=== PATIENT | male | born 1940 | race Caucasian/White ===

== ENCOUNTER 2018-02-11 22:43 | Emergency (ER) | payer OTHER ==
--- OUTSIDE RECORDS SUMMARY | 2018-02-11 22:47 | XMS REPORT | Continuity of Care Document ---
:1940 Author Organization Interface Problems Problem Status Onset Classification Date Comments Source Date Reported BODY MASS INDEX Active Condition 05/05/2014 38.0-38.9, ADULT 015 Medical Group Rotator cuff Active Problem 09/03/2017 Data syndrome<sup>53, 54, 014 migrated Medical 55, 56, 57</sup> from [facility]ricity on 08/22/14. PRE-OPERATIVE Active Condition 05/05/2014 CARDIOVASCULAR 014 Medical EXAMINATION Group Preoperative Active Problem 09/03/2017 Data cardiovascular 014 migrated Medical examination<sup>51, from [facility] 52</sup> Centricity on 08/25/14. ROTATOR CUFF TEAR Active Condition 05/05/2014 014 Medical Group SHOULDER PAIN, RIGHT Active Condition 05/05/2014 014 Medical Group ELBOW PAIN, RIGHT Active Condition 05/05/2014 014 Medical Group Pain in elbow<sup>37, Active Problem 09/03/2017 Data 38, 39</sup> 014 migrated Medical from [facility]ricity on 08/22/14. Shoulder joint Active Problem 09/03/2017 Data pain<sup>60</sup> 014 migrated Medical from [facility]ity on 08/22/14. NEED PROPHYLACTIC Active Condition 05/05/2014 VACCINATION&INOCULATIO 014 Medical N FLU Group ALLERGIC RHINITIS Active Condition 05/05/2014 CAUSE UNSPECIFIED 013 Medical Group BRONCHITIS Active Condition 05/05/2014 013 Medical Group ARTHRALGIA Active Condition 05/05/2014 013 Medical Group PARESTHESIA Active Condition 05/05/2014 013 Medical Group Allergic Active Problem 09/03/2017 Data rhinitis<sup>1</sup> 013 migrated Medical from [facility] Centricity on 08/22/14. Bronchitis<sup>5, Active Problem 09/03/2017 Data 6</sup> 013 migrated Medical from [facility]ity on 08/25/14. Joint pain<sup>33, 34, Active Problem 09/03/2017 Data 35</sup> 013 migrated Medical from [facility]ity on 08/22/14. Paresthesia<sup>41, Active Problem 09/03/2017 Data 42, 43</sup> 013 migrated Medical from [facility]ity on 08/22/14. OTITIS EXTERNA Inactive Condition 05/05/2014 013 Medical Group CERUMEN IMPACTION Active Condition 05/05/2014 013 Medical Group Impacted Active Problem 09/03/2017 Data cerumen<sup>31, 013 migrated Medical 32</sup> from [facility] Centricity on 08/25/14. Otitis Resolved Problem 09/03/2017 Data externa<sup>36</sup> 013 migrated Medical from [facility] Centricity on 10/10/14. PARKINSONISM, MILD Active Condition 05/05/2014 013 Medical Group Parkinsonism<sup>44, Active Problem 09/03/2017 Data 45, 46</sup> 013 migrated Medical from [facility] Centricity on 08/22/14. ABDOMINAL PAIN RIGHT Inactive Condition 05/05/2014 UPPER QUADRANT 013 Medical Group ARM PAIN, LEFT Active Condition 05/05/2014 013 Medical Group Pain in upper Active Problem 09/03/2017 Data limb<sup>40</sup> 013 migrated Medical from [facility]ricity on 08/22/14. DYSPNEA Active Condition 05/05/2014 012 Medical Group Pleurisy<sup>50</sup> Active Problem 09/03/2017 Data 012 migrated Medical from [facility] Centricity on 08/22/14. BICIPITAL Active Condition 05/05/2014 TENOSYNOVITIS 012 Medical Group SHOULDER JOINT Active Condition 05/05/2014 REPLACEMENT BY OTHER [facility] Medical MEANS Group Biceps Active Problem 09/03/2017 Data tendinitis<sup>4</sup> 012 migrated Medical from [facility] Centricity on 08/22/14. 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 SYNCOPE Inactive Condition 05/05/2014 012 Medical Group CARPAL TUNNEL Active Condition 05/05/2014 SYNDROME, BILATERAL 012 Medical Group Carpal tunnel Active Problem 09/03/2017 Data syndrome<sup>7, 8, 012 migrated Medical 9</sup> from [facility] Centricity on 08/22/14. PREVENTIVE HEALTH CARE Active Condition 05/05/2014 [facility] Medical Group Screening - health Active Problem 09/03/2017 Data check<sup>58, 59</sup> 012 migrated Medical from [facility] Centricity on 08/25/14. PERIPHERAL NEUROPATHY Active Condition 05/05/2014 012 Medical Group Peripheral nerve Active Problem 09/03/2017 Data disease<sup>47, 48, 012 migrated Medical 49</sup> from [facility] Centricity on 08/22/14. LEG PAIN Inactive Condition 05/05/2014 [facility] Medical Group TREMOR Active Condition 05/05/2014 012 Medical Group URGE INCONTINENCE Active Condition 05/05/2014 [facility] Medical Group Tremor<sup>61, 62, Active Problem 09/03/2017 Data 63</sup> 012 migrated Medical from [facility] Centricity on 08/22/14. Urge incontinence of Active Problem 09/03/2017 Data urine<sup>64, 65, 012 migrated Medical 66</sup> from [facility] on 08/22/14. HYPERTENSION Active Condition 05/05/2014 Medical Group ACID REFLUX DISEASE Active Condition 05/05/2014 Medical Group EPIGASTRIC PAIN Active Condition 05/05/2014 Medical Group CHF Active Condition 05/05/2014 Medical Group HYPERCHOLESTEROLEMIA Active Condition 05/05/2014 Medical Group COPD Active Condition 05/05/2014 Medical Group BACK PAIN Active Condition 05/05/2014 Medical Group Anxiety Active Problem 09/03/2017 Medical Group Backache<sup>2, Active Problem 09/03/2017 Data 3</sup> migrated Medical from [facility] Centricity on 08/25/14. Cancer of skin Resolved Problem 09/03/2017 Medical Group CHF - Congestive heart Active Problem 09/03/2017 failure Medical Group Chronic obstructive Active Problem 09/03/2017 Data lung disease<sup>10, migrated Medical 11, 12</sup> from [facility] Centricity on 08/22/14. Congestive heart Active Problem 09/03/2017 Data failure<sup>16, 17, migrated Medical 18</sup> from [facility] Cent[facility]ity on 08/22/14. Epigastric Active Problem 09/03/2017 Data pain<sup>19, 20, migrated Medical 21</sup> from [facility] Centricity on 08/22/14. Frequency Active Problem 09/03/2017 Medical Group Gastroesophageal Active Problem 09/03/2017 Data reflux disease<sup>22, migrated Medical 23, 24</sup> from [facility] Centricity on 08/22/14. S/p shoulder Active Problem 09/03/2017 replacement Medical Group Hard of hearing Active Problem 09/03/2017 Medical Group Hypercholesterolemia<s Active Problem 09/03/2017 Data up>25, 26, 27</sup> migrated Medical from [facility] Centricity on 08/22/14. Hyperlipidemia Active Problem 09/03/2017 Medical Group Hypertension Active Problem 09/03/2017 Medical Group Hypertensive Active Problem 09/03/2017 Data disorder<sup>28, 29, migrated Medical 30</sup> from [facility] Centricity on 08/22/14. 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 Medical Group Encounter for Active Problem 09/03/2017 preoperative vascular Medical examination Group Sleep apnea Active Problem 09/03/2017 Medical Group Depression Active Problem 02/15/2017 Medical Group Glasses Active Problem 02/15/2017 Medical Group Medications Medication Details Route Status Patient Ordering Order Source Instructions Provider Date Furosemide 20 MG Oral 20 mg=1 tab, Active Tablet PO, Daily, # 2018 Medical 30 tab, 5 Group Refill(s), Pharmacy: [facility]/pharmacy #[id number] hydrochlorothiazide 12.5 mg=1 Active 12.5 mg oral tablet tab, PO, 2018 Medical Daily, # 30 Group tab, 5 Refill(s), Pharmacy: [facility]/pharmacy #[id number] CoQ10 4 tabs, PO, Active BID 2018 Medical Group gabapentin 300 MG 300 mg=1 Active Oral Capsule cap, PO, BID 2018 Medical Group Diclofenac Sodium 2 gm, TOP, Active 0.01 MG/MG Topical QID, # 981 2016 Medical Gel [Voltaren] gm, 3 Group Refill(s), Pharmacy: [facility]/pharmacy #[id number] VOLTAREN 1 % GEL 4 g on Active joints 2013 Medical q.i.d. Group CYMBALTA 60 MG CPEP take 1 cap Active po qd 2013 Medical Group LYRICA 75 MG CAPS 1 po q hs Active 2013 Medical Group ADULT ASPIRIN EC LOW 1 po bid Active STRENGTH 81 MG TBEC 2013 Medical Group LYRICA 75 MG CAPS 1 po q hs Active 2013 Medical Group CYMBALTA 60 MG CPEP take 1 cap Active po qd 2013 Medical Group LYRICA 75 MG CAPS 1 po q hs Active 2013 Medical Group VOLTAREN 1 % GEL 4 g on No joints Longer 2014 Medical q.i.d. Active Group CYMBALTA 60 MG CPEP take 1 cap Active po qd 2013 Medical Group LYRICA 75 MG CAPS 1 po q hs Active 2013 Medical Group LYRICA 75 MG CAPS 1 po q hs Active 2013 Medical Group TOVIAZ 8 MG [id number] one p.o. No q.h.s. Longer 2013 Medical Active Group ULTRAM 50 MG TABS one every Active 4-6 hours 2012 Medical p.r.n. pain Group ULTRAM 50 MG TABS one every No 03/17/ 4-6 hours Longer 2012 Medical p.r.n. pain Active Group LEVAQUIN 750 MG TABS one p.o. q. Active day 2012 Medical Group LEVAQUIN 750 MG TABS one p.o. q. No day Longer 2012 Medical Active Group SINEMET 25-100 MG 1 po bid Active TABS 2012 Medical Group SINEMET 25-100 MG 1 po bid No TABS Longer 2012 Medical Active Group PRAVASTATIN SODIUM 80 one po daily Active MG TABS 2012 Medical Group CENTRUM SILVER TABS ONE PO QD Active 2012 Medical Group BYSTOLIC 10 MG TABS take 1 No tablet po Longer 2013 Medical twice a day Active Group PRAVASTATIN SODIUM 80 one po daily Active MG TABS 2013 Medical Group BYSTOLIC 10 MG TABS take 1 Active tablet po 2013 Medical twice a day Group PRAVASTATIN SODIUM 80 one po daily Active MG TABS 2013 Medical Group PRAVASTATIN SODIUM 80 one po daily Active MG TABS 2013 Medical Group BYSTOLIC 10 MG TABS take 1 Active tablet po 2013 Medical twice a day Group PRIMIDONE 50 MG TABS one half po No 01/16/ MH qhs x 1 Longer 2011 Medical week, Active Group thereafter 1 po q hs PRIMIDONE 50 MG TABS one half po No 01/16/ MH qhs x 1 Longer 2011 Medical week, Active Group thereafter 1 po q hs PRIMIDONE 50 MG TABS one half po No 01/16/ MH qhs x 1 Longer 2011 Medical week, Active Group thereafter 1 po q hs PA COENZYME Q-10 400 1 p.o. daily Active MG CAPS 2011 Medical Group POTASSIUM CHLORIDE 20 1 p.o. daily Active MEQ PACK 2011 Medical Group CASCARA SAGRADA 450 as needed Active MG CAPS 2011 Medical Group STOOL SOFTENER 240 MG as needed Active CAPS 2011 Medical Group POTASSIUM CHLORIDE 20 1 p.o. daily Active MEQ PACK 2011 Medical Group LISINOPRIL 40 MG TABS take 1 Active tablet po 2011 Medical daily Group NORVASC 10 MG TABS take 1 po Active daily 2011 Medical Group FUROSEMIDE 20 MG TABS take 1 Active tablet po 2011 Medical daily Group VESICARE 10 MG TABS take 1 No tablet po Longer 2011 Medical daily Active Group OMEPRAZOLE 20 MG CPDR take 1 po No daily Longer 2011 Medical Active Group LISINOPRIL 40 MG TABS take 1 Active tablet po 2011 Medical daily Group VESICARE 10 MG TABS take 1 No tablet po Longer 2011 Medical daily Active Group OMEPRAZOLE 20 MG CPDR take 1 po No daily Longer 2011 Medical Active Group LISINOPRIL 40 MG TABS take 1 Active tablet po 2011 Medical daily Group NORVASC 10 MG TABS take 1 po Active daily 2011 Medical Group FUROSEMIDE 20 MG TABS take 1 Active tablet po 2011 Medical daily Group OMEPRAZOLE 20 MG CPDR take 1 po No daily Longer 2011 Medical Active Group LISINOPRIL 40 MG TABS take 1 Active tablet po 2011 Medical daily Group FUROSEMIDE 20 MG TABS take 1 Active tablet po 2011 Medical daily Group OMEPRAZOLE 20 MG CPDR take 1 po No daily Longer 2011 Medical Active Group Allergies, Adverse Reactions, Alerts Substance Category Reaction Severity Reaction Status Date Comments Source type Reported LIPITOR Drug LIPITOR allergy 2 Medical Group CRESTOR Drug CRESTOR allergy 2 Medical Group PRAVACHOL Drug PRAVACHOL allergy 2 Medical Group TILIPIX Drug TILIPIX allergy 2 Medical Group atorvastati Assertion Drug Active Data n<sup>2</dupree allergy 2 migrated Medical p> from Group Centricity on 07/23/14. Originally documented as LIPITOR. rosuvastati Assertion Drug Active Data n<sup>3</dupree allergy 2 migrated Medical p> from Group Centricity on 07/23/14. Originally documented as CRESTOR. SINEMET Food SINEMET allergy 3 Medical Group TETANUS Drug TETANUS allergy Medical Group HORSE SERUM Drug HORSE allergy SERUM Medical Group tetanus Assertion Drug Active Data toxoid<sup> allergy migrated Medical 1</sup> from [email or web address] [facility] [employer] on 07/23/14. Originally documented as TETANUS. Immunizations Immunization Date Site Status Last Comments Source Given Updated influenza virus completed GE Result Comment: Medical vaccine, 4 fluzone Group inactivated<sup> preservative 1</sup> free (6-35 mo.) [[id number]]. Migrated from OBS ; Data migrated from [employer] on 04/27/2015. influenza completed Medical immunization 2 Group (Flu Vax) has been administered Hx influenza Right completed GE Result Comment: Medical vaccine-unspecif 2 Deltoid fluvax. Group ied<sup>2</sup> Migrated from OBS ; Data migrated from [employer] on 04/27/2015. Results Order Name Results Value Reference Date Interpretation Comments Source Range Elbow 2 Elbow 2 Patient Name: APRIL PARNELL. 02/12 - [facility] DX views DX - [place] : 1940; Age: 76 years y/o; Male. MR: [id number]. Read by: Bayron Rocha MD Dictated Date/time: 02/12/17 16:47 Ordering Physician: Ulysses Jones MD. Electronically Signed by: Bayron Rocha MD 02/12/17 16:49 FINAL REPORT RIGHT ELBOW 2 VIEWS. HISTORY: Status post injury with right elbow pain. COMPARISON: Right elbow x-ray 06/21/2015. FINDINGS: Frontal and lateral views of the right elbow were obtained. Moderate to marked radiocapitellar and ulnotrochlear joint space narrowing noted with marked periarticular osteophyte formation and degenerative fibrocystic change. No fracture, dislocation or elbow genesis nt effusion. Stable 6 mm well-corticated ossific fragment noted anterior to the distal humeral metaphysis suspicious for intra-articular ossific loose body. SL: [id number] Shoulder Shoulder EXAM: Shoulder series DX 06/20 - [facility] series DX series DX /2015 - [place] HISTORY: PAIN COMPARISON: 02/22/2015 Read by: Igor Ace MD Dictated Date/time: 06/21/15 15:17 Electronically Signed by: Igor Ace MD 06/21/15 15:21 FINAL REPORT IMPRESSION: Internal and external rotation views of the left shoulder. Left shoulder hardware projects unchanged. Subchondral sclerosis of the glenoid is again noted. There is a cortical step-off and small linear lucency, possibly a fracture at the mid aspect of the gleno id. No humeral fracture is seen. AP alignment is difficult to ascertain without benefit of a transscapular Y or axillary view. Elbow 2 Elbow 2 EXAM: 06/20 - [facility] views DX views DX - [place] 2 view(s) of the right elbow. Read by: Juan Terrazas MD Dictated Date/time: 06/21/15 14:36 INDICATION: Electronically Signed by: Juan Terrazas MD 06/21/15 14:38 FINAL REPORT Right elbow pain. COMPARISON: None. FINDINGS: Fracture: No acute fracture or dislocation. Degenerative changes: Severe degenerative changes with joint space narrowing, osteophytes, and subchondral sclerosis. Fat pads: Anterior fat pad displacement. Soft tissues: No large soft tissue swelling. IMPRESSION: 1. Severe degenerative changes of the right elbow. This could represent a neuropathic joint. 2. Displaced anterior fat pad consistent with elbow joint effusion. If this patient has had elbow trauma, this can be associated with an occult intra- articular fracture. Correlate clinically. Shoulder Shoulder Exam: Radiographic examination of the left shoulder in 2 views: 02/22 - [facility] series DX series DX /2014 - [place] History: Left shoulder pain . Read by: Wendy Aldrich MD Dictated Date/time: 02/23/15 12:04 Electronically Signed by: Wendy Aldrich MD 02/23/15 12:06 FINAL REPORT Comparison Study: September 08, 2009 Findings: There is no evidence of fracture, subluxation, dislocation or deformity. There is no evidence of soft tissue swelling . The bones are normally mineralized. Evidence of prior arthroplasty of the left shoulder is noted . A prosthetic component appears normal in appearance and alignment. Postsurgical changes are also noted in the glenoid. The visualized joint spaces are within normal limits. . Impression: Evidence of prior left shoulder arthroplasty.. Unremarkable study. . Chemistry FOLATE >24.0 ng/mL 03/21 ng/mL Medical Group Chemistry FOLATE 20.1 ng/mL 12/21 Medical Group Chemistry PSA 0.90 ng/mL 06/21 MH /2004 Medical Group Vital Signs Vital Sign Value Date Comments Source Weight 112.727 08/23/2017 Medical Group BMI Calculated 37.8 08/23/2017 Medical Group Height 172.7 cm 08/23/2017 Medical Group Systolic (mm Hg) 153 08/23/2017 Medical Group Diastolic (mm Hg) 74 08/23/2017 Medical Group Temperature Oral (F) 98.5 F 08/23/2017 Medical Group Heart Rate 70 08/23/2017 Medical Group Respitory Rate 20 08/23/2017 Medical Group BMI Calculated 38.17 07/30/2017 Medical Group Heart Rate 73 07/30/2017 Medical Group Temperature Oral (F) 98.0 F 07/30/2017 Medical Group Height 172.72 cm 07/30/2017 Medical Group Weight 113.864 07/30/2017 Medical Group Systolic (mm Hg) 167 07/30/2017 Medical Group Diastolic (mm Hg) 67 07/30/2017 Medical Group Weight 112.545 02/12/2017 Medical Group Heart Rate 62 02/12/2017 Medical Group Systolic (mm Hg) 177 02/12/2017 Medical Group Diastolic (mm Hg) 70 02/12/2017 Medical Group Weight 242 05/05/2014 Medical Group Systolic (mm Hg) 130 05/05/2014 Medical Group Diastolic (mm Hg) 70 05/05/2014 Medical Group Heart Rate 80 05/05/2014 Medical Group Respitory Rate 16 05/05/2014 Medical Group Temperature Oral (F) 98.7 F 05/05/2014 Medical Group Weight 231 10/31/2013 Medical Group Heart Rate 82 10/31/2013 Medical Group Systolic (mm Hg) 137 10/31/2013 Medical Group Diastolic (mm Hg) 76 10/31/2013 Medical Group Weight 230 09/22/2013 Medical Group Weight 224 08/22/2013 Medical Group Weight 224 07/21/2013 Medical Group Weight 224 07/07/2013 Medical Group Weight 224 05/26/2013 Medical Group Systolic (mm Hg) 150 05/26/2013 Medical Group Diastolic (mm Hg) 80 05/26/2013 Medical Group Heart Rate 80 05/26/2013 Medical Group Weight 212 05/05/2013 Medical Group Weight 2126 04/30/2013 [facility] Heart Rate 80 04/30/2013 [facility] Group Systolic (mm Hg) 144 04/30/2013 [facility] Group Diastolic (mm Hg) 72 04/30/2013 [facility] Group Weight 220 04/28/2013 Medical Group Weight 219.6 04/17/2013 [facility] Temperature Oral (F) 98.3 F 04/17/2013 [facility] Heart Rate 70 04/17/2013 [facility] Systolic (mm Hg) 100 04/17/2013 [facility] Diastolic (mm Hg) 70 04/17/2013 [facility] Weight 216 04/02/2013 Medical Group Heart Rate 76 04/02/2013 [facility] Systolic (mm Hg) 132 04/02/2013 [facility] Diastolic (mm Hg) 58 04/02/2013 Medical Group Weight 213 03/17/2013 Medical Group Heart Rate 77 03/17/2013 Medical Group Temperature Oral (F) 99.1 F 03/17/2013 [facility] Group Systolic (mm Hg) 136 03/17/2013 [facility] Diastolic (mm Hg) 61 03/17/2013 Medical Group Weight 213 12/09/2012 Medical Group Respitory Rate 20 12/09/2012 Medical Group Temperature Oral (F) 97.5 F 12/09/2012 [facility] Group Systolic (mm Hg) 110 12/09/2012 [facility] Diastolic (mm Hg) 70 12/09/2012 Medical Group Heart Rate 68 12/09/2012 Medical Group Weight 214 12/04/2012 Medical Group Heart Rate 65 12/04/2012 [facility] Group Systolic (mm Hg) 138 12/04/2012 [facility] Group Diastolic (mm Hg) 65 12/04/2012 Medical Group Weight 218.8 11/11/2012 [facility] Group Systolic (mm Hg) 134 11/11/2012 Medical Group Diastolic (mm Hg) 74 11/11/2012 Medical Group Heart Rate 76 11/11/2012 Medical Group Heart Rate 55 11/04/2012 [facility] Group Systolic (mm Hg) 126 11/04/2012 Medical Group Diastolic (mm Hg) 61 11/04/2012 Medical Group Weight 223 10/17/2012 Medical Group Temperature Oral (F) 98.5 F 10/17/2012 Medical Group Heart Rate 60 10/17/2012 Medical Group Systolic (mm Hg) 130 10/17/2012 MH Medical Group Diastolic (mm Hg) 60 10/17/2012 MH [facility] Group Weight 228 09/04/2012 [facility] Systolic (mm Hg) 125 09/04/2012 [facility] Diastolic (mm Hg) 59 09/04/2012 [facility] Heart Rate 56 09/04/2012 [facility] Weight 238 04/29/2012 [facility] Heart Rate 60 04/29/2012 [facility] Group Systolic (mm Hg) 130 04/29/2012 [facility] Group Diastolic (mm Hg) 60 04/29/2012 [facility] Group Weight 239.8 04/17/2012 [facility] Group Temperature Oral (F) 98.0 F 04/17/2012 [facility] Heart Rate 78 04/17/2012 [facility] Group Systolic (mm Hg) 130 04/17/2012 [facility] Diastolic (mm Hg) 64 04/17/2012 MH [facility] Group Weight 240 03/11/2012 [facility] Heart Rate 96 03/11/2012 [facility] Systolic (mm Hg) 120 03/11/2012 [facility] Diastolic (mm Hg) 78 03/11/2012 MH [facility] Group Weight 245 03/01/2012 MH [facility] Group Weight 245 02/19/2012 [facility] Group Temperature Oral (F) 98.1 F 02/19/2012 [facility] Group Heart Rate 80 02/19/2012 [facility] Group Systolic (mm Hg) 140 02/19/2012 [facility] Group Diastolic (mm Hg) 60 02/19/2012 Medical Group Weight 237 02/06/2012 [facility] Heart Rate 59 02/06/2012 [facility] Systolic (mm Hg) 149 02/06/2012 [facility] Diastolic (mm Hg) 60 02/06/2012 [facility] Weight 239.8 01/17/2012 [facility] Temperature Oral (F) 98.1 F 01/17/2012 Medical Group Heart Rate 60 01/17/2012 [facility] Group Systolic (mm Hg) 100 01/17/2012 [facility] Group Diastolic (mm Hg) 60 01/17/2012 Medical Group Weight 233 01/03/2012 [facility] Group Heart Rate 64 01/03/2012 Medical Group Respitory Rate 20 01/03/2012 [facility] Group Systolic (mm Hg) 130 01/03/2012 [facility] Group Diastolic (mm Hg) 60 01/03/2012 Medical Group Weight 236.4 12/19/2011 Medical Group Temperature Oral (F) 98.5 F 12/19/2011 Medical Group Heart Rate 60 12/19/2011 Medical Group Systolic (mm Hg) 122 12/19/2011 Medical Group Diastolic (mm Hg) 60 12/19/2011 Medical Group Weight 237.2 11/28/2011 Medical Group Temperature Oral (F) 98.2 F 11/28/2011 Medical Group Heart Rate 64 11/28/2011 Medical Group Systolic (mm Hg) 122 11/28/2011 Medical Group Diastolic (mm Hg) 60 11/28/2011 Medical Group Height 67 11/06/2011 Medical Group Weight 234 11/06/2011 Medical Group Temperature Oral (F) 99.0 F 11/06/2011 Medical Group Heart Rate 64 11/06/2011 Medical Group Systolic (mm Hg) 134 11/06/2011 Medical Group Diastolic (mm Hg) 64 11/06/2011 Medical Group Encounters Location Location Encounter Encounter Reason Attending ADM DC Status Source Details Type Number For Provider Date Date Visit [facility] [place] Office [id number] [place] 04/28 04/28 [place] Medical Visit [id number] MD Antony /2013 Medical [facility] Orthopedics [facility] [place] [facility] [id number] [place] 04/30 04/30 [place] Medical Visit [id number] MD Antony /2013 Medical [facility] Internal Medicine [facility] [place] [facility] [id number] Nunu 05/05 05/05 [place] Medical Visit [id number] MD Antony /2013 Medical [facility] Orthopedics [facility] [place] [facility] [id number] [place] 05/26 05/26 [place] Medical Visit 7040 MD Antony /2013 Medical [facility] Cardiology [facility] Lab Report [id number] Nunu 06/19 06/19 [place] [id number] MD Antony /2013 Medical Medical [facility] Group [facility] [place] Office [id number] [place]unu 07/07 07/07 [place] Medical Visit [id number] MD Antony /2013 Medical [facility] Orthopedics [facility] [place] Office [id number] [place] 07/21 07/21 [place] Medical Visit [id number] MD Antony /2013 Medical [facility] Orthopedics [facility] [place] Office [id number] Nunu 08/22 08/22 [place] Medical Visit [id number] MD Antony /2013 Medical [facility] Orthopedics [facility] [place] [facility] [id number] [place]unu 09/22 09/22 [place] Medical Visit [id number] MD Antony /2013 Medical [facility] Orthopedics [facility] [place] [facility] [id number] Nunu 10/31 10/31 [place] Medical Visit [id number] MD Antony /2013 Medical [facility] Orthopedics [facility] [place] [facility] [id number] Melanie 05/05 05/05 [place] Medical Visit 8640 [place], /2014 [facility] Outpatient [id number] ULYSSES 02/22 Active [facility] ESTELA [place] [facility] [id number] XRAY VISIT 02/22 Active [facility] [place] [facility] [id number] JACKIE 03/09 Active [facility] MUCH [place] Outpatient [id number] JACKIE 05/18 Active [facility] [place] Outpatient [id number] XRAY VISIT 06/20 Active [facility] [place] [facility] [id number] XRAY VISIT 06/20 Active [facility] [place] [facility] [id number] ULYSSES 06/20 Active [facility] ESTELA [facility] [id number] L MELANIE 03/31 [facility] [id number] [facility] 04/10 Active [facility] VISIT /2016 [place] [facility] [id number] NUCLEAR 04/10 Active [facility] VISIT /2016 [facility] [id number] L MELANIE 10/11 [facility] [id number] GRAMBLING 11/16 Active [facility] JUANCARLOS [facility] [id number] [facility] [place] [facility] [id number] ULYSSES 02/12 Active [facility] ESTELA [place] [facility] [id number] XRAY VISIT 02/12 Active [facility] [place] [facility] [id number] XRAY VISIT 02/12 Active [facility] [place] [facility] Outpatient [id number] Nunu Hardy 02/12 02/13 Orthopedics /2016 [facility] Ambulatory [id number] Nunu Hardy 02/12 02/12 Radiology Pre-Reg /2016 [facility] Outpatient [id number] Nunu Hardy 02/12 02/13 Medicine /2016 [facility] Outpatient [id number] EREN 05/28 Active [facility] JUANCARLOS [place] [facility] [id number] Nunu Hardy 05/28 05/28 Cardiology Pre-Reg /2017 [facility] Outpatient [id number] EREN 07/09 Active [facility] JUANCARLOS [place] [facility] [id number] Eren 07/09 07/09 Cardiology Pre-Reg Juancarlos /2017 [facility] Outpatient [id number] EREN07/30 Active [facility] JUANCARLOS [facility]patient [id number] Eren 07/30 07/31 Cardiology Juancarlos /2017 [facility] Outpatient [id number] DOPPLER 08/23 Active [facility] VISIT /2017 [facility] [id number] 08/23 Active [facility] JUANCARLOS [place] [facility] Outpatient [id number] Nunu Hardy 08/23 08/24 Radiology /2017 [facility] Outpatient [id number] Eren 08/23 08/24 Cardiology Juancarlos /2017 [facility] Outpatient [id number] EREN11/27 Active [facility] JUANCARLOS [facility] [id number] NUCLEAR 12/03 Active [facility] VISIT /2017 [facility] [id number] DOPPLER 12/11 Active [facility] VISIT /2017 [facility] [id number] DOPPLER 12/11 Active [facility] VISIT /2017 [facility] [id number] NUCLEAR 12/11 Active [facility] VISIT /2017 [place] [facility] [id number] EREN 12/11 Active [facility] JUANCARLOS [facility] [id number] DOPPLER 06/10 Active [facility] VISIT /2018 [place] [facility] [id number] EREN 06/10 Active [facility] JUANCARL[facility] [place] Procedures Procedure Code Date Perfomer Comments Source colonoscopy 58628 08/09/2011 [facility] colonoscopy 80319 08/09/2011 [facility] Arthroplasty [id number] 09/08/2009 [facility] colonoscopy 53079 05/02/2006 [facility] Arthroplasty [id number] 03/26/2006 [facility] Reduction of [id number] 03/26/2003 five times Medical fracture of upper Group arm with internal fixation<sup>1</sup > Arthroplasty [id number] [facility] Excision of benign [id number] Medical lesion of face and Group ears
--- OUTSIDE RECORDS SUMMARY | 2018-02-11 22:48 | XMS REPORT | Continuity of Care Document ---
:1940 Author Organization [facility] Care Team Providers Name Role Phone MD Antony, Nunu Unavailable Unavailable Insurance Providers Payer name Policy type / Policy ID Covered republican ID Policy Petersen Coverage type AETNA SECONDARY TO MEDICARE MEDICARE PRIMARY AETNA SECONDARY TO MEDICARE MED[place] [employer] AETNA - [place] [employer]MICAL (MEDICARE SUPPLEMENT) MEDICARE B-[place]: [employer] MEDICARE B-[place]: [employer] AETNA - [place] CHEMICAL (MEDICARE SUPPLEMENT) Encounters Encounter Performer Location Date Office Visit Nunu Hardy MD [facility] [place] [facility] May Allergies, Adverse Reactions, Alerts Type Substance Reaction Status Drug allergy TETANUS Active Drug allergy HORSE SERUM Active Drug allergy LIPITOR Active Drug allergy CRESTOR Active Drug allergy PRAVACHOL Active Drug allergy TILIPIX Active Food allergy SINEMET imbalanced and dizzy Inactive Problems Problem Effective Dates Problem Status HYPERTENSION Active ACID REFLUX DISEASE Active EPIGASTRIC PAIN Active TREMOR Nov 06, 2011 Active URGE INCONTINENCE Nov 06, 2011 Active CHF Active HYPERCHOLESTEROLEMIA Active COPD Active BACK PAIN Active LEG PAIN Nov 28, 2011 Active PERIPHERAL NEUROPATHY Dec 19, 2011 Active PREVENTIVE HEALTH CARE Jan 03, 2012 Active CARPAL TUNNEL SYNDROME, BILATERAL Jan 17, 2012 Active SYNCOPE Feb 19, 2012 Active BICIPITAL TENOSYNOVITIS Mar 01, 2012 Active SHOULDER JOINT REPLACEMENT BY OTHER MEANS Mar 01, 2012 Active CARDIAC ARRHYTHMIA Feb 28, 2012 Active DYSPNEA Mar 11, 2012 Active ABDOMINAL PAIN RIGHT UPPER QUADRANT Sep 04, 2012 Active ARM PAIN, LEFT Sep 04, 2012 Active PARKINSONISM, MILD Oct 17, 2012 Active OTITIS EXTERNA Dec 04, 2012 Active CERUMEN IMPACTION Dec 04, 2012 Active ALLERGIC RHINITIS CAUSE UNSPECIFIED Mar 17, 2013 Active BRONCHITIS Mar 17, 2013 Active ARTHRALGIA Mar 17, 2013 Active PARESTHESIA Mar 17, 2013 Active NEED PROPHYLACTIC VACCINATION&INOCULATION FLU Apr 02, 2013 Active SHOULDER PAIN, RIGHT Apr 28, 2013 Active ELBOW PAIN, RIGHT Apr 28, 2013 Active ROTATOR CUFF TEAR May 05, 2013 Active PRE-OPERATIVE CARDIOVASCULAR EXAMINATION May 26, 2013 Active Procedures Date Description Comments August 09, 2011 colonoscopy Done Nov 06, 2011 smoking status former smoker August 09, 2011 colonoscopy Complete Apr 29, 2012 smoking status former smoker Nov 11, 2012 smoking status former smoker May 02, 2006 colonoscopy Done May 26, 2013 smoking status former smoker Medications Medication Instructions Start Date Status LISINOPRIL 40 MG TABS take 1 tablet po daily Nov 06, 2011 Active NORVASC 10 MG TABS take 1 po daily Nov 06, 2011 Active FUROSEMIDE 20 MG TABS take 1 tablet po daily Nov 06, 2011 Active PA COENZYME Q-10 400 MG CAPS 1 p.o. daily Nov 28, 2011 Active POTASSIUM CHLORIDE 20 MEQ PACK 1 p.o. daily Nov 28, 2011 Active CASCARA SAGRADA 450 MG CAPS as needed Nov 28, 2011 Active STOOL SOFTENER 240 MG CAPS as needed Nov 28, 2011 Active VESICARE 10 MG TABS take 1 tablet po daily Nov 06, 2011 Inactive PRIMIDONE 50 MG TABS one half po qhs x 1 week, Jan 17, 2012 Inactive thereafter 1 po q hs PRAVASTATIN SODIUM 80 MG TABS one po daily Mar 26, 2012 Active CENTRUM SILVER TABS ONE PO QD Mar 26, 2012 Active BYSTOLIC 10 MG TABS take 1 tablet po twice a day Mar 26, 2012 Active SINEMET 25-100 MG TABS 1 po bid Apr 17, 2012 Inactive SINEMET 25-100 MG TABS 1 po bid Oct 17, 2012 Active LEVAQUIN 750 MG TABS one p.o. q. day Dec 04, 2012 Active OMEPRAZOLE 20 MG CPDR take 1 po daily Nov 06, 2011 Inactive ULTRAM 50 MG TABS one every 4-6 hours p.r.n. pain Mar 17, 2013 Active TOVIAZ 8 MG [id number] one p.o. q.h.s. Apr 02, 2013 Active VOLTAREN 1 % GEL 4 g on joints q.i.d. Apr 17, 2013 Active CYMBALTA 60 MG CPEP take 1 cap po qd Apr 17, 2013 Active LYRICA 75 MG CAPS 1 po q hs Apr 17, 2013 Active ADULT ASPIRIN EC LOW STRENGTH 1 po bid Apr 17, 2013 Active 81 MG TBEC Immunizations Vaccine Date Status influenza immunization (Flu Vax) has been administered Jan 03, 2012 completed Vital Signs Date Description Test Result Nov 06, 2011 height E&M - 8302-2 HEIGHT 67 in Nov 06, 2011 weight E&M - 3141-9 WEIGHT 234 lb Nov 06, 2011 temperature E&M TEMPERATURE 99.0 deg f Nov 06, 2011 pulse rate E&M - 8867-4 PULSE RATE 64 /min Nov 06, 2011 blood pressure, systolic - 8480-6 BP SYSTOLIC 134 mm Hg Nov 06, 2011 blood pressure, diastolic - 8462-4 BP DIASTOLIC 64 mm Hg Nov 28, 2011 weight E&M - 3141-9 WEIGHT 237.2 lb Nov 28, 2011 temperature E&M TEMPERATURE 98.2 deg f Nov 28, 2011 pulse rate E&M - 8867-4 PULSE RATE 64 /min Nov 28, 2011 blood pressure, systolic - 8480-6 BP SYSTOLIC 122 mm Hg Nov 28, 2011 blood pressure, diastolic - 8462-4 BP DIASTOLIC 60 mm Hg Dec 19, 2011 weight E&M - 3141-9 WEIGHT 236.4 lb Dec 19, 2011 temperature E&M TEMPERATURE 98.5 deg f Dec 19, 2011 pulse rate E&M - 8867-4 PULSE RATE 60 /min Dec 19, 2011 blood pressure, systolic - 8480-6 BP SYSTOLIC 122 mm Hg Dec 19, 2011 blood pressure, diastolic - 8462-4 BP DIASTOLIC 60 mm Hg Jan 03, 2012 weight E&M - 3141-9 WEIGHT 233 lb Jan 03, 2012 pulse rate E&M - 8867-4 PULSE RATE 64 /min Jan 03, 2012 respiratory rate E&M - 9279-1 RESP RATE 20 /min Jan 03, 2012 blood pressure, systolic - 8480-6 BP SYSTOLIC 130 mm Hg Jan 03, 2012 blood pressure, diastolic - 8462-4 BP DIASTOLIC 60 mm Hg Jan 17, 2012 weight E&M - 3141-9 WEIGHT 239.8 lb Jan 17, 2012 temperature E&M TEMPERATURE 98.1 deg f Jan 17, 2012 pulse rate E&M - 8867-4 PULSE RATE 60 /min Jan 17, 2012 blood pressure, systolic - 8480-6 BP SYSTOLIC 100 mm Hg Jan 17, 2012 blood pressure, diastolic - 8462-4 BP DIASTOLIC 60 mm Hg Feb 06, 2012 weight E&M - 3141-9 WEIGHT 237 lb Feb 06, 2012 pulse rate E&M - 8867-4 PULSE RATE 59 /min Feb 06, 2012 blood pressure, systolic - 8480-6 BP SYSTOLIC 149 mm Hg Feb 06, 2012 blood pressure, diastolic - 8462-4 BP DIASTOLIC 60 mm Hg Feb 19, 2012 weight E&M - 3141-9 WEIGHT 245 lb Feb 19, 2012 temperature E&M TEMPERATURE 98.1 deg f Feb 19, 2012 pulse rate E&M - 8867-4 PULSE RATE 80 /min Feb 19, 2012 blood pressure, systolic - 8480-6 BP SYSTOLIC 140 mm Hg Feb 19, 2012 blood pressure, diastolic - 8462-4 BP DIASTOLIC 60 mm Hg Mar 01, 2012 weight E&M - 3141-9 WEIGHT 245 lb Mar 11, 2012 weight E&M - 3141-9 WEIGHT 240 lb Mar 11, 2012 pulse rate E&M - 8867-4 PULSE RATE 96 /min Mar 11, 2012 pulse rate, sitting, left PULSE SIT L 96 /min Mar 11, 2012 blood pressure, systolic, sitting, left arm BP SYS SIT L 120 mm Hg Mar 11, 2012 blood pressure, diastolic, sitting, left arm BP MANISH SIT L 78 mm Hg Mar 11, 2012 blood pressure, systolic - 8480-6 BP SYSTOLIC 120 mm Hg Mar 11, 2012 blood pressure, diastolic - 8462-4 BP DIASTOLIC 78 mm Hg Apr 17, 2012 weight E&Moi - 3141-9 WEIGHT 239.8 lb Apr 17, 2012 temperature E&M TEMPERATURE 98.0 deg f Apr 17, 2012 pulse rate E&M - 8867-4 PULSE RATE 78 /min Apr 17, 2012 blood pressure, systolic - 8480-6 BP SYSTOLIC 130 mm Hg Apr 17, 2012 blood pressure, diastolic - 8462-4 BP DIASTOLIC 64 mm Hg Apr 29, 2012 weight E&M - 3141-9 WEIGHT 238 lb Apr 29, 2012 pulse rate, sitting, left PULSE SIT L 60 /min Apr 29, 2012 blood pressure, systolic, sitting, left arm BP SYS SIT L 130 mm Hg Apr 29, 2012 blood pressure, diastolic, sitting, left arm BP MANISH SIT L 60 mm Hg Apr 29, 2012 blood pressure, systolic - 8480-6 BP SYSTOLIC 130 mm Hg Apr 29, 2012 pulse rate E&M - 8867-4 PULSE RATE 60 /min Apr 29, 2012 blood pressure, diastolic - 8462-4 BP DIASTOLIC 60 mm Hg Sep 04, 2012 weight E&M - 3141-9 WEIGHT 228 lb Sep 04, 2012 blood pressure, systolic - 8480-6 BP SYSTOLIC 125 mm Hg Sep 04, 2012 blood pressure, diastolic - 8462-4 BP DIASTOLIC 59 mm Hg Sep 04, 2012 pulse rate E&M - 8867-4 PULSE RATE 56 /min Oct 17, 2012 weight E&M - 3141-9 WEIGHT 223 lb Oct 17, 2012 temperature E&M TEMPERATURE 98.5 deg f Oct 17, 2012 pulse rate E&M - 8867-4 PULSE RATE 60 /min Oct 17, 2012 blood pressure, systolic - 8480-6 BP SYSTOLIC 130 mm Hg Oct 17, 2012 blood pressure, diastolic - 8462-4 BP DIASTOLIC 60 mm Hg Nov 04, 2012 pulse rate E&M - 8867-4 PULSE RATE 55 /min Nov 04, 2012 blood pressure, systolic - 8480-6 BP SYSTOLIC 126 mm Hg Nov 04, 2012 blood pressure, diastolic - 8462-4 BP DIASTOLIC 61 mm Hg Nov 11, 2012 weight E&M - 3141-9 WEIGHT 218.8 lb Nov 11, 2012 blood pressure, systolic, sitting, left arm BP SYS SIT L 134 mm Hg Nov 11, 2012 blood pressure, diastolic, sitting, left arm BP MANISH SIT L 74 mm Hg Nov 11, 2012 pulse rate, sitting, left PULSE SIT L 76 /min Nov 11, 2012 blood pressure, systolic - 8480-6 BP SYSTOLIC 134 mm Hg Nov 11, 2012 pulse rate E&M - 8867-4 PULSE RATE 76 /min Nov 11, 2012 blood pressure, diastolic - 8462-4 BP DIASTOLIC 74 mm Hg Dec 04, 2012 weight E&M - 3141-9 WEIGHT 214 lb Dec 04, 2012 pulse rate E&M - 8867-4 PULSE RATE 65 /min Dec 04, 2012 blood pressure, systolic - 8480-6 BP SYSTOLIC 138 mm Hg Dec 04, 2012 blood pressure, diastolic - 8462-4 BP DIASTOLIC 65 mm Hg Dec 09, 2012 weight E&M - 3141-9 WEIGHT 213 lb Dec 09, 2012 respiratory rate E&M - 9279-1 RESP RATE 20 /min Dec 09, 2012 temperature E&M TEMPERATURE 97.5 deg f Dec 09, 2012 blood pressure, systolic - 8480-6 BP SYSTOLIC 110 mm Hg Dec 09, 2012 blood pressure, diastolic - 8462-4 BP DIASTOLIC 70 mm Hg Dec 09, 2012 pulse rate E&M - 8867-4 PULSE RATE 68 /min Mar 17, 2013 weight E&M - 3141-9 WEIGHT 213 lb Mar 17, 2013 pulse rate E&M - 8867-4 PULSE RATE 77 /min Mar 17, 2013 temperature E&M TEMPERATURE 99.1 deg f Mar 17, 2013 blood pressure, systolic - 8480-6 BP SYSTOLIC 136 mm Hg Mar 17, 2013 blood pressure, diastolic - 8462-4 BP DIASTOLIC 61 mm Hg Apr 02, 2013 weight E&M - Celeste1-9 WEIGHT 216 lb Apr 02, 2013 pulse rate E&M - 8867-4 PULSE RATE 76 /min Apr 02, 2013 blood pressure, systolic - 8480-6 BP SYSTOLIC 132 mm Hg Apr 02, 2013 blood pressure, diastolic - 8462-4 BP DIASTOLIC 58 mm Hg Apr 17, 2013 weight E&M - 3141-9 WEIGHT 219.6 lb Apr 17, 2013 temperature E&M TEMPERATURE 98.3 deg f Apr 17, 2013 pulse rate E&M - 8867-4 PULSE RATE 70 /min Apr 17, 2013 blood pressure, systolic - 8480-6 BP SYSTOLIC 100 mm Hg Apr 17, 2013 blood pressure, diastolic - 8462-4 BP DIASTOLIC 70 mm Hg Apr 28, 2013 weight E&Moi - Celeste1-9 WEIGHT 220 lb Apr 30, 2013 weight E&Moi - Celeste1-9 WEIGHT 2126 lb Apr 30, 2013 pulse rate E&M - 8867-4 PULSE RATE 80 /min Apr 30, 2013 blood pressure, systolic - 8480-6 BP SYSTOLIC 144 mm Hg Apr 30, 2013 blood pressure, diastolic - 8462-4 BP DIASTOLIC 72 mm Hg May 05, 2013 weight E&Moi - Celeste1-9 WEIGHT 212 lb May 26, 2013 weight E&Moi - 3141-9 WEIGHT 224 lb May 26, 2013 blood pressure, systolic, sitting, left arm BP SYS SIT L 150 mm Hg May 26, 2013 blood pressure, diastolic, sitting, left arm BP MANISH SIT L 80 mm Hg May 26, 2013 pulse rate, sitting, left PULSE SIT L 80 /min May 26, 2013 blood pressure, systolic - 8480-6 BP SYSTOLIC 150 mm Hg May 26, 2013 pulse rate E&M - 8867-4 PULSE RATE 80 /min May 26, 2013 blood pressure, diastolic - 8462-4 BP DIASTOLIC 80 mm Hg Results Date Description Test Name Value Reference Interpretation Status Dec 21, 2011 folate, serum FOLATE 20.1 ng/mL Normal Sep 14, 2003 prostate specific PSA 0.90 ng/mL antigen Mar 20, 2013 folate, serum FOLATE >24.0 ng/mL Normal ng/mL
--- OUTSIDE RECORDS SUMMARY | 2018-02-11 22:48 | XMS REPORT | Continuity of Care Document ---
:1940 Author Organization [facility] Care Team Providers Name Role Phone MD Antony, Nunu Unavailable Unavailable Insurance Providers Payer name Policy type / Policy ID Covered democrat ID Policy Petersen Coverage type AETNA SECONDARY TO MEDICARE MEDICARE PRIMARY AETNA SECONDARY TO MEDICARE MED[place] [employer] AETNA - [place] [employer]MICAL (MEDICARE SUPPLEMENT) MEDICARE B-[place]: [employer] MEDICARE [place]: [employer] AETNA - [place] CHEMICAL (MEDICARE SUPPLEMENT) Encounters Encounter Performer Location Date Office Visit Nunu Hardy MD [facility] Apr Allergies, Adverse Reactions, Alerts Type Substance Reaction [...] ROTATOR CUFF TEAR May 05, 2013 Active Procedures Date Description Comments August 09, 2011 colonoscopy Done Nov 06, 2011 smoking status former smoker August 09, 2011 colonoscopy Complete Apr 29, 2012 smoking status former smoker Nov 11, 2012 smoking status former smoker May 02, 2006 colonoscopy Done Medications Medication Instructions Start Date Status LISINOPRIL [...] Mar 17, 2013 Active TOVIAZ 8 MG [id number] one p.o. q.h.s. Apr 02, 2013 Active [...] 78 mm Hg Apr 17, 2012 weight E&M - 3141-9 WEIGHT 239.8 lb Apr 17, [...] Hg Apr 02, 2013 weight E&M - 3141-9 WEIGHT 216 lb Apr 02, 2013 pulse [...] 70 mm Hg Apr 28, 2013 weight E&M - 3141-9 WEIGHT 220 lb Apr 30, 2013 weight E&M - 3141-9 WEIGHT 2126 lb Apr 30, 2013 pulse rate E&M - 8867-4 PULSE RATE 80 /min Apr 30, 2013 blood pressure, systolic - 8480-6 BP SYSTOLIC 144 mm Hg Apr 30, 2013 blood pressure, diastolic - 8462-4 BP DIASTOLIC 72 mm Hg May 05, 2013 weight E&M - 3141-9 WEIGHT 212 lb Results Date Description Test Name Value Reference Interpretation Status Dec 21, 2011 folate, serum FOLATE 20.1 ng/mL Normal Sep 14, 2003 prostate specific PSA 0.90 ng/mL antigen Mar 20, 2013 folate, serum FOLATE >24.0 ng/mL Normal ng/mL
--- OUTSIDE RECORDS SUMMARY | 2018-02-11 22:48 | XMS REPORT | Continuity of Care Document ---
:1940 Author Organization [facility] Care Team Providers Name Role Phone MD Antony, Nunu Unavailable Unavailable Insurance Providers Payer name Policy type / Policy ID Covered green party ID Policy Petersen Coverage type AETNA SECONDARY TO MEDICARE MEDICARE PRIMARY AETNA SECONDARY TO MEDICARE MEDIC[place]: [employer] AETNA - [place] CHEMICAL (MEDICARE SUPPLEMENT) MEDICARE B-[place]: [employer] MEDICARE B-[place]: [employer] AETNA - [place] CHEMICAL (MEDICARE SUPPLEMENT) Encounters Encounter Performer Location Date Office Visit Nunu Hardy MD [facility] Apr 30, 2013 Medicine Allergies, Adverse Reactions, Alerts Type Substance Reaction [...] ELBOW PAIN, RIGHT Apr 28, 2013 Active Procedures Date Description Comments August [...] Mar 17, 2013 Active TOVIAZ 8 MG [id number] one p.o. q.h.s. Apr 02, 2013 Active [...] - 8462-4 BP DIASTOLIC 72 mm Hg Results Date Description Test Name Value Reference Interpretation Status Dec 21, 2011 folate, serum FOLATE 20.1 ng/mL Normal Sep 14, 2003 prostate specific PSA 0.90 ng/mL antigen Mar 20, 2013 folate, serum FOLATE >24.0 ng/mL Normal ng/mL
--- OUTSIDE RECORDS SUMMARY | 2018-02-11 22:48 | XMS REPORT | Continuity of Care Document ---
:1940 Author Organization [facility] Care Team Providers Name Role Phone [...] (MEDICARE SUPPLEMENT) Encounters Encounter Performer Location Date Lab Report Nunu Hardy MD [facility] Jun 19, 2013 Allergies, Adverse Reactions, Alerts Type Substance Reaction [...] Mar 17, 2013 Active TOVIAZ 8 MG NZ25Z-ICW one p.o. q.h.s. Apr 02, 2013 Active [...] 64 mm Hg Apr 29, 2012 weight E&Moi - 3141-9 WEIGHT 238 lb Apr 29, [...] Hg Apr 28, 2013 weight E&Moi - 3141-9 WEIGHT 220 lb Apr 30, 2013 weight E&M - 3141-9 WEIGHT 2126 lb Apr 30, 2013 pulse rate E&M - 8867-4 PULSE RATE 80 /min Apr 30, 2013 blood pressure, systolic - 8480-6 BP SYSTOLIC 144 mm Hg Apr 30, 2013 blood pressure, diastolic - 8462-4 BP DIASTOLIC 72 mm Hg May 05, 2013 weight E&M - 3141-9 WEIGHT 212 lb May 26, 2013 weight E&M - 3141-9 WEIGHT 224 lb May 26, [...]
--- OUTSIDE RECORDS SUMMARY | 2018-02-11 22:48 | XMS REPORT | Continuity of Care Document ---
:1940 Author Organization [facility] Care Team Providers Name Role Phone [...] Hardy MD [facility] [place] [facility] Apr Allergies, Adverse Reactions, Alerts Type [...] Mar 17, 2013 Active TOVIAZ 8 MG [id number] one p.o. q.h.s. Apr 02, 2013 Active [...] weight E&M - 3141-9 WEIGHT 220 lb Results Date Description Test Name Value Reference Interpretation Status Dec 21, 2011 folate, serum FOLATE 20.1 ng/mL Normal Sep 14, 2003 prostate specific PSA 0.90 ng/mL antigen Mar 20, 2013 folate, serum FOLATE >24.0 ng/mL Normal ng/mL
--- OUTSIDE RECORDS SUMMARY | 2018-02-11 22:49 | XMS REPORT | Continuity of Care Document ---
:1940 Author Organization [facility] Care Team Providers Name Role Phone MD Antony, Nunu Unavailable Unavailable Insurance Providers Payer name Policy type / Policy ID Covered constitution party ID Policy Petersen Coverage type AETNA SECONDARY TO MEDICARE MEDICARE PRIMARY AETNA SECONDARY TO MEDICARE MEDIC[place]: [employer] AETNA - [place] CHEMICAL (MEDICARE SUPPLEMENT) MEDICARE B-[place]: [employer] MEDICARE B-[place]: [employer] AETNA - [place] CHEMICAL (MEDICARE SUPPLEMENT) Encounters Encounter Performer Location Date Office Visit Nunu Hardy MD [facility] [place] [facility] July Allergies, Adverse Reactions, Alerts Type Substance Reaction [...] PRE-OPERATIVE CARDIOVASCULAR EXAMINATION May 26, 2013 Active ROTATOR CUFF TEAR Jun 27, 2013 Active Procedures Date Description Comments August [...] Mar 17, 2013 Active TOVIAZ 8 MG [id number] one p.o. q.h.s. Apr 02, 2013 Active [...] - 8462-4 BP DIASTOLIC 80 mm Hg Jul 07, 2013 weight E&M - 3141-9 WEIGHT 224 lb Jul 21, 2013 weight E&M - 3141-9 WEIGHT 224 lb August 22, 2013 weight E&M - 3141-9 WEIGHT 224 lb Results Date Description Test Name Value Reference Interpretation Status Dec 21, 2011 folate, serum FOLATE 20.1 ng/mL Normal Sep 14, 2003 prostate specific PSA 0.90 ng/mL antigen Mar 20, 2013 folate, serum FOLATE >24.0 ng/mL Normal ng/mL
--- OUTSIDE RECORDS SUMMARY | 2018-02-11 22:49 | XMS REPORT | Continuity of Care Document ---
:1940 Author Organization [facility] Care Team Providers Name Role Phone MD Antony, Nunu Unavailable Unavailable Insurance Providers Payer name Policy type / Policy ID Covered libertarian ID Policy Petersen Coverage type AETNA SECONDARY TO MEDICARE MEDICARE PRIMARY AETNA SECONDARY TO MEDICARE MEDICARE B-[place]: [employer] AETNA - [place] CHEMICAL (MEDICARE SUPPLEMENT) MEDICARE B-[place]: [employer] MEDICARE B-[place]: [employer] AETNA - [employer] CHEMICAL (MEDICARE SUPPLEMENT) Encounters Encounter Performer Location Date Office Visit Nunu Hardy MD [facility] [place] [facility] Jun Allergies, Adverse Reactions, Alerts Type Substance Reaction [...] Mar 17, 2013 Active TOVIAZ 8 MG [id number] one p.o. q.h.s. Apr 02, 2013 Active [...]
--- OUTSIDE RECORDS SUMMARY | 2018-02-11 22:49 | XMS REPORT | Continuity of Care Document ---
:1940 Author Organization [facility] Care Team Providers Name Role Phone [...] Location Date Office Visit Nunu Hardy MD [facility] [place] [facility] Jun Allergies, Adverse Reactions, Alerts Type [...] Mar 17, 2013 Active TOVIAZ 8 MG [id number] one p.o. q.h.s. Apr 02, 2013 Active [...]
--- OUTSIDE RECORDS SUMMARY | 2018-02-11 22:50 | XMS REPORT | Continuity of Care Document ---
:1940 Author Organization [facility] Care Team Providers Name Role Phone ODETTE Kerr Anne Unavailable Unavailable Insurance Providers Payer name Policy type / Policy ID Covered libertarian ID Policy Petersen Coverage type AETNA SECONDARY TO MEDICARE MEDICARE PRIMARY AETNA SECONDARY TO MEDICARE [place] [employer] A[employer] - [place] [employer] (MEDICARE SUPPLEMENT) [place]: [employer] [place] [employer] A[employer] - [place] [employer] (MEDICARE SUPPLEMENT) Encounters Encounter Performer Location Date Office Visit Heather Kerr APRN [facility] [place] [facility] May 05, 2014 Allergies, Adverse Reactions, Alerts Type Substance Reaction Status Drug allergy TETANUS Active Drug allergy HORSE SERUM Active Drug allergy LIPITOR Active Drug allergy CRESTOR Active Drug allergy TILIPIX Active Food allergy SINEMET imbalanced and dizzy Inactive Drug allergy PRAVACHOL Inactive Problems Problem Effective Dates Problem Status HYPERTENSION Active ACID REFLUX DISEASE Active EPIGASTRIC PAIN Active TREMOR Nov 06, 2011 Active URGE INCONTINENCE Nov 06, 2011 Active CHF Active HYPERCHOLESTEROLEMIA Active COPD Active BACK PAIN Active LEG PAIN Nov 28, 2011 Inactive PERIPHERAL NEUROPATHY Dec 19, 2011 Active PREVENTIVE HEALTH CARE Jan 03, 2012 Active CARPAL TUNNEL SYNDROME, BILATERAL Jan 17, 2012 Active SYNCOPE Feb 19, 2012 Inactive BICIPITAL TENOSYNOVITIS Mar 01, 2012 Active SHOULDER JOINT REPLACEMENT BY OTHER MEANS Mar 01, 2012 Active CARDIAC ARRHYTHMIA Feb 28, 2012 Active DYSPNEA Mar 11, 2012 Active ABDOMINAL PAIN RIGHT UPPER QUADRANT Sep 04, 2012 Inactive ARM PAIN, LEFT Sep 04, 2012 Active PARKINSONISM, 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] ONE PO QD Mar 26, 2012 Active SINEMET 25-100 MG TABS 1 po bid Apr 17, 2012 Inactive SINEMET 25-100 MG TABS 1 po bid Oct 17, 2012 Active OMEPRAZOLE 20 MG CPDR take 1 po daily Nov 06, 2011 Inactive CYMBALTA 60 MG CPEP take 1 cap po qd Apr 17, 2013 Active LYRICA 75 MG CAPS 1 po q hs Apr 17, 2013 Active ADULT ASPIRIN EC LOW STRENGTH 1 po bid Apr 17, 2013 Active 81 MG TBEC BYSTOLIC 10 MG TABS take 1 tablet po twice a day Mar 26, 2012 Inactive TOVIAZ 8 MG [id number] one p.o. q.h.s. Apr 02, 2013 Inactive LEVAQUIN 750 MG TABS one p.o. q. day Dec 04, 2012 Inactive ULTRAM 50 MG TABS one every 4-6 hours p.r.n. pain Mar 17, 2013 Inactive VOLTAREN 1 % GEL 4 g on joints q.i.d. Apr 17, 2013 Inactive Immunizations Vaccine Date Status influenza immunization (Flu [...] 60 mm Hg Jan 03, 2012 weight Nay&M - 3141-9 WEIGHT 233 lb Jan 03, [...] weight E&M - 3141-9 WEIGHT 224 lb Sep 22, 2013 weight E&M - 3141-9 WEIGHT 230 lb Oct 31, 2013 weight E&M - 3141-9 WEIGHT 231 lb Oct 31, 2013 pulse rate E&M - 8867-4 PULSE RATE 82 /min Oct 31, 2013 blood pressure, systolic - 8480-6 BP SYSTOLIC 137 mm Hg Oct 31, 2013 blood pressure, diastolic - 8462-4 BP DIASTOLIC 76 mm Hg May 05, 2014 weight E&M - 3141-9 WEIGHT 242 lb May 05, 2014 blood pressure, systolic, sitting, left arm BP SYS SIT L 130 mm Hg May 05, 2014 blood pressure, diastolic, sitting, left arm BP MANISH SIT L 70 mm Hg May 05, 2014 pulse rate, sitting, left PULSE SIT L 80 /min May 05, 2014 respiratory rate E&M - 9279-1 RESP RATE 16 /min May 05, 2014 temperature E&M TEMPERATURE 98.7 deg f May 05, 2014 blood pressure, systolic - 8480-6 BP SYSTOLIC 130 mm Hg May 05, 2014 pulse rate E&M - 8867-4 PULSE RATE 80 /min May 05, 2014 blood pressure, diastolic - 8462-4 BP DIASTOLIC 70 mm Hg Results Date Description Test Name Value Reference Interpretation Status Dec 21, 2011 folate, serum FOLATE 20.1 ng/mL Normal Sep 14, 2003 prostate specific PSA 0.90 ng/mL antigen Mar 20, 2013 folate, serum FOLATE >24.0 ng/mL Normal ng/mL
--- OUTSIDE RECORDS SUMMARY | 2018-02-11 22:50 | XMS REPORT | Summary of Care ---
:1940 Author Organization [facility] Rad[facility] [address] [place] [address]- Encounter HQ Danter_lorelei(FIN) [id number] Date(s): 02/12/17 - 02/12/17 [facility] [address] [place] [phone] Attending Physician: VISIT, NURSE [facility] Referring Physician: Nunu Hardy MD Vital Signs No data available for this section Problem List Condition Effective Dates Status Health Status Informant Allergic rhinitis1 03/17/13 Active Anxiety(Confirmed) Active Backache2, 3 Active Biceps tendinitis4 03/01/12 Active Bronchitis5, 6 03/17/13 Active Cancer of skin(Confirmed) Resolved Carpal tunnel syndrome7, 8, 9 01/17/12 Active CHF - Congestive heart Active failure(Confirmed) Chronic obstructive lung uwsaidh62, Active 11, 12 Conduction disorder of the heart13, 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 14, 15 Congestive heart tzaunkj44, 17, 18 Active Depression(Confirmed) Active Epigastric pain19, 20, 21 Active Frequency(Confirmed) Active Gastroesophageal reflux toyfgxp74, Active 23, 24 Glasses(Confirmed) Active S/p shoulder replacement(Confirmed) Active Hard of hearing(Confirmed) Active Rltpkoksgabgegzmhiok95, 26, 27 Active Hyperlipidemia(Confirmed) Active Hypertension(Confirmed) Active Hypertensive bmfyggjo08, 29, 30 Active Impacted bilozba20, 32 12/04/12 Active Joint pain33, 34, 35 03/17/13 Active Obesity(Confirmed) Active Osteoarthritis(Confirmed) Active Osteoarthritis of right Active elbow(Confirmed) Otitis wvzjicf04 12/04/12 Resolved Pain in elbow37, 38, 39 04/28/13 Active Pain in upper limb40 09/04/12 Active Tejqimitbla55, 42, 43 03/17/13 Active Gmkarfsugjuf83, 45, 46 10/17/12 Active Peripheral nerve koitlqy78, 48, 49 12/19/11 Active Nabsocdi92 03/11/12 Active Preoperative cardiovascular 05/26/13 Active qwclqlwyelk39, 52 Encounter for preoperative vascular Active examination(Confirmed) Rotator cuff , 54, 55, 56, 06/27/13 Active 57 Screening - health check58, 59 01/03/12 Active Shoulder joint pain60 04/28/13 Active Sleep apnea(Confirmed) Active Mngonz59, 62, 63 11/06/11 Active Urge incontinence of urine64, 65, 66 11/06/11 Active 1Data migrated from [employer] on 08/22/14.2Data migrated from [employer] on 09/30/14.3Data migrated from [employer] on 08/25/14.4Data migrated from [employer] on 08/22/14.5Data migrated from [employer] on 09/30/14.6Data migrated from [employer] on 08/25/14.7Data migrated from [employer] on .8Data migrated from [employer] on 08/25/14.9Data migrated from [employer] on 08/22/14.10Data migrated from [employer] on 09/30/14.11Data migrated from [employer] on 08/25/14.12Data migrated from [employer] on 08/22.13Data migrated from [employer] on 09/30/14.14Data migrated from [employer] on 08/25/14.15Data migrated from [employer] on 08/22/14.16Data migrated from [employer] on 09/30/14.17Data migrated from [employer] on .18Data migrated from [employer] on 08/22/14.19Data migrated from [employer] on 09/30/14.20Data migrated from [employer] on 08/25/14.21Data migrated from [employer] on 08/22/14.22Data migrated from [employer] on 09/30.23Data migrated from [employer] on 08/25/14.24Data migrated from [employer] on 08/22/14.25Data migrated from [employer] on 09/30/14.26Data migrated from [employer] on 08/25/14.27Data migrated from [employer] on 08/22.28Data migrated from [employer] on 09/30/14.29Data migrated from [employer] on 08/25/14.30Data migrated from [employer] on 08/22/14.31Data migrated from [employer] on 09/30/14.32Data migrated from [employer] on .33Data migrated from [employer] on 09/30/14.34Data migrated from [employer] on 08/25/14.35Data migrated from [employer] on 08/22/14.36Data migrated from [employer] on 10/10/14.37Data migrated from [employer] on 09/30.38Data migrated from [employer] on 08/25/14.39Data migrated from [employer] on 08/22/14.40Data migrated from [employer] on 08/22/14.41Data migrated from [employer] on 09/30/14.42Data migrated from [employer] on .43Data migrated from [employer] on 08/22/14.44Data migrated from [employer] on 09/30/14.45Data migrated from [employer] on 08/25/14.46Data migrated from [employer] on 08/22/14.47Data migrated from [employer] on 09/30.48Data migrated from [employer] on 08/25/14.49Data migrated from [employer] on 08/22/14.50Data migrated from [employer] on 08/22/14.51Data migrated from [employer] on 09/30/14.52Data migrated from [employer] on .53Data migrated from [employer] on 09/30/14.54Data migrated from [employer] on 09/30/14.55Data migrated from [employer] on 08/25/14.56Data migrated from [employer] on 08/25/14.57Data migrated from [employer] on 08/22.58Data migrated from [employer] on 09/30/14.59Data migrated from [employer] on 08/25/14.60Data migrated from [employer] on 08/22/14.61Data migrated from [employer] on 09/30/14.62Data migrated from [employer] on .63Data migrated from [employer] on 08/22/14.64Data migrated from [employer] on 09/30/14.65Data migrated from [employer] on 08/25/14.66Data migrated from [employer] on 08/22/14. Allergies, Adverse Reactions, Alerts Substance Reaction Severity Status tetanus toxoid1 Active atorvastatin2 Active rosuvastatin3 Active 1Data migrated from [employer] on 07/23/14. Originally documented as TETANUS.2Data migrated from [employer] on 07/23/14. Originally documented as LIPITOR.3Data migrated from [employer] on 07/23/14. Originally documented as CRESTOR. Medications No data available for this section Results No data available for this section Immunizations Given and Recorded Vaccine Date Status Refusal Reason influenza virus vaccine, inactivated1 04/02/13 Given Hx influenza vaccine-unspecified2 01/03/12 Given 1Result Comment: fluzone preservative free (6-35 mo.) [[id number]]. Migrated from OBS ; Data migrated from [employer] on 04/27/2015.2Result Comment: fluvax. Migrated from OBS ; Data migrated from [employer] on 04/27/2015. Procedures Procedure Date Related Diagnosis Body Site Arthroplasty 09/08/09 Arthroplasty 03/26/06 Reduction of fracture of upper arm with internal 03/26/03 fixation1 Arthroplasty Excision of benign lesion of face and ears 1five times Social History Social History Type Response Substance Abuse Previous Treatment: None. IV drug use: No. Drug use interferes with work/home: No. Exercise 1 Employment/School Status: Retired. Alcohol Current, Type Beer, Wine, Liquor. Frequency: 1-2 times per month. Previous treatment: None. Alcohol use interferes with work or home: No. Drinks more than intended: No. Smoking Status Former smoker; Type: Cigarettes; Previous treatment: None; Ready to change: No; Concerns about tobacco use in household: No; Exposure to Tobacco Smoke None; Cigarette Smoking Last 365 Days No; Reg Smoking Cessation Counseling No 1NONE Assessment and Plan No data available for this section
--- OUTSIDE RECORDS SUMMARY | 2018-02-11 22:50 | XMS REPORT | Continuity of Care Document ---
:1940 Author Organization [facility] Care Team Providers Name Role Phone [...] Location Date Office Visit Nunu Hardy MD [facility] Aug Allergies, Adverse Reactions, Alerts Type Substance Reaction [...] Mar 17, 2013 Active TOVIAZ 8 MG [id number] one p.o. q.h.s. Apr 02, 2013 Active [...] Test Result Nov 06, 2011 height E&M HEIGHT 67 in Nov 06, 2011 weight E&M WEIGHT 234 lb Nov 06, 2011 temperature E&M TEMPERATURE 99.0 deg f Nov 06, 2011 pulse rate E&M PULSE RATE 64 /min Nov 06, 2011 blood pressure, systolic BP SYSTOLIC 134 mm Hg Nov 06, 2011 blood pressure, diastolic BP DIASTOLIC 64 mm Hg Nov 28, 2011 weight E&M WEIGHT 237.2 lb Nov 28, 2011 temperature E&M TEMPERATURE 98.2 deg f Nov 28, 2011 pulse rate E&M PULSE RATE 64 /min Nov 28, 2011 blood pressure, systolic BP SYSTOLIC 122 mm Hg Nov 28, 2011 blood pressure, diastolic BP DIASTOLIC 60 mm Hg Dec 19, 2011 weight E&M WEIGHT 236.4 lb Dec 19, 2011 temperature E&M TEMPERATURE 98.5 deg f Dec 19, 2011 pulse rate E&M PULSE RATE 60 /min Dec 19, 2011 blood pressure, systolic BP SYSTOLIC 122 mm Hg Dec 19, 2011 blood pressure, diastolic BP DIASTOLIC 60 mm Hg Jan 03, 2012 weight E&M WEIGHT 233 lb Jan 03, 2012 pulse rate E&M PULSE RATE 64 /min Jan 03, 2012 respiratory rate E&M RESP RATE 20 /min Jan 03, 2012 blood pressure, systolic BP SYSTOLIC 130 mm Hg Jan 03, 2012 blood pressure, diastolic BP DIASTOLIC 60 mm Hg Jan 17, 2012 weight E&M WEIGHT 239.8 lb Jan 17, 2012 temperature E&M TEMPERATURE 98.1 deg f Jan 17, 2012 pulse rate E&M PULSE RATE 60 /min Jan 17, 2012 blood pressure, systolic BP SYSTOLIC 100 mm Hg Jan 17, 2012 blood pressure, diastolic BP DIASTOLIC 60 mm Hg Feb 06, 2012 weight E&M WEIGHT 237 lb Feb 06, 2012 pulse rate E&M PULSE RATE 59 /min Feb 06, 2012 blood pressure, systolic BP SYSTOLIC 149 mm Hg Feb 06, 2012 blood pressure, diastolic BP DIASTOLIC 60 mm Hg Feb 19, 2012 weight E&M WEIGHT 245 lb Feb 19, 2012 temperature E&M TEMPERATURE 98.1 deg f Feb 19, 2012 pulse rate E&M PULSE RATE 80 /min Feb 19, 2012 blood pressure, systolic BP SYSTOLIC 140 mm Hg Feb 19, 2012 blood pressure, diastolic BP DIASTOLIC 60 mm Hg Mar 01, 2012 weight E&M WEIGHT 245 lb Mar 11, 2012 weight E&M WEIGHT 240 lb Mar 11, 2012 pulse rate E&M PULSE RATE 96 /min Mar 11, 2012 pulse rate, sitting, left PULSE SIT L 96 /min Mar 11, 2012 blood pressure, systolic, sitting, left arm BP SYS SIT L 120 mm Hg Mar 11, 2012 blood pressure, diastolic, sitting, left arm BP MANISH SIT L 78 mm Hg Mar 11, 2012 blood pressure, systolic BP SYSTOLIC 120 mm Hg Mar 11, 2012 blood pressure, diastolic BP DIASTOLIC 78 mm Hg Apr 17, 2012 weight E&M WEIGHT 239.8 lb Apr 17, 2012 temperature E&M TEMPERATURE 98.0 deg f Apr 17, 2012 pulse rate E&M PULSE RATE 78 /min Apr 17, 2012 blood pressure, systolic BP SYSTOLIC 130 mm Hg Apr 17, 2012 blood pressure, diastolic BP DIASTOLIC 64 mm Hg Apr 29, 2012 weight E&M WEIGHT 238 lb Apr 29, 2012 pulse rate, sitting, left PULSE SIT L 60 /min Apr 29, 2012 blood pressure, systolic, sitting, left arm BP SYS SIT L 130 mm Hg Apr 29, 2012 blood pressure, diastolic, sitting, left arm BP MANISH SIT L 60 mm Hg Apr 29, 2012 blood pressure, systolic BP SYSTOLIC 130 mm Hg Apr 29, 2012 pulse rate E&M PULSE RATE 60 /min Apr 29, 2012 blood pressure, diastolic BP DIASTOLIC 60 mm Hg Sep 04, 2012 weight E&M WEIGHT 228 lb Sep 04, 2012 blood pressure, systolic BP SYSTOLIC 125 mm Hg Sep 04, 2012 blood pressure, diastolic BP DIASTOLIC 59 mm Hg Sep 04, 2012 pulse rate E&M PULSE RATE 56 /min Oct 17, 2012 weight E&M WEIGHT 223 lb Oct 17, 2012 temperature E&M TEMPERATURE 98.5 deg f Oct 17, 2012 pulse rate E&M PULSE RATE 60 /min Oct 17, 2012 blood pressure, systolic BP SYSTOLIC 130 mm Hg Oct 17, 2012 blood pressure, diastolic BP DIASTOLIC 60 mm Hg Nov 04, 2012 pulse rate E&M PULSE RATE 55 /min Nov 04, 2012 blood pressure, systolic BP SYSTOLIC 126 mm Hg Nov 04, 2012 blood pressure, diastolic BP DIASTOLIC 61 mm Hg Nov 11, 2012 weight E&M WEIGHT 218.8 lb Nov 11, 2012 blood pressure, systolic, sitting, left arm BP SYS SIT L 134 mm Hg Nov 11, 2012 blood pressure, diastolic, sitting, left arm BP MANISH SIT L 74 mm Hg Nov 11, 2012 pulse rate, sitting, left PULSE SIT L 76 /min Nov 11, 2012 blood pressure, systolic BP SYSTOLIC 134 mm Hg Nov 11, 2012 pulse rate E&M PULSE RATE 76 /min Nov 11, 2012 blood pressure, diastolic BP DIASTOLIC 74 mm Hg Dec 04, 2012 weight E&M WEIGHT 214 lb Dec 04, 2012 pulse rate E&M PULSE RATE 65 /min Dec 04, 2012 blood pressure, systolic BP SYSTOLIC 138 mm Hg Dec 04, 2012 blood pressure, diastolic BP DIASTOLIC 65 mm Hg Dec 09, 2012 weight E&M WEIGHT 213 lb Dec 09, 2012 respiratory rate E&M RESP RATE 20 /min Dec 09, 2012 temperature E&M TEMPERATURE 97.5 deg f Dec 09, 2012 blood pressure, systolic BP SYSTOLIC 110 mm Hg Dec 09, 2012 blood pressure, diastolic BP DIASTOLIC 70 mm Hg Dec 09, 2012 pulse rate E&M PULSE RATE 68 /min Mar 17, 2013 weight E&M WEIGHT 213 lb Mar 17, 2013 pulse rate E&M PULSE RATE 77 /min Mar 17, 2013 temperature E&M TEMPERATURE 99.1 deg f Mar 17, 2013 blood pressure, systolic BP SYSTOLIC 136 mm Hg Mar 17, 2013 blood pressure, diastolic BP DIASTOLIC 61 mm Hg Apr 02, 2013 weight E&M WEIGHT 216 lb Apr 02, 2013 pulse rate E&M PULSE RATE 76 /min Apr 02, 2013 blood pressure, systolic BP SYSTOLIC 132 mm Hg Apr 02, 2013 blood pressure, diastolic BP DIASTOLIC 58 mm Hg Apr 17, 2013 weight E&M WEIGHT 219.6 lb Apr 17, 2013 temperature E&M TEMPERATURE 98.3 deg f Apr 17, 2013 pulse rate E&M PULSE RATE 70 /min Apr 17, 2013 blood pressure, systolic BP SYSTOLIC 100 mm Hg Apr 17, 2013 blood pressure, diastolic BP DIASTOLIC 70 mm Hg Apr 28, 2013 weight E&M WEIGHT 220 lb Apr 30, 2013 weight E&M WEIGHT 2126 lb Apr 30, 2013 pulse rate E&M PULSE RATE 80 /min Apr 30, 2013 blood pressure, systolic BP SYSTOLIC 144 mm Hg Apr 30, 2013 blood pressure, diastolic BP DIASTOLIC 72 mm Hg May 05, 2013 weight E&M WEIGHT 212 lb May 26, 2013 weight E&M WEIGHT 224 lb May 26, 2013 blood pressure, systolic, sitting, left arm BP SYS SIT L 150 mm Hg May 26, 2013 blood pressure, diastolic, sitting, left arm BP MANISH SIT L 80 mm Hg May 26, 2013 pulse rate, sitting, left PULSE SIT L 80 /min May 26, 2013 blood pressure, systolic BP SYSTOLIC 150 mm Hg May 26, 2013 pulse rate E&M PULSE RATE 80 /min May 26, 2013 blood pressure, diastolic BP DIASTOLIC 80 mm Hg Jul 07, 2013 weight E&M WEIGHT 224 lb Jul 21, 2013 weight E&M WEIGHT 224 lb August 22, 2013 weight E&M WEIGHT 224 lb Sep 22, 2013 weight E&M WEIGHT 230 lb Results Date Description Test Name Value Reference Interpretation Status Dec 21, 2011 folate, serum FOLATE 20.1 ng/mL Normal Sep 14, 2003 prostate specific PSA 0.90 ng/mL antigen Mar 20, 2013 folate, serum FOLATE >24.0 ng/mL Normal ng/mL
--- OUTSIDE RECORDS SUMMARY | 2018-02-11 22:50 | XMS REPORT | Continuity of Care Document ---
:1940 Author Organization [facility] Care Team Providers Name Role [...] Location Date Office Visit Nunu Hardy MD [facility] [place] [facility] Oct Allergies, Adverse Reactions, Alerts Type Substance Reaction [...] Mar 17, 2013 Active TOVIAZ 8 MG [id number] one p.o. q.h.s. Apr 02, 2013 Active [...] blood pressure, diastolic, sitting, left arm BP MANSIH SIT L 60 mm Hg Apr 29, [...] 22, 2013 weight E&M WEIGHT 230 lb Oct 31, 2013 weight E&M WEIGHT 231 lb Oct 31, 2013 pulse rate E&M PULSE RATE 82 /min Oct 31, 2013 blood pressure, systolic BP SYSTOLIC 137 mm Hg Oct 31, 2013 blood pressure, diastolic BP DIASTOLIC 76 mm Hg Results Date Description Test Name Value Reference Interpretation Status Dec 21, 2011 folate, serum FOLATE 20.1 ng/mL Normal Sep 14, 2003 prostate specific PSA 0.90 ng/mL antigen Mar 20, 2013 folate, serum FOLATE >24.0 ng/mL Normal ng/mL
--- OUTSIDE RECORDS SUMMARY | 2018-02-11 22:50 | XMS REPORT | Summary of Care ---
:1940 Author Organization [facility] [place] Address [address] [place] [address]- Encounter HQ Roxane_lorelei(FIN) [id number] Date(s): 02/12/17 - 02/12/17 [facility] [address] [place] [address]- [facility] [phone] Discharge Disposition: Home or Self Care Attending Physician: Ulysses Jones MD Referring Physician: Nunu Hardy MD Vital Signs Most recent to oldest [Reference Range]: 1 Blood Pressure [90-140/60-90 mmHg] 177/70 mmHg *HI* (02/12/17 4:44 PM) Peripheral Pulse Rate [60-100 bpm] 62 bpm (02/12/17 4:44 PM) Weight 112.545 kg (02/12/17 4:44 PM) Problem List Condition Effective Dates Status Health Status Informant Allergic rhinitis1 03/17/13 Active Anxiety(Confirmed) Active Backache2, 3 Active Biceps tendinitis4 03/01/12 Active Bronchitis5, 6 03/17/13 Active Cancer of skin(Confirmed) Resolved Carpal tunnel syndrome7, 8, 9 01/17/12 Active CHF - Congestive heart Active failure(Confirmed) Chronic obstructive lung tngbujr70, Active 11, 12 Conduction disorder of the heart13, 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 14, 15 Congestive heart dlleruj46, 17, 18 Active Depression(Confirmed) Active Epigastric pain19, 20, 21 Active Frequency(Confirmed) Active Gastroesophageal reflux uifinrv00, Active 23, 24 Glasses(Confirmed) Active S/p shoulder replacement(Confirmed) Active Hard of hearing(Confirmed) Active Eqvyrqhheoyxlafdedba95, 26, 27 Active Hyperlipidemia(Confirmed) Active Hypertension(Confirmed) Active Hypertensive tcbvcnro63, 29, 30 Active Impacted bnigutf88, 32 12/04/12 Active Joint pain33, 34, 35 03/17/13 Active Obesity(Confirmed) Active Osteoarthritis(Confirmed) Active Osteoarthritis of right Active elbow(Confirmed) Otitis 12/04/12 Resolved Pain in elbow37, 38, 39 04/28/13 Active Pain in upper limb40 09/04/12 Active Bmpofmydbsu85, 42, 43 03/17/13 Active Jvhiowovsaey67, 45, 46 10/17/12 Active Peripheral nerve accgimm49, 48, 49 12/19/11 Active Ecbfuufp49 03/11/12 Active Preoperative cardiovascular 05/26/13 Active , 52 Encounter for preoperative vascular Active examination(Confirmed) Rotator cuff cnklpioq46, 54, 55, 56, 06/27/13 Active 57 Screening - health check58, 59 01/03/12 Active Shoulder joint pain60 04/28/13 Active Sleep apnea(Confirmed) Active Betgsa49, 62, 63 11/06/11 Active Urge incontinence of [...] on 07/23/14. Originally documented as CRESTOR. Medications Voltaren Topical 1% topical gel 2 gm, TOP, QID, # 720 gm, 3 Refill(s), Pharmacy: [facility]/pharmacy #[id number] Start Date: 02/12/17 Stop Date: 02/07/18 Status: Ordered Results No data available for this section Immunizations Given and Recorded Vaccine Date Status Refusal Reason influenza virus vaccine, inactivated1 04/02/13 Given Hx influenza vaccine-unspecified2 01/03/12 Given 1Result Comment: fluzone preservative free (6-35 mo.) [[id number]]. Migrated from OBS ; Data migrated from [employer] on 04/27/2015.2Result Comment: fluvax. Migrated from OBS ; Data migrated from [employer] on 04/27/2015. Procedures Procedure Date Related Diagnosis [...]
--- OUTSIDE RECORDS SUMMARY | 2018-02-11 22:51 | XMS REPORT | Summary of Care ---
:1940 Author Organization [facility] Radiology [address] [place] [address]- Encounter HQ Roxane_lorelei(FIN) [phone] Date(s): 08/23/17 - 08/23/17 [facility] Radiology [place] [address] [place] [phone] Discharge Disposition: Home or Self Care Attending Physician: VISIT, NURSE [facility]ER Referring Physician: Nunu Hardy MD Vital Signs No data available for this section Problem List Condition Effective Dates Status Health Status Informant Allergic rhinitis1 03/17/13 Active Anxiety(Confirmed) Active Backache2, 3 Active Biceps tendinitis4 03/01/12 Active Bronchitis5, 6 03/17/13 Active Cancer of skin(Confirmed) Resolved Carpal tunnel syndrome7, 8, 9 01/17/12 Active CHF - Congestive heart Active failure(Confirmed) Chronic obstructive lung uvhenik59, Active 11, 12 Conduction disorder of the heart13, 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 14, 15 Congestive heart ljygzym63, 17, 18 Active Epigastric pain19, 20, 21 Active Frequency(Confirmed) Active Gastroesophageal reflux kcjxoyx98, Active 23, 24 S/p shoulder replacement(Confirmed) Active Hard of hearing(Confirmed) Active Hypercholesterolemia(Confirmed)25, Active 26, 27 Hyperlipidemia(Confirmed) Active Hypertension(Confirmed) Active Hypertensive rnfqrqao52, 29, 30 Active Impacted zbenddi96, 32 12/04/12 Active Joint pain33, 34, 35 03/17/13 Active Obesity(Confirmed) Active Osteoarthritis(Confirmed) Active Osteoarthritis of right Active elbow(Confirmed) Otitis vkmtqwi15 12/04/12 Resolved Pain in elbow37, 38, 39 04/28/13 Active Pain in upper limb40 09/04/12 Active Psxvrlvnqls86, 42, 43 03/17/13 Active Rxoyqhkhquaz97, 45, 46 10/17/12 Active Peripheral nerve lxwsaje55, 48, 49 12/19/11 Active Tubtjulf21 03/11/12 Active Preoperative cardiovascular 05/26/13 Active skmtrbzetyy74, 52 Encounter for preoperative vascular Active examination(Confirmed) Rotator cuff gdrldzyc67, 54, 55, 56, 06/27/13 Active 57 Screening - health check58, 59 01/03/12 Active Shoulder joint pain60 04/28/13 Active Sleep apnea(Confirmed) Active Impuuj17, 62, 63 11/06/11 Active Urge incontinence of [...] 1Result Comment: fluzone preservative free (6-35 mo.) [[id number]]. Migrated from OBS ; Data migrated from [employer] on 04/27/2015.2Result Comment: fluvax. Migrated from OBS ; Data migrated from [employer] on 04/27/2015. Procedures Procedure Date Related Diagnosis Body Site Status Arthroplasty 09/08/09 Completed Arthroplasty 03/26/06 Completed Reduction of fracture of upper arm with 03/26/03 Completed internal fixation1 Arthroplasty Completed Excision of benign lesion of face and Completed ears 1five times Social History Social History [...] Days No; Reg Smoking Cessation Counseling No entered on: 08/23/17 1NONE Assessment and Plan No data available for this section
--- OUTSIDE RECORDS SUMMARY | 2018-02-11 22:51 | XMS REPORT | Summary of Care ---
:1940 Author Organization [facility] Cardiology [place] Address [address] [place] [place] [address]- Encounter HQ Roxane_lorelei(FIN) [phone] Date(s): 07/09/17 - 07/09/17 [facility] Cardiology [place] [address] [place] [phone] Attending Physician: Eren Bauer MD Referring Physician: Nunu Hardy MD Vital Signs No data available for this section Problem List Condition Effective Dates Status Health Status Informant Allergic rhinitis1 03/17/13 Active Anxiety(Confirmed) Active Backache2, 3 Active Biceps tendinitis4 03/01/12 Active Bronchitis5, 6 03/17/13 Active Cancer of skin(Confirmed) Resolved Carpal tunnel syndrome7, 8, 9 01/17/12 Active CHF - Congestive heart Active failure(Confirmed) Chronic obstructive lung ypxpuhb29, Active 11, 12 Conduction disorder of the heart13, 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 14, 15 Congestive heart ecyjjdq63, 17, 18 Active Epigastric pain19, 20, 21 Active Frequency(Confirmed) Active Gastroesophageal reflux ludyhiq60, Active 23, 24 S/p shoulder replacement(Confirmed) Active Hard of hearing(Confirmed) Active Mrsviyjgmemqmidjcvvw26, 26, 27 Active Hyperlipidemia(Confirmed) Active Hypertension(Confirmed) Active Hypertensive oqsyqiwn48, 29, 30 Active Impacted , 32 12/04/12 Active Joint pain33, 34, 35 03/17/13 Active Obesity(Confirmed) Active Osteoarthritis(Confirmed) Active Osteoarthritis of right Active elbow(Confirmed) Otitis fhdvhri37 12/04/12 Resolved Pain in elbow37, 38, 39 04/28/13 Active Pain in upper limb40 09/04/12 Active Ybpppvdzcjc27, 42, 43 03/17/13 Active Tumvwgizvxqc79, 45, 46 10/17/12 Active Peripheral nerve , 48, 49 12/19/11 Active Guglrnrv54 03/11/12 Active Preoperative cardiovascular 05/26/13 Active fqlnjzetnps56, 52 Encounter for preoperative vascular Active examination(Confirmed) Rotator cuff xiucxgha46, 54, 55, 56, 06/27/13 Active 57 Screening - health check58, 59 01/03/12 Active Shoulder joint pain60 04/28/13 Active Sleep apnea(Confirmed) Active Afqooy00, 62, 63 11/06/11 Active Urge incontinence of [...] 1Result Comment: fluzone preservative free (6-35 mo.) [[id number]]. Migrated from OBS ; Data migrated from [...] Reg Smoking Cessation Counseling No entered on: 02/12/17 1NONE Assessment and Plan No data available for this section
--- OUTSIDE RECORDS SUMMARY | 2018-02-11 22:51 | XMS REPORT | Summary of Care ---
:1940 Author Organization [facility] Cardiology [place] Address [address] [place] [address]- Encounter HQ Jennifer(FIN) [phone] Date(s): 08/23/17 - 08/23/17 [facility] Cardiology [place] [address] [place] [address] [phone] Discharge Disposition: Home or Self Care Attending Physician: Eren Bauer MD Referring Physician: Nunu Hardy MD Vital Signs Most recent to oldest [Reference Range]: 1 Height 172.7 cm (08/23/17 11:39 AM) Temperature Oral [96.4-99.1 DegF] 98.5 DegF (08/23/17 11:39 AM) Blood Pressure [90-140/60-90 mmHg] 153/74 mmHg *HI* (08/23/17 11:39 AM) Respiratory Rate [14-20 BRMIN] 20 BRMIN (08/23/17 11:39 AM) Peripheral Pulse Rate [60-100 bpm] 70 bpm (08/23/17 11:39 AM) Weight 112.727 kg (08/23/17 11:39 AM) Body Mass Index 37.8 m2 (08/23/17 11:39 AM) Problem List Condition Effective Dates Status Health Status Informant Allergic rhinitis1 03/17/13 Active Anxiety(Confirmed) Active Backache2, 3 Active Biceps tendinitis4 03/01/12 Active Bronchitis5, 6 03/17/13 Active Cancer of skin(Confirmed) Resolved Carpal tunnel syndrome7, 8, 9 01/17/12 Active CHF - Congestive heart Active failure(Confirmed) Chronic obstructive lung , Active 11, 12 Conduction disorder of the heart13, 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 14, 15 Congestive heart eukjfrt84, 17, 18 Active Epigastric pain19, 20, 21 Active Frequency(Confirmed) Active Gastroesophageal reflux , Active 23, 24 S/p shoulder replacement(Confirmed) Active Hard of hearing(Confirmed) Active Hypercholesterolemia(Confirmed)25, Active 26, 27 Hyperlipidemia(Confirmed) Active Hypertension(Confirmed) Active Hypertensive nefvibvb73, 29, 30 Active Impacted loijjpb84, 32 12/04/12 Active Joint pain33, 34, 35 03/17/13 Active Obesity(Confirmed) Active Osteoarthritis(Confirmed) Active Osteoarthritis of right Active elbow(Confirmed) Otitis 12/04/12 Resolved Pain in elbow37, 38, 39 04/28/13 Active Pain in upper limb40 09/04/12 Active Zeetpzshouf12, 42, 43 03/17/13 Active Kwktknmllbkf80, 45, 46 10/17/12 Active Peripheral nerve qusufgw48, 48, 49 12/19/11 Active Ouqoucgi82 03/11/12 Active Preoperative cardiovascular 05/26/13 Active ngfnrdaxbfp10, 52 Encounter for preoperative vascular Active examination(Confirmed) Rotator cuff jmjjpmut09, 54, 55, 56, 06/27/13 Active 57 Screening - health check58, 59 01/03/12 Active Shoulder joint pain60 04/28/13 Active Sleep apnea(Confirmed) Active Ivybpg45, 62, 63 11/06/11 Active Urge incontinence of [...] on 07/23/14. Originally documented as CRESTOR. Medications furosemide 20 mg oral tablet 20 mg=1 tab, PO, Daily, # 30 tab, 5 Refill(s), Pharmacy: [facility]/pharmacy #[id number] Start Date: 08/23/17 Stop Date: 02/19/18 Status: Ordered Results No data available for this section Immunizations Given and Recorded Vaccine Date Status Refusal Reason influenza virus vaccine, inactivated1 04/02/13 Given Hx influenza vaccine-unspecified2 01/03/12 Given 1Result Comment: fluzone preservative free (6-35 mo.) [[id number]]. Migrated from [employer] ; Data migrated from [employer] on 04/27/2015.2Result Comment: fluvax. Migrated from OBS ; Data migrated from [employer] on 04/27/2015. Procedures Procedure Date Related Diagnosis [...]
--- OUTSIDE RECORDS SUMMARY | 2018-02-11 22:51 | XMS REPORT | Summary of Care ---
:1940 Author Organization [facility] Cardiology [place] Address [address] [place] [address]- Encounter HQ Jennifer(FIN) [phone] Date(s): 07/30/17 - 07/30/17 [facility] Cardiology [place] [address] [place] [address] [phone] Discharge Disposition: Home or Self Care Attending Physician: Eren Bauer MD Referring Physician: Nunu Hardy MD Vital Signs Most recent to oldest [Reference Range]: 1 Height 172.72 cm (07/30/17 7:44 AM) Temperature Oral [96.4-99.1 DegF] 98.0 DegF (07/30/17 7:44 AM) Blood Pressure [90-140/60-90 mmHg] 167/67 mmHg *HI* (07/30/17 7:44 AM) Peripheral Pulse Rate [60-100 bpm] 73 bpm (07/30/17 7:44 AM) Weight 113.864 kg (07/30/17 7:44 AM) Body Mass Index 38.17 m2 (07/30/17 7:44 AM) Problem List Condition Effective Dates Status Health Status Informant Allergic rhinitis1 03/17/13 Active Anxiety(Confirmed) Active Backache2, 3 Active Biceps tendinitis4 03/01/12 Active Bronchitis5, 6 03/17/13 Active Cancer of skin(Confirmed) Resolved Carpal tunnel syndrome7, 8, 9 01/17/12 Active CHF - Congestive heart Active failure(Confirmed) Chronic obstructive lung ohgiaue64, Active 11, 12 Conduction disorder of the heart13, 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 14, 15 Congestive heart ffcnvyc00, 17, 18 Active Epigastric pain19, 20, 21 Active Frequency(Confirmed) Active Gastroesophageal reflux zkqbcwy41, Active 23, 24 S/p shoulder replacement(Confirmed) Active Hard of hearing(Confirmed) Active Hypercholesterolemia(Confirmed)25, Active 26, 27 Hyperlipidemia(Confirmed) Active Hypertension(Confirmed) Active Hypertensive , 29, 30 Active Impacted ceedmmn92, 32 12/04/12 Active Joint pain33, 34, 35 03/17/13 Active Obesity(Confirmed) Active Osteoarthritis(Confirmed) Active Osteoarthritis of right Active elbow(Confirmed) Otitis dqprhiz50 12/04/12 Resolved Pain in elbow37, 38, 39 04/28/13 Active Pain in upper limb40 09/04/12 Active Duugnhbtcpp56, 42, 43 03/17/13 Active Xpbijtilsvcp94, 45, 46 10/17/12 Active Peripheral nerve axxjwod53, 48, 49 12/19/11 Active Nleofrdx99 03/11/12 Active Preoperative cardiovascular 05/26/13 Active , 52 Encounter for preoperative vascular Active examination(Confirmed) Rotator cuff mtftxcik87, 54, 55, 56, 06/27/13 Active 57 Screening - health check58, 59 01/03/12 Active Shoulder joint pain60 04/28/13 Active Sleep apnea(Confirmed) Active Ojiajf71, 62, 63 11/06/11 Active Urge incontinence of [...] on 07/23/14. Originally documented as CRESTOR. Medications CoQ10 4 tabs, PO, BID Start Date: 07/30/17 Status: Orderedgabapentin 300 mg oral capsule 300 mg=1 cap, PO, BID Start Date: 07/30/17 Status: Orderedhydrochlorothiazide 12.5 mg oral tablet 12.5 mg=1 tab, PO, Daily, # 30 tab, 5 Refill(s), Pharmacy: [facility]/pharmacy #[id number] Start Date: 07/30/17 Stop Date: 01/26/18 Status: Ordered Results No data available for this section Immunizations Given and Recorded Vaccine Date Status Refusal Reason influenza virus vaccine, inactivated1 04/02/13 Given Hx influenza vaccine-unspecified2 01/03/12 Given 1Result Comment: fluzone preservative free (6-35 mo.) [[id number]]. Migrated from [employer] ; Data migrated from [employer] on 04/27/2015.2Result Comment: fluvax. Migrated from OBS ; Data migrated from [employer] on 04/27/2015. Procedures Procedure Date Related Diagnosis [...] Reg Smoking Cessation Counseling No entered on: 07/30/17 1NONE Assessment and Plan No data available for this section
--- OUTSIDE RECORDS SUMMARY | 2018-02-11 22:51 | XMS REPORT | Summary of Care ---
:1940 Author Organization [facility] Cardiology [place] Address [address] 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 14, 15 Congestive heart shjaddz36, 17, 18 Active Epigastric pain19, 20, 21 Active Frequency(Confirmed) Active Gastroesophageal reflux nnnysiw50, Active 23, 24 S/p shoulder replacement(Confirmed) Active Hard of hearing(Confirmed) Active Hypercholesterolemia(Confirmed)25, Active 26, 27 Hyperlipidemia(Confirmed) Active Hypertension(Confirmed) Active Hypertensive plhsivnb03, 29, 30 Active Impacted isbdxhe91, 32 12/04/12 Active Joint pain33, 34, 35 03/17/13 Active Obesity(Confirmed) Active Osteoarthritis(Confirmed) Active Osteoarthritis of right Active elbow(Confirmed) Otitis uyhehjk16 12/04/12 Resolved Pain in elbow37, 38, 39 04/28/13 Active Pain in upper limb40 09/04/12 Active Qdgimgsdlzr29, 42, 43 03/17/13 Active Fihlwxxkbxpp47, 45, 46 10/17/12 Active Peripheral nerve ymtbnwu39, 48, 49 12/19/11 Active Himawdkc15 03/11/12 Active Preoperative cardiovascular 05/26/13 Active lqpuynnnqip35, 52 Encounter for preoperative vascular Active examination(Confirmed) Rotator cuff ayzsxhhk76, 54, 55, 56, 06/27/13 Active 57 Screening - health check58, 59 01/03/12 Active Shoulder joint pain60 04/28/13 Active Sleep apnea(Confirmed) Active Xmsmmu04, 62, 63 11/06/11 Active Urge incontinence of [...] 1Result Comment: fluzone preservative free (6-35 mo.) [[id number]]. Migrated from OBS ; Data migrated from [...]
--- OUTSIDE RECORDS SUMMARY | 2018-02-11 22:51 | XMS REPORT | Summary of Care ---
:1940 Author Organization [facility] Address [address] [place] [address]- Encounter HQ Roxane_lorelei(FIN) [phone] Date(s): 02/12/17 - 02/12/17 [facility] [address] [place] [address] [phone] Discharge Disposition: Home or Self Care Attending Physician: VISIT, NURSE [facility] [place] Referring Physician: Nunu Hardy MD Vital Signs No data available for this section Problem List Condition Effective Dates Status Health Status Informant Allergic rhinitis1 03/17/13 Active Anxiety(Confirmed) Active Backache2, 3 Active Biceps tendinitis4 03/01/12 Active Bronchitis5, 6 03/17/13 Active Cancer of skin(Confirmed) Resolved Carpal tunnel syndrome7, 8, 9 01/17/12 Active CHF - Congestive heart Active failure(Confirmed) Chronic obstructive lung njuxcpc12, Active 11, 12 Conduction disorder of the heart13, 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 14, 15 Congestive heart mgilouy73, 17, 18 Active Depression(Confirmed) Active Epigastric pain19, 20, 21 Active Frequency(Confirmed) Active Gastroesophageal reflux , Active 23, 24 Glasses(Confirmed) Active S/p shoulder replacement(Confirmed) Active Hard of hearing(Confirmed) Active Qggntktjojozqckamyxd70, 26, 27 Active Hyperlipidemia(Confirmed) Active Hypertension(Confirmed) Active Hypertensive snlurxim98, 29, 30 Active Impacted , 32 12/04/12 Active Joint pain33, 34, 35 03/17/13 Active Obesity(Confirmed) Active Osteoarthritis(Confirmed) Active Osteoarthritis of right Active elbow(Confirmed) Otitis bpsvlbu87 12/04/12 Resolved Pain in elbow37, 38, 39 04/28/13 Active Pain in upper limb40 09/04/12 Active Nncjngzwiig93, 42, 43 03/17/13 Active Seowalljkhcn55, 45, 46 10/17/12 Active Peripheral nerve etysljq04, 48, 49 12/19/11 Active Eyjpofis94 03/11/12 Active Preoperative cardiovascular 05/26/13 Active qibhmcucytd13, 52 Encounter for preoperative vascular Active examination(Confirmed) Rotator cuff catgebhq36, 54, 55, 56, 06/27/13 Active 57 Screening - health check58, 59 01/03/12 Active Shoulder joint pain60 04/28/13 Active Sleep apnea(Confirmed) Active Qviivq29, 62, 63 11/06/11 Active Urge incontinence of [...] 1Result Comment: fluzone preservative free (6-35 mo.) [[id number]]. Migrated from OBS ; Data migrated from [...]
[2018-02-12] MEDS ORDERED: TRAMADOL HCL 50 MG TAB ONE (00:26)
[2018-02-12] MEDS ORDERED: ALBUTEROL 2.5 MG/3 ML NEB SOL ONE (02:13)
--- NOTE | 2018-02-12 02:53 | EDPHYS ---
Physician Documentation [facility] Name: Joey Blanco Age: 77 yrs Sex: Male : 1940 Arrival Date: 02/11/2018 Time: 22:44 Bed 30 Private MD: ED Physician Kofi Machado HPI: 02/12 02:55 This 77 yrs old Male presents to ER via EMS with complaints of Fall Injury - tw4 Pain. 02:55 Details of fall: The patient fell from an upright position, while standing. Onset: The tw4 symptoms/episode began/occurred 3 day(s) ago. Associated injuries: The patient sustained injury to the chest, specifically the left lateral anterior chest. Severity of symptoms: At their worst the symptoms were moderate, in the emergency department the symptoms are unchanged. The patient has not experienced similar symptoms in the past. Historical: - Allergies: 02/11 22:59 No Known Allergies; mg2 - Home Meds: 22:59 Lisinopril Oral [Active]; amlodipine oral [Active]; mg2 - PMHx: 22:59 Diabetes - NIDDM; Hypertension; COPD; Parkinsons; mg2 - PSHx: 22:59 face, left shoulder, right elbow surgery; mg2 23:01 Parkinson's Adaptive Brain Implant; tl3 - Immunization history:: Flu vaccine is not up to date. - Social history:: Smoking status: Patient/guardian denies using tobacco, Patient uses alcohol, admits to "couple of beers" a day. Patient/guardian denies using street drugs, IV drugs. - Ebola Screening: : No symptoms or risks identified at this time. ROS: 02/12 02:58 Constitutional: Negative for fever, chills, and weight loss, Eyes: Negative for injury, tw4 pain, redness, and discharge, Respiratory: Negative for shortness of breath, cough, wheezing, and pleuritic chest pain, Abdomen/GI: Negative for abdominal pain, nausea, vomiting, diarrhea, and constipation. Back: Negative for injury and pain, MS/Extremity: Negative for injury and deformity, Skin: Negative for injury, rash, and discoloration. Cardiovascular: Positive for chest pain. Exam: 02:58 Constitutional: This is a well developed, well nourished patient who is awake, alert, tw4 and in no acute distress. Head/Face: Normocephalic, atraumatic. Cardiovascular: Regular rate and rhythm with a normal S1 and S2. No gallops, murmurs, or rubs. Normal PMI, no JVD. No pulse deficits. Respiratory: Lungs have equal breath sounds bilaterally, clear to auscultation and percussion. No rales, rhonchi or wheezes noted. No increased work of breathing, no retractions or nasal flaring. Abdomen/GI: Soft, non-tender, with normal bowel sounds. No distension or tympany. No guarding or rebound. No evidence of tenderness throughout. Back: No spinal tenderness. No costovertebral tenderness. Full range of motion. MS/ Extremity: Pulses equal, no cyanosis. Neurovascular intact. Full, normal range of motion. Neuro: Awake and alert, GCS 15, oriented to person, place, time, and situation. Cranial nerves II-XII grossly intact. Motor strength 5/5 in all extremities. Sensory grossly intact. Cerebellar exam normal. Normal gait. 02:58 Chest/axilla: Inspection: Palpation: tenderness, that totally reproduces the patient's complaints. Vital Signs: 02/11 22:57 BP 180 / 71; Pulse 93; Resp 18; Temp 98.8; Pulse Ox 97% on R/A; Weight 113.4 kg; Height mg2 5 ft. 7 in. (170.18 cm); Pain 6/10; 02/12 00:20 Pulse 92; Resp 18; Pulse Ox 97% on R/A; Pain 5/10; mg2 00:26 BP 182 / 79; Pulse 88; Resp 18; Pulse Ox 98% ; tl3 01:42 BP 188 / 76; Pulse 86; Resp 20; Pulse Ox 95% on R/A; Pain 0/10; mg2 02:15 BP 168 / 93; Pulse 84; Resp 20; Pulse Ox 100% on Nebulizer Mask; Pain 0/10; mg2 02/11 22:57 Body Mass Index 39.16 (113.40 kg, 170.18 cm) mg2 MDM: 02/11 23:06 Patient medically screened. tw4 02/12 02:58 Data reviewed: vital signs, nurses notes. Data interpreted: clinical research monitor: rhythm is tw4 Pulse oximetry: Interpretation: normal. Counseling: I had a detailed discussion with the patient and/or guardian regarding: the historical points, exam findings, and any diagnostic results supporting the discharge/admit diagnosis, radiology results. Special discussion: I discussed with the patient/guardian in detail that at this point there is no indication for admission to the hospital. It is understood, however, that if the symptoms persist or worsen the patient needs to return immediately for re-evaluation. 02/12 00:39 Order name: CT Chest Wo Con tw4 Administered Medications: 00:16 Drug: traMADol 50 mg Route: PO; tl3 01:17 Follow up: Response: No adverse reaction tl3 02:08 Drug: Albuterol 1.25 mg Route: Inhalation; mg2 03:18 Follow up: Response: No adverse reaction; Marked relief of symptoms mg2 Disposition: 02/12/18 02:52 Discharged to Home. Impression: Costonchondritis, Chest wall pain, CONTUSION CHEST WALL. - Condition is Stable. - Discharge Instructions: Chest Wall Pain, Xrgx-ht-Eplh. - Prescriptions for Tramadol 50 mg Oral Tablet - take 1 tablet by ORAL route every 8 hours as needed; 12 tablet. - Medication Reconciliation Form, Thank You Letter, Antibiotic Education, Prescription Opioid Use form. - Follow up: Private Physician; When: Today; Reason: Further diagnostic work-up, Recheck today's complaints, Continuance of care. - Problem is new. - Symptoms have improved. Signatures: Dispatcher [employer] Kofi Torrez MD MD tw4 Chani Blankenship RN RN tl3 Tr Álvarez RN RN mg2 Corrections: (The following items were deleted from the chart) 03:20 02:52 02/12/2018 02:52 Discharged to Home. Impression: Costonchondritis; Chest wall mg2 pain; CONTUSION CHEST WALL. Condition is Stable. Forms are Medication Reconciliation Form, Thank You Letter, Antibiotic Education, Prescription Opioid Use. Follow up: Private Physician; When: Today; Reason: Further diagnostic work-up, Recheck today's complaints, Continuance of care. Problem is new. Symptoms have improved. tw4
--- NOTE | 2018-02-12 02:53 | ER ---
Nurse's Notes [facility] Name: Joey Blanco Age: 77 yrs Sex: Male : 1940 Arrival Date: 02/11/2018 Time: 22:44 Bed 30 Private MD: Diagnosis: Costonchondritis;Chest wall pain;CONTUSION CHEST WALL Presentation: 02/11 22:54 Presenting complaint: EMS states: he was seen in [facility] yesterday for left mg2 sided pain in between his left hip and upper trunk after a fall while sitting and landed on his left side. . ct was done showing just contusion. Transition of care: patient was not received from another setting of care. Onset of symptoms was January 28, 2018. Risk Assessment: Do you want to hurt yourself or someone else? Patient reports no desire to harm self or others. Initial Sepsis Screen: Does the patient meet any 2 criteria? No. Patient's initial sepsis screen is negative. Does the patient have a suspected source of infection? No. Patient's initial sepsis screen is negative. Care prior to arrival: None. 22:54 Method Of Arrival: EMS: [facility] mg2 22:54 Acuity: ANDRES 3 mg2 Historical: - Allergies: 22:59 No Known Allergies; mg2 - Home Meds: 22:59 Lisinopril Oral [Active]; amlodipine oral [Active]; mg2 - PMHx: 22:59 Diabetes - NIDDM; Hypertension; COPD; Parkinsons; mg2 - PSHx: 22:59 face, left shoulder, right elbow surgery; mg2 23:01 Parkinson's Adaptive Brain Implant; tl3 - Immunization history:: Flu vaccine is not up to date. - Social history:: Smoking status: Patient/guardian denies using tobacco, Patient uses alcohol, admits to "couple of beers" a day. Patient/guardian denies using street drugs, IV drugs. - Ebola Screening: : No symptoms or risks identified at this time. Screenin:02 Abuse screen: Denies threats or abuse. Nutritional screening: No deficits noted. tl3 Tuberculosis screening: No symptoms or risk factors identified. Fall Risk Fall in past 12 months (25 points). Assessment: 23:02 General: Appears uncomfortable, obese, unkempt, well developed, well nourished, tl3 Behavior is calm, cooperative, appropriate for age. Pain: Complains of pain in left hip, left ribs. Neuro: Level of Consciousness is awake, alert, obeys commands, Oriented to person, place, time, situation, Appropriate for age. Cardiovascular: Heart tones S1 S2 present Patient's skin is warm and dry. Respiratory: Airway is patent Respiratory effort is even, labored, Respiratory pattern is regular, Breath sounds are coarse bilaterally. GI: No signs and/or symptoms were reported involving the gastrointestinal system. : No signs and/or symptoms were reported regarding the genitourinary system. EENT: No signs and/or symptoms were reported regarding the EENT system. Derm: Skin is fragile, is thin. Musculoskeletal: Reports since on January 28, fell from his chair and pain is still persisting. 02/12 00:26 Reassessment: No changes from previously documented assessment. Patient and/or family tl3 updated on plan of care and expected duration. Pain level reassessed. Patient is alert, oriented x 3, equal unlabored respirations, skin warm/dry/pink. lights dimmed, no needs at this time. 03:19 Reassessment: patient needs a ride home. he is waiitng in the waiting area for the bus mg2 to come \\T\\ 0600 today. Vital Signs: 02/11 22:57 BP 180 / 71; Pulse 93; Resp 18; Temp 98.8; Pulse Ox 97% on R/A; Weight 113.4 kg; Height mg2 5 ft. 7 in. (170.18 cm); Pain 6/10; 02/12 00:20 Pulse 92; Resp 18; Pulse Ox 97% on R/A; Pain 5/10; mg2 00:26 BP 182 / 79; Pulse 88; Resp 18; Pulse Ox 98% ; tl3 01:42 BP 188 / 76; Pulse 86; Resp 20; Pulse Ox 95% on R/A; Pain 0/10; mg2 02:15 BP 168 / 93; Pulse 84; Resp 20; Pulse Ox 100% on Nebulizer Mask; Pain 0/10; mg2 02/11 22:57 Body Mass Index 39.16 (113.40 kg, 170.18 cm) mg2 ED Course: 02/11 22:44 Patient arrived in ED. ds1 22:57 Triage completed. mg2 23:00 Larson, Chani, RN is Primary Nurse. tl3 23:02 Patient has correct armband on for positive identification. Placed in gown. Bed in low tl3 position. Call light in reach. Side rails up X2. Adult w/ patient. Pulse ox on. NIBP on. 23:02 No provider procedures requiring assistance completed. tl3 23:06 Kofi Machado MD is Attending Physician. tw4 02/12 00:26 Patient did not have IV access during this emergency room visit. tl3 01:[address] via stretcher. kw1 01:13 CT completed. Patient tolerated procedure well. Patient moved back from CT. kw1 01:17 CT Chest Wo Con Sent. tl3 03:19 Arm band placed on. mg2 Administered Medications: 00:16 Drug: traMADol 50 mg Route: PO; tl3 01:17 Follow up: Response: No adverse reaction tl3 02:08 Drug: Albuterol 1.25 mg Route: Inhalation; mg2 03:18 Follow up: Response: No adverse reaction; Marked relief of symptoms mg2 Outcome: 02:52 Discharge ordered by . tw4 03:18 Discharged to home ambulatory. mg2 03:18 Condition: stable 03:18 Discharge instructions given to patient, Instructed on discharge instructions, follow up and referral plans. medication usage, Demonstrated understanding of instructions, follow-up care, medications, Prescriptions given X 1. 03:20 Patient left the ED. mg2 Signatures: Marci Payan ds1 Rekha Oshea kw1 Kofi Machado MD MD tw4 Chani Blankenship RN RN tl3 Tr Álvarez RN RN mg2
--- NOTE | 2018-02-12 08:43 | RAD REPORT ---
EXAM DESCRIPTION: CT - Thorax Wo Con CLINICAL HISTORY: Chest pain TRAUMA;Pain COMPARISON: No comparisons FINDINGS: Mild dependent subsegmental atelectasis is present. No pleural thickening or pleural effus ion. No pneumothorax. No axillary, mediastinal or hilar adenopathy. Pacer device is present. No for fracture seen. Please note that the inferior most ribs are not included on study. No gross upp er abdominal finding. All CT scans are performed using dose optimization technique as appropriate and may include automated exposure control or mA/KV adjustment according to patient size. IMPRESSION: No acute intrathoracic abnormality detected.
== END 2018-02-12 03:20 | disposition home or self-care (01) ==
LOC: ER 22:43
DX: S20.219A Contusion of unspecified front wall of thorax, initial encounter (principal); M94.0 Chondrocostal junction syndrome [Tietze]; W19.XXXA Unspecified fall, initial encounter; Y93.89 Activity, other specified; Y92.9 Unspecified place or not applicable; I10 Essential (primary) hypertension; J44.9 Chronic obstructive pulmonary disease, unspecified; E11.9 Type 2 diabetes mellitus without complications; G20 Parkinson's disease
CPT/HCPCS: 71250; 99285

== ENCOUNTER 2018-06-16 17:00 | Observation (INO) | payer OTHER ==
--- OUTSIDE RECORDS SUMMARY | 2018-06-16 17:05 | XMS REPORT | Continuity of Care Document ---
:1940 Author Organization Interface Problems Problem Status Onset Classification Date Comments Source Date Reported BODY MASS INDEX Active Condition 05/05/2014 38.0-38.9, ADULT 015 Medical Group Rotator cuff Active Problem 06/16/2018 Data syndrome<sup>53, 54, 014 migrated Medical 55, 56, 57</sup> from [facility] Centricity on 08/22/14. PRE-OPERATIVE Active Condition 05/05/2014 CARDIOVASCULAR 014 Medical EXAMINATION Group Preoperative Active Problem 06/16/2018 Data cardiovascular 014 migrated Medical examination<sup>51, from [facility] 52</sup> Centricity on 08/25/14. ROTATOR CUFF TEAR Active Condition 05/05/2014 014 Medical Group SHOULDER PAIN, RIGHT Active Condition 05/05/2014 014 Medical Group ELBOW PAIN, RIGHT Active Condition 05/05/2014 014 Medical Group Pain in elbow<sup>37, Active Problem 06/16/2018 Data 38, 39</sup> 014 migrated Medical from [facility] Centricity on 08/22/14. Shoulder joint Active Problem 06/16/2018 Data pain<sup>60</sup> 014 migrated Medical from [facility] Centricity on 08/22/14. NEED PROPHYLACTIC Active Condition 05/05/2014 VACCINATION&INOCULATIO 014 Medical N FLU Group ALLERGIC RHINITIS Active Condition 05/05/2014 CAUSE UNSPECIFIED 013 Medical Group BRONCHITIS Active Condition 05/05/2014 013 Medical Group ARTHRALGIA Active Condition 05/05/2014 013 Medical Group PARESTHESIA Active Condition 05/05/2014 013 Medical Group Allergic Active Problem 06/16/2018 Data rhinitis<sup>1</sup> 013 migrated Medical from [facility] Centricity on 08/22/14. Bronchitis<sup>5, Active Problem 06/16/2018 Data 6</sup> 013 migrated Medical from [facility] Centricity on 08/25/14. Joint pain<sup>33, 34, Active Problem 06/16/2018 Data 35</sup> 013 migrated Medical from [facility] Centricity on 08/22/14. Paresthesia<sup>41, Active Problem 06/16/2018 Data 42, 43</sup> 013 migrated Medical from [facility] Centricity on 08/22/14. OTITIS EXTERNA Inactive Condition 05/05/2014 013 Medical Group CERUMEN IMPACTION Active Condition 05/05/2014 013 Medical Group Impacted Active Problem 06/16/2018 Data cerumen<sup>31, 013 migrated Medical 32</sup> from [facility] Centricity on 08/25/14. Otitis Resolved Problem 06/16/2018 Data externa<sup>36</sup> 013 migrated Medical from [facility] Centricity on 10/10/14. PARKINSONISM, MILD Active Condition 05/05/2014 013 Medical Group Parkinsonism<sup>44, Active Problem 06/16/2018 Data 45, 46</sup> 013 migrated Medical from [facility] Centricity on 08/22/14. ABDOMINAL PAIN RIGHT Inactive Condition 05/05/2014 UPPER QUADRANT 013 Medical Group ARM PAIN, LEFT Active Condition 05/05/2014 013 Medical Group Pain in upper Active Problem 06/16/2018 Data limb<sup>40</sup> 013 migrated Medical from [facility] Centricity on 08/22/14. DYSPNEA Active Condition 05/05/2014 012 Medical Group Pleurisy<sup>50</sup> Active Problem 06/16/2018 Data 012 migrated Medical from [facility] Centricity on 08/22/14. BICIPITAL Active Condition 05/05/2014 TENOSYNOVITIS 012 Medical Group SHOULDER JOINT Active Condition 05/05/2014 REPLACEMENT BY OTHER 012 Medical MEANS Group Biceps Active Problem 06/16/2018 Data tendinitis<sup>4</sup> 012 migrated Medical from [facility] Centricity on 08/22/14. 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 SYNCOPE Inactive Condition 05/05/2014 012 Medical Group CARPAL TUNNEL Active Condition 05/05/2014 SYNDROME, BILATERAL 012 Medical Group Carpal tunnel Active Problem 06/16/2018 Data syndrome<sup>7, 8, 012 migrated Medical 9</sup> from [facility] Centricity on 08/22/14. PREVENTIVE HEALTH CARE Active Condition 05/05/2014 [facility] Medical Group Screening - health Active Problem 06/16/2018 Data check<sup>58, 59</sup> 012 migrated Medical from [facility] Centricity on 08/25/14. PERIPHERAL NEUROPATHY Active Condition 05/05/2014 012 Medical Group Peripheral nerve Active Problem 06/16/2018 Data disease<sup>47, 48, 012 migrated Medical 49</sup> from [facility] Centricity on 08/22/14. LEG PAIN Inactive Condition 05/05/2014 [facility] Medical Group TREMOR Active Condition 05/05/2014 012 Medical Group URGE INCONTINENCE Active Condition 05/05/2014 012 Medical Group Tremor<sup>61, 62, Active Problem 06/16/2018 Data 63</sup> 012 migrated Medical from [facility] Centricity on 08/22/14. Urge incontinence of Active Problem 06/16/2018 Data urine<sup>64, 65, 012 migrated Medical 66</sup> from [facility] Centricity on 08/22/14. HYPERTENSION Active Condition 05/05/2014 Medical Group ACID REFLUX DISEASE Active Condition 05/05/2014 Medical Group EPIGASTRIC PAIN Active Condition 05/05/2014 Medical Group CHF Active Condition 05/05/2014 Medical Group HYPERCHOLESTEROLEMIA Active Condition 05/05/2014 Medical Group COPD Active Condition 05/05/2014 Medical Group BACK PAIN Active Condition 05/05/2014 Medical Group Anxiety Active Problem 06/16/2018 Medical Group Backache<sup>2, Active Problem 06/16/2018 Data 3</sup> migrated Medical from [facility] Centricity on 08/25/14. Cancer of skin Resolved Problem 06/16/2018 Medical Group CHF - Congestive heart Active Problem 06/16/2018 failure Medical Group Chronic obstructive Active Problem 06/16/2018 Data lung disease<sup>10, migrated Medical 11, 12</sup> from [facility] Centricity on 08/22/14. Congestive heart Active Problem 06/16/2018 Data failure<sup>16, 17, migrated Medical 18</sup> from [employer] Centricity on 08/22/14. Depression Active Problem 02/15/2017 Medical Group Epigastric Active Problem 06/16/2018 Data pain<sup>19, 20, migrated Medical 21</sup> from [facility] Centricity on 08/22/14. Frequency Active Problem 06/16/2018 Medical Group Gastroesophageal Active Problem 06/16/2018 Data reflux disease<sup>22, migrated Medical 23, 24</sup> from [facility] Centricity on 08/22/14. Glasses Active Problem 02/15/2017 Medical Group S/p shoulder Active Problem 06/16/2018 replacement Medical Group Hard of hearing Active Problem 06/16/2018 Medical Group Hypercholesterolemia<s Active Problem 06/16/2018 Data up>25, 26, 27</sup> migrated Medical from [facility] Centricity on 08/22/14. Hyperlipidemia Active Problem 06/16/2018 Medical Group Hypertension Active Problem 06/16/2018 Medical Group Hypertensive Active Problem 06/16/2018 Data disorder<sup>28, 29, migrated Medical 30</sup> from [employer] [facility] Centricity on 08/22/14. 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 Medical Group Encounter for Active Problem 06/16/2018 preoperative vascular Medical examination Group Sleep apnea Active Problem 06/16/2018 Medical Group Medications Medication Details Route Status Patient Ordering Order Source Instructions Provider Date gabapentin 600 MG 600 mg=1 Active Oral Tablet tab, PO, 2019 Medical BID, 0 Group Refill(s) Carbidopa 25 MG / 1 tab, PO, Active Levodopa 100 MG Oral BID, 0 2019 Medical Tablet Refill(s) Group Furosemide 20 MG Oral 20 mg=1 tab, Active Tablet PO, Daily, # 2018 Medical 30 tab, 5 Group Refill(s), Pharmacy: [facility]/pharmacy #[id number] hydrochlorothiazide 12.5 mg=1 Active 12.5 mg oral tablet tab, PO, 2018 Medical Daily, # 30 Group tab, 5 Refill(s), Pharmacy: [facility]/pharmacy #[id number] CoQ10 4 tabs, PO, Active BID 2017 Medical Group gabapentin 300 MG 300 mg=1 Active Oral Capsule cap, PO, BID 2017 Medical Group Diclofenac Sodium 2 gm, TOP, Active 0.01 MG/MG Topical QID, # 257 2016 Medical Gel [Voltaren] gm, 3 Group Refill(s), Pharmacy: [facility]/pharmacy #[id number] VOLTAREN 1 % GEL 4 g [...] GEL 4 g on No joints Longer 2013 Medical q.i.d. Active Group CYMBALTA 60 MG CPEP take 1 cap Active po qd 2013 Medical Group LYRICA 75 MG CAPS 1 po q hs Active 2013 Medical Group LYRICA 75 MG CAPS 1 po q hs Active 2013 Medical Group TOVIAZ 8 MG [id number] one p.o. No q.h.s. Longer 2013 Medical Active Group ULTRAM 50 MG TABS one every Active 4-6 hours 2012 Medical p.r.n. pain Group ULTRAM 50 MG TABS one every No 4-6 hours Longer 2012 Medical p.r.n. pain [...] 50 MG TABS one half po No qhs x 1 Longer 2011 Medical week, Active Group thereafter 1 po q hs PRIMIDONE 50 MG TABS one half po No 01/16/ MH qhs x 1 Longer 2011 Medical week, Active Group thereafter 1 po q hs PRIMIDONE 50 MG TABS one half po No 01/16/ qhs x 1 Longer 2011 Medical week, [...] n<sup>3</dupree allergy 2 migrated Medical p> from [employer] Centricity on 07/23/14. Originally documented as CRESTOR. SINEMET Food SINEMET allergy 3 Medical Group TETANUS Drug TETANUS allergy Medical Group HORSE SERUM Drug HORSE allergy SERUM Medical Group tetanus Assertion Drug Active Data toxoid<sup> allergy migrated Medical 1</sup> from [employer] Centricity on 07/23/14. Originally documented as TETANUS. Immunizations Immunization Date Site Status Last Comments Source Given Updated influenza virus completed GE Result Comment: Medical vaccine, 4 fluzone Group inactivated<sup> preservative 1</sup> free (6-35 mo.) [[id number]]. Migrated from OBS ; Data migrated from [employer] on 04/27/2015. influenza completed Medical immunization 2 Group (Flu Vax) has been administered Hx influenza Right completed GE Result Comment: Medical vaccine-unspecif 2 Deltoid fluvax. Group ied<sup>2</sup> Migrated from OBS ; Data migrated from [employer] on 04/27/2015. Results Order Name Results Value Reference Date Interpretation Comments Source Range Chest 2 Chest 2 PROCEDURE: Chest Radiograph. 06/10 - [facility] - [place] Clinical Indication: Chest pain. Read by: Harry Cronin MD Dictated Date/time: 06/10/18 13:25 Electronically Signed by: Harry Cronin MD 06/10/18 13:27 FINAL REPORT Comparison: None. FINDINGS: The chest shows a small opacity at the lateral left lung base which may represent components of atelectasis, consolidation and pleural fluid. A stimulator device projects overlying the left hemithorax with leads extending superiorly. The heart size and pulmonary vasculature are normal. The trachea is midline. A left shoulder prosthesis is noted. IMPRESSION: 1. Small opacity at the left lung base as described. SL:[id number] Elbow 2 Elbow 2 Patient Name: APRIL PARNELL. 02/12 - [facility] DX [facility] DX - [place] : 1940; Age: 76 years y/o; Male. MR: [id number]. Read by: Bayron Rocha MD Dictated Date/time: [...] suspicious for intra-articular ossific loose body. SL: [id number] Shoulder Shoulder EXAM: Shoulder series DX 06/20 - [facility] series DX series DX /2015 - [place] HISTORY: PAIN COMPARISON: 02/22/2015 Read by: Igor [...] Elbow 2 Elbow 2 EXAM: 06/20 - [facility] views DX views DX - [place] 2 view(s) of the right elbow. Read [...] [facility] series DX series DX /2014 - [place] History: Left shoulder pain . Read by: [...] . Chemistry FOLATE >24.0 ng/mL 03/21 ng/mL /2012 Medical Group Chemistry FOLATE 20.1 ng/mL 12/21 Medical [facility] Chemistry PSA 0.90 ng/mL 09/13 Medical [facility] Vital Signs Vital Sign Value Date Comments Source BMI Calculated 37.73 06/10/2018 Medical Group Weight 110.909 06/10/2018 Medical Group Height 171.45 cm 06/10/2018 Medical Group Systolic (mm Hg) 136 06/10/2018 Medical Group Diastolic (mm Hg) 64 06/10/2018 Medical Group Heart Rate 74 06/10/2018 Medical Group Temperature Oral (F) 97.9 F 06/10/2018 Medical Group Height 170.18 cm 11/27/2017 Medical Group BMI Calculated 39.26 11/27/2017 Medical Group Weight 113.693 11/27/2017 Medical Group Systolic (mm Hg) 152 11/27/2017 Medical Group Diastolic (mm Hg) 69 11/27/2017 Medical Group Temperature Oral (F) 98.1 F 11/27/2017 Medical Group Heart Rate 71 11/27/2017 Medical Group Weight 112.727 08/23/2017 Medical Group BMI Calculated 37.8 08/23/2017 Medical Group Height 172.7 cm 08/23/2017 Medical Group Systolic (mm Hg) 153 08/23/2017 Medical Group Diastolic (mm Hg) 74 08/23/2017 [facility] Temperature Oral (F) 98.5 F 08/23/2017 [facility] Heart Rate 70 08/23/2017 [facility] Respitory Rate 20 08/23/2017 Medical Group BMI Calculated 38.17 07/30/2017 Medical Group Heart Rate 73 07/30/2017 Medical Group Temperature Oral (F) 98.0 F 07/30/2017 [facility] Height 172.72 cm 07/30/2017 [facility] Weight 113.864 07/30/2017 [facility] Systolic (mm Hg) 167 07/30/2017 [facility] Diastolic (mm Hg) 67 07/30/2017 Medical Group Weight 112.545 02/12/2017 [facility] Heart Rate 62 02/12/2017 [facility] Systolic (mm Hg) 177 02/12/2017 [facility] Diastolic (mm Hg) 70 02/12/2017 Medical Group Weight 242 05/05/2014 [facility] Systolic (mm Hg) 130 05/05/2014 [facility] Diastolic (mm Hg) 70 05/05/2014 Medical Group Heart Rate 80 05/05/2014 Medical Group Respitory Rate 16 05/05/2014 Medical Group Temperature Oral (F) 98.7 F 05/05/2014 Medical Group Weight 231 10/31/2013 Medical Group Heart Rate 82 10/31/2013 [facility] Systolic (mm Hg) 137 10/31/2013 Medical Group Diastolic (mm Hg) 76 10/31/2013 Medical Group Weight 230 09/22/2013 Medical Group Weight 224 08/22/2013 Medical Group Weight 224 07/21/2013 Medical Group Weight 224 07/07/2013 Medical Group Weight 224 05/26/2013 Medical Group Systolic (mm Hg) 150 05/26/2013 Medical Group Diastolic (mm Hg) 80 05/26/2013 Medical Group Heart Rate 80 05/26/2013 [facility] Weight 212 05/05/2013 [facility] Weight 2126 04/30/2013 Medical Group Heart Rate 80 04/30/2013 Medical Group Systolic (mm Hg) 144 04/30/2013 Medical Group Diastolic (mm Hg) 72 04/30/2013 Medical Group Weight 220 04/28/2013 Medical Group Weight 219.6 04/17/2013 Medical Group Temperature Oral (F) 98.3 F 04/17/2013 [facility] Heart Rate 70 04/17/2013 [facility] Systolic (mm Hg) 100 04/17/2013 [facility] Diastolic (mm Hg) 70 04/17/2013 [facility] Weight 216 04/02/2013 [facility] Heart Rate 76 04/02/2013 [facility] Systolic (mm Hg) 132 04/02/2013 [facility] Diastolic (mm Hg) 58 04/02/2013 [facility] Weight 213 03/17/2013 [facility] Heart Rate 77 03/17/2013 [facility] Temperature Oral (F) 99.1 F 03/17/2013 [facility] Systolic (mm Hg) 136 03/17/2013 [facility] Diastolic (mm Hg) 61 03/17/2013 [facility] Weight 213 12/09/2012 [facility] Respitory Rate 20 12/09/2012 Medical Group Temperature Oral (F) 97.5 F 12/09/2012 [facility] Systolic (mm Hg) 110 12/09/2012 [facility] Diastolic (mm Hg) 70 12/09/2012 [facility] Heart Rate 68 12/09/2012 [facility] Weight 214 12/04/2012 [facility] Heart Rate 65 12/04/2012 [facility] Systolic (mm Hg) 138 12/04/2012 [facility] Diastolic (mm Hg) 65 12/04/2012 Medical Group Weight 218.8 11/11/2012 [facility] Systolic (mm Hg) 134 11/11/2012 [facility] Diastolic (mm Hg) 74 11/11/2012 Medical Group Heart Rate 76 11/11/2012 Medical Group Heart Rate 55 11/04/2012 [facility] Systolic (mm Hg) 126 11/04/2012 [facility] Diastolic (mm Hg) 61 11/04/2012 Medical Group Weight 223 10/17/2012 Medical Group Temperature Oral (F) 98.5 F 10/17/2012 Medical Group Heart Rate 60 10/17/2012 [facility] Systolic (mm Hg) 130 10/17/2012 [facility] Diastolic (mm Hg) 60 10/17/2012 Medical Group Weight 228 09/04/2012 [facility] Systolic (mm Hg) 125 09/04/2012 [facility] Diastolic (mm Hg) 59 09/04/2012 [facility] Heart Rate 56 09/04/2012 Medical Group Weight 238 04/29/2012 MH Medical [...] 04/17/2012 [facility] Weight 240 03/11/2012 Medical Group Heart Rate 96 03/11/2012 [facility] Systolic (mm Hg) 120 03/11/2012 [facility] Diastolic (mm Hg) 78 03/11/2012 [facility] Weight 245 03/01/2012 [facility] Weight 245 02/19/2012 [facility] Temperature Oral (F) 98.1 F 02/19/2012 Medical Group Heart Rate 80 02/19/2012 [facility] Systolic (mm Hg) 140 02/19/2012 [facility] Diastolic (mm Hg) 60 02/19/2012 [facility] Weight 237 02/06/2012 Medical Group Heart Rate 59 02/06/2012 [facility] Systolic (mm Hg) 149 02/06/2012 [facility] Diastolic (mm Hg) 60 02/06/2012 [facility] Weight 239.8 01/17/2012 Medical Group Temperature Oral (F) 98.1 F 01/17/2012 Medical Group Heart Rate 60 01/17/2012 [facility] Systolic (mm Hg) 100 01/17/2012 [facility] Diastolic (mm Hg) 60 01/17/2012 Medical Group Weight 233 01/03/2012 Medical Group Heart Rate 64 01/03/2012 Medical Group Respitory Rate 20 01/03/2012 [facility] Systolic (mm Hg) 130 01/03/2012 [facility] Diastolic (mm Hg) 60 01/03/2012 Medical Group Weight 236.4 12/19/2011 Medical Group Temperature Oral (F) 98.5 F 12/19/2011 Medical Group Heart Rate 60 12/19/2011 [facility] Systolic (mm Hg) 122 12/19/2011 [...] Type Number For Provider Date Date Visit [facility] Office [id number] Nunu 04/28 04/28 [place] Medical Visit 5670 MD Antony /2013 Medical [facility] Orthopedics [facility] Office [id number] Nunu 04/30 04/30 [place] Medical Visit 5060 MD Antony /[address] [facility] Internal Medicine [facility] Office [id number] Nunu 05/05 05/05 [place] Medical Visit 7820 MD Antony /2013 Medical [facility] Orthopedics [facility] Office [id number] Nunu 05/26 05/26 [place] Medical Visit 7040 MD Antony /2013 Medical [facility] Cardiology [facility] Lab Report [id number] Nunu 06/19 06/19 [place] 6980 MD Antony /2013 Medical [facility] Office [id number] Nunu 07/07 07/07 [place] Medical Visit 7600 MD Antony /2013 Medical [facility] Orthopedics [facility] Office [id number] Nunu 07/21 07/21 [place] Medical Visit 6860 MD Antony /2013 Medical [facility] Orthopedics [facility] Office [id number] Nunu 08/22 08/22 [place] Medical Visit 7280 MD Antony /2013 Medical [facility] Orthopedics [facility] Office [id number] Nunu 09/22 09/22 [place] Medical Visit 3020 MD Antony /2013 Medical [facility] Orthopedics [facility] Office [id number] Nunu 10/31 10/31 [place] Medical Visit 5470 MD Antony /2013 [facility] Orthopedics [facility] Office [id number] Melanie 05/05 05/05 [place] Medical Visit 8640 Mazel, /2014 [facility] [employer] [facility] Cardiology Outpatient [id number] ULYSSES 02/22 Active [facility] ESTELA [place] Outpatient [id number] XRAY VISIT 02/22 Active [facility] [place] Outpatient [id number] JACKIE 03/09 Active [facility] MUCHER [place] Outpatient [id number] JACKIE 05/18 Active [facility] [place] Outpatient [id number] XRAY VISIT 06/20 Active [facility] [place] Outpatient [id number] XRAY VISIT 06/20 Active [facility] [place] Outpatient [id number] ULYSSES 06/20 Active [facility] ESTELA [place] Outpatient [id number] L MELANIE 03/31 Active [facility] MAZEL [place] Outpatient [id number] DOPPLER 04/10 Active [facility] VISIT /2016 [place] [facility] [id number] NUCLEAR 04/10 Active [facility] VISIT /2016 [place] Outpatient [id number] L MELANIE 10/11 Active [facility] MAZEL [place] Outpatient [id number] EREN 11/16 Active [facility] JUANCARLOS [place] Outpatient [id number] DIRK 11/21 Active [facility] OLIVEIRA [place] Outpatient [id number] ULYSSES 02/12 Active [facility] ESTELA [place] Outpatient [id number] XRAY VISIT 02/12 Active [facility] [place] Outpatient [id number] XRAY VISIT 02/12 Active [facility] Outpatient [id number] Nunu Hardy 02/12 02/13 Orthopedics /2016 [facility] Ambulatory [id number] Nunu Hardy 02/12 02/12 Radiology Pre-Reg /2016 [facility] Family Outpatient [id number] Nunu Hardy 02/12 02/13 Medicine /2016 [facility] Outpatient [id number] EREN 05/28 [facility] [id number] Nunu Hardy 05/28 05/28 Cardiology Pre-Reg /2017 [facility] Outpatient [id number] EREN 07/09 [facility] [id number] Eren 07/09 07/09 Cardiology Pre-Reg Juancarlos /2017 [facility] Outpatient [id number] EREN 07/30 Active [facility] JUANCARLOS [place] [facility] Outpatient [id number] Eren 07/30 07/31 Cardiology Juancarlos /2017 [facility] Outpatient [id number] DOPPLER 08/23 Active [facility] VISIT /2017 [place] Outpatient [id number] EREN08/23 Active [facility] JUANCARLOS [place] [facility] Outpatient [id number] Nunu Hardy 08/23 08/24 Radiology /2017 Medical [facility] Outpatient [id number] Eren 08/23 08/24 Cardiology Juancarlos /2017 [facility] Outpatient [id number] EREN11/27 Active [facility] JUANCARLOS [place] [facility] Outpatient [id number] Eren 11/27 11/28 Cardiology Juancarlos /2017 [facility] Outpatient [id number] DOPPLER 12/03 Active [facility] VISIT /2017 [place] Outpatient [id number] DOPPLER 12/11 Active [facility] VISIT /2017 [place] Outpatient [id number] DOPPLER 12/11 Active [facility] VISIT /2017 [place] Outpatient [id number] NUCLEAR 12/11 Active [facility] VISIT /2017 [place] Outpatient [id number] EREN 12/11 Active [facility] JUANCARLOS [place] Outpatient [id number] DOPPLER 06/10 Active [facility] VISIT /2018 [place] Outpatient [id number] DOPPLER 06/10 Active [facility] VISIT /2018 [place] Outpatient [id number] DOPPLER 06/10 Active [facility] VISIT /2018 [place] Outpatient [id number] DOPPLER 06/10 Active [facility] VISIT /2018 [place] Outpatient [id number] EREN 06/10 Active [facility] JUANCARLOS [place] Outpatient [id number] XRAY VISIT 06/10 Active [facility] [place] Outpatient [id number] XRAY VISIT 06/10 Active [facility] [place] Outpatient [id number] XRAY VISIT 06/10 Active [facility] Ambulatory [id number] Nunu Hardy 06/10 06/10 Radiology Pre-Reg /2018 [facility] Ambulatory [id number] NURSE 06/10 06/10 Radiology Pre-Reg VISIT /2018 [facility] Family Ambulatory [id number] NURSE 06/10 06/10 Medicine Pre-Reg VISIT /2018 [facility] Outpatient [id number] NURSE 06/10 06/11 Radiology VISIT /2018 [facility] Outpatient [id number] Eren 06/10 06/11 Cardiology Juancarlos /2018 [facility] Ambulatory [id number] NURSE 06/10 06/10 Radiology Pre-Reg VISIT /2018 [facility] Ambulatory [id number] NURSE 06/10 06/10 Radiology Pre-Reg VISIT /2018 [facility] Family Outpatient [id number] NURSE 06/10 06/11 Medicine VISIT /2018 [facility] Outside [id number] 06/12 06/14 Cardiology Medical /2018 [facility] Procedures Procedure Code Date Perfomer Comments Source Implantation of [id number] 03/26/[address] ROJO Medical electronic [facility] stimulator in [place] in brain<sup>1</sup> [place]. colonoscopy [id number] 08/09/2011 [facility] colonoscopy [id number] 08/09/2011 [facility] Arthroplasty [id number] 09/08/2009 Medical Group colonoscopy [id number] 05/02/2006 [facility] Arthroplasty [id number] 03/26/2006 Medical Group Reduction of [id number] 03/26/2003 five times Medical fracture of upper Group arm with internal fixation<sup>1</sup > Reduction of [id number] 03/26/2003 five times Medical fracture of upper Group arm with internal fixation<sup>2</sup > Arthroplasty [id number] Medical Group Excision of benign [id number] Medical lesion of face and Group ears
--- OUTSIDE RECORDS SUMMARY | 2018-06-16 17:06 | XMS REPORT | Continuity of Care Document ---
:1940 Author Organization [facility] Care Team Providers Name Role Phone MD [...] Location Date Office Visit Nunu Hardy MD [facility] Internal Apr 30, 2013 Medicine Allergies, Adverse [...] Mar 17, 2013 Active TOVIAZ 8 MG [id number] one p.o. q.h.s. Apr 02, 2013 Active [...]
--- OUTSIDE RECORDS SUMMARY | 2018-06-16 17:06 | XMS REPORT | Continuity of Care Document ---
:1940 Author Organization [facility] Care Team Providers Name Role Phone [...] Location Date Office Visit Nunu Hardy MD [facility] [place] [facility] Apr Allergies, Adverse Reactions, Alerts Type [...] Mar 17, 2013 Active TOVIAZ 8 MG [id number] one p.o. q.h.s. Apr 02, 2013 Active [...]
--- OUTSIDE RECORDS SUMMARY | 2018-06-16 17:07 | XMS REPORT | Continuity of Care Document ---
[...] Location Date Office Visit Nunu Hardy MD [facility] [place] [facility] May Allergies, Adverse Reactions, Alerts Type [...] Mar 17, 2013 Active TOVIAZ 8 MG IE38E-MKX one p.o. q.h.s. Apr 02, 2013 Active [...]
--- OUTSIDE RECORDS SUMMARY | 2018-06-16 17:07 | XMS REPORT | Continuity of Care Document ---
:1940 Author Organization [facility] Care Team Providers Name Role Phone MD Antony, Nunu Unavailable Unavailable Insurance Providers Payer name Policy type / Policy ID Covered alliance party ID Policy [place] Coverage type AETNA SECONDARY TO MEDICARE MEDICARE PRIMARY AETNA SECONDARY TO MEDICARE MEDIC[place]: [employer] A[employer] - [place] [employer] (MEDICARE SUPPLEMENT) MED[place]: [employer] MEDICARE [place]: [employer] AET[employer] - [place] [employer]MICAL (MEDICARE SUPPLEMENT) Encounters Encounter Performer Location Date Office Visit Nunu Hardy MD [facility] [place] [facility] Apr Allergies, Adverse Reactions, Alerts Type [...] Mar 17, 2013 Active TOVIAZ 8 MG [id number] one p.o. q.h.s. Apr 02, 2013 Active [...]
--- OUTSIDE RECORDS SUMMARY | 2018-06-16 17:07 | XMS REPORT | Continuity of Care Document ---
:1940 Author Organization [facility] Care Team Providers Name Role Phone MD [...] Location Date Lab Report Nunu Hardy MD [facility] Jun 19, 2013 Allergies, Adverse Reactions, Alerts [...] Mar 17, 2013 Active TOVIAZ 8 MG [id number] one p.o. q.h.s. Apr 02, 2013 Active [...]
--- OUTSIDE RECORDS SUMMARY | 2018-06-16 17:08 | XMS REPORT | Continuity of Care Document ---
:1940 Author Organization [facility] Care Team Providers Name Role Phone MD [...] Location Date Office Visit Nunu Hardy MD [facility] [place] [facility] July Allergies, Adverse Reactions, Alerts Type [...] Mar 17, 2013 Active TOVIAZ 8 MG PU24L-FEQ one p.o. q.h.s. Apr 02, 2013 Active [...]
--- OUTSIDE RECORDS SUMMARY | 2018-06-16 17:08 | XMS REPORT | Continuity of Care Document ---
:1940 Author Organization [facility] Care Team Providers Name Role Phone [...] Location Date Office Visit Nunu Hardy MD [facility] [place] [facility] Jun Allergies, Adverse Reactions, Alerts Type [...] Mar 17, 2013 Active TOVIAZ 8 MG [id number] one p.o. q.h.s. Apr 02, 2013 Active [...]
--- OUTSIDE RECORDS SUMMARY | 2018-06-16 17:08 | XMS REPORT | Continuity of Care Document ---
:1940 Author Organization [facility] Care Team Providers Name Role Phone [...] Location Date Office Visit Nunu Hardy MD [facility] [place] [facility] Jun Allergies, Adverse Reactions, Alerts Type [...] Mar 17, 2013 Active TOVIAZ 8 MG [id number] one p.o. q.h.s. Apr 02, 2013 Active [...]
--- OUTSIDE RECORDS SUMMARY | 2018-06-16 17:09 | XMS REPORT | Continuity of Care Document ---
:1940 Author Organization [facility] Care Team Providers Name Role Phone MD [...] Location Date Office Visit Nunu Hardy MD [facility] [place] [facility] Oct Allergies, Adverse Reactions, Alerts Type [...] Mar 17, 2013 Active TOVIAZ 8 MG RA55F-PGS one p.o. q.h.s. Apr 02, 2013 Active [...]
--- OUTSIDE RECORDS SUMMARY | 2018-06-16 17:09 | XMS REPORT | Continuity of Care Document ---
:1940 Author Organization [facility] Care Team Providers Name Role Phone ODETTE [...] Location Date Office Visit Heather Kerr APRN [facility] [place] [facility] May 05, 2014 Allergies, Adverse Reactions, [...] Mar 26, 2012 Inactive TOVIAZ 8 MG [id number] one p.o. q.h.s. Apr 02, 2013 Inactive [...]
--- OUTSIDE RECORDS SUMMARY | 2018-06-16 17:09 | XMS REPORT | Continuity of Care Document ---
:1940 Author Organization [facility] Care Team Providers Name Role Phone MD [...] Location Date Office Visit Nunu Hardy MD [facility] [place] [facility] Aug Allergies, Adverse Reactions, Alerts Type [...] Mar 17, 2013 Active TOVIAZ 8 MG TV90C-ZSA one p.o. q.h.s. Apr 02, 2013 Active [...]
--- OUTSIDE RECORDS SUMMARY | 2018-06-16 17:11 | XMS REPORT | Summary of Care ---
:1940 Author Organization [facility] Cardiology [place] Address [address] [place] [address]- Encounter HQ Jennifer(ELENO) [id number] Date(s): 06/10/18 - 06/10/18 [facility] Cardiology [place] [address] [place] [address]- [phone] Discharge Disposition: Home or Self Care Attending Physician: Eren Bauer MD Referring Physician: Nunu Hardy MD Vital Signs Most recent to oldest [Reference Range]: 1 Height 171.45 cm (06/10/18 11:42 AM) Temperature Oral [96.4-99.1 DegF] 97.9 DegF (06/10/18 11:42 AM) Blood Pressure [90-140/60-90 mmHg] 136/64 mmHg (06/10/18 11:42 AM) Peripheral Pulse Rate [60-100 bpm] 74 bpm (06/10/18 11:42 AM) Weight 110.909 kg (06/10/18 11:42 AM) Body Mass Index 37.73 m2 (06/10/18 11:42 AM) Problem List Condition Effective Dates Status Health Status Informant Allergic rhinitis1 03/17/13 Active Anxiety(Confirmed) Active Backache2, 3 Active Biceps tendinitis4 03/01/12 Active Bronchitis5, 6 03/17/13 Active Cancer of skin(Confirmed) Resolved Carpal tunnel syndrome7, 8, 9 01/17/12 Active CHF - Congestive heart Active failure(Confirmed) Chronic obstructive lung qleeope92, Active 11, 12 Conduction disorder of the heart13, 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 14, 15 Congestive heart bemswfx99, 17, 18 Active Epigastric pain19, 20, 21 Active Frequency(Confirmed) Active Gastroesophageal reflux , Active 23, 24 S/p shoulder replacement(Confirmed) Active Hard of hearing(Confirmed) Active Hypercholesterolemia(Confirmed)25, Active 26, 27 Hyperlipidemia(Confirmed) Active Hypertension(Confirmed) Active Hypertensive zmenhaqg38, 29, 30 Active Impacted akzbycv43, 32 12/04/12 Active Joint pain33, 34, 35 03/17/13 Active Obesity(Confirmed) Active Osteoarthritis(Confirmed) Active Osteoarthritis of right Active elbow(Confirmed) Otitis pagcsin57 12/04/12 Resolved Pain in elbow37, 38, 39 04/28/13 Active Pain in upper limb40 09/04/12 Active Ixczxjlnhxv94, 42, 43 03/17/13 Active Guspahfcjrbu08, 45, 46 10/17/12 Active Peripheral nerve , 48, 49 12/19/11 Active Atvexfoq30 03/11/12 Active Preoperative cardiovascular 05/26/13 Active bedbkgbciqn59, 52 Encounter for preoperative vascular Active examination(Confirmed) Rotator cuff wnfeolts47, 54, 55, 56, 06/27/13 Active 57 Screening - health check58, 59 01/03/12 Active Shoulder joint pain60 04/28/13 Active Sleep apnea(Confirmed) Active Dknsov59, 62, 63 11/06/11 Active Urge incontinence of [...] on 07/23/14. Originally documented as CRESTOR. Medications carbidopa-levodopa 25 mg-100 mg oral tablet 1 tab, PO, BID, 0 Refill(s) Start Date: 06/10/18 Status: Orderedgabapentin 600 mg oral tablet 600 mg=1 tab, PO, BID, 0 Refill(s) Start Date: 06/10/18 Status: Ordered Results No data available for this section Immunizations Given and Recorded Vaccine Date Status Refusal Reason influenza virus vaccine, inactivated1 04/02/13 Given Hx influenza vaccine-unspecified2 01/03/12 Given 1Result Comment: fluzone preservative free (6-35 mo.) [[id number]]. Migrated from OBS ; Data migrated from [facility] on 04/27/2015.2Result Comment: fluvax. Migrated from OBS ; Data migrated from [facility] on 04/27/2015. Procedures Procedure Date Related Diagnosis Body Site Status Implantation of electronic stimulator 2014 Completed in brain1 Arthroplasty 09/08/09 Completed Arthroplasty 03/26/06 Completed Reduction of fracture of upper arm with 03/26/03 Completed internal fixation2 Arthroplasty Completed Excision of benign lesion of face and Completed ears 1Followed by Dr Lyndon Marquez in [place].2five times Social History Social History Type Response [...] Reg Smoking Cessation Counseling No entered on: 06/10/18 1NONE Assessment and Plan No data available for this section
--- OUTSIDE RECORDS SUMMARY | 2018-06-16 17:11 | XMS REPORT | Summary of Care ---
:1940 Author Organization [facility] Radiology [facility] [address] [place] [address]- Encounter HQ Roxane_lorelei(FIN) [id number] Date(s): 06/10/18 - 06/10/18 [facility] Radiology [place] [address] [place] [address] [phone] Attending Physician: VISIT, NURSE [facility] Referring Physician: Eren Bauer MD Vital Signs No data available for this section Problem List Condition Effective Dates Status Health Status Informant Allergic rhinitis1 03/17/13 Active Anxiety(Confirmed) Active Backache2, 3 Active Biceps tendinitis4 03/01/12 Active Bronchitis5, 6 03/17/13 Active Cancer of skin(Confirmed) Resolved Carpal tunnel syndrome7, 8, 9 01/17/12 Active CHF - Congestive heart Active failure(Confirmed) Chronic obstructive lung yhfdsiv88, Active 11, 12 Conduction disorder of the heart13, 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 14, 15 Congestive heart vndzurz33, 17, 18 Active Epigastric pain19, 20, 21 Active Frequency(Confirmed) Active Gastroesophageal reflux eyrrdzk54, Active 23, 24 S/p shoulder replacement(Confirmed) Active Hard of hearing(Confirmed) Active Hypercholesterolemia(Confirmed)25, Active 26, 27 Hyperlipidemia(Confirmed) Active Hypertension(Confirmed) Active Hypertensive , 29, 30 Active Impacted ivnyaxs10, 32 12/04/12 Active Joint pain33, 34, 35 03/17/13 Active Obesity(Confirmed) Active Osteoarthritis(Confirmed) Active Osteoarthritis of right Active elbow(Confirmed) Otitis 12/04/12 Resolved Pain in elbow37, 38, 39 04/28/13 Active Pain in upper limb40 09/04/12 Active Wagfmnhkhzw84, 42, 43 03/17/13 Active Dfrotisgftwn19, 45, 46 10/17/12 Active Peripheral nerve tshrshe44, 48, 49 12/19/11 Active Atdfxsgs91 03/11/12 Active Preoperative cardiovascular 05/26/13 Active tpjveobpjyd84, 52 Encounter for preoperative vascular Active examination(Confirmed) Rotator cuff etpmulep09, 54, 55, 56, 06/27/13 Active 57 Screening - health check58, 59 01/03/12 Active Shoulder joint pain60 04/28/13 Active Sleep apnea(Confirmed) Active Rzsabp91, 62, 63 11/06/11 Active Urge incontinence of [...] 1Result Comment: fluzone preservative free (6-35 mo.) [[id number]]. Migrated from OBS ; Data migrated from [...] ears 1Followed by Dr Lyndon Marquez in [place].2five times Social History Social History Type Response [...]
--- OUTSIDE RECORDS SUMMARY | 2018-06-16 17:11 | XMS REPORT | Summary of Care ---
:1940 Author Organization [facility] Radiology [facility] [address] [place] [address]- Encounter HQ Roxane_lorelei(FIN) [id number] Date(s): 06/10/18 - 06/10/18 [facility] Radiology [place] [address] [place] [address] [phone] Attending Physician: VISIT, NURSE ST DOPPLER Referring Physician: Nunu Hardy MD Vital [...] heart13, 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 14, 15 Congestive heart ivfrlsy24, 17, 18 Active Epigastric pain19, 20, 21 Active Frequency(Confirmed) Active Gastroesophageal reflux , Active 23, 24 S/p shoulder replacement(Confirmed) Active Hard of hearing(Confirmed) Active Hypercholesterolemia(Confirmed)25, Active 26, 27 Hyperlipidemia(Confirmed) Active Hypertension(Confirmed) Active Hypertensive dcexemox12, 29, 30 Active Impacted osgxjqi43, 32 12/04/12 Active Joint pain33, 34, 35 03/17/13 Active Obesity(Confirmed) Active Osteoarthritis(Confirmed) Active Osteoarthritis of right Active elbow(Confirmed) Otitis svtylwh46 12/04/12 Resolved Pain in elbow37, 38, 39 04/28/13 Active Pain in upper limb40 09/04/12 Active Opmpuhhqcrn13, 42, 43 03/17/13 Active Ueofagsrkfqz05, 45, 46 7/25/13 Active Peripheral nerve exhxxck60, 48, 49 12/19/11 Active Wcsvykdq42 03/11/12 Active Preoperative cardiovascular 05/26/13 Active spgftshicam17, 52 Encounter for preoperative vascular Active examination(Confirmed) Rotator cuff hhptmejf60, 54, 55, 56, 06/27/13 Active 57 Screening - health check58, 59 01/03/12 Active Shoulder joint pain60 04/28/13 Active Sleep apnea(Confirmed) Active Wyxcsw72, 62, 63 11/06/11 Active Urge incontinence of [...] 1Result Comment: fluzone preservative free (6-35 mo.) [[id number]]. Migrated from OBS ; Data migrated from [...] ears 1Followed [address] Dr Lyndon Marquez in [place].2five times Social History Social History Type Response [...]
--- OUTSIDE RECORDS SUMMARY | 2018-06-16 17:12 | XMS REPORT | Summary of Care ---
:1940 Author Organization [facility] Radiology [facility] [address] [place] [address]- Encounter HQ Roxane_lorelei(FIN) [id number] Date(s): 06/10/18 - 06/10/18 [facility] Radiology [place] [address] 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 14, 15 Congestive heart jwiikaf56, 17, 18 Active Epigastric pain19, 20, 21 Active Frequency(Confirmed) Active Gastroesophageal reflux drrusna55, Active 23, 24 S/p shoulder replacement(Confirmed) Active Hard of hearing(Confirmed) Active Hypercholesterolemia(Confirmed)25, Active 26, 27 Hyperlipidemia(Confirmed) Active Hypertension(Confirmed) Active Hypertensive , 29, 30 Active Impacted zqymjgh06, 32 12/04/12 Active Joint pain33, 34, 35 03/17/13 Active Obesity(Confirmed) Active Osteoarthritis(Confirmed) Active Osteoarthritis of right Active elbow(Confirmed) Otitis ylfseua78 12/04/12 Resolved Pain in elbow37, 38, 39 04/28/13 Active Pain in upper limb40 09/04/12 Active Kcocormlahg27, 42, 43 03/17/13 Active Ffkclmwwanak44, 45, 46 10/17/12 Active Peripheral nerve nuwglbw92, 48, 49 12/19/11 Active Hvwgfhxs85 03/11/12 Active Preoperative cardiovascular 05/26/13 Active dexwqqfahsh56, 52 Encounter for preoperative vascular Active examination(Confirmed) Rotator cuff qmevmndf81, 54, 55, 56, 06/27/13 Active 57 Screening - health check58, 59 01/03/12 Active Shoulder joint pain60 04/28/13 Active Sleep apnea(Confirmed) Active Fuspfo67, 62, 63 11/06/11 Active Urge incontinence of [...] 1Result Comment: fluzone preservative free (6-35 mo.) [[id number]]. Migrated from OBS ; Data migrated from [...] ears 1Followed [address] Dr Lyndon Marquez in [place].2five times Social History Social History Type Response [...]
--- OUTSIDE RECORDS SUMMARY | 2018-06-16 17:12 | XMS REPORT | Summary of Care ---
:1940 Author Organization [facility] Radiology [address] [place] [address]- Encounter HQ Danter_lorelei(FIN) [id number] Date(s): 06/10/18 - 06/10/18 [facility] Radiology [place] [address] [place] [address] [phone] Attending Physician: VISIT, NURSE ST XRAY Referring Physician: Eren Bauer MD Vital [...] heart13, 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 14, 15 Congestive heart xwirdxt56, 17, 18 Active Epigastric pain19, 20, 21 Active Frequency(Confirmed) Active Gastroesophageal reflux polqfvu23, Active 23, 24 S/p shoulder replacement(Confirmed) Active Hard of hearing(Confirmed) Active Hypercholesterolemia(Confirmed)25, Active 26, 27 Hyperlipidemia(Confirmed) Active Hypertension(Confirmed) Active Hypertensive , 29, 30 Active Impacted tnxwibh68, 32 12/04/12 Active Joint pain33, 34, 35 03/17/13 Active Obesity(Confirmed) Active Osteoarthritis(Confirmed) Active Osteoarthritis of right Active elbow(Confirmed) Otitis dodvhmo82 12/04/12 Resolved Pain in elbow37, 38, 39 04/28/13 Active Pain in upper limb40 09/04/12 Active Thksyllmdaz10, 42, 43 03/17/13 Active Mhityyfdrgzy54, 45, 46 10/17/12 Active Peripheral nerve ltuanoi00, 48, 49 12/19/11 Active Hagjdoxy87 03/11/12 Active Preoperative cardiovascular 05/26/13 Active fnxwqrdnemc29, 52 Encounter for preoperative vascular Active examination(Confirmed) Rotator cuff wycxppeq32, 54, 55, 56, 06/27/13 Active 57 Screening - health check58, 59 01/03/12 Active Shoulder joint pain60 04/28/13 Active Sleep apnea(Confirmed) Active Hrizkb89, 62, 63 11/06/11 Active Urge incontinence of [...] 1Result Comment: fluzone preservative free (6-35 mo.) [[id number]]. Migrated from OBS ; Data migrated from [...] ears 1Followed [address] Dr Lyndon Marquez in [place].2five times Social History Social History Type Response [...]
--- OUTSIDE RECORDS SUMMARY | 2018-06-16 17:12 | XMS REPORT | Summary of Care ---
:1940 Author Organization [facility] Radiology [facility] [address] [place] [address]- Encounter HQ Roxane_lorelei(FIN) [id number] Date(s): 06/10/18 - 06/10/18 [facility] Radiology [place] [address] 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 14, 15 Congestive heart fbgjzur24, 17, 18 Active Epigastric pain19, 20, 21 Active Frequency(Confirmed) Active Gastroesophageal reflux xknxbau98, Active 23, 24 S/p shoulder replacement(Confirmed) Active Hard of hearing(Confirmed) Active Hypercholesterolemia(Confirmed)25, Active 26, 27 Hyperlipidemia(Confirmed) Active Hypertension(Confirmed) Active Hypertensive aqihofkn85, 29, 30 Active Impacted zbjoaax50, 32 12/04/12 Active Joint pain33, 34, 35 03/17/13 Active Obesity(Confirmed) Active Osteoarthritis(Confirmed) Active Osteoarthritis of right Active elbow(Confirmed) Otitis jpdfbob00 12/04/12 Resolved Pain in elbow37, 38, 39 04/28/13 Active Pain in upper limb40 09/04/12 Active Zoufgqdjsdj23, 42, 43 03/17/13 Active Dhewqztlgmox51, 45, 46 7/25/13 Active Peripheral nerve nujubui29, 48, 49 12/19/11 Active Mfxfcaqp04 03/11/12 Active Preoperative cardiovascular 05/26/13 Active ngdoxtsklvj47, 52 Encounter for preoperative vascular Active examination(Confirmed) Rotator cuff lxkbjtdy39, 54, 55, 56, 06/27/13 Active 57 Screening - health check58, 59 01/03/12 Active Shoulder joint pain60 04/28/13 Active Sleep apnea(Confirmed) Active Zrovss51, 62, 63 11/06/11 Active Urge incontinence of [...] 1Result Comment: fluzone preservative free (6-35 mo.) [[id number]]. Migrated from OBS ; Data migrated from [...] ears 1Followed [address] Dr Lyndon Marquez in [place].2five times Social History Social History Type Response [...]
--- OUTSIDE RECORDS SUMMARY | 2018-06-16 17:12 | XMS REPORT | Summary of Care ---
:1940 Author Organization [facility] [address] [place] [address]- Encounter HQ Jennifer(FIN) [id number] Date(s): 06/10/18 - 06/10/18 [facility] [address] 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 14, 15 Congestive heart , 17, 18 Active Epigastric pain19, 20, 21 Active Frequency(Confirmed) Active Gastroesophageal reflux kfigbci33, Active 23, 24 S/p shoulder replacement(Confirmed) Active Hard of hearing(Confirmed) Active Hypercholesterolemia(Confirmed)25, Active 26, 27 Hyperlipidemia(Confirmed) Active Hypertension(Confirmed) Active Hypertensive , 29, 30 Active Impacted snhadyo07, 32 12/04/12 Active Joint pain33, 34, 35 03/17/13 Active Obesity(Confirmed) Active Osteoarthritis(Confirmed) Active Osteoarthritis of right Active elbow(Confirmed) Otitis fykrzzd94 12/04/12 Resolved Pain in elbow37, 38, 39 04/28/13 Active Pain in upper limb40 09/04/12 Active Ytvwxnpprtf13, 42, 43 03/17/13 Active Hcivhalnzvld19, 45, 46 10/17/12 Active Peripheral nerve steltfh98, 48, 49 12/19/11 Active Bltcanug23 03/11/12 Active Preoperative cardiovascular 05/26/13 Active qhrwqufgqns67, 52 Encounter for preoperative vascular Active examination(Confirmed) Rotator cuff pwffvmti95, 54, 55, 56, 06/27/13 Active 57 Screening - health check58, 59 01/03/12 Active Shoulder joint pain60 04/28/13 Active Sleep apnea(Confirmed) Active Lpnmbf82, 62, 63 11/06/11 Active Urge incontinence of [...] on 09/30/14.54Data migrated from [employer] on 7/8/15.55Data migrated from [employer] on 08/25/14.56Data migrated [...] 1Result Comment: fluzone preservative free (6-35 mo.) [[id number]]. Migrated from OBS ; Data migrated from [...] ears 1Followed by Dr Lyndon Marquez in [place].2five times Social History Social History Type Response [...]
--- OUTSIDE RECORDS SUMMARY | 2018-06-16 17:12 | XMS REPORT | Summary of Care ---
:1940 Author Organization [facility] [address] [place] [address]- Encounter HQ Jennifer(FIN) [id number] Date(s): 06/10/18 - 06/10/18 [facility] [address] 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 14, 15 Congestive heart ljgwcah64, 17, 18 Active Epigastric pain19, 20, 21 Active Frequency(Confirmed) Active Gastroesophageal reflux lkuluyp04, Active 23, 24 S/p shoulder replacement(Confirmed) Active Hard of hearing(Confirmed) Active Hypercholesterolemia(Confirmed)25, Active 26, 27 Hyperlipidemia(Confirmed) Active Hypertension(Confirmed) Active Hypertensive octitish41, 29, 30 Active Impacted vvbbdca00, 32 12/04/12 Active Joint pain33, 34, 35 03/17/13 Active Obesity(Confirmed) Active Osteoarthritis(Confirmed) Active Osteoarthritis of right Active elbow(Confirmed) Otitis 12/04/12 Resolved Pain in elbow37, 38, 39 04/28/13 Active Pain in upper limb40 09/04/12 Active Kymdldilcht35, 42, 43 03/17/13 Active Uocseicyqnta33, 45, 46 10/17/12 Active Peripheral nerve mjudlst53, 48, 49 12/19/11 Active Unxrxxge32 03/11/12 Active Preoperative cardiovascular 05/26/13 Active yxucpmpubdc22, 52 Encounter for preoperative vascular Active examination(Confirmed) Rotator cuff rbojkwoy40, 54, 55, 56, 06/27/13 Active 57 Screening - health check58, 59 01/03/12 Active Shoulder joint pain60 04/28/13 Active Sleep apnea(Confirmed) Active Xcaeqy65, 62, 63 11/06/11 Active Urge incontinence of [...] 1Result Comment: fluzone preservative free (6-35 mo.) [[id number]]. Migrated from OBS ; Data migrated from [...] ears 1Followed by Dr Lyndon Marquez in [place].2five times Social History Social History Type Response [...]
--- OUTSIDE RECORDS SUMMARY | 2018-06-16 17:13 | XMS REPORT | Summary of Care ---
:1940 Author Organization [facility] Cardiology [facility] [address] [address]- Encounter HQ Jennifer(FIN) [phone] Date(s): 11/27/17 - 11/27/17 [facility] Cardiology [place] [address] [place] [address]- Discharge Disposition: Home or Self Care Attending Physician: Eren Bauer MD Referring Physician: Nunu Hardy MD Vital Signs Most recent to oldest [Reference Range]: 1 Height 170.18 cm (11/27/17 1:42 PM) Temperature Oral [96.4-99.1 DegF] 98.1 DegF (11/27/17 1:42 PM) Blood Pressure [90-140/60-90 mmHg] 152/69 mmHg *HI* (11/27/17 1:42 PM) Peripheral Pulse Rate [60-100 bpm] 71 bpm (11/27/17 1:42 PM) Weight 113.693 kg (11/27/17 1:42 PM) Body Mass Index 39.26 m2 (11/27/17 1:42 PM) Problem List Condition Effective Dates Status Health Status Informant Allergic rhinitis1 03/17/13 Active Anxiety(Confirmed) Active Backache2, 3 Active Biceps tendinitis4 03/01/12 Active Bronchitis5, 6 03/17/13 Active Cancer of skin(Confirmed) Resolved Carpal tunnel syndrome7, 8, 9 01/17/12 Active CHF - Congestive heart Active failure(Confirmed) Chronic obstructive lung , Active 11, 12 Conduction disorder of the heart13, 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 14, 15 Congestive heart rmwklqy45, 17, 18 Active Epigastric pain19, 20, 21 Active Frequency(Confirmed) Active Gastroesophageal reflux ltvzsox71, Active 23, 24 S/p shoulder replacement(Confirmed) Active Hard of hearing(Confirmed) Active Hypercholesterolemia(Confirmed)25, Active 26, 27 Hyperlipidemia(Confirmed) Active Hypertension(Confirmed) Active Hypertensive iwsqskup58, 29, 30 Active Impacted ahbliyj36, 32 12/04/12 Active Joint pain33, 34, 35 03/17/13 Active Obesity(Confirmed) Active Osteoarthritis(Confirmed) Active Osteoarthritis of right Active elbow(Confirmed) Otitis kofpihl20 12/04/12 Resolved Pain in elbow37, 38, 39 04/28/13 Active Pain in upper limb40 09/04/12 Active Kgtkinsxelq21, 42, 43 03/17/13 Active Qbdyibaqqswy72, 45, 46 10/17/12 Active Peripheral nerve sogmkui27, 48, 49 12/19/11 Active Muvqfhvh19 03/11/12 Active Preoperative cardiovascular 05/26/13 Active qztnktqubhw99, 52 Encounter for preoperative vascular Active examination(Confirmed) Rotator cuff xqqmuspf51, 54, 55, 56, 06/27/13 Active 57 Screening - health check58, 59 01/03/12 Active Shoulder joint pain60 04/28/13 Active Sleep apnea(Confirmed) Active Urqmec39, 62, 63 11/06/11 Active Urge incontinence of [...] 07/23/14. Originally documented as CRESTOR. Medications No Known Medications Results No data available for this section Immunizations Given and Recorded Vaccine Date Status Refusal Reason influenza virus vaccine, inactivated1 04/02/13 Given Hx influenza vaccine-unspecified2 01/03/12 Given 1Result Comment: fluzone preservative free (6-35 mo.) [[id number]]. Migrated from OBS ; Data migrated from [employer] on 04/27/2015.2Result Comment: fluvax. Migrated from OBS ; Data migrated from [employer] on 04/27/2015. Procedures Procedure Date Related Diagnosis Body Site Status Implantation of electronic stimulator 2014 Completed in brain1 Arthroplasty 09/08/09 Completed Arthroplasty 03/26/06 Completed Reduction of fracture of upper arm with 03/26/03 Completed internal fixation2 Arthroplasty Completed Excision of benign lesion of face and Completed ears 1Followed by Dr Lyndon Marquez in [place].2five times Social History Social History Type Response [...]
--- OUTSIDE RECORDS SUMMARY | 2018-06-16 17:13 | XMS REPORT | Summary of Care ---
:1940 Author Organization [facility] Cardiology [place] Address [address] [place] [address]- Encounter HQ Roxane_lorelei(FIN) [phone] Date(s): 06/12/18 - 06/13/18 [facility] Cardiology [place] [address] 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 14, 15 Congestive heart jmtypvb50, 17, 18 Active Epigastric pain19, 20, 21 Active Frequency(Confirmed) Active Gastroesophageal reflux , Active 23, 24 S/p shoulder replacement(Confirmed) Active Hard of hearing(Confirmed) Active Hypercholesterolemia(Confirmed)25, Active 26, 27 Hyperlipidemia(Confirmed) Active Hypertension(Confirmed) Active Hypertensive vcpbuqtk52, 29, 30 Active Impacted ohrecuv00, 32 12/04/12 Active Joint pain33, 34, 35 03/17/13 Active Obesity(Confirmed) Active Osteoarthritis(Confirmed) Active Osteoarthritis of right Active elbow(Confirmed) Otitis ptxceru57 12/04/12 Resolved Pain in elbow37, 38, 39 04/28/13 Active Pain in upper limb40 09/04/12 Active Spydyzbyjyr41, 42, 43 03/17/13 Active Hnkogtlgjfrl58, 45, 46 10/17/12 Active Peripheral nerve , 48, 49 12/19/11 Active Ckiensxp07 03/11/12 Active Preoperative cardiovascular 05/26/13 Active cwhfqtrgoue92, 52 Encounter for preoperative vascular Active examination(Confirmed) Rotator cuff xvbcezfm32, 54, 55, 56, 06/27/13 Active 57 Screening - health check58, 59 01/03/12 Active Shoulder joint pain60 04/28/13 Active Sleep apnea(Confirmed) Active Akrrng44, 62, 63 11/06/11 Active Urge incontinence of [...] 1Result Comment: fluzone preservative free (6-35 mo.) [[id number]]. Migrated from OBS ; Data migrated from [...] ears 1Followed by Dr Lyndon Marquez in [place].2five times Social History Social History Type Response [...]
--- NOTE | 2018-06-16 18:07 | RAD REPORT ---
EXAM DESCRIPTION: RAD - Chest Single View - 06/16/2018 5:54 pm CLINICAL HISTORY: Cough;COPD Chest pain. COMPARISON: ABDOMEN 1 VIEW KUB dated 12/08/2007; CHEST SINGLE VIEW dated 12/08/2007 FINDINGS: Portable technique limits examination quality. The lungs are grossly clear. The heart is mildly enlarged. Left chest pacer device is present, obscur ing a portion of the left mid lung parenchyma.Hardware is present in the proximal left humerus. IMPRESSION: No acute intrathoracic process suspected.
[2018-06-16] MEDS ORDERED: NA CHLORIDE 0.9% 1,000 ML ONE (18:29)
[2018-06-16 18:30] LABS: Arterial Blood Carboxyhemoglob 0.8 % (0-1.5); Blood Gas Oxyhemoglobin 95.5 % (94-97); Blood O2 Saturation 97.4 % (92-98.5)
[2018-06-16 18:51] LABS: Protime INR 1.02
[2018-06-16 19:00] LABS: Absolute Lymphocytes (CBC) 1.9 K/uL (0.7-4.9); Absolute Monocytes 0.7 K/uL (0.1-1.3); Absolute Neutrophil 3.7 K/uL (1.8-8.0); Basophils % 0.7 % (0-1.3); Eosinophils % 3.9 % (0-4.4); Hematocrit 40.8 % (39.6-49.0); Lymphocytes % 28.9 % (15.3-44.8); MPV 8.6 fL (7.6-11.3); Monocytes % 10.1 % (3.3-12.3); RBC Red Blood Cell Count 4.66 M/uL (4.33-5.43)
[2018-06-16 19:07] LABS: ALT/SGPT 18 U/L (12-78); AST/SGOT 17 U/L (15-37); Albumin 3.6 g/dL (3.4-5.0); Alkaline Phosphatase 71 U/L (45-117); BUN Blood Urea Nitrogen 18 mg/dL (7-18); Bicarbonate 26 mmol/L (21-32); Bilirubin Direct < 0.1 mg/dL (0-0.2); Bilirubin Total 0.2 mg/dL (0.2-1.0); Glucose Level 107 mg/dL (74-106); Lipase 78 U/L (73-393); Magnesium 2.3 mg/dL (1.8-2.4); NT PRO-BNP 85 pg/mL (<450); Potassium 4.1 mmol/L (3.5-5.1); Protein, Total 7.7 g/dL (6.4-8.2); Sodium Level 141 mmol/L (136-145); Troponin (Emerg Dept Use Only) < 0.02 ng/mL (0.0-0.045)
[2018-06-16] MEDS ORDERED: IPRATROPIUM BROM 0.5MG/2.5ML ONE (19:09)
[2018-06-16] MEDS ORDERED: METHYLPREDNISOLONE 125 MG INJ ONE (19:09)
[2018-06-16] MEDS ORDERED: LEVALBUTEROL 1.25 MG/3 ML NEB ONE ×2 (19:10→19:49)
--- NOTE | 2018-06-16 19:10 | ER ---
Nurse's Notes [facility] Name: Joey Blanco Age: 77 yrs Sex: Male : 1940 Arrival Date: 06/16/2018 Time: 17:03 Bed 25 Private MD: Diagnosis: Dyspnea;Chronic obstructive pulmonary disease with (acute) exacerbation;Type 2 diabetes mellitus;Obesity, unspecified;Nonrheumatic aortic (valve) stenosis Presentation: 06/16 17:06 Presenting complaint: Patient states: i cant get my breath for a long time but its hj worse in the last 2 days; reports cough, denies fever and chills; denies chest pain;. Transition of care: patient was not received from another setting of care. Onset of symptoms was June 16, 2018. Risk Assessment: Do you want to hurt yourself or someone else? Patient reports no desire to harm self or others. Initial Sepsis Screen: Does the patient meet any 2 criteria? No. Patient's initial sepsis screen is negative. Does the patient have a suspected source of infection? No. Patient's initial sepsis screen is negative. Care prior to arrival: None. 17:06 Method Of Arrival: Ambulatory 17:06 Acuity: ANDRES 3 hj Triage Assessment: 17:09 General: Appears in no apparent distress. uncomfortable. Pain: Denies pain. hj Respiratory: Reports shortness of breath Onset: The symptoms/episode began/occurred the patient has mild shortness of breath. 17:09 General: Behavior is calm, cooperative, appropriate for age. Historical: - Allergies: 17:08 No Known Allergies; hj - Home Meds: 17:08 amlodipine oral [Active]; lisinopril Oral [Active]; hj - PMHx: 17:08 COPD; Diabetes - NIDDM; Hypertension; Parkinsons; hj - PSHx: 17:08 face, left shoulder, right elbow surgery; Parkinson's Adaptive Brain Implant; hj - Immunization history:: Adult Immunizations not up to date. - Social history:: Smoking status: Patient/guardian denies using tobacco, Patient/guardian denies using alcohol. - Ebola Screening: : Patient negative for fever greater than or equal to 101.5 degrees Fahrenheit, and additional compatible Ebola Virus Disease symptoms Patient denies exposure to infectious person Patient denies travel to an Ebola-affected area in the 21 days before illness onset. - Family history:: not pertinent. Screenin:08 Abuse screen: Denies threats or abuse. Denies injuries from another. Nutritional hj screening: No deficits noted. Tuberculosis screening: No symptoms or risk factors identified. Fall Risk None identified. Assessment: 17:09 Respiratory: Airway is patent Respiratory effort is labored, Respiratory pattern is hj 17:09 Cardiovascular: Rhythm is. hj 17:15 Reassessment: Changed pt's briefs, removed wet clothes from urine. General: Appears in ca1 no apparent distress. comfortable, Behavior is calm, cooperative, appropriate for age. 17:15 Pain: Denies pain. Neuro: Level of Consciousness is awake, alert, obeys commands, ca1 Oriented to person, place, time, situation. Cardiovascular: Heart tones S1 S2 Capillary refill < 3 seconds Patient's skin is warm and dry. Cardiovascular: Rhythm is sinus rhythm. Respiratory: Airway is patent Respiratory effort is even, labored, Respiratory pattern is regular, symmetrical, Breath sounds are clear bilaterally. GI: Abdomen is round Bowel sounds present X 4 quads. Abd is non tender X 4 quads. : No deficits noted. No signs and/or symptoms were reported regarding the genitourinary system. EENT: No deficits noted. No signs and/or symptoms were reported regarding the EENT system. Derm: Skin is intact, is healthy with good turgor, Skin is pink, warm \T\ dry. Musculoskeletal: Circulation, motion, and sensation intact. Capillary refill is > 3 seconds. 18:15 Reassessment: Patient appears in no apparent distress at this time. Patient and/or ca1 family updated on plan of care and expected duration. Pain level reassessed. Patient is alert, oriented x 3, equal unlabored respirations, skin warm/dry/pink. Patient states symptoms have improved. Reassessment:. 19:15 Reassessment: Patient appears in no apparent distress at this time. Patient and/or ca1 family updated on plan of care and expected duration. Pain level reassessed. Patient is alert, oriented x 3, equal unlabored respirations, skin warm/dry/pink. Patient states feeling better. 19:30 Reassessment: Assisted pt to change into new briefs, old once soaked with urine. Change ca1 into dry clothes and hosp gown. 20:10 Reassessment: Patient appears in no apparent distress at this time. Patient and/or ca1 family updated on plan of care and expected duration. Pain level reassessed. Patient is alert, oriented x 3, equal unlabored respirations, skin warm/dry/pink. 20:45 Reassessment: Pt eat on bed sitting up on bed. ca1 21:30 Reassessment: Patient appears in no apparent distress at this time. Patient and/or ca1 family updated on plan of care and expected duration. Pain level reassessed. Patient is alert, oriented x 3, equal unlabored respirations, skin warm/dry/pink. Awaiting admitting orders. Dr. Larose at bedside. 22:20 Reassessment: Patient appears in no apparent distress at this time. Patient and/or ca1 family updated on plan of care and expected duration. Pain level reassessed. Patient is alert, oriented x 3, equal unlabored respirations, skin warm/dry/pink. Awaiting room assignment. 22:55 Reassessment: Pt stable, not in distress. Equal and unlabored breathing. Ambulatory ca1 with assist. Vital Signs: 17:00 BP 168 / 66; Pulse 78; Resp 19; Pulse Ox 100% on 2 lpm NC; ca1 17:00 BP 130 / 85; Pulse 82; Resp 18; Pulse Ox 100% on 2 lpm NC; ca1 17:09 BP 157 / 54; Pulse 76; Resp 18; Temp 98.5(O); Pulse Ox 97% on R/A; Weight 113.4 kg; hj Height 5 ft. 7 in. (170.18 cm); Pain 0/10; 17:23 BP 171 / 69; Pulse 75; Resp 21; Pulse Ox 99% on R/A; ca1 18:00 BP 159 / 65; Pulse 84; Resp 18; Pulse Ox 100% on 2 lpm NC; ca1 19:00 BP 171 / 80; Pulse 80; Resp 19; Pulse Ox 100% on 2 lpm NC; ca1 20:00 BP 159 / 61; Pulse 89; Resp 20; Pulse Ox 100% on 2 lpm NC; ca1 21:00 BP 128 / 52; Pulse 89; Resp 19; Pulse Ox 96% on 2 lpm NC; ca1 22:00 BP 150 / 60; Pulse 101; Resp 20; Pulse Ox 100% on 2 lpm NC; ca1 22:47 BP 137 / 81; Pulse 65; Resp 18; Pulse Ox 98% on 2 lpm NC; ca1 17:09 Body Mass Index 39.16 (113.40 kg, 170.18 cm) ED Course: 17:03 Patient arrived in ED. mr 17:07 Triage completed. hj 17:09 Arm band placed on right wrist. hj 17:09 Patient has correct armband on for positive identification. Placed in gown. Bed in low hj position. Call light in reach. Side rails up X 1. Adult w/ patient. 17:13 silk spooler on. Pulse ox on. NIBP on. ca1 17:13 Warm blanket given. ca1 17:15 Adan Britt MD is Attending Physician. [facility] 17:25 Tarah Simms RN is Primary Nurse. ca1 17:45 Missed attempt(s): 22 gauge in right forearm. Bleeding controlled, band aid applied, ca1 catheter tip intact. 17:45 No provider procedures requiring assistance completed. ca1 17:51 X-ray completed. Portable x-ray completed in exam room. Patient tolerated procedure la2 well. 17:54 XRAY Chest (1 view) In Process Unspecified. EDMS 18:00 Inserted saline lock: 20 gauge in right antecubital area, using aseptic technique. ss Blood collected. 18:30 Speci-cath kit inserted, using sterile technique, 16 Fr., specimen obtained. returned ca1 [place] urine. Patient tolerated well. 19:07 Elba Larose MD is Hospitalizing Provider. [facility] 22:43 Patient admitted, IV remains in place. ca1 Administered Medications: 09:25 Drug: Pepcid 20 mg Route: IVP; Site: left antecubital; ca1 20:25 Follow up: Response: No adverse reaction; Marked relief of symptoms ca1 18:24 Drug: NS 0.9% 1000 ml Route: IV; Rate: 75 ml/hr; Site: left antecubital; ca1 19:05 Drug: SOLU-Medrol 125 mg Route: IVP; Site: left antecubital; ca1 19:05 Drug: Xopenex 1.25 mg Route: Inhalation; ca1 19:05 Drug: AtroVENT Aerosol 0.5 mg Route: Inhalation; ca1 19:10 Drug: Rocephin - (cefTRIAXone) 1 grams Route: IVPB; Infused Over: 30 mins; Site: left ca1 antecubital; 19:15 Drug: Zithromax 500 mg Route: IVPB; Infused Over: 1 hrs; Site: left antecubital; ca1 19:20 Drug: Xopenex 1.25 mg Route: Inhalation; ca1 19:25 Drug: Lovenox 60 mg Route: Sub-Q; Site: right lower abdomen; ca1 20:30 Follow up: Response: No adverse reaction ca1 19:55 Not Given (Patient Refused): Maalox Suspension (200 mg-200 mg-20 mg/5 mL) 30 ml PO once ca1 19:55 Drug: Xopenex 1.25 mg Route: Inhalation; ca1 Outcome: 19:09 Decision to Hospitalize by Provider. [facility] 22:43 Admitted to Med/surg accompanied by nurse, via stretcher, room 217, with chart, Report ca1 called to More Meyer RN 22:43 Condition: stable 22:43 Instructed on the need for admit. 23:08 Patient left the ED. ca1 Signatures: Dispatcher [employer] EDMS Adan Britt MD MD cha Rivera, Puja mr Kathrine Leon RN RN Casey Davies RN RN hj Ardoin, Leslie la2 Acob, Cheryl, RN RN ca1 Corrections: (The following items were deleted from the chart) 17:11 17:09 Pulse 76bpm; Resp 18bpm; Pulse Ox 96% RA; Temp 98.5F Oral; 113.4 kg; Height 5 ft. hj 7 in.; BMI: 39.1; Pain 0/10; hj 17:13 17:09 Pulse 76bpm; Resp 18bpm; Pulse Ox 97% RA; Temp 98.5F Oral; 113.4 kg; Height 5 ft. hj 7 in.; BMI: 39.1; Pain 0/10; 06/17 01:11 06/16 22:43 Admitted to Med/surg accompanied by nurse, via stretcher, room 217, ca1 ca1
--- NOTE | 2018-06-16 19:11 | EDPHYS ---
Physician Documentation [facility] Name: Joey Blanco Age: 77 yrs Sex: Male : 1940 Arrival Date: 06/16/2018 Time: 17:03 Bed 25 Private MD: ED Physician Adan Britt HPI: 06/16 17:37 This 77 yrs old Male presents to ER via Ambulatory with complaints of mckenzie Breathing Difficulty. 17:37 The patient has shortness of breath at rest, with light activity. Onset: The mckenzie symptoms/episode began/occurred 5 day(s) ago. Duration: The symptoms are continuous, and are steadily getting worse. The patient's shortness of breath is aggravated by coughing, supine position, walking. Associated signs and symptoms: Pertinent positives: non-productive cough. Severity of symptoms: At their worst the symptoms were moderate in the emergency department the symptoms are unchanged. The patient has experienced similar episodes in the past, multiple times. Historical: - Allergies: 17:08 No Known Allergies; hj - Home Meds: 17:08 amlodipine oral [Active]; lisinopril Oral [Active]; hj - PMHx: 17:08 COPD; Diabetes - NIDDM; Hypertension; Parkinsons; hj - PSHx: 17:08 face, left shoulder, right elbow surgery; Parkinson's Adaptive Brain Implant; hj - Immunization history:: Adult Immunizations not up to date. - Social history:: Smoking status: Patient/guardian denies using tobacco, Patient/guardian denies using alcohol. - Ebola Screening: : Patient negative for fever greater than or equal to 101.5 degrees Fahrenheit, and additional compatible Ebola Virus Disease symptoms Patient denies exposure to infectious person Patient denies travel to an Ebola-affected area in the 21 days before illness onset. - Family history:: not pertinent. ROS: 17:37 Constitutional: Negative for fever, chills, and weight loss, Eyes: Negative for injury, mckenzie pain, redness, and discharge, ENT: Negative for injury, pain, and discharge, Neck: Negative for injury, pain, and swelling, Cardiovascular: Negative for chest pain, palpitations, and edema, Abdomen/GI: Negative for abdominal pain, nausea, vomiting, diarrhea, and constipation, Back: Negative for injury and pain, : Negative for injury, bleeding, discharge, and swelling, Skin: Negative for injury, rash, and discoloration, Neuro: Negative for headache, weakness, numbness, tingling, and seizure, Psych: Negative for depression, anxiety, suicide ideation, homicidal ideation, and hallucinations, Allergy/Immunology: Negative for hives, rash, and allergies, Endocrine: Negative for neck swelling, polydipsia, polyuria, polyphagia, and marked weight changes, Hematologic/Lymphatic: Negative for swollen nodes, abnormal bleeding, and unusual bruising. 17:37 Respiratory: Positive for cough, shortness of breath. 17:37 MS/extremity: Positive for swelling, tenderness, of the right leg and left leg. Exam: 17:37 Constitutional: This is a well developed, well nourished patient who is awake, alert, mckenzie and in no acute distress. Head/Face: Normocephalic, atraumatic. Eyes: Pupils equal round and reactive to light, extra-ocular motions intact. Lids and lashes normal. Conjunctiva and sclera are non-icteric and not injected. Cornea within normal limits. Periorbital areas with no swelling, redness, or edema. ENT: Nares patent. No nasal discharge, no septal abnormalities noted. Tympanic membranes are normal and external auditory canals are clear. Oropharynx with no redness, swelling, or masses, exudates, or evidence of obstruction, uvula midline. Mucous membranes moist. Neck: Trachea midline, no thyromegaly or masses palpated, and no cervical lymphadenopathy. Supple, full range of motion without nuchal rigidity, or vertebral point tenderness. No Meningismus. Chest/axilla: Normal chest wall appearance and motion. Nontender with no deformity. No lesions are appreciated. Respiratory: Lungs have equal breath sounds bilaterally, clear to auscultation and percussion. No rales, rhonchi or wheezes noted. No increased work of breathing, no retractions or nasal flaring. Abdomen/GI: Soft, non-tender, with normal bowel sounds. No distension or tympany. No guarding or rebound. No evidence of tenderness throughout. Back: No spinal tenderness. No costovertebral tenderness. Full range of motion. Male : Normal genitalia with no discharge or lesions. Skin: Warm, dry with normal turgor. Normal color with no rashes, no lesions, and no evidence of cellulitis. Neuro: Awake and alert, GCS 15, oriented to person, place, time, and situation. Cranial nerves II-XII grossly intact. Motor strength 5/5 in all extremities. Sensory grossly intact. Cerebellar exam normal. Normal gait. Psych: Awake, alert, with orientation to person, place and time. Behavior, mood, and affect are within normal limits. 17:37 Cardiovascular: Rate: normal, Rhythm: regular, Pulses: Pulses are 4+ in bilateral radial, brachial, femoral, popliteal, posterior tibial and and dorsalis pedis arteries.. Heart sounds: normal, normal S1and S2, murmur, systolic, grade 4 over 6, rub, not appreciated, gallop, not appreciated, Edema: 1+ edema to level of left midcalf and right midcalf, JVD: is not appreciated. Vital Signs: 17:00 BP 168 / 66; Pulse 78; Resp 19; Pulse Ox 100% on 2 lpm NC; ca1 17:00 BP 130 / 85; Pulse 82; Resp 18; Pulse Ox 100% on 2 lpm NC; ca1 17:09 BP 157 / 54; Pulse 76; Resp 18; Temp 98.5(O); Pulse Ox 97% on R/A; Weight 113.4 kg; hj Height 5 ft. 7 in. (170.18 cm); Pain 0/10; 17:23 BP 171 / 69; Pulse 75; Resp 21; Pulse Ox 99% on R/A; ca1 18:00 BP 159 / 65; Pulse 84; Resp 18; Pulse Ox 100% on 2 lpm NC; ca1 19:00 BP 171 / 80; Pulse 80; Resp 19; Pulse Ox 100% on 2 lpm NC; ca1 20:00 BP 159 / 61; Pulse 89; Resp 20; Pulse Ox 100% on 2 lpm NC; ca1 21:00 BP 128 / 52; Pulse 89; Resp 19; Pulse Ox 96% on 2 lpm NC; ca1 22:00 BP 150 / 60; Pulse 101; Resp 20; Pulse Ox 100% on 2 lpm NC; ca1 22:47 BP 137 / 81; Pulse 65; Resp 18; Pulse Ox 98% on 2 lpm NC; ca1 17:09 Body Mass Index 39.16 (113.40 kg, 170.18 cm) MDM: 17:15 Patient medically screened. [facility] 17:40 Data reviewed: vital signs, nurses notes, lab test result(s), EKG, radiologic studies, [facility] plain films. 06/16 17:35 Order name: Basic Metabolic Panel [facility] 06/16 17:35 Order name: CBC with Diff; Complete Time: 19:12 [facility] 06/16 17:35 Order name: LFT's; Complete Time: 19:12 [facility] 06/16 17:35 Order name: Magnesium; Complete Time: 19:12 [facility] 06/16 17:35 Order name: NT PRO-BNP; Complete Time: 19:12 [facility] 06/16 17:35 Order name: PT-INR; Complete Time: 19:12 [facility] 06/16 17:35 Order name: Troponin (emerg Dept Use Only); Complete Time: 19:12 [facility] 06/16 17:35 Order name: XRAY Chest (1 view); Complete Time: 18:32 [facility] 06/16 17:35 Order name: Lipase; Complete Time: 19:12 [facility] 06/16 17:35 Order name: Urine Culture [facility] 06/16 17:36 Order name: Basic Metabolic Panel; Complete Time: 19:12 [facility] 06/16 17:37 Order name: Blood Culture Adult (2) [facility] 06/16 18:27 Order name: ABG; Complete Time: 18:33 06/16 18:56 Order name: Urine Dipstick--Ancillary (enter results) 06/16 17:35 Order name: EKG; Complete Time: 17:36 [facility] 06/16 17:35 Order name: Cardiac monitoring; Complete Time: 18:15 [facility] 06/16 17:35 Order name: EKG - Nurse/Tech; Complete Time: 18:16 [facility] 06/16 17:35 Order name: IV Saline Lock; Complete Time: 18:15 [facility] 06/16 19:36 Order name: Echo with Doppler [facility] 06/16 17:35 Order name: Labs collected and sent; Complete Time: 18:15 [facility] 06/16 17:35 Order name: O2 Per Protocol; Complete Time: 18:15 [facility] 06/16 17:35 Order name: O2 Sat Monitoring; Complete Time: 18:15 [facility] 06/16 17:35 Order name: Urine Dipstick-Ancillary (obtain specimen); Complete Time: 18:56 [facility] 06/16 19:20 Order name: Straight Cath; Complete Time: 19:20 ca1 Administered Medications: 09:25 Drug: Pepcid 20 mg Route: IVP; Site: left antecubital; ca1 20:25 Follow up: Response: No adverse reaction; Marked relief of symptoms ca1 18:24 Drug: NS 0.9% 1000 ml Route: IV; Rate: 75 ml/hr; Site: left antecubital; ca1 19:05 Drug: SOLU-Medrol 125 mg Route: IVP; Site: left antecubital; ca1 19:05 Drug: Xopenex 1.25 mg Route: Inhalation; ca1 19:05 Drug: AtroVENT Aerosol 0.5 mg Route: Inhalation; ca1 19:10 Drug: Rocephin - (cefTRIAXone) 1 grams Route: IVPB; Infused Over: 30 mins; Site: left ca1 antecubital; 19:15 Drug: Zithromax 500 mg Route: IVPB; Infused Over: 1 hrs; Site: left antecubital; ca1 19:20 Drug: Xopenex 1.25 mg Route: Inhalation; ca1 19:25 Drug: Lovenox 60 mg Route: Sub-Q; Site: right lower abdomen; ca1 20:30 Follow up: Response: No adverse reaction ca1 19:55 Not Given (Patient Refused): Maalox Suspension (200 mg-200 mg-20 mg/5 mL) 30 ml PO once ca1 19:55 Drug: Xopenex 1.25 mg Route: Inhalation; ca1 Disposition: 06/16/18 19:09 Hospitalization ordered by Elba Larose for Inpatient Admission. Preliminary diagnosis are Dyspnea, Chronic obstructive pulmonary disease with (acute) exacerbation, Type 2 diabetes mellitus, Obesity, unspecified, Nonrheumatic aortic (valve) stenosis. - Bed requested for Telemetry/MedSurg (Inpatient). - Status is Inpatient Admission. ca1 - Condition is Fair. - Problem is new. - Symptoms have improved. UTI on Admission? No Signatures: Dispatcher [employer] EDAdan Ledezma MD MD cha Joaquin, Henry, RN RN hj Garcia, Cindy, RN RN Tarah Simms RN RN ca1 Corrections: (The following items were deleted from the chart) 22:13 19:09 Hospitalization Ordered by Elba Larose MD for Inpatient Admission. Preliminary cg diagnosis is Dyspnea; Chronic obstructive pulmonary disease with (acute) exacerbation; Type 2 diabetes mellitus; Obesity, unspecified; Nonrheumatic aortic (valve) stenosis. Bed requested for Telemetry/MedSurg (Inpatient). Status is Inpatient Admission. Condition is Fair. Problem is new. Symptoms have improved. UTI on Admission? No. mckenzie 23:08 22:13 06/16/2018 19:09 Hospitalization Ordered by Elba Larose MD for Inpatient ca1 Admission. Preliminary diagnosis is Dyspnea; Chronic obstructive pulmonary disease with (acute) exacerbation; Type 2 diabetes mellitus; Obesity, unspecified; Nonrheumatic aortic (valve) stenosis. Bed requested for Telemetry/MedSurg (Inpatient). Status is Inpatient Admission. Condition is Fair. Problem is new. Symptoms have improved. UTI on Admission? No. cg
[2018-06-16] MEDS ORDERED: AZITHROMYCIN 500 MG INJ IVPB ONE (19:49)
[2018-06-16] MEDS ORDERED: NA CHLORIDE 0.9% 250 ML ONE (19:49)
[2018-06-16] MEDS ORDERED: FAMOTIDINE 20 MG/2 ML VIAL IV ONE (19:49)
[2018-06-16] MEDS ORDERED: MAGNE/ALUM HYDROXD 30 ML UCUP ONE (19:49)
[2018-06-16] MEDS ORDERED: CEFTRIAXONE/SWI 1gm 1 GM/10 ML SYR ONE (19:50)
[2018-06-16] MEDS ORDERED: ENOXAPARIN 60 MG/0.6 ML SQ ONE (19:50)
[2018-06-16 20:19] LABS: Urine Blood NEGATIVE (NEG); Urine Glucose NEGATIVE (NEG); Urine Protein NEGATIVE (NEG); Urine Specific Gravity 1.015 (1.005-1.030)
--- NOTE | 2018-06-16 22:01 | P.HP ---
Certification for Inpatient Patient admitted to: Observation With expected LOS: <2 Midnights Practitioner: I am a practitioner with admitting privileges, knowledge of patient current condition, hospital course, and medical plan of care. Services: Services provided to patient in accordance with Admission requirements found in Title 42 Section 412.3 of the Code of Federal Regulations Patient History Date of Service: 06/16/18 Reason for admission: COPD exacerbation History of Present Illness: Mr Blanco is a 77 years old male with history of DM II, HTN, COPD, Parkinson's disease who start yesterday night with progressive SOB. He denied increasing cough. No history of fever or chills O2 sat at arrival 97%, temp 98.5F, Lab work shows normal WBC count, CXR shows no acute infiltrate. At my encounter the patient was in non-distress. Home medications list reviewed: Yes - Past Medical/Surgical History Diabetic: Yes -: DM II -: HTN -: COPD -: parkinson -: face, left shoulder, right elbow surgery; Parkinson's Adaptive Brain Implan - Family History Family History: Reviewed- Non-Contributory - Social History Smoking Status: Former smoker Alcohol use: Yes CD- Drugs: No Place of Residence: Home Review of Systems 10-point ROS is otherwise unremarkable Physical Examination - Physical Exam General: Alert, In no apparent distress HEENT: Atraumatic, PERRLA, Mucous membr. moist/pink, EOMI, Sclerae nonicteric Neck: Supple, 2+ carotid pulse no bruit, No LAD, Without JVD or thyroid abnormality Respiratory: Diminished, Crackles/rales (scattered bibasilar crackles) Cardiovascular: Regular rate/rhythm, Normal S1 S2 Gastrointestinal: Normal bowel sounds, No tenderness Musculoskeletal: No tenderness Integumentary: No rashes Neurological: Normal speech, Normal strength at 5/5 x4 extr, Normal tone, Normal affect Lymphatics: No axilla or inguinal lymphadenopathy - Studies Laboratory Data (last 24 hrs) 06/16/18 18:00: PT 12.0, INR 1.02 06/16/18 18:00: WBC 6.5, Hgb 13.9, Hct 40.8, Plt Count 288 06/16/18 18:00: Sodium 141, Potassium 4.1, BUN 18, Creatinine 0.99, Glucose 107 H, Magnesium 2.3, Total Bilirubin 0.2, AST 17, ALT 18, Alkaline Phosphatase 71, Lipase 78 Assessment and Plan - Problems (Diagnosis) (1) COPD exacerbation Current Visit: Yes Status: Acute (2) HTN (hypertension) Current Visit: Yes Status: Acute Qualifiers: Hypertension type: essential hypertension Qualified Code(s): I10 - Essential (primary) hypertension (3) Diabetes mellitus Current Visit: Yes Status: Acute Qualifiers: Diabetes mellitus type: type 2 Diabetes mellitus oysterman insulin use: without snf use Diabetes mellitus complication status: with unspecified complications Qualified Code(s): E11.8 - Type 2 diabetes mellitus with unspecified complications - Plan Will admit the patient due to COPD exacerbation, continue breathing treatments, oxygen support IV steroids. He may go home in AM if symptoms improves. - Advance Directives Does patient have a Living Will: No Does patient have a Durable POA for Healthcare: No - Code Status/Comfort Care Code Status Assessed: Yes Code Status: Full Code
[2018-06-16] MEDS ORDERED: ACETAMINOPHEN 500 MG TAB PO PRN (23:16)
[2018-06-16] MEDS ORDERED: ONDANSETRON 4 MG/2 ML VIAL IV PRN (23:16)
[2018-06-16] MEDS: NA CHLORIDE 0.9% 1,000 ML IV SCH (23:16)
[2018-06-16] MEDS: METHYLPREDNISOLONE 40 MG INJ IV SCH (23:58)
[2018-06-16] MEDS: CARBIDOPA/LEVODOPA 25/100 TAB PO SCH (23:58)
[2018-06-16] MEDS: GABAPENTIN 300 MG CAP PO SCH (23:58)
[2018-06-17] MEDS ORDERED: POTASSIUM CL SA 10 MEQ TAB PO ONE (02:07)
[2018-06-17 06:13] LABS: Absolute Lymphocytes (CBC) 0.7 K/uL (0.7-4.9); Absolute Neutrophil 4.8 K/uL (1.8-8.0); Basophils % 0.1 % (0-1.3); Hematocrit 39.3 % (39.6-49.0); Lymphocytes % 12.6 % (15.3-44.8); MPV 8.3 fL (7.6-11.3); Monocytes % 0.8 % (3.3-12.3); RBC Red Blood Cell Count 4.45 M/uL (4.33-5.43)
[2018-06-17 06:29] LABS: Potassium 4.4 mmol/L (3.5-5.1)
[2018-06-17] MEDS: INSULIN -REGULAR HUMAN 50 UNIT/0.5 ML ML SQ SCH ×4 (07:30→21:00)
[2018-06-17] MEDS: NA CHLORIDE 0.9% 1,000 ML IV SCH (07:33)
[2018-06-17] MEDS: METHYLPREDNISOLONE 40 MG INJ IV SCH ×2 (08:42→17:22)
[2018-06-17] MEDS: GABAPENTIN 300 MG CAP PO SCH ×2 (08:42→21:20)
[2018-06-17] MEDS: CARBIDOPA/LEVODOPA 25/100 TAB PO SCH ×2 (08:42→21:20)
[2018-06-17] MEDS: ENOXAPARIN 40 MG/0.4 ML SQ SCH (08:42)
--- NOTE | 2018-06-17 08:49 | EKG ---
Test Date: 2018-06-16 Test Time: 17:40:58 [employer]: MILA MEASUREMENT RESULTS: Intervals: Rate: 80 NE: QRSD: 70 QT: 366 QTc: 422 [place]: P: NE: QRS: 30 T: 30 INTERPRETIVE STATEMENTS: Sinus rhythm Excessive 60 cycle artifact Abnormal ECG Compared to ECG 12/08/2007 02:06:03 Ventricular premature complex(es) no longer present Electronically Signed On 06-17-18 08:48:45 CDT by Philip Childers
[2018-06-17 10:14] LABS: Blood Morphology Comment NOT SEEN (NOT SEEN); Platelet Estimate ADEQ
--- NOTE | 2018-06-17 14:22 | ECHO ---
HEIGHT: 5 ft 7 in WEIGHT: 247 lb 0 oz DATE OF STUDY: 06/17/[address]: Adan Britt MD 2-DIMENSIONAL: YES M.MODE: YES DOPPLER: YES COLOR FLOW: YES TDS: YES PORTABLE: NO DEFINITY: NO BUBBLE STUDY: NO DIAGNOSIS: CONGESTIVE HEART FAILURE/ AORTIC STENOSIS CARDIAC HISTORY: CATHERIZATION: NO SURGERY: NO PROSTHETIC VALVE: NO PACEMAKER: NO MEASUREMENTS (cm) DIASTOLIC (NORMALS) SYSTOLIC (NORMALS) IVSd 1.2 (0.6-1.2) LA Diam 4.4 (1.9-4.0) LVEF 72% LVIDd 4.7 (3.5-5.7) LVIDs 2.8 (2.0-3.5) %FS 41% LVPWd 1.3 (0.6-1.2) Ao Diam 3.1 (2.0-3.7) 2 DIMENSIONAL ASSESSMENT: RIGHT ATRIUM: NORAML LEFT ATRIUM: DILATED RIGHT VENTRICLE: NORMAL LEFT VENTRICLE: LEFT VENTRICULAR HYPERTROPHY, MILD TRICUSPID VALVE: NORMAL MITRAL VALVE: NORMAL PULMONIC VALVE: NORMAL AORTIC VALVE: STENOTIC PERICARDIAL EFFUSION: NONE AORTIC ROOT: NORMAL LEFT VENTRICULAR WALL MOTION: HYPERDYNAMIC. DOPPLER/COLOR FLOW: SEVERE AORTIC STENOSIS, PEAK/MKEAN GRADIENT 65/40mmHg. ESTIMATED AORTIC VALVE AREA 0.9 CENTIMETERS SQUARED. COMMENTS: HYPERDYNAMIC LEFT VENTRICULAR EJECTION FRACTION. DILATED LEFT ATRIUM. LEFT VENTRICULAR HYPERTROPHY. SEVERE AORTIC VALVE STENOSIS. TECHNOLOGIST: PORTER MCALLISTER
[2018-06-17] MEDS: ALBUTEROL 2.5 MG/3 ML NEB SOL NEB PRN (21:40)
[2018-06-17] MEDS: IPRATROPIUM BROM 0.5MG/2.5ML NEB PRN (21:40)
[2018-06-18] MEDS: METHYLPREDNISOLONE 40 MG INJ IV SCH ×2 (00:03→09:17)
--- NOTE | 2018-06-18 01:22 | DS ---
Discharge Diagnoses: 1.Acute COPD exacerbation, improved. 2.Essential hypertension. 3.Diabetes mellitus type 2 without long-term use of insulin. 4.Obesity, BMI 38.7. 5.Parkinson's disease, status post deep brain stimulator. Hospital Course: The patient is a 77-year-old male, who comes in with shortness of breath, increased cough. The patient was afebrile, normal white count. Chest x-ray was clear. The patient was start ed on supplemental oxygenation. He normally does not have oxygen at home. Nebulizer treatments were started and the patient was given IV steroids. The patient responded well to treatment and saturati ng 98% on 3 L and was weaned down off oxygen. The patient was then cleared for discharge and was sen t home in a stable condition. Activity: As tolerated. Medications: As per medication reconciliation list. Diet: Diabetic. Followup: Follow up with PCP in 2-3 days. Return to ER for worsening condition. Physical Examination: General: Awake, alert, oriented x3. Elderly male, obese. CV: S1, S2. No murmurs. Respiratory: Moving air well bilaterally. No wheezing or stridor. Gastrointestinal: Abdomen is soft, nontender, nondistended. Positive bowel sounds. Extremities: No clubbing, cyanosis, or edema. Neurologic: Nonfocal. SA/MODL Voice ID: [id number] Report ID: [id number]
[2018-06-18] MEDS: INSULIN -REGULAR HUMAN 50 UNIT/0.5 ML ML SQ SCH ×2 (07:30→11:30)
[2018-06-18] MEDS: IPRATROPIUM BROM 0.5MG/2.5ML NEB PRN (07:30)
[2018-06-18] MEDS: ALBUTEROL 2.5 MG/3 ML NEB SOL NEB PRN (07:30)
[2018-06-18] MEDS: CARBIDOPA/LEVODOPA 25/100 TAB PO SCH (09:16)
[2018-06-18] MEDS: GABAPENTIN 300 MG CAP PO SCH (09:17)
[2018-06-18] MEDS: ENOXAPARIN 40 MG/0.4 ML SQ SCH (09:18)
== END 2018-06-18 12:28 | disposition home or self-care (01) ==
LOC: ER 17:00 → ERHOLD 21:50 → 2ND 22:43
PROVIDERS: ADMIT Internal Medicine; ATTEND Internal Medicine
DX: J44.1 Chronic obstructive pulmonary disease with (acute) exacerbation (principal); E11.9 Type 2 diabetes mellitus without complications; I10 Essential (primary) hypertension; G20 Parkinson's disease; E66.9 Obesity, unspecified; Z68.38 Body mass index [BMI] 38.0-38.9, adult
CPT/HCPCS: 93005; 93306; 87040 ×2; 87088; 85025 ×2; 80048 ×2; 36415; 83735; 85610; 82962 ×6; 80076; 81003; 84484; 83690; 83880; 87804 ×2; 71045; 94640; 82805; 94760 ×3; 94660; 96375; 96372; 96374; 99285; J0456; J1650 ×3; J0696; J7030 ×2; J2930; J2920 ×5; G0378 ×2; 87086

== ENCOUNTER 2018-08-02 12:58 | Emergency (ER) | payer OTHER ==
--- OUTSIDE RECORDS SUMMARY | 2018-08-02 13:13 | XMS REPORT | Continuity of Care Document ---
:1940 Author Organization Interface Problems Problem Status Onset Classification Date Comments Source Date Reported ORTHOSTATIC Active Sugar HYPERTENSION 019 [facility] AORTIC STENOSIS Active 019 [facility] N/A Active 019 [facility] I35.0, R07.89, Active I50.32/LT AND RT HEART 019 [facility] CA BODY MASS INDEX Active Condition Medical 38.0-38.9, ADULT 015 5 Group Rotator cuff Active Problem Data Medical syndrome<sup>53, 54, 014 9 [facility] 55, 56, 57</sup> from [employer] [facility], on 08/22/14. [facility] PRE-OPERATIVE Active Condition Medical CARDIOVASCULAR 014 5 Group EXAMINATION Preoperative Active Problem Data [facility] cardiovascular 014 9 [facility] examination<sup>51, from [employer] [facility] 52</sup> [facility], on 08/25/14. [facility] ROTATOR CUFF TEAR Active Condition Medical 014 5 Group SHOULDER PAIN, RIGHT Active Condition Medical 014 5 Group ELBOW PAIN, RIGHT Active Condition Medical 014 5 Group Pain in elbow<sup>37, Active Problem Data Medical 38, 39</sup> 014 9 [facility] from [employer] [facility] on 08/22/14. [facility] Shoulder joint Active Problem Data Medical pain<sup>60</sup> 014 9 [facility] from [employer] [facility] on 08/22/14. [facility] NEED PROPHYLACTIC Active Condition Medical VACCINATION&INOCULATIO 014 5 Group N FLU ALLERGIC RHINITIS Active Condition Medical CAUSE UNSPECIFIED 013 5 Group BRONCHITIS Active Condition Medical 013 5 Group ARTHRALGIA Active Condition Medical 013 5 Group PARESTHESIA Active Condition Medical 013 5 Group Allergic Active Problem Data Medical rhinitis<sup>1</sup> 013 9 migrated Group, from [employer], on 08/22/14. [facility] Bronchitis<sup>5, Active Problem Data Medical 6</sup> 013 9 migrated Group, from [employer], on 08/25/14. [facility] Joint pain<sup>33, 34, Active Problem Data Medical 35</sup> 013 9 migrated Group, from [employer], on 08/22/14. [facility] Paresthesia<sup>41, Active Problem Data Medical 42, 43</sup> 013 9 migrated Group, from [employer], on 08/22/14. [facility] OTITIS EXTERNA Inactive Condition Medical 013 5 Group CERUMEN IMPACTION Active Condition Medical 013 5 Group Impacted Active Problem Data Medical cerumen<sup>31, 013 9 migrated Group, 32</sup> from [employer], on 08/25/14. [facility] Otitis Resolved Problem Data Medical externa<sup>36</sup> 013 9 migrated Group, from [employer], on 10/10/14. [facility] PARKINSONISM, MILD Active Condition Medical 013 5 Group Parkinsonism<sup>44, Active Problem Data Medical 45, 46</sup> 013 9 migrated Group, from [employer], on 08/22/14. [facility] ABDOMINAL PAIN RIGHT Inactive Condition Medical UPPER QUADRANT 013 5 Group ARM PAIN, LEFT Active Condition Medical 013 5 Group Pain in upper Active Problem Data Medical limb<sup>40</sup> 013 9 migrated Group, from [employer], on 08/22/14. [facility] DYSPNEA Active Condition Medical 012 5 Group Pleurisy<sup>50</sup> Active Problem Data Medical 012 9 migrated Group, from [employer], on 08/22/14. [facility] BICIPITAL Active Condition Medical TENOSYNOVITIS 012 5 Group SHOULDER JOINT Active Condition Medical REPLACEMENT BY OTHER 012 5 Group MEANS Biceps Active Problem Data Medical tendinitis<sup>4</sup> 012 9 migrated Group, from [employer], on 08/22/14. 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 [facility] SYNCOPE Inactive Condition Medical 012 5 Group CARPAL TUNNEL Active Condition Medical SYNDROME, BILATERAL 012 5 Group Carpal tunnel Active Problem Data Medical syndrome<sup>7, 8, 012 9 [facility] 9</sup> from [employer], on 08/22/14. [facility] PREVENTIVE HEALTH CARE Active Condition Medical 012 5 Group Screening - health Active Problem Data Medical check<sup>58, 59</sup> 012 9 migrated Group, from [employer], on 08/25/14. [facility] PERIPHERAL NEUROPATHY Active Condition MH Medical 012 5 Group Peripheral nerve Active Problem Data Medical disease<sup>47, 48, 012 9 migrated Group, 49</sup> from [employer], on 08/22/14. [facility] LEG PAIN Inactive Condition Medical 012 5 Group TREMOR Active Condition Medical 012 5 Group URGE INCONTINENCE Active Condition Medical 012 5 Group Tremor<sup>61, 62, Active Problem Data [facility] 63</sup> 012 9 migrated Group, from [employer], on 08/22/14. [facility] Urge incontinence of Active Problem Data Medical urine<sup>64, 65, 012 9 migrated Group, 66</sup> from [employer], on 08/22/14. [facility] HYPERTENSION Active Condition Medical 5 Group ACID REFLUX DISEASE Active Condition Medical 5 Group EPIGASTRIC PAIN Active Condition Medical 5 Group CHF Active Condition Medical 5 Group HYPERCHOLESTEROLEMIA Active Condition Medical 5 Group COPD Active Condition Medical 5 Group BACK PAIN Active Condition Medical 5 Group Anxiety Resolved Problem Medical 9 Group, [place] Backache<sup>2, Active Problem Data Medical 3</sup> 9 migrated Group, from [employer], on 08/25/14. [facility] Cancer of skin Resolved Problem Medical 9 Group, [place] CHF - Congestive heart Active Problem Medical failure 9 Group, [place] Chronic obstructive Active Problem Data Medical lung disease<sup>10, 9 migrated Group, 11, 12</sup> from [employer], on 08/22/14. [facility] Congestive heart Active Problem Data Medical failure<sup>16, 17, 9 migrated Group, 18</sup> from [employer], on 08/22/14. [facility] Depression Active Problem Medical 7 Group Epigastric Active Problem Data Medical pain<sup>19, 20, 9 migrated Group, 21</sup> from [employer] [place], on 08/22/14. [facility] Frequency Active Problem Medical 9 Group, [place] [place] Gastroesophageal Active Problem Data Medical reflux disease<sup>22, 9 migrated Group, 23, 24</sup> from [employer] [place], on 08/22/14. [facility] Glasses Active Problem Medical 7 Group S/p shoulder Active Problem Medical replacement 9 Group, [place] Hard of hearing Active Problem Medical 9 Group, [place] Hypercholesterolemia<s Active Problem Data Medical up>25, 26, 27</sup> 9 migrated Group, from [employer] [place], on 08/22/14. [facility] Hyperlipidemia Active Problem Medical 9 Group, [place] Hypertension Active Problem Medical 9 Group, [place] Hypertensive Active Problem Data Medical disorder<sup>28, 29, 9 migrated Group, 30</sup> from [employer] [place], on 08/22/14. 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 9 Group, [place] Encounter for Active Problem Medical preoperative vascular 9 Group, examination [place] Sleep apnea Active Problem Medical 9 Group, [place] Aortic stenosis Active Problem Medical 9 Group, [place] CAD (<span Active Problem Medical ID="[id number]">Conf 9 Group, [facility]</span>) [place] Acid reflux Active Problem Medical 9 Group, [place] Dizziness Active Problem Medical 9 Group, [place] Ex-cigarette smoker Resolved Problem Medical 9 Group, [place] Incontinence of urine Active Problem Medical 9 Group, [place] Irregular heart beat Active Problem Medical 9 Group, [place] Near syncope Active Problem Medical 9 Group, [place] Numbness of limbs Active Problem Medical 9 Group, [place] Orthostatic Active Problem Medical hypotension 9 Group, [place] Weakness of both lower Active Problem Medical limbs 9 Group, [place] Parkinson disease Active Problem Medical 9 Group, [place] SOBOE - Shortness of Active Problem Medical breath on exertion 9 Group, [place] Chronic obstructive pulmonary disease with 9 [facility] exacerbation NONRHEUMATIC AORTIC Active (VALVE) STENOSIS [facility] OTHER CHEST PAIN Active [facility] CHRONIC DIASTOLIC Active (CONGESTIVE) HEART JADON [facility] CHRONIC OBSTRUCTIVE Active PULMONARY DISEASE W [facility] Medications Medication Details Route Status Patient Ordering Order Source Instructions Provider Date Ticagrelor 90 mg, 1 tab, Inactive Route: PO, 2018 [facility] Drug form: TAB, Q12H, Dosing Weight 101.909, kg, Priority: NOW, Start date: 07/10/18 11:45:00 CDT, Duration: 30 day, Stop date: 08/09/18 9:00:00 CDTNotes: (Same as: Brilinta) Aspirin 81 mg, 1 tab, Inactive Route: PO, 2018 [facility] Drug form: ECTAB, Daily, Dosing Weight 101.909, kg, Priority: NOW, Start date: 07/10/18 11:45:00 CDT, Duration: 30 day, Stop date: 08/09/18 9:00:00 CDTNotes: Do not crush or chew. (Same As: Ecotrin) BD Normal Saline 10 mL, Route: No Longer Flush IVP, Drug Active 2018 [facility] Form: INJ, PRN, PRN Line Flush, Start date: 07/09/18 17:58:00 CDT, Duration: 30 day, Stop date: 08/08/18 17:57:00 CDTNotes: Same as: BD Posiflush Sterile Tramadol 50 mg, 1 tab, No Longer Route: PO, Active 2018 [facility] Drug form: TAB, Q8H, Dosing Weight 110.909, kg, PRN Pain Score 6-10, Start date: 07/09/18 17:55:00 CDT, Duration: 3 day, Stop date: 07/12/18 17:54:00 CDTNotes: Not to exceed 400mg/day. (Same As: Ultram) Albuterol 0.833 3 ml, Route: No Longer MG/ML / NEB, Drug Active 2018 [facility] Ipratropium Form: SOLN, [place] 0.167 Dosing Weight MG/ML Inhalant 110.909, kg, Solution [DuoNeb] RQ6H, Start date: 07/09/18 14:00:00 CDT, Duration: 30 day, Stop date: 08/08/18 8:00:00 CDTNotes: (Same as: Duoneb) POLYETHYLENE 17 gm, 1 pkt, No Longer GLYCOL 3350 Route: PO, Active 2018 [facility] Drug form: PWDR, Daily, Dosing Weight 110.909, kg, Start date: 07/09/18 9:00:00 CDT, Duration: 30 day, Stop date: 08/07/18 9:00:00 CDTNotes: Dissolve in 8 oz of water or juice. (Same as: Miralax) Lasix 20 mg, 2 mL, Inactive Route: IVP, 2018 [facility] Drug form: INJ, ONCE, Dosing Weight 110.909, kg, Priority: NOW, Start date: 07/09/18 7:51:00 CDT, Stop date: 07/09/18 7:51:00 CDTNotes: (Same as: Lasix) heparin 5,000 unit, 1 No Longer mL, Route: Active 2018 [facility] SUB-Q, Drug form: INJ, Q12H, Dosing Weight 110.909, kg, Start date: 07/08/18 21:00:00 CDT, Duration: 30 day, Stop date: 08/07/18 9:00:00 CDTNotes: porcine heparin Saline Flush 0.9% 10 ml, Route: No Longer IVP, Drug Active 2018 [facility] Form: INJ, Dosing Weight 110.909, kg, Q12H, Start date: 07/08/18 21:00:00 CDT, Duration: 30 day, Stop date: 08/07/18 9:00:00 CDTNotes: Same as: BD Posiflush Sterile Famotidine 20 mg, 2 mL, No Longer Route: IVP, Active 2018 [facility] Drug form: INJ, Q12H, Dosing Weight 110.909, kg, Start date: 07/08/18 21:00:00 CDT, Duration: 30 day, Stop date: 08/07/18 9:00:00 CDTNotes: (Same as: Pepcid) Can be dilute in 5-10cc NS IVP: Slow IV push over at least 2 minutes. ceFAZolin 2 gm, 100 mL, Inactive Route: IVPB, 2018 [facility] Drug form: INJ, ABXQ8H, Start date: 07/08/18 20:00:00 CDT, Duration: 1 doses or times, Stop date: 07/08/18 20:00:00 CDT, ABX Indication: Surgical ProphylaxisNot es: Same as: Ancef Magnesium Oxide 800 mg, 2 tab, No Longer Route: PO, Active 2018 [facility] Drug form: TAB, PRN, Dosing Weight 110.909, kg, PRN Abnormal Lab Result, FOR ICU USE ONLY, Start date: 07/08/18 14:59:00 CDT, Duration: 30 day, Stop date: 08/07/18 14:58:00 CDTNotes: (Same as: Mag-Ox 400) Magnesium oxide [id number] elemental magnesium Dose=____mg magnesium oxide (___mg elemental magnesium) potassium 2 pkt, Route: No Longer phosphate-sodium PO, Drug Form: Active 2018 [facility] phosphate 250 PDR/REC, mg-280 mg-160 mg Dosing Weight oral powder for 110.909, kg, reconstitution PRN, PRN Abnormal Lab Result, FOR ICU USE ONLY, Start date: 07/08/18 14:59:00 CDT, Duration: 30 day, Stop date: 08/07/18 14:58:00 CDTNotes: (Same as: Phos-Kim) Each 1.5 gm pkt has 250mg phosphorous. Mix w/2.5oz water and stir. Calcium Gluconate 1 gm, 50 mL, No Longer Route: IVPB, 2018 [facility] Drug form: INJ, PRN, Dosing Weight 110.909, kg, PRN Abnormal Lab Result, Start date: 07/08/18 14:59:00 CDT, Duration: 30 day, Stop date: 08/07/18 14:58:00 CDT, FOR ICU USE ONLYNotes: WASTE: F/P - Sink; E - Municipal Trash Bin Calcium Carbonate 500 mg, 1 tab, No Longer 500 MG Chewable Route: PO, 2018 [facility] Tablet Drug form: CHEWTAB, PRN, Dosing Weight 110.909, kg, PRN Abnormal Lab Result, FOR ICU USE ONLY, Start date: 07/08/18 14:59:00 CDT, Duration: 30 day, Stop date: 08/07/18 14:58:00 CDTNotes: (Same As: [place]) Calcium Carbonate 500 er=898 mg elemental calcium Dose= mg calcium carbonate ( mg elemental calcium) Magnesium Sulfate 2 gm, 50 mL, No Longer Route: IVPB2018 [facility] Drug form: INJ, PRN, Dosing Weight 110.909, kg, PRN Abnormal Lab Result, Start date: 07/08/18 14:59:00 CDT, Duration: 30 day, Stop date: 08/07/18 14:58:00 CDT, FOR ICU USE ONLYNotes: WASTE: F/P - Sink; E - Municipal Trash Bin potassium 15 mmol, 5 mL, No Longer phosphate Route: IVPB, 2018 [facility] PRN, Dosing Weight 110.909, kg, PRN Abnormal Lab Result, Start date: 07/08/18 14:59:00 CDT, Duration: 30 day, Stop date: 08/07/18 14:58:00 CDT, FOR ICU USE ONLYNotes: (Same as: K Phosphate.) Do not infuse phosphorous concurrently in the same line as TPN or IVF that contains calcium. For double lumen central lines, phosphorous may be infused in a separate lumen from TPN. 1 mMol phoshate has 1.47 mEq potassium Infuse over 4 hours sodium phosphate 45 mmol, 15 No Longer 07/08/ MH mL, Route: Active 2018 [facility] IVPB, PRN, Dosing Weight 110.909, kg, PRN Abnormal Lab Result, Start date: 07/08/18 14:59:00 CDT, Duration: 30 day, Stop date: 08/07/18 14:58:00 CDT, FOR ICU USE ONLYNotes: Infuse over 4 hour. Do not infuse phosphorous concurrently in the same line as TPN or IVF that contains calcium. For double lumen central lines, phosphorous may be infused in a separate lumen from TPN. Potassium Chloride 10 mEq, 100 No Longer mL, Route: Active 2018 [facility] IVPB, Drug form: INJ, PRN, Dosing Weight 110.909, kg, PRN Abnormal Lab Result, Via peripheral line, Start date: 07/08/18 14:59:00 CDT, Duration: 30 day, Stop date: 08/07/18 14:58:00 CDT, FOR ICU USE ONLYNotes: Infuse at a rate of 10 mEq/hr. (Same as: KCL) Saline Flush 0.9% 10 ml, Route: No Longer IVP, Drug Active 2018 [facility] Form: INJ, Dosing Weight 110.909, kg, PRN, PRN Line Flush, Start date: 07/08/18 14:59:00 CDT, Duration: 30 day, Stop date: 08/07/18 14:58:00 CDTNotes: Same as: BD Posiflush Sterile Albuterol 0.833 3 ml, Route: No Longer MG/ML / NEB, Drug Active 2018 [facility] Ipratropium Form: SOLN, [place] 0.167 Dosing Weight MG/ML Inhalant 110.909, kg, Solution RQ4H, PRN Wheezing, Start date: 07/08/18 14:59:00 CDT, Duration: 30 day, Stop date: 08/07/18 14:58:00 CDTNotes: (Same as: Duoneb) NS (Bolus) IV 500 mL, 500 Inactive ml/hr, Infuse 2018 [facility] Over: 1 hr, Route: IV, 500, Drug form: INJ, ONCE, Priority: STAT, Dosing Weight 110.909 kg, Start date: 07/08/18 14:11:00 CDT, Stop date: 07/08/18 14:11:00 CDT Calcium Chloride 2,000 mg, 20 Inactive mL, Route: 2018 [facility] IVPB, ONCE, Dosing Weight 110.909, kg, Priority: STAT, Start date: 07/08/18 14:11:00 CDT, Stop date: 07/08/18 14:11:00 CDTNotes: WASTE: F/P - Sink; E - Municipal Trash Bin albumin human 5% 12.5 gm, 250 Inactive intravenous mL, 500 ml/hr, 2018 [facility] solution Route: IV, Drug Form: INJ, Dosing Weight 110.909, kg, ONCE, Start date: 07/08/18 14:11:00 CDT, Stop date: 07/08/18 14:11:00 CDT, Indication: Non-hemorrhagi c shockNotes: LOT#: Mfg: WASTE: F/P - Red; E -Red (Same as: Albuminar) "blood product derivative" Morphine 2 mg, 0.5 mL, Inactive Route: IVP, 2018 [facility] Drug form: SOLN, ONCE, Dosing Weight 110.909, kg, Start date: 07/08/18 14:11:00 CDT, Stop date: 07/08/18 14:11:00 CDTNotes: (Same as:MORPhine Sulfate) Haldol 2.5 mg, 0.5 No Longer mL, Route: Active 2018 [facility] IVP, Drug form: INJ, Q1H, Dosing Weight 110.909, kg, PRN Agitation, Priority: STAT, Start date: 07/08/18 14:11:00 CDT, Duration: 2 doses or times, Stop date: Limited # of timesNotes: (Same as: Haldol) Calcium Gluconate 1,000 mg, 50 Inactive mL, Route: 2018 [facility] IVPB, Drug form: INJ, ONCE, Dosing Weight 110.909, kg, Start date: 07/08/18 12:52:00 CDT, Stop date: 07/08/18 12:52:00 CDTNotes: WASTE: F/P - Sink; E - Municipal Trash Bin glucagon 1 mg, Route: No Longer INJ, Drug Active 2018 [facility] form: PDR/INJ, PRN, PRN Blood Glucose Results, Start date: 07/08/18 12:38:00 CDT, Duration: 30 day, Stop date: 08/07/18 12:37:00 CDT Humalog 6 unit, 0.06 No Longer mL, Route: Active 2018 [facility] SUB-Q, Drug form: SOLN, Sliding Scale, PRN Blood Glucose Results, Start date: 07/08/18 12:37:00 CDT, Duration: 30 day, Stop date: 08/07/18 12:36:00 CDTNotes: (Same as: Humalog ) Roll in palms of hands gently; Do not shake `vigorously. "Single Patient Use Only " WASTE: F/P - Black; E - Municipal Trash Bin Stable for 28 days at room temperature. Expires in days from Date Dextrose 50% in 50 mL, Route: No Longer Water IV IVP, Start Active 2018 [facility] date: 07/08/18 12:37:00 CDT, Duration: 30 day, Stop date: 08/07/18 12:36:00 CDT, PRN Blood Glucose Results Humalog 5 unit, 0.05 No Longer mL, Route: Active 2018 [facility] SUB-Q, Drug form: SOLN, Sliding Scale, PRN Blood Glucose Results, Start date: 07/08/18 12:36:00 CDT, Duration: 30 day, Stop date: 08/07/18 12:35:00 CDTNotes: (Same as: Humalog ) Roll in palms of hands gently; Do not shake `vigorously. "Single Patient Use Only " WASTE: F/P - Black; E - Municipal Trash Bin Stable for 28 days at room temperature. Expires in days from Date Morphine 2 mg, 0.5 mL, Inactive Route: IVP, 2018 [facility] Drug form: SOLN, ONCE, Dosing Weight 109.091, kg, Priority: STAT, Start date: 07/08/18 11:33:00 CDT, Stop date: 07/08/18 11:33:00 CDTNotes: (Same as:MORPhine Sulfate) glycopyrrolate Route: IV, Inactive (ANES) Drug form: 2018 [facility] INJ, ONCE, Stop date: 07/08/18 11:09:00 CDT neostigmine (ANES) Route: IV, Inactive Drug form: 2018 [facility] INJ, ONCE, Stop date: 07/08/18 11:09:00 CDT protamine (ANES) Route: IV, Inactive Drug form: 2018 [facility] INJ, ONCE, Stop date: 07/08/18 11:02:00 CDT ceFAZolin (ANES) Route: IV, Inactive Drug form: 2018 [facility] INJ, ONCE, Stop date: 07/08/18 10:28:00 CDT heparin (ANES) Route: IV, Inactive Drug form: 2018 [facility] INJ, ONCE, Stop date: 07/08/18 10:22:00 CDT propofol (ANES) Route: IV, Inactive Drug form: 2018 [facility] INJ, ONCE, Stop date: 07/08/18 10:02:00 CDT succinylcholine Route: IV, Inactive (ANES) Drug form: 2018 [facility] INJ, ONCE, Stop date: 07/08/18 9:57:00 CDT norepinephrine Route: IV, Inactive (ANES) Drug form: 2018 [facility] INJ, ONCE, Stop date: 07/08/18 9:57:00 CDT rocuronium (ANES) Route: IV, Inactive Drug form: 2018 [facility] INJ, ONCE, Stop date: 07/08/18 9:57:00 CDT vancomycin (ANES) Route: IV, Inactive 1000 mg Drug form: 2018 [facility] INJ, Start date: 07/08/18 9:13:00 CDT, Stop date: 07/08/18 10:13:00 CDT Lisinopril 20 mg, 1 tab, No Longer Route: PO, Active 2018 [facility] Drug form: TAB, Daily, Dosing Weight 109.091, kg, Start date: 07/08/18 9:00:00 CDT, Duration: 30 day, Stop date: 08/06/18 9:00:00 CDTNotes: (Same as: Prinivil, Zestril) Isosorbide 30 mg, 1 tab, No Longer Route: PO, Active 2018 [facility] Drug form: ERTAB, QAM, Dosing Weight 109.091, kg, Start date: 07/08/18 9:00:00 CDT, Duration: 30 day, Stop date: 08/06/18 9:00:00 CDTNotes: (Same as:Imdur) "Do Not Crush" Take on empty stomach/ full glass of water. Do not crush ezetimibe 10 mg, 1 tab, No Longer Route: PO, Active 2018 [facility] Drug form: TAB, Daily, Dosing Weight 109.091, kg, Start date: 07/08/18 9:00:00 CDT, Duration: 30 day, Stop date: 08/06/18 9:00:00 CDTNotes: (Same as: Zetia) Cymbalta 60 mg, 1 cap, No Longer Route: PO, Active 2018 [facility] Drug form: DRC, QAM, Dosing Weight 109.091, kg, Start date: 07/08/18 9:00:00 CDT, Duration: 30 day, Stop date: 08/06/18 9:00:00 CDTNotes: (Same as: Cymbalta) (Do Not Crush) Co-Q10 Route: PO, No Longer Drug form: Active 2019 [facility] CAP, BID, Dosing Weight 109.091, kg, Start date: 07/08/18 9:00:00 CDT, Duration: 30 day, Stop date: 08/06/18 17:00:00 CDT potassium chloride 20 mEq, 1 tab, No Longer 20 mEq oral Route: PO, Active 2019 [facility] tablet, extended Drug form: release ERTAB, QAM, Dosing Weight 109.091, kg, Start date: 07/08/18 9:00:00 CDT, Duration: 30 day, Stop date: 08/06/18 9:00:00 CDTNotes: (Same as: K-Dur 20) "Do Not Crush" Give with food and full glass of water For patients unable to swallow tablet, dissolve in one half glass of water. Allow about 2 minutes for the tablets to disintegrate. Stir before giving to prepare slurry and administer. Please exclude Patients with feeding tube less than 14 [place] (Dobhoff, J-tube etc) and pediatric and patients. multivitamin with 1 tab, Route: No Longer minerals PO, Drug Form: Active 2019 [facility] TAB, QAM, Start date: 07/08/18 9:00:00 CDT, Duration: 30 day, Stop date: 08/06/18 9:00:00 CDTNotes: (Same as:Thera-M, Theragran-M) WASTE: F/P - Black; E - Municipal Trash Bin Give with food. Centrum Silver 1 tab, Route: No Longer Men's PO, Dosing Active 2018 [facility] Weight 109.091, kg, QAM, Start date: 07/08/18 9:00:00 CDT, Duration: 30 day, Stop date: 08/06/18 9:00:00 CDT chlorhexidine 1 appl, Route: No Longer gluconate 40 MG/ML BATHE, Active 2019 [facility] Medicated Liquid Q-M-W-F, Drug Soap form: SOLN, Start date: 07/08/18 9:00:00 CDT, Duration: 30 day, Stop date: 08/05/18 9:00:00 CDTNotes: (Same As: Joe) chlorhexidine 15 ml, Route: Inactive gluconate 1.2 S&SPIT, Q12H, 2019 [facility] MG/ML Mouthwash Drug form: LIQ, Start date: 07/08/18 9:00:00 CDT, Duration: 2 week, Stop date: 07/21/18 21:00:00 CDTNotes: (Same As: Peridex) Isolyte S PH 7.4 Route: IV, Inactive (ANES) 1000 mL Total Volume: 2019 [facility] 1,000, Start date: 07/08/18 8:36:00 CDT, Stop date: 07/08/18 9:36:00 CDT Saline Flush 0.9% 10 ml, Route: Inactive IVP, Drug 2019 [facility] Form: INJ, Dosing Weight 109.091, kg, PRN, PRN Line Flush, Start date: 07/08/18 8:29:00 CDT, Duration: 30 day, Stop date: 08/07/18 8:28:00 CDTNotes: Same as: BD Posiflush Sterile Sodium Chloride 750 mL, Rate: No Longer 0.9% IV 750 mL 50 ml/hr, Active 2019 [facility] Infuse over: 15 hr, Route: IV, Dosing Weight 109.091 kg, Total Volume: 750, Start date: 07/08/18 8:29:00 CDT, Duration: 30 day, Stop date: 08/07/18 8:28:00 CDT, 2.3, m2 Docusate 100 mg, 1 cap, No Longer Route: PO, Active 2019 [facility] Drug form: CAP, BID, Dosing Weight 109.091, kg, PRN Constipation, Start date: 07/08/18 8:29:00 CDT, Duration: 30 day, Stop date: 08/07/18 8:28:00 CDTNotes: (Same as: Colace) (Do Not Crush) Acetaminophen 325 1 tab, Route: No Longer MG / Hydrocodone PO, Drug Form: Active 2019 [facility] Bitartrate 5 MG TAB, Dosing Oral Tablet Weight 109.091, kg, Q4H, PRN Pain Score 4-6, Start date: 07/08/18 8:29:00 CDT, Duration: 30 day, Stop date: 08/07/18 8:28:00 CDTNotes: (Same as: [place] 325/5) Do not exceed 4gm/day of acetaminophen. Acetaminophen 325 1 tab, Route: No Longer MG / Hydrocodone PO, Drug Form: Active 2018 [facility] Bitartrate 10 MG TAB, Dosing Oral Tablet Weight 109.091, kg, Q6H, PRN Pain Score 7-10, Start date: 07/08/18 8:29:00 CDT, Duration: 30 day, Stop date: 08/07/18 8:28:00 CDTNotes: Do not exceed 4gm/day of acetaminophen. (Same as: [place] 325/10) ceFAZolin 2 gm, 100 mL, Inactive Route: IVPB, 2018 [facility] Drug form: INJ, PRE OP, Start date: 07/08/18 0:00:00 CDT, Duration: 30 day, Stop date: 08/06/18 23:59:00 CDT, ABX Indication: Surgical ProphylaxisNot es: Same as: Ancef Vancomycin 1,750 mg, No Longer Route: IVPB, Active 2018 [facility] PRE OP, Dosing Weight 109.091, kg, Start date: 07/07/18 22:00:00 CDT, Duration: 1 doses or times, ABX Indication: Surgical ProphylaxisNot es: TIME CRITICAL MEDICATION (Same As: Vancocin) Infusion rate 2001 mg: infuse over 2.5 hours For adult patients only: Round to nearest 250 mg per Medical Staff approval MEDICATION WASTE Product Size: 1000 mg Product Wasted: ___ mg Sodium Chloride 250 mL, Rate: No Longer 0.9% (titrate) 250 To prime line Active 2018 [facility] mL and flush remaining blood products., Dosing Weight 109.091, kg, Route: IV, Total Volume: 250, Start Date: 07/07/18 21:05:00 CDT, Duration: 30 day, Stop date: 08/06/18 21:04:00 CDT, Replace Every: 24 hr gabapentin 600 MG 600 mg, 2 cap, No Longer Oral Tablet Route: PO, Active 2018 [facility] Drug form: CAP, Q12H, Dosing Weight 109.091, kg, Start date: 07/07/18 21:00:00 CDT, Duration: 30 day, Stop date: 08/06/18 9:00:00 CDTNotes: (Same as: Neurontin) metoprolol 12.5 mg, 0.5 No Longer tartrate tab, Route: Active 2018 [facility] PO, Drug form: TAB, Q12H, Dosing Weight 109.091, kg, Start date: 07/07/18 21:00:00 CDT, Duration: 30 day, Stop date: 08/06/18 9:00:00 CDTNotes: (Same as: Lopressor) Carbidopa 25 MG / 1 tab, Route: No Longer Levodopa 100 MG PO, Drug Form: Active 2019 [facility] Oral Tablet TAB, Dosing Weight 109.091, kg, BID, Start date: 07/07/18 18:00:00 CDT, Duration: 30 day, Stop date: 08/06/18 17:00:00 CDTNotes: Take with milk or food. (Same As: Sinemet) Sodium Chloride 250 mL, Route: Inactive 0.9% IV IVPB, Start 2018 [facility] date: 07/07/18 17:34:00 CDT, Duration: 30 day, Stop date: 08/06/18 17:33:00 CDT, PRN Line Flush BD Normal Saline 10 mL, Route: No Longer Flush IVP, Drug Active 2018 [facility] Form: INJ, PRN, PRN Line Flush, Start date: 07/07/18 17:34:00 CDT, Duration: 30 day, Stop date: 08/06/18 17:33:00 CDTNotes: Same as: BD Posiflush Sterile Docusate Calcium 240 mg, 24 mL, No Longer 240 MG Oral Route: PO, Active 2018 [facility] Capsule Drug form: LIQ, Daily, Dosing Weight 109.091, kg, PRN Constipation, Start date: 07/07/18 17:17:00 CDT, Duration: 30 day, Stop date: 08/06/18 17:16:00 CDTNotes: (Same as: Colace) Simethicone 80 mg, 1 tab, No Longer Route: PO, Active 2018 [facility] Drug form: CHEWTAB, Q6H, Dosing Weight 109.091, kg, PRN Gas, Start date: 07/07/18 17:13:00 CDT, Duration: 30 day, Stop date: 08/06/18 17:12:00 CDTNotes: (Same as: Mariyaon) Ondansetron 4 mg, 2 mL, No Longer Route: IVP, Active 2018 [facility] Drug form: INJ, Q8H, Dosing Weight 109.091, kg, PRN Nausea & Vomiting, Start date: 07/07/18 17:13:00 CDT, Duration: 30 day, Stop date: 08/06/18 17:12:00 CDTNotes: (Same as: Ina) MEDICATION WASTE Product Size: 4 mg Product Wasted: ___ mg Acetaminophen 650 mg, 2 tab, No Longer Route: PO, Active 2018 [facility] Drug form: TAB, Q4H, Dosing Weight 109.091, kg, PRN Pain 1-3/Temp > 100.4 F, Start date: 07/07/18 17:13:00 CDT, Duration: 30 day, Stop date: 08/06/18 17:12:00 CDTNotes: Do not exceed 4 gm/day. (Same as: Tylenol) Albuterol 0.833 3 ml, Route: No Longer MG/ML / NEB, Drug Active 2018 [facility] Ipratropium Form: SOLN, [place] 0.167 Dosing Weight MG/ML Inhalant 109.091, kg, Solution [DuoNeb] RQ6H, PRN Respiratory Pathway, Start date: 07/07/18 17:13:00 CDT, Duration: 30 day, Stop date: 08/06/18 17:12:00 CDTNotes: (Same as: Duoneb) isosorbide 30 mg, 1 tab, No Longer Sugar mononitrate Route: PO, Active [facility] Drug form: ERTAB, QAM, Dosing Weight 109.091, kg, Start date: 07/06/18 9:00:00 CDT, Duration: 30 day, Stop date: 08/04/18 9:00:00 CDTNotes: (Same as:Imonelr) "Do Not Crush" Take on empty stomach/ full glass of water. Do not crush ezetimibe 10 mg, 1 tab, No Longer Sugar Route: PO, Active 2018 [facility] Drug form: TAB, Daily, Dosing Weight 108.722, kg, Start date: 07/06/18 9:00:00 CDT, Duration: 30 day, Stop date: 08/04/18 9:00:00 CDTNotes: (Same as: Zetia) Aspirin 81 MG 81 mg, 1 tab, No Longer Sugar Enteric Coated Route: PO, Active 2018 [facility] Tablet Drug form: ECTAB, QAM, Dosing Weight 108.722, kg, Start date: 07/06/18 9:00:00 CDT, Duration: 30 day, Stop date: 08/04/18 9:00:00 CDTNotes: Do not crush or chew. (Same As: Ecotrin) Mylanta Gas 80 mg, 1 tab, No Longer Sugar Route: CHEW, Active 2018 [facility] Drug form: CHEWTAB, QID-After Meals, Dosing Weight 108.722, kg, PRN Indigestion, Start date: 07/06/18 0:14:00 CDT, Duration: 30 day, Stop date: 08/05/18 0:13:00 CDTNotes: (Same as: Mylicon) Xylocaine Viscous 15 mL, Route: No Longer Sugar 2% mucous membrane PO, QID, Drug Active 2018 [facility] solution form: SOLN, PRN GI Upset, Start date: 07/06/18 0:11:00 CDT, Duration: 30 day, Stop date: 08/05/18 0:10:00 CDTNotes: (Same as: Xylocaine) Al hydroxide/Mg 30 mL, Route: Inactive Sugar hydroxide/simethic PO, Drug Form: 2018 one SUSP, QID, PRN GI Upset, Start date: 07/06/18 0:11:00 CDT, Duration: 30 day, Stop date: 08/05/18 0:10:00 CDTNotes: (aluminum hydroxide-magn esium hyd-simethicon e [phone]/5 ml 30 ml ud MARSHAL) GI cocktail 30 ml, Route: Inactive Sugar (aluminum PO, Drug Form: 2018 [facility] hydroxide/magnesiu SUSP, Dosing m Weight hydroxide/lidocain 108.722, kg, e/simethicone) QID, PRN, Routine, Start date: 07/06/18 0:04:00 CDT, Duration: 30 day, Stop date: 08/05/18 0:03:00 CDT, Indigestion/he artburn Miralax 17 gm, 1 pkt, No Longer Sugar Route: PO, Active 2018 [facility] Drug form: PWDR, BID, Dosing Weight 108.722, kg, PRN Constipation, Start date: 07/05/18 23:25:00 CDT, Duration: 7 day, Stop date: 07/12/18 23:24:00 CDTNotes: Dissolve in 8 oz of water or juice. (Same as: Miralax) Co-Q10 Route: PO, Inactive Sugar Drug form: 2019 [facility] CAP, BID, Dosing Weight 108.722, kg, Start date: 07/05/18 17:00:00 CDT, Duration: 30 day, Stop date: 08/04/18 9:00:00 CDT isosorbide 30 mg=1 tab, On Hold Sugar mononitrate 30 mg PO, QAM, 0 2018 [facility] oral tablet, Refill(s) extended release metoprolol 12.5 mg=0.5 On Hold Sugar tartrate 25 mg tab, PO, BID, 2019 [facility] oral tablet 0 Refill(s) Carbidopa 25 MG / 1 tab, Route: No Longer Sugar Levodopa 100 MG PO, Drug Form: Active 2019 [facility] Oral Tablet TAB, Dosing Weight 109.091, kg, BID, Start date: 07/05/18 9:00:00 CDT, Duration: 30 day, Stop date: 08/03/18 17:00:00 CDTNotes: Take with milk or food. (Same As: Sinemet) Lisinopril 20 mg, 1 tab, Inactive Sugar Route: PO, 2018 [facility] Drug form: TAB, Daily, Dosing Weight 109.091, kg, Start date: 07/05/18 9:00:00 CDT, Duration: 30 day, Stop date: 08/03/18 9:00:00 CDTNotes: (Same as: Prinivil, Zestril) gabapentin 600 MG 600 mg, 2 cap, No Longer Sugar Oral Tablet Route: PO, Active 2018 [facility] Drug form: CAP, BID, Dosing Weight 109.091, kg, Start date: 07/05/18 9:00:00 CDT, Duration: 30 day, Stop date: 08/03/18 17:00:00 CDTNotes: (Same as: Neurontin) duloxetine 60 mg, 2 cap, No Longer Sugar Route: PO, Active 2018 [facility] Drug form: DRC, Daily, Dosing Weight 109.091, kg, Start date: 07/05/18 9:00:00 CDT, Duration: 30 day, Stop date: 08/03/18 9:00:00 CDTNotes: (Same as: Cymbalta) (Do Not Crush) isosorbide 30 mg, 1 tab, Inactive Sugar mononitrate Route: PO, 2018 [facility] extended release Drug form: ERTAB, QAM, Dosing Weight 109.091, kg, Start date: 07/05/18 9:00:00 CDT, Duration: 30 day, Stop date: 08/03/18 9:00:00 CDTNotes: (Same as:Imdur) "Do Not Crush" Take on empty stomach/ full glass of water. Do not crush metoprolol 12.5 mg, 0.5 No Longer Sugar tartrate tab, Route: Active 2018 [facility] PO, Drug form: TAB, BID, Dosing Weight 109.091, kg, Start date: 07/05/18 9:00:00 CDT, Duration: 30 day, Stop date: 08/03/18 17:00:00 CDTNotes: (Same as: Lopressor) gabapentin 600 MG 600 mg, 2 cap, Inactive Sugar Oral Tablet Route: PO, 2018 [facility] Drug form: CAP, ONCE, Dosing Weight 109.091, kg, Start date: 07/05/18 2:51:00 CDT, Stop date: 07/05/18 2:51:00 CDTNotes: (Same as: Neurontin) Robitussin Cough & 10 mL, Route: No Longer Sugar Congestion PO, Drug Form: Active 2019 [facility] LIQ, Dosing Weight 109.091, kg, Q6H, PRN Cough/Congesti on, Start date: 07/05/18 2:48:00 CDT, Duration: 30 day, Stop date: 08/04/18 2:47:00 CDTNotes: (dextromethorp johnson-guaifenesi n 10-100/5 ml LIQ) (Same as: Robitussin-DM) Mylanta Gas 80 mg, 1 tab, Inactive Sugar Route: CHEW, 2018 [facility] Drug form: CHEWTAB, ONCE, Dosing Weight 109.091, kg, Priority: NOW, Start date: 07/05/18 2:47:00 CDT, Stop date: 07/05/18 2:47:00 CDTNotes: (Same as: Mylicon) heparin 5,000 unit, 1 No Longer Sugar mL, Route: Active 2018 [facility] SUB-Q, Drug form: INJ, Q12H, Dosing Weight 109.091, kg, Start date: 07/04/18 21:00:00 CDT, Stop date: 08/03/18 9:00:00 CDTNotes: porcine heparin Albuterol 0.833 3 mL, Route: No Longer Sugar MG/ML / NEB, Drug Active 2018 [facility] Ipratropium Form: SOLN, [place] 0.167 Dosing Weight MG/ML Inhalant 109.091, kg, Solution Q4H, PRN as needed for shortness of breath or wheezing, Start date: 07/04/18 20:14:00 CDT, Duration: 30 day, Stop date: 08/03/18 20:13:00 CDTNotes: (Same as: Duoneb) Brilinta 90 mg, 1 tab, No Longer Sugar Route: PO, Active 2018 [facility] Drug form: TAB, BID, Dosing Weight 109.091, kg, Priority: NOW, Start date: 07/04/18 20:00:00 CDT, Duration: 30 day, Stop date: 08/03/18 17:00:00 CDTNotes: (Same as: Brilinta) Acetaminophen 650 mg, 2 tab, No Longer Sugar Route: PO, Active 2018 [facility] Drug form: TAB, Q4H, Dosing Weight 109.091, kg, PRN Pain 1-3/Temp > 100.4 F, Start date: 07/04/18 19:59:00 CDT, Duration: 30 day, Stop date: 08/03/18 19:58:00 CDTNotes: Do not exceed 4 gm/day. (Same as: Tylenol) Dextrose 50% 25 gm, 50 mL, No Longer Sugar Syringe Route: IVP, 2018 [facility] Drug Form: INJ, Dosing Weight 109.091, kg, PRN, PRN Blood Glucose Results, Start date: 07/04/18 19:59:00 CDT, Duration: 30 day, Stop date: 08/03/18 19:58:00 CDT Glucagon 1 mg, Route: No Longer Sugar IM, Drug form: 2018 [facility] PDR/INJ, PRN, Dosing Weight 109.091, kg, PRN Blood Glucose Results, Start date: 07/04/18 19:59:00 CDT, Duration: 30 day, Stop date: 08/03/18 19:58:00 CDT Ondansetron 4 mg, 2 mL, No Longer Sugar Route: IVP, 2018 [facility] Drug form: INJ, Q6H, Dosing Weight 109.091, kg, PRN Nausea & Vomiting, Start date: 07/04/18 19:59:00 CDT, Duration: 30 day, Stop date: 08/03/18 19:58:00 CDTNotes: (Same as: Ina) MEDICATION WASTE Product Size: 4 mg Product Wasted: ___ mg Saline Flush 0.9% 10 mL, Route: No Longer Sugar IVP, Drug Active 2018 [facility] Form: INJ, Dosing Weight 109.091, kg, PRN, PRN Line Flush, Start date: 07/04/18 16:35:00 CDT, Duration: 30 day, Stop date: 08/03/18 16:34:00 CDTNotes: (Same as: BD Posiflush) Mupirocin 0.02 1 appl, Route: No Longer MG/MG Topical NASAL, Q12H, Active 2018 [facility] Ointment Drug form: OINT, Start date: 07/01/18 21:00:00 CDT, Duration: 3 doses or times, Stop date: 07/02/18 21:00:00 CDT Lisinopril 20 mg, 1 tab, Inactive Route: PO, 2019 [facility] Drug form: TAB, BID, Dosing Weight 109.591, kg, Start date: 07/01/18 17:00:00 CDT, Duration: 30 day, Stop date: 07/31/18 9:00:00 CDTNotes: (Same as: Prinivil, Zestril) Sodium Chloride 250 mL, Rate: No Longer 0.9% (titrate) 250 To prime line Active 2018 [facility] mL and flush remaining blood products., Dosing Weight 110.818, kg, Route: IV, Total Volume: 250, Priority: Routine, Start Date: 07/01/18 15:40:00 CDT, Duration: 30 day, Stop date: 07/31/18 15:39:00 CDT, Replace Every: 24 hr Co-Q10 200 mg oral 4 tabs, PO, Active capsule BID 2019 [facility] Centrum Silver 1 tab, PO, QAM Active Men's 2019 [facility] ezetimibe 10 mg 10 mg=1 tab, Active oral tablet PO, Daily, # 2019 [facility] 90 tab, 0 Refill(s), Pharmacy: [facility]/pharmacy #[id number] metoprolol 25 mg=1 tab, Active tartrate 25 mg PO, Q12H, # 2019 [facility] oral tablet 180 tab, 0 Refill(s), Pharmacy: [facility]/pharmacy #[id number] ticagrelor 90 mg 90 mg=1 tab, Active oral tablet PO, Q12H, # 2019 [facility] 180 tab, 0 Refill(s), Pharmacy: [facility]/pharmacy #[id number] lisinopril 20 mg 20 mg=1 tab, Active oral tablet PO, Daily, # 2019 [facility] 90 tab, 0 Refill(s), Pharmacy: [facility]/pharmacy #[id number] isosorbide 60 mg=1 tab, Active mononitrate 60 mg PO, QAM, # 90 2019 [facility] oral tablet, tab, 0 extended release Refill(s), Pharmacy: [facility]/pharmacy #[id number] metoprolol 25 mg, 1 tab, No Longer tartrate Route: PO, Active 2018 [facility] Drug form: TAB, Q12H, Dosing Weight 112.545, kg, Start date: 06/30/18 21:00:00 CDT, Duration: 30 day, Stop date: 07/30/18 9:00:00 CDTNotes: (Same as: Lopressor) Prednisone 20 mg, 1 tab, No Longer Route: PO, Active 2018 [facility] Drug form: TAB, Daily, Dosing Weight 112.545, kg, Start date: 06/30/18 9:00:00 CDT, Duration: 30 day, Stop date: 07/29/18 9:00:00 CDTNotes: Take with food. Nitroglycerin 0.4 0.4 mg, 1 tab, No Longer MG Sublingual Route: SL, 2018 [facility] Tablet [Nitrostat] Drug form: TAB, Q5Min, Dosing Weight 112.545, kg, PRN Chest Pain, Start date: 06/29/18 16:53:00 CDT, Duration: 3 doses or times, Stop date: Limited # of timesNotes: (Same as:Nitroquick, Nitrostat) "Do Not Crush" Sublingual tablet metoprolol 50 mg, 1 tab, No Longer tartrate Route: PO, Active 2018 [facility] Drug form: TAB, Q12H, Dosing Weight 112.545, kg, Priority: NOW, Start date: 06/29/18 16:45:00 CDT, Duration: 30 day, Stop date: 07/29/18 9:00:00 CDTNotes: (Same as: Lopressor) Imdur 60 mg, 1 tab, No Longer Route: PO, Active 2018 [facility] Drug form: ERTAB, QAM, Dosing Weight 112.545, kg, Priority: NOW, Start date: 06/29/18 16:45:00 CDT, Duration: 30 day, Stop date: 07/29/18 9:00:00 CDTNotes: (Same as:Imdur) "Do Not Crush" Take on empty stomach/ full glass of water. Do not crush Zetia 10 mg, 1 tab, No Longer Route: PO, Active 2018 [facility] Drug form: TAB, Daily, Dosing Weight 112.545, kg, Start date: 06/29/18 9:00:00 CDT, Duration: 30 day, Stop date: 07/28/18 9:00:00 CDTNotes: (Same as: Zetia) Solu-Medrol 40 mg, 1 mL, No Longer Route: IVP, Active 2018 [facility] Drug form: INJ, Q12H, Dosing Weight 112.545, kg, Start date: 06/28/18 21:00:00 CDT, Duration: 24 hr, Stop date: 06/29/18 9:00:00 CDTNotes: (Same as:Solu-MEDROL , A-Methapred) Enoxaparin 30 mg, 0.3 mL, No Longer Route: SUB-Q, Active 2018 [facility] Drug form: INJ, [id number], Dosing Weight 112.545, kg, Start date: 06/28/18 20:00:00 CDT, Duration: 30 day, Stop date: 07/28/18 8:00:00 CDTNotes: (Same as: Lovenox) Acetylcysteine 200 400 mg, 2 mL, No Longer MG/ML Inhalant Route: NEB, Active 2018 [facility] Solution Drug Form: SOLN, Dosing Weight 112.545, kg, RQ12H, Start date: 06/28/18 19:26:00 CDT, Duration: 30 day, Stop date: 07/28/18 16:00:00 CDT Albuterol 0.833 3 ml, Route: No Longer MG/ML / NEB, Drug Active 2018 [facility] Ipratropium Form: SOLN, [place] 0.167 Dosing Weight MG/ML Inhalant 112.545, kg, Solution [DuoNeb] RQ4H, Start date: 06/28/18 19:25:00 CDT, Duration: 30 day, Stop date: 07/28/18 19:00:00 CDTNotes: (Same as: Duoneb) Albuterol 0.833 3 ml, Route: No Longer MG/ML / NEB, Drug Active 2019 [facility] Ipratropium Form: SOLN, [place] 0.167 Dosing Weight MG/ML Inhalant 112.545, kg, Solution [DuoNeb] RQ4H, PRN Shortness of breath, Start date: 06/28/18 19:04:00 CDT, Duration: 30 day, Stop date: 07/28/18 19:03:00 CDTNotes: (Same as: Duoneb) Fish Oil 1 gm, 1 cap, No Longer Route: PO, Active 2019 [facility] Drug form: CAP, BID, Dosing Weight 112.545, kg, Start date: 06/28/18 17:00:00 CDT, Duration: 30 day, Stop date: 07/28/18 9:00:00 CDTNotes: (Same as: MaxEPA, [place] 3 fish oil ) Non-Formulary Drug Mylanta Gas 80 mg, 1 tab, No Longer Route: CHEW, Active 2018 [facility] Drug form: CHEWTAB, QID-After Meals, Dosing Weight 112.545, kg, Start date: 06/28/18 17:00:00 CDT, Duration: 30 day, Stop date: 07/28/18 13:00:00 CDTNotes: (Same as: Mylicon) ticagrelor 90 mg, 1 tab, No Longer Route: PO, Active 2018 [facility] Drug form: TAB, Q12H, Dosing Weight 109.591, kg, Start date: 06/28/18 9:00:00 CDT, Duration: 30 day, Stop date: 07/27/18 21:00:00 CDTNotes: (Same as: Brilinta) pharmacy re-entry for dosing time adjustment Omnipaque 350 150 mL, Route: Inactive injectable IVP, Drug 2018 [facility] solution Form: SOLN, Dosing Weight 112.545, kg, ONCALL, For CTA exam with GFR > 45 mL/min, STAT, Start date: 06/28/18 7:54:00 CDT, Duration: 1 doses or timesNotes: (Same as:Omnipaque 300). WASTE: F/P - Black; E - [employer]ash [employer] Lasix 40 mg, 4 mL, Inactive Route: IVP2018 [facility] Drug form: INJ, ONCE, Dosing Weight 112.545, kg, Start date: 06/28/18 6:26:00 CDT, Stop date: 06/28/18 6:26:00 CDTNotes: (Same as: Lasix) MEDICATION WASTE Product Size: 40 mg Product Wasted: ___ mg normal saline 0.9% 1,000 mL, No Longer IV 1,000 mL Rate: 100 Active 2018 [facility] ml/hr, Infuse over: 10 hr, Route: IV, Dosing Weight 109.591 kg, Total Volume: 1,000, Start date: 06/27/18 22:35:00 CDT, Duration: 30 day, Stop date: 07/27/18 22:34:00 CDT, 2.32, m2 NS (Bolus) IV 500 mL, 500 Inactive ml/hr, Infuse 2018 [facility] Over: 1 hr, Route: IV, 500, Drug form: INJ, ONCE, Priority: STAT, Dosing Weight 109.591 kg, Start date: 06/27/18 22:35:00 CDT, Stop date: 06/27/18 22:35:00 CDT Nitroglycerin 0.02 1.5 inch, No Longer MG/MG Topical Route: TOP, Active 2018 [facility] Ointment Drug Form: OINT, Dosing Weight 109.591, kg, QID, Start date: 06/27/18 21:30:00 CDT, Duration: 30 day, Stop date: 07/27/18 21:00:00 CDTNotes: 1 gram is approximately 1 inch of nitroglycerin ointment (20 mg NTG per gram) (Same as:Nitro-Bid) Morphine 4 mg, 1 mL, Inactive Route: IVP2018 [facility] Drug form: SOLN, ONCE, Dosing Weight 109.591, kg, Priority: NOW, Start date: 06/27/18 21:21:00 CDT, Stop date: 06/27/18 21:21:00 CDTNotes: (Same as:MORPhine Sulfate) Metoprolol 5 mg, 5 mL, Inactive Route: IVP2018 [facility] Drug form: INJ, ONCE, Dosing Weight 109.591, kg, Priority: NOW, Start date: 06/27/18 21:21:00 CDT, Stop date: 06/27/18 21:21:00 CDTNotes: (Same as: Lopressor) Push over 2 minutes Ticagrelor 90 mg, Route: Inactive PO, Q12H, 2018 [facility] Dosing Weight 109.591, kg, Start date: 06/27/18 21:00:00 CDT, Duration: 30 day, Stop date: 07/27/18 9:00:00 CDT Sodium Chloride 250 mL, Route: No Longer 0.9% IV IVPB, Start Active 2018 [facility] date: 06/27/18 20:59:00 CDT, Duration: 30 day, Stop date: 07/27/18 20:58:00 CDT, PRN Line Flush BD Normal Saline 10 mL, Route: No Longer Flush IVP, Drug Active 2018 [facility] Form: INJ, PRN, PRN Line Flush, Start date: 06/27/18 20:59:00 CDT, Duration: 30 day, Stop date: 07/27/18 20:58:00 CDTNotes: Same as: BD Posiflush Sterile Acetaminophen 325 1 tab, Route: No Longer MG / Hydrocodone PO, Drug Form: Active 2019 [facility] Bitartrate 5 MG TAB, Dosing Oral Tablet Weight 109.591, kg, Q4H, PRN Pain Score 4-6, Start date: 06/27/18 20:08:00 CDT, Duration: 30 day, Stop date: 07/27/18 20:07:00 CDTNotes: (Same as: [place] 325/5) Do not exceed 4gm/day of acetaminophen. Ondansetron 4 mg, 1 tab, No Longer Route: PO, Active 2019 [facility] Drug form: TAB, Q8H, Dosing Weight 109.591, kg, PRN Nausea & Vomiting, Start date: 06/27/18 20:08:00 CDT, Duration: 30 day, Stop date: 07/27/18 20:07:00 CDTNotes: (Same as: Zofran) Nitroglycerin 0.4 mg, 1 tab, No Longer Route: SL, Active 2018 [facility] Drug form: TAB, Q5Min, Dosing Weight 109.591, kg, PRN Chest Pain, Start date: 06/27/18 20:08:00 CDT, Duration: 3 doses or times, Stop date: Limited # of timesNotes: (Same as:Nitroquick, Nitrostat) "Do Not Crush" Sublingual tablet Acetaminophen 650 mg, 2 tab, No Longer Route: PO, Active 2018 [facility] Drug form: TAB, Q4H, Dosing Weight 109.591, kg, PRN Pain Score 1-3, Start date: 06/27/18 20:08:00 CDT, Duration: 30 day, Stop date: 07/27/18 20:07:00 CDTNotes: Do not exceed 4 gm/day. (Same as: Tylenol) Sodium Chloride 750 mL, Rate: Inactive 0.9% IV 750 mL 75 ml/hr, 2018 [facility] Infuse over: 10 hr, Route: IV, Dosing Weight 109.591 kg, Total Volume: 750, Start date: 06/27/18 20:08:00 CDT, Duration: 10 hr, Stop date: 06/28/18 6:07:00 CDT, 2.32, m2 Zyrtec 10 mg, 1 tab, No Longer Route: PO, Active 2018 [facility] Drug form: TAB, Daily, Dosing Weight 109.591, kg, Start date: 06/27/18 9:00:00 CDT, Duration: 30 day, Stop date: 07/26/18 9:00:00 CDT, Patient's Own MedsNotes: (Same As: Zyrtec) Aspirin 81 MG 81 mg, 1 tab, No Longer Enteric Coated Route: PO, Active 2018 [facility] Tablet Drug form: ECTAB, Daily, Dosing Weight 109.591, kg, Start date: 06/27/18 9:00:00 CDT, Duration: 30 day, Stop date: 07/26/18 9:00:00 CDTNotes: Do not crush or chew. (Same As: Ecotrin) Amlodipine 10 mg, 1 tab, No Longer Route: PO, Active 2018 [facility] Drug form: TAB, Daily, Dosing Weight 109.591, kg, Start date: 06/27/18 9:00:00 CDT, Duration: 30 day, Stop date: 07/26/18 9:00:00 CDTNotes: (Same as: Norvasc) potassium chloride 20 mEq, 1 tab, No Longer 20 mEq oral Route: PO, Active 2018 [facility] tablet, extended Drug form: release ERTAB, Daily, Dosing Weight 109.591, kg, Start date: 06/27/18 9:00:00 CDT, Duration: 30 day, Stop date: 07/26/18 9:00:00 CDTNotes: (Same as: K-Dur 20) "Do Not Crush" Give with food and full glass of water For patients unable to swallow tablet, dissolve in one half glass of water. Allow about 2 minutes for the tablets to disintegrate. Stir before giving to prepare slurry and administer. Please exclude Patients with feeding tube less than 14 [place] (Dobhoff, J-tube etc) and pediatric and patients. Centrum Vitamints 1 tab, Route: No Longer PO, Drug Form: Active 2018 [facility] TAB, Dosing Weight 109.591, kg, Daily, Start date: 06/27/18 9:00:00 CDT, Duration: 30 day, Stop date: 07/26/18 9:00:00 CDTNotes: (Same as:Thera-M, Theragran-M) WASTE: F/P - Black; E - Municipal Trash Bin Give with food. Lisinopril 40 mg, 2 tab, No Longer Route: PO, Active 2018 [facility] Drug form: TAB, Daily, Dosing Weight 109.591, kg, Start date: 06/27/18 9:00:00 CDT, Duration: 30 day, Stop date: 07/26/18 9:00:00 CDTNotes: (Same as: Prinivil, Zestril) Cymbalta 60 mg, 1 cap, No Longer Route: PO, Active 2018 [facility] Drug form: DRC, Daily, Dosing Weight 109.591, kg, Start date: 06/27/18 9:00:00 CDT, Duration: 30 day, Stop date: 07/26/18 9:00:00 CDTNotes: (Same as: Cymbalta) (Do Not Crush) Sodium Chloride 250 mL, 250 No Longer 0.9% (Bolus) IV ml/hr, Infuse Active 2018 [facility] Over: 1 hr, Route: IV, 250, Drug form: INJ, ONCALL, Priority: Routine, Dosing Weight 109.591 kg, Start date: 06/26/18 19:00:00 CDT, Duration: 1 doses or times Sodium Chloride 750 mL, Rate: No Longer 0.9% IV 750 mL 75 ml/hr, Active 2018 [facility] Infuse over: 10 hr, Route: IV, Dosing Weight 109.591 kg, Total Volume: 750, Start date: 06/26/18 18:21:00 CDT, Duration: 24 hr, Stop date: 06/27/18 18:20:00 CDT, 2.32, m2 docusate sodium 100 mg, 1 cap, No Longer 100 mg oral Route: PO, Active 2018 [facility] capsule Drug form: CAP, Daily, PRN Constipation, Start date: 06/26/18 17:56:00 CDT, Duration: 30 day, Stop date: 07/26/18 17:55:00 CDTNotes: (Same as: Colace) (Do Not Crush) albuterol 2.49 mg, 3 mL, No Longer Route: NEB, 2018 [facility] Drug form: SOLN, Q4H, PRN Wheezing, Start date: 06/26/18 17:55:00 CDT, Duration: 30 day, Stop date: 07/26/18 17:54:00 CDTNotes: SEE RT DOCUMENTATION (Same as: Proventil) gabapentin 600 MG 600 mg, 2 cap, No Longer Oral Tablet Route: PO, 2018 [facility] Drug form: CAP, BID, Dosing Weight 109.591, kg, Start date: 06/26/18 17:00:00 CDT, Duration: 30 day, Stop date: 07/26/18 9:00:00 CDTNotes: (Same as: Neurontin) Carbidopa 25 MG / 1 tab, Route: No Longer Levodopa 100 MG PO, Drug Form: Active 2018 [facility] Oral Tablet TAB, Dosing Weight 109.591, kg, BID, Start date: 06/26/18 17:00:00 CDT, Duration: 30 day, Stop date: 07/26/18 9:00:00 CDTNotes: Take with milk or food. (Same As: Sinemet) Amlodipine 10 mg, 1 tab, Inactive Route: PO, 2018 [facility] Drug form: TAB, ONCE, Dosing Weight 109.591, kg, Start date: 06/26/18 16:50:00 CDT, Stop date: 06/26/18 16:50:00 CDTNotes: (Same as: Norvasc) Lisinopril 40 mg, 2 tab, Inactive Route: PO, 2018 [facility] Drug form: TAB, ONCE, Dosing Weight 109.591, kg, Start date: 06/26/18 16:50:00 CDT, Stop date: 06/26/18 16:50:00 CDTNotes: (Same as: Prinivil, Zestril) Ventolin HFA 90 180 microgram, Inactive mcg/inh inhalation 2 puff, Route: 2018 [facility] aerosol with INHALER, Drug adapter Form: AERO/A, Dosing Weight 109.591, kg, Q4H, PRN as needed for wheezing, Start date: 06/26/18 14:40:00 CDT, Duration: 30 day, Stop date: 07/26/18 14:39:00 CDT Docusate Calcium 240 mg, 1 cap, Inactive 240 MG Oral Route: PO, 2018 [facility] Capsule Drug form: CAP, Daily, Dosing Weight 109.591, kg, PRN Constipation, Start date: 06/26/18 14:40:00 CDT, Duration: 30 day, Stop date: 07/26/18 14:39:00 CDT albuterol 2.49 mg, 3 mL, Inactive Route: NEB, 2018 [facility] Drug form: SOLN, Q4H, PRN See Nurse's Notes, Start date: 06/26/18 14:06:00 CDT, Duration: 30 day, Stop date: 07/26/18 14:05:00 CDTNotes: SEE RT DOCUMENTATION (Same as: Proventil) docusate sodium 200 mg, 2 cap, Inactive 100 mg oral Route: PO, 2019 [facility] capsule Drug form: CAP, Daily, PRN See Nurse's Notes, Start date: 06/26/18 14:04:00 CDT, Duration: 30 day, Stop date: 07/26/18 14:03:00 CDTNotes: (Same as: Colace) (Do Not Crush) Ondansetron 4 mg, 2 mL, No Longer Route: IVP, Active 2019 [facility] Drug form: INJ, Q8H, Dosing Weight 109.591, kg, PRN Nausea & Vomiting, Start date: 06/26/18 13:50:00 CDT, Duration: 30 day, Stop date: 07/26/18 13:49:00 CDTNotes: (Same as: Karenfrsangita) MEDICATION WASTE Product Size: 4 mg Product Wasted: ___ mg Acetaminophen 325 2 tab, Route: No Longer MG / Hydrocodone PO, Drug Form: Active 2018 [facility] Bitartrate 5 MG TAB, Dosing Oral Tablet Weight 109.591, kg, Q4H, PRN Pain Score 7-10, Start date: 06/26/18 13:50:00 CDT, Duration: 30 day, Stop date: 07/26/18 13:49:00 CDTNotes: (Same as: [place] 325/5) Do not exceed 4gm/day of acetaminophen. Acetaminophen 650 mg, 2 tab, No Longer Route: PO, Active 2018 [facility] Drug form: TAB, Q4H, Dosing Weight 109.591, kg, PRN Pain Score 1-3, Start date: 06/26/18 13:50:00 CDT, Duration: 30 day, Stop date: 07/26/18 13:49:00 CDTNotes: Do not exceed 4 gm/day. (Same as: Tylenol) Sodium Chloride 750 mL, Rate: Inactive 0.9% IV 750 mL 75 ml/hr, 2018 [facility] Infuse over: 10 hr, Route: IV, Dosing Weight 109.591 kg, Total Volume: 750, Start date: 06/26/18 13:50:00 CDT, Duration: 10 hr, Stop date: 06/26/18 23:49:00 CDT, 2.32, m2 Ventolin HFA 90 180 microgram, Inactive mcg/inh inhalation 2 puff, Route: 2019 [facility] aerosol with INHALER, Drug adapter Form: AERO/A, Dosing Weight 109.591, kg, Q4H, PRN as needed for wheezing, Start date: 06/26/18 13:50:00 CDT, Duration: 30 day, Stop date: 07/26/18 13:49:00 CDT Docusate Calcium 240 mg, 1 cap, Inactive MH 240 MG Oral Route: PO, 2019 [facility] Capsule Drug form: CAP, Daily, Dosing Weight 109.591, kg, PRN Constipation, Start date: 06/26/18 13:50:00 CDT, Duration: 30 day, Stop date: 07/26/18 13:49:00 CDT Ventolin HFA 90 2 puff, Active mcg/inh inhalation INHALER, Q4H, 2019 [facility] aerosol with PRN wheezing, adapter coughing, or shortness of breath, 3 Refill(s) gabapentin 600 MG 600 mg=1 tab, Active Medical Oral Tablet PO, BID, 0 2019 Group Refill(s) Carbidopa 25 MG / 1 tab, PO, Active Medical Levodopa 100 MG BID, 0 2019 Group Oral Tablet Refill(s) Furosemide 20 MG 20 mg=1 tab, Active Medical Oral Tablet PO, Daily, # 2018 Group 30 tab, 5 Refill(s), Pharmacy: [facility]/pharmacy #[id number] hydrochlorothiazid 12.5 mg=1 tab, Active Medical e 12.5 mg oral PO, Daily, # 2018 Group tablet 30 tab, 5 Refill(s), Pharmacy: [facility]/pharmacy #[id number] CoQ10 4 tabs, PO, Active Medical BID 2018 Group gabapentin 300 MG 300 mg=1 cap, Active Medical Oral Capsule PO, BID 2018 Group Diclofenac Sodium 2 gm, TOP, Active Medical 0.01 MG/MG Topical QID, # 720 gm, 2017 Group Gel [Voltaren] 3 Refill(s), Pharmacy: [facility]/pharmacy #[id number] VOLTAREN 1 % GEL 4 g on joints Active Medical q.i.d. 2013 Group CYMBALTA 60 MG take 1 cap po Active Medical CPEP qd 2013 Group LYRICA 75 MG CAPS 1 po q hs Active Medical 2013 Group ADULT ASPIRIN EC 1 po bid Active Medical LOW STRENGTH 81 MG 2013 Group TBEC LYRICA 75 MG CAPS 1 po q hs Active Medical 2013 Group CYMBALTA 60 MG take 1 cap po Active Medical CPEP qd 2013 Group LYRICA 75 MG CAPS 1 po q hs Active Medical 2013 Group VOLTAREN 1 % GEL 4 g on joints No Longer Medical q.i.d. Active 2013 Group CYMBALTA 60 MG take 1 cap po Active Medical CPEP qd 2013 Group LYRICA 75 MG CAPS 1 po q hs Active Medical 2013 Group LYRICA 75 MG CAPS 1 po q hs Active Medical 2013 Group TOVIAZ 8 MG one p.o. No Longer Medical [id number] q.h.s. Active 2013 Group ULTRAM 50 MG TABS one every 4-6 Active Medical hours p.r.n. 2012 Group pain ULTRAM 50 MG TABS one every 4-6 No Longer Medical hours p.r.n. Active 2012 Group pain LEVAQUIN 750 MG one p.o. q. Active Medical TABS day 2012 Group LEVAQUIN 750 MG one p.o. q. No Longer Medical TABS day Active 2012 Group SINEMET 25-100 MG 1 po bid Active Medical TABS 2012 Group SINEMET 25-100 MG 1 po bid No Longer Medical TABS Active 2012 Group PRAVASTATIN SODIUM one po daily Active Medical 80 MG TABS 2012 Group CENTRUM SILVER ONE PO QD Active Medical TABS 2012 Group BYSTOLIC 10 MG take 1 tablet No Longer Medical TABS po twice a day Active 2012 Group PRAVASTATIN SODIUM one po daily Active Medical 80 MG TABS 2012 Group BYSTOLIC 10 MG take 1 tablet Active Medical TABS po twice a day 2012 Group PRAVASTATIN SODIUM one po daily Active Medical 80 MG TABS 2012 Group PRAVASTATIN SODIUM one po daily Active Medical 80 MG TABS 2012 Group BYSTOLIC 10 MG take 1 tablet Active Medical TABS po twice a day 2012 Group PRIMIDONE 50 MG one half po No Longer Medical TABS qhs x 1 week, Active 2011 Group thereafter 1 po q hs PRIMIDONE 50 MG one half po No Longer 01/16/ Medical TABS qhs x 1 week, Active 2011 Group thereafter 1 po q hs PRIMIDONE 50 MG one half po No Longer 01/16/ Medical TABS qhs x 1 week, Active 2011 Group thereafter 1 po q hs PA COENZYME Q-10 1 p.o. daily Active Medical 400 MG CAPS 2011 Group POTASSIUM CHLORIDE 1 p.o. daily Active Medical 20 MEQ PACK 2011 Group CASCARA SAGRADA as needed Active Medical 450 MG CAPS 2011 Group STOOL SOFTENER 240 as needed Active Medical MG CAPS 2011 Group POTASSIUM CHLORIDE 1 p.o. daily Active Medical 20 MEQ PACK 2011 Group LISINOPRIL 40 MG take 1 tablet Active Medical TABS po daily 2011 Group NORVASC 10 MG TABS take 1 po Active Medical daily 2011 Group FUROSEMIDE 20 MG take 1 tablet Active Medical TABS po daily 2011 Group VESICARE 10 MG take 1 tablet No Longer Medical TABS po daily Active 2011 Group OMEPRAZOLE 20 MG take 1 po No Longer Medical CPDR daily Active 2011 Group LISINOPRIL 40 MG take 1 tablet Active Medical TABS po daily 2011 Group VESICARE 10 MG take 1 tablet No Longer Medical TABS po daily Active 2011 Group OMEPRAZOLE 20 MG take 1 po No Longer Medical CPDR daily Active 2011 Group LISINOPRIL 40 MG take 1 tablet Active Medical TABS po daily 2011 Group NORVASC 10 MG TABS take 1 po Active Medical daily 2011 Group FUROSEMIDE 20 MG take 1 tablet Active Medical TABS po daily 2011 Group OMEPRAZOLE 20 MG take 1 po No Longer 11/05/ Medical CPDR daily Active 2011 Group LISINOPRIL 40 MG take 1 tablet Active 11/05/ Medical TABS po daily 2011 Group FUROSEMIDE 20 MG take 1 tablet Active 11/05/ Medical TABS po daily 2011 Group OMEPRAZOLE 20 MG take 1 po No Longer 11/05/ Medical CPDR daily Active 2011 Group Allergies, Adverse Reactions, Alerts Substance Category Reaction Severity Reaction Status Date Comments Source type Reported LIPITOR Drug LIPITOR allergy 2 Medical Group CRESTOR Drug CRESTOR allergy 2 Medical Group PRAVACHOL Drug PRAVACHOL allergy 2 Medical Group TILIPIX Drug TILIPIX allergy 2 Medical Group atorvastati Assertion Drug Active Data n<sup>2</dupree allergy 2 migrated Medical p> from [employer] [...] Centricity on 07/23/14. Originally documented as TETANUS. NKFA Assertion Food Active allergy Medical Group Immunizations Immunization Date Site Status Last Comments Source Given Updated pneumococcal Left completed [facility] 13-valent 9 deltoid Group, vaccine [place] influenza virus completed GE Result Comment: Medical vaccine, 4 fluzone Group, inactivated<sup> preservative Sugar 1</sup> free (6-35 mo.) Julian [[id number]]. [facility] Migrated from OBS ; Data migrated from [employer] on 04/27/2015. influenza completed Medical immunization 2 Group (Flu Vax) has been administered Hx influenza Right completed GE Result Comment: Medical vaccine-unspecif 2 Deltoid fluvax. Group, ied<sup>2</sup> Migrated from [employer] OBS ; [place], migrated from [facility] on 04/27/2015. Results Order Name Results Value Reference Date Interpretation Comments Source Range CHEM PANEL Phosphorus 3.9 mg/dL 2.5 - 4.5 07/09 [facility] CHEM PANEL eGFR 81 07/09 Result Comment: The eGFR is calculated using the CKD-EPI formula. In most young, healthy individuals the eGFR will be >90 mL/ min/1.73m2. The eGFR declines with age. An eGFR of 60-89 may be normal in mL/min/1.7 some populations, particularly the elderly, for whom the CKD-EPI formula has not been extensively validated. Use of the eGFR is not recommended in the following populations: [address] Individuals with unstable creatinine concentrations, including patients and those with serious co-morbid conditions. Patients with extremes in muscle mass or diet. The data above are obtained from the National Kidney Disease Education Program (NKDEP) which additionally recommends that when the eGFR is used in patients with extremes of body mass index for purposes of drug dosing, the eGFR should be multiplied by the estimated BMI. CHEM PANEL Calcium Lvl 8.7 mg/dL 8.5 - 10.5 07/09 [facility] CHEM PANEL CO2 22 meq/L 24 - 32 07/09 [facility] CHEM PANEL AGAP 13.4 meq/L 10.0 - 07/09 20.0 [facility] CHEM PANEL Potassium 4.4 meq/L 3.5 - 5.1 07/09 Lv [facility] CHEM PANEL Chloride Lvl 105 meq/L 95 - 109 07/09 [facility] CHEM PANEL Sodium Lvl 136 meq/L 135 - 145 07/09 [facility] CHEM PANEL Glucose Lvl 123 mg/dL 70 - 99 07/09 [facility] CHEM PANEL BUN 19 mg/dL 7 - 22 07/09 [facility] CHEM PANEL Creatinine 0.90 mg/dL 0.50 - 07/09 Lvl 1.40 /2018 [facility] CHEM PANEL Magnesium 2.1 mg/dL 1.8 - 2.4 07/09 Lv [facility] HEMATOLOGY RDW 15.6 % 11.5 - 07/09 MH 14.5 [facility] HEMATOLOGY Platelet 218 K/CMM 133 - 450 07/09 [facility] HEMATOLOGY MPV 7.8 fL 7.4 - 10.4 07/09 [facility] HEMATOLOGY MCV 90.1 fL 80.0 - 07/09 MH 94.0 [facility] HEMATOLOGY MCH 29.9 pg 27.0 - 07/09 MH 31.0 [facility] HEMATOLOGY MCHC 33.2 g/dL 32.0 - 07/09 MH 36.0 [facility] HEMATOLOGY Hgb 10.9 g/dL 14.0 - 07/09 MH 18.0 [facility] HEMATOLOGY Hct 32.7 % 42.0 - 07/09 MH 54.0 [facility] HEMATOLOGY WBC 11.6 K/CMM 3.7 - 10.4 07/09 [facility] HEMATOLOGY RBC 3.63 M/CMM 4.70 - 07/09 MH 6.10 [facility] HEMATOLOGY Lymphocytes 1.0 K/CMM 1.0 - 5.5 07/09 # /2018 [facility] HEMATOLOGY Monocytes # 1.3 K/CMM 0.0 - 0.8 07/09 [facility] HEMATOLOGY Eosinophils 0.1 K/CMM 0.0 - 0.5 07/09 [facility] HEMATOLOGY Basophils 0.2 % 0.0 - 1.0 07/09 [facility] HEMATOLOGY Neutrophils 9.2 K/CMM 1.5 - 8.1 07/09 [facility] HEMATOLOGY Segs 78.7 % 45.0 - 07/09 MH 75.0 [facility] HEMATOLOGY Lymphocytes 8.4 % 20.0 - 07/09 MH 40.0 [facility] HEMATOLOGY Monocytes 11.6 % 2.0 - 12.0 07/09 [facility] HEMATOLOGY Eosinophils 1.1 % 0.0 - 4.0 07/09 [facility] PARATHYROI Ca Norm WB 1.19 1.05 - 07/09 D PROFILE mMol/L . [facility] PARATHYROI Ca Ion WB 1.20 1.05 - 07/09 D PROFILE mMol/L . [facility] Chest Chest 1view Patient Name: APRIL PARNELL 07/09 - 1view DX DX - [facility] : 1940; Age: 77 years Male MR: [id number] Read by: Aleksander Multani MD Dictated Date/time: 07/09/18 07:37 Electronically Signed by: Aleksander Multani MD 07/09/18 07:39 FINAL REPORT Study: Chest 1view DX Order Time: 07/09/2018 4:15 CDT Clinical Indication: Respiratory distress - s/p TAVR. COMPARISON: June 2018 x-rays back to June 28 FINDINGS: Views: 1 SUPPORT LINES: Right central line tip is in the superior vena cava right atrial junction. Cardiac device wires are intact. LUNGS: There is normal lung volume. Bibasilar atelectasis. Small bilateral pleural effusions. There is no pneumothorax. The pulmonary vasculature is normal. MEDIASTINUM: The cardiac silhouette is enlarged. Post valve replacement. The trachea is midline. BONES: Left humeral replacement. Right glenohumeral joint osteoarthritic change. IMPRESSION: Enlarged cardiac silhouette. SL: [id number] CHEM PANEL Magnesium 2.0 mg/dL 1.8 - 2.4 07/08 Lv [facility] CHEM PANEL Phosphorus 3.9 mg/dL 2.5 - 4.5 07/08 [facility] ELECTROLYT AGAP 14.3 meq/L 10.0 - 07/08 ES 20.0 [facility] ELECTROLYT CO2 20 meq/L 24 - 32 07/08 ES [facility] ELECTROLYT Chloride Lvl 106 meq/L 95 - 109 07/08 ES [facility] ELECTROLYT Potassium 4.3 meq/L 3.5 - 5.1 07/08 [facility] Lvl [facility] ELECTROLYT Calcium Lvl 7.5 mg/dL 8.5 - 10.5 07/08 ES [facility] ELECTROLYT eGFR 71 07/08 Result Comment: The eGFR is calculated using the CKD-EPI formula. In most young, healthy individuals the eGFR will be >90 mL/ min/1.73m2. The eGFR declines with age. An eGFR of 60-89 may be normal in ES mL/min/1.7 some populations, particularly the elderly, for whom the CKD-EPI formula has not been extensively validated. Use of the eGFR is not recommended in the following populations: [place] [address] Individuals with unstable creatinine concentrations, including patients and those with serious co-morbid conditions. Patients with extremes in muscle mass or diet. The data above are obtained from the National Kidney Disease Education Program (NKDEP) which additionally recommends that when the eGFR is used in patients with extremes of body mass index for purposes of drug dosing, the eGFR should be multiplied by the estimated BMI. ELECTROLYT Glucose Lvl 140 mg/dL 70 - 99 07/08 [facility] ELECTROLYT Creatinine 1.00 mg/dL 0.50 - 07/08 ES Lvl 1.40 /2018 [facility] ELECTROLYT BUN 20 mg/dL 7 - 22 07/08 [facility] ELECTROLYT Sodium Lvl 136 meq/L 135 - 145 07/08 [facility] HEMATOLOGY Fibrinogen 712 mg/dL 230 - 510 07/08 Lvl /2018 [facility] HEMATOLOGY PTT 33.3 s 22.9 - 07/08 MH 35.8 /2018 [facility] HEMATOLOGY INR 1.19 0.85 - 07/08 1.17 [facility] HEMATOLOGY PT 14.9 s 12.0 - 07/08 14.7 [facility] HEMATOLOGY Hct 34.7 % 42.0 - 07/08 54.0 /2018 [facility] HEMATOLOGY Hgb 11.9 g/dL 14.0 - 07/08 18.0 [facility] HEMATOLOGY MCV 87.8 fL 80.0 - 07/08 94.0 [facility] HEMATOLOGY RBC 3.95 M/CMM 4.70 - 07/08 6.10 [facility] HEMATOLOGY WBC 17.8 K/CMM 3.7 - 10.4 07/08 [facility] HEMATOLOGY MPV 7.6 fL 7.4 - 10.4 07/08 [facility] Platelet 257 K/CMM 133 - 450 07/08 [facility] HEMATOLOGY MCHC 34.2 g/dL 32.0 - 07/08 36.0 [facility] HEMATOLOGY MCH 30.0 pg 27.0 - 07/08 31.0 [facility] HEMATOLOGY RDW 15.3 % 11.5 - 07/08 14.5 [facility] PARATHYROI Ca Norm WB 0.98 1.05 - 07/08 D PROFILE mMol/L 04.19 [facility] PARATHYROI Ca Ion WB 0.98 1.05 - 07/08 D PROFILE mMol/L 04.19 [facility] Chest Chest 1view EXAM: Chest 1view DX 07/08 - 1view DX DX /2018 - [facility] DATE: 07/08/2018 8:29 CDT INDICATION: Respiratory distress - Post op Read by: Servando Gray MD Dictated Date/time: 07/08/18 12:00 COMPARISON: 07/08/2018. Electronically Signed by: Servando Gray MD 07/08/18 12:02 FINAL REPORT IMPRESSION: Stable mildly enlarged cardiac silhouette. Stable postoperative TAVR. The lungs are hyperexpanded. New right central line is present with its tip in the lower SVC. Stable electronic device o verlies the left upper chest with leads coursing towards the left neck. Stable postoperative left shoulder hemiarthroplasty is present. SL: [id number] BACTERIAL MRSA by PCR Negative 07/08 - SEROLOGY [facility] (07/08/18 12:34 AM) BLOOD BANK ABO/Rh A POS 07/08 RESULTS [facility] BLOOD BANK Antibody Negative 07/08 RESULTS Scrn [facility] (07/08/18 12:34 AM) CHEM PANEL Phosphorus 4.0 mg/dL 2.5 - 4.5 07/08 [facility] CHEM PANEL eGFR 64 07/08 Result Comment: The eGFR is calculated using the CKD-EPI formula. In most young, healthy individuals the eGFR will be >90 mL/ min/1.73m2. The eGFR declines with age. An eGFR of 60-89 may be normal in mL/min/1.7 some populations, particularly the elderly, for whom the CKD-EPI formula has not been extensively validated. Use of the eGFR is not recommended in the following populations: [facility] 3m2 Individuals with unstable creatinine concentrations, including patients and those with serious co-morbid conditions. Patients with extremes in muscle mass or diet. The data above are obtained from the National Kidney Disease Education Program (NKDEP) which additionally recommends that when the eGFR is used in patients with extremes of body mass index for purposes of drug dosing, the eGFR should be multiplied by the estimated BMI. CHEM PANEL AST 14 unit/L 0 - 37 07/08 [facility] CHEM PANEL ALT 13 unit/L 0 - 65 07/08 [facility] CHEM PANEL Globulin 3.9 g/dL 2.7 - 4.2 07/08 [facility] CHEM PANEL A/G Ratio 0.8 0.7 - 1.6 07/08 [facility] CHEM PANEL Bili Total 0.4 mg/dL 0.2 - 1.3 07/08 [facility] CHEM PANEL Alk Phos 68 unit/L 39 - 136 07/08 [facility] CHEM PANEL Calcium Lvl 9.1 mg/dL 8.5 - 10.5 07/08 [facility] CHEM PANEL AGAP 13.4 meq/L 10.0 - 07/08 20.0 [facility] CHEM PANEL Glucose Lvl 87 mg/dL 70 - 99 07/08 [facility] CHEM PANEL Creatinine 1.10 mg/dL 0.50 - 07/08 MH Lvl 1.40 /2018 [facility] CHEM PANEL BUN 20 mg/dL 7 - 22 07/08 [facility] CHEM PANEL CO2 27 meq/L 24 - 32 07/08 [facility] CHEM PANEL Potassium 4.4 meq/L 3.5 - 5.1 07/08 [facility] CHEM PANEL Chloride Lvl 101 meq/L 95 - 109 07/08 [facility] CHEM PANEL Sodium Lvl 137 meq/L 135 - 145 07/08 [facility] CHEM PANEL Total 6.9 g/dL 6.4 - 8.4 07/08 [facility] CHEM PANEL Albumin Lvl 3.0 g/dL 3.5 - 5.0 07/08 [facility] CHEM PANEL B/C Ratio 18 6 - 25 07/08 [facility] CHEM PANEL Magnesium 2.2 mg/dL 1.8 - 2.4 07/08 [facility] HEMATOLOGY Segs 75.4 % 45.0 - 07/08 75.0 [facility] HEMATOLOGY Lymphocytes 10.5 % 20.0 - 07/08 40.0 [facility] HEMATOLOGY Eosinophils 2.7 % 0.0 - 4.0 07/08 [facility] HEMATOLOGY Monocytes 11.1 % 2.0 - 12.0 07/08 [facility] HEMATOLOGY Lymphocytes 1.2 K/CMM 1.0 - 5.5 07/08 [facility] HEMATOLOGY Basophils 0.3 % 0.0 - 1.0 07/08 [facility] HEMATOLOGY Neutrophils 8.9 K/CMM 1.5 - 8.1 07/08 [facility] HEMATOLOGY Eosinophils 0.3 K/CMM 0.0 - 0.5 07/08 [facility] HEMATOLOGY Monocytes # 1.3 K/CMM 0.0 - 0.8 07/08 [facility] HEMATOLOGY Basophils # 0.0 K/CMM 0.0 - 0.2 07/08 [facility] PTT 36.9 s 22.9 - 07/08 MH 35.8 /2018 [facility] HEMATOLOGY INR 1.06 0.85 - 07/08 1.17 [facility] HEMATOLOGY PT 13.6 s 12.0 - 07/08 MH 14.7 [facility] Hct 38.2 % 42.0 - 07/08 MH 54.0 /2019 [facility] RBC 4.27 M/CMM 4.70 - 07/08 6.10 [facility] HEMATOLOGY MCV 89.3 fL 80.0 - 07/08 94.0 /2018 [facility] Hgb 12.7 g/dL 14.0 - 07/08 18.0 [facility] RDW 15.5 % 11.5 - 07/08 14.5 [facility] Platelet 281 K/CMM 133 - 450 07/08 [facility] MPV 7.9 fL 7.4 - 10.4 07/08 [facility] MCHC 33.3 g/dL 32.0 - 07/08 36.0 [facility] MCH 29.7 pg 27.0 - 07/08 31.0 [facility] WBC 11.8 K/CMM 3.7 - 10.4 07/08 [facility] BLOOD BANK Cryo product Product available 07/08 RESULTS /2018 [facility] (07/07/18 9:05 PM) BLOOD BANK FFP product Product available 07/08 RESULTS /2018 [facility] (07/07/18 9:05 PM) BLOOD BANK RBC product Product available 1 07/08 Result Comment: 2018 02:12 SKYLER RESULTS /2018 Blood available, notified FOR SURGERY at _07/08/2018 02 :11 by _SM. [facility] (07/07/18 9:05 PM) BLOOD BANK Platelet Product available 07/08 RESULTS product /2018 [facility] (07/07/18 9:05 PM) Chest Chest 1view PROCEDURE: 07/07 - 1view DX DX - [facility] Chest, AP on 07/08/2018 at 0616 hours. Read by: Houston Phillips MD Dictated Date/time: 07/08/18 07:56 INDICATION: Chest pain - Pre Op testing. Electronically Signed by: Houston Phillips MD 07/08/18 07:57 FINAL REPORT COMPARISON: Chest radiographs dated 07/04/2018 and 06/28/2018. CT chest with contrast dated 06/28/2018. FINDINGS: Support tubes, catheters, devices: Stable electronic device overlies the left upper chest with leads coursing towards the left neck. No pleural effusion or pneumothorax. Lungs are clear. Cardiac silhouette is borderline prominent. Mild aortic calcification. Left shoulder prosthesis is partially seen. Mild degenerative changes identified within the spine and shoulders. IMPRESSION: 1. Borderline prominent cardiac silhouette. 2. No acute abnormality identified. SL: [id number] CHEM PANEL Magnesium 2.1 mg/dL 1.8 - 2.4 07/07 [place] ELECTROLYT AGAP 8.3 meq/L 10.0 - 07/07 [place] ES 20.0 [place] ELECTROLYT Calcium Lvl 8.1 mg/dL 8.5 - 10.5 07/07 [place] ELECTROLYT CO2 27 meq/L 24 - 32 07/07 [place] ELECTROLYT Chloride Lvl 103 meq/L 95 - 109 07/07 [place] ELECTROLYT Sodium Lvl 134 meq/L 135 - 145 07/07 [place] ELECTROLYT Potassium 4.3 meq/L 3.5 - 5.1 07/07 [place] ELECTROLYT Creatinine 0.89 mg/dL 0.50 - 07/07 [place] ES Lvl 1.40 /2018 [place] ELECTROLYT BUN 14 mg/dL 7 - 22 07/07 [place] ELECT[place] Glucose Lvl 143 mg/dL 70 - 99 07/07 [place] ELECTROLYT eGFR 81 07/07 Result Comment: The eGFR is calculated using the CKD-EPI formula. In most young, healthy individuals the eGFR will be >90 mL/ min/1.73m2. The eGFR declines with age. An eGFR of 60-89 may be normal in [place] mL/min/1.7 some populations, particularly the elderly, for whom the CKD-EPI formula has not been extensively validated. Use of the eGFR is not recommended in the following populations: [place] 3m2 Individuals with unstable creatinine concentrations, including patients and those with serious co-morbid conditions. Patients with extremes in muscle mass or diet. The data above are obtained from the National Kidney Disease Education Program (NKDEP) which additionally recommends that when the eGFR is used in patients with extremes of body mass index for purposes of drug dosing, the eGFR should be multiplied by the estimated BMI. HEMATOLOGY MPV 7.6 fL 7.4 - 10.4 07/07 [place] /2018 [place] HEMATOLOGY MCHC 34.5 g/dL 32.0 - 07/07 [place] 36.0 /2018 [facility] HEMATOLOGY MCH 30.5 pg 27.0 - 07/07 [place] 31.0 [facility] HEMATOLOGY RDW 15.5 % 11.5 - 07/07 [place] 14.5 [place] HEMATOLOGY MCV 88.5 fL 80.0 - 07/07 [place] 94.0 /2018 [facility] HEMATOLOGY Platelet 262 K/CMM 133 - 450 07/07 [place] /2018 [facility] HEMATOLOGY WBC 11.5 K/CMM 3.7 - 10.4 07/07 [place] /2018 [facility] HEMATOLOGY Hct 36.0 % 42.0 - 07/07 [place] 54.0 /2019 [facility] HEMATOLOGY Hgb 12.4 g/dL 14.0 - 07/07 [place] 18.0 [facility] HEMATOLOGY RBC 4.07 M/CMM 4.70 - 07/07 [place] 6.10 /2018 [facility] HEMATOLOGY Basophils # 0.1 K/CMM 0.0 - 0.2 07/07 [place] /2018 [facility] HEMATOLOGY Eosinophils 0.4 K/CMM 0.0 - 0.5 07/07 [place] # /2019 [facility] HEMATOLOGY Lymphocytes 1.1 K/CMM 1.0 - 5.5 07/07 [place] # /2019 [facility] HEMATOLOGY Neutrophils 8.9 K/CMM 1.5 - 8.1 07/07 [place] # /2018 [facility] HEMATOLOGY Monocytes # 1.1 K/CMM 0.0 - 0.8 07/07 [place] /2019 [facility] HEMATOLOGY Monocytes 9.4 % 2.0 - 12.0 07/07 [place] /2019 [place] HEMATOLOGY Eosinophils 3.3 % 0.0 - 4.0 07/07 [place] /2019 [facility] HEMATOLOGY Basophils 0.6 % 0.0 - 1.0 07/07 /2019 [facility] HEMATOLOGY Segs 77.5 % 45.0 - 07/07 [place] 75.0 /2019 [place] HEMATOLOGY Lymphocytes 9.2 % 20.0 - 07/07 [place] 40.0 /2019 [place] URINE AND UA RBC 1 /HPF 0 - 2 07/05 [place] URINE AND UA Mucus Few /LPF None Seen 07/05 [place] STOOL /LPF [facility] URINE AND UA Bacteria Few /HPF None Seen 07/05 [place] /HPF [place] URINE AND UA WBC 5 /HPF 0 - 5 07/05 Sugar [facility] URINE AND UA Leuk Est Trace Negative 07/05 [place] *ABN* (07/05/18 1:07 PM) URINE AND UA Nitrite Negative Negative 07/05 [place] STOOL [facility] (07/05/18 1:07 PM) URINE AND UA Sq Epi Occasional Few /LPF 07/05 [place] STO[facility] /LPF [facility] URINE AND UA Glucose Negative Negative 07/05 [place] *NA* (07/05/18 1:07 PM) URINE AND UA Protein Negative Negative 07/05 [place] STOOL [facility] (07/05/18 1:07 PM) URINE AND UA pH 7.0 5.0 - 8.0 07/05 Sugar [facility] URINE AND UA Ketones Negative Negative 07/05 [place] *NA* (07/05/18 1:07 PM) URINE AND UA Blood Negative Negative 07/05 [place] STOOL [facility] (07/05/18 1:07 PM) URINE AND UA Bili Negative Negative 07/05 [place] STO[facility] *NA* (07/05/18 1:07 PM) URINE AND UA <=1.0 0.1 - 1.0 07/05 [place] [facility] Urobilinogen mg/dL [facility] URINE AND UA Turbidity Slight Clear 07/05 [place] *ABN* (07/05/18 1:07 PM) URINE AND UA Spec Grav 1.017 <=1.030 07/05 [place] STOOL [facility] URINE AND UA Color Yellow Yellow 07/05 [place] STOOL [facility] *NA* (07/05/18 1:07 PM) Ext Lower Ext Lower EXAMINATION: 07/05 - [place] non non vascular /2018 - [facility] vascular US US Ext Lower non vascular US , 07/05/2018 14:33 CDT. Read by: Shen Condon MD Dictated Date/time: 07/05/18 16:46 Electronically Signed by: Shen Condon MD 07/05/18 16:52 FINAL REPORT CLINICAL INDICATION: 77 years Male - right groin. pt with right groin hematoma noted on CT Comparison: 06/28/2018 CTA of the chest abdomen pelvis DISCUSSION: Lund scale and color flow ultrasound imaging of the right groin was performed by technologist, with client representative images submitted. Irregular slightly complex fluid collection in the right groin below area of hematoma measures approximately 5.2 x 1.8 x 5.6 cm. Additional small fluid collection measures 1.3 x 1.0 x 1.1 cm. Triphasic waveforms noted in the common femoral artery. Visualized common femoral vein appears patent. If there is further clinical concern, consider sectional imaging such as CT with contrast or MRI with and without contrast of the area. IMPRESSION: 1. There are 2 fluid collections in the right groin underlying bruising, possibly due to hematomas. CARDIAC Troponin-I 0.51 ng/mL 0.00 - 07/05 Result [place] ENZYMES 0.40 Comment: [facility] Critical Result(s) called to Mary Garza RN at 07/05/2018 04:23 by AK. Read back OK. CARDIAC Troponin-I 0.57 ng/mL 0.00 - 07/05 Result [place] ENZYMES 0.40 Comment: [facility] Critical Result(s) called to Mary Garza RN at 07/04/2018 23:54 by AK. Read back OK. CARDIAC Troponin-I 0.54 ng/mL 0.00 - 07/04 Result [place] EN[place]ES 0.40 2019 Comment: [facility] Critical Result(s) called to MARAH YEE RN at 07/04/2018 17:17 by NT. Read back OK. CARDIAC BNP 63 pg/mL <=100 07/04 [place] pg/mL /2019 [facility] CHEM PANEL eGFR 61 07/04 Result Comment: The eGFR is calculated using the CKD-EPI formula. In most young, healthy individuals the eGFR will be >90 mL/ min/1.73m2. The eGFR declines with age. An eGFR of 60-89 may be normal in [place] mL/min/1. some populations, particularly the elderly, for whom the CKD-EPI formula has not been extensively validated. Use of the eGFR is not recommended in the following populations: [facility] 3m2 Individuals with unstable creatinine concentrations, including patients and those with serious co-morbid conditions. Patients with extremes in muscle mass or diet. The data above are obtained from the National Kidney Disease Education Program (NKDEP) which additionally recommends that when the eGFR is used in patients with extremes of body mass index for purposes of drug dosing, the eGFR should be multiplied by the estimated BMI. CHEM PANEL Calcium Lvl 8.4 mg/dL 8.5 - 10.5 07/04 [place] CHEM PANEL Total 6.6 g/dL 6.4 - 8.4 07/04 [place] Protein [place] CHEM PANEL Albumin Lvl 3.0 g/dL 3.5 - 5.0 07/04 [place] CHEM PANEL Alk Phos 61 unit/L 39 - 136 07/04 [place] CHEM PANEL Bili Total 0.4 mg/dL 0.2 - 1.3 07/04 [place] CHEM PANEL AST 14 unit/L 0 - 37 07/04 [place] CHEM PANEL ALT 30 unit/L 0 - 65 07/04 [place] CHEM PANEL Sodium Lvl 137 meq/L 135 - 145 07/04 [place] CHEM PANEL Potassium 4.3 meq/L 3.5 - 5.1 07/04 [place] CHEM PANEL CO2 28 meq/L 24 - 32 07/04 [place] CHEM PANEL Glucose Lvl 135 mg/dL 70 - 99 07/04 [place] CHEM PANEL BUN 29 mg/dL 7 - 22 07/04 [place] CHEM PANEL Chloride Lvl 105 meq/L 95 - 109 07/04 [place] CHEM PANEL Creatinine 1.13 mg/dL 0.50 - 07/04 [place] Lvl 1.40 [place] CHEM PANEL Globulin 3.6 g/dL 2.7 - 4.2 07/04 [place] CHEM PANEL B/C Ratio 26 6 - 25 07/04 [place] CHEM PANEL A/G Ratio 0.8 0.7 - 1.6 07/04 [place] CHEM PANEL AGAP 8.3 meq/L 10.0 - 04 [place] 20[place]0 [place] HEMATOLOGY PT 13.2 s 12.0 - 04 MH [place] 14.7 2019 [place] HEMATOLOGY INR 1.02 0.85 - 04 MH [place] 1.17 [place] HEMATOLOGY PTT 32.2 s 22.9 - 07/04 [place] 35.8 /2018 [place] HEMATOLOGY RDW 15.2 % 11.5 - 04 [place] 14.5 /2018 [place] HEMATOLOGY MCHC 33.3 g/dL 32.0 - 07/04 [place] 36.0 /2018 [facility] HEMATOLOGY MPV 8.1 fL 7.4 - 10.4 04/ [place] /2018 [facility] HEMATOLOGY Platelet 253 K/CMM 133 - 450 07/04 [place] /2018 [facility] HEMATOLOGY MCV 88.2 fL 80.0 - 07/04 [place] 94.0 /2018 [place] HEMATOLOGY Hct 37.3 % 42.0 - 07/04 [place] 54.0 /2018 [facility] HEMATOLOGY MCH 29.4 pg 27.0 - 07/04 [place] 31.0 [facility] HEMATOLOGY RBC 4.23 M/CMM 4.70 - 07/04 [place] 6.10 [place] HEMATOLOGY WBC 10.2 K/CMM 3.7 - 10.4 07/04 [place] /2018 [facility] HEMATOLOGY Hgb 12.4 g/dL 14.0 - 07/04 [place] 18.0 [facility] HEMATOLOGY Basophils # 0.1 K/CMM 0.0 - 0.2 07/04 [place] /2018 [facility] HEMATOLOGY Eosinophils 0.4 K/CMM 0.0 - 0.5 07/04 [place] # /2019 [facility] HEMATOLOGY Monocytes # 0.9 K/CMM 0.0 - 0.8 07/04 [place] /2018 [facility] HEMATOLOGY Lymphocytes 16.4 % 20.0 - 07/04 [place] 40.0 /2018 [facility] HEMATOLOGY Segs 70.3 % 45.0 - 07/04 [place] 75.0 /2018 [place] HEMATOLOGY Monocytes 9.1 % 2.0 - 12.0 07/04 [place] /2019 [facility] HEMATOLOGY Eosinophils 3.5 % 0.0 - 4.0 07/04 [place] /2019 [facility] HEMATOLOGY Neutrophils 7.2 K/CMM 1.5 - 8.1 07/04 [place] # /2019 [facility] HEMATOLOGY Lymphocytes 1.7 K/CMM 1.0 - 5.5 07/04 [place] # /2019 [facility] HEMATOLOGY Basophils 0.7 % 0.0 - 1.0 04 [place] /2019 [facility] Chest Chest 1view EXAM: CHEST 1 VIEW XR 07/04 - [place] 1view DX DX /2018 - [place] DATE: 07/04/2018 16:35 CDT . Read by: Philip Dumont MD Dictated Date/time: 07/04/18 17:24 TECHNIQUE: AP view of the chest Electronically Signed by: Philip Dumont MD 07/04/18 17:25 FINAL REPORT ORDERING PHYSICIAN: Diana Buckner CLINICAL INDICATION: - hypotension; COMPARISON: 06/28/2018 chest x-ray FINDINGS: SEE BELOW IMPRESSION: 1. Life-support: Stable left-sided transvenous cardiac device 2. Cardiomegaly without overt pulmonary edema 3. Hyperinflated lungs without focal consolidation URINE AND UA RBC null 0 - 2 07/01 STOOL [facility] URINE AND UA WBC null 0 - 5 07/01 [facility] URINE AND UA Mucus Few /LPF None Seen 07/01 STOOL /LPF [facility] URINE AND UA Nitrite Negative Negative 07/01 [facility] (07/01/18 4:38 PM) URINE AND UA Leuk Est Negative Negative 07/01 STOOL [facility] (07/01/18 4:38 PM) URINE AND UA Sq Epi Occasional Few /LPF 07/01 STOOL /LPF [facility] URINE AND UA Color Ltyellow 07/01 [facility] URINE AND UA Spec Grav 1.016 <=1.030 07/01 [facility] URINE AND UA Turbidity Clear Clear 07/01 [facility] (07/01/18 4:38 PM) URINE AND UA Protein Negative Negative 07/01 STOOL [facility] (07/01/18 4:38 PM) URINE AND UA Glucose Negative Negative 07/01 [facility] *NA* (07/01/18 4:38 PM) URINE AND UA pH 7.0 5.0 - 8.0 07/01 STOOL [facility] URINE AND UA Bili Negative Negative 07/01 STOOL [facility] *NA* (07/01/18 4:38 PM) URINE AND UA null 0.1 - 1.0 07/01 STOOL Urobilinogen [facility] URINE AND UA Blood Negative Negative 07/01 STOOL [facility] (07/01/18 4:38 PM) URINE AND UA Ketones Negative Negative 07/01 STOOL [facility] *NA* (07/01/18 4:38 PM) BACTERIAL MRSA by PCR Negative 07/01 - SEROLOGY [facility] (07/01/18 3:51 PM) BLOOD BANK Antibody Negative 07/01 RESULTS Scrn /2018 [facility] (07/01/18 3:51 PM) BLOOD BANK ABO/Rh A POS 07/01 RESULTS /2018 [facility] HEMATOLOGY PTT 34.0 s 22.9 - 07/01 MH 35.8 /2018 [facility] HEMATOLOGY INR 1.06 0.85 - 07/01 MH 1.17 /2018 [facility] HEMATOLOGY PT 13.6 s 12.0 - 07/01 MH 14.7 [facility] BLOOD BANK Platelet Product available 07/01 RESULTS product /2018 [facility] (07/01/18 3:40 PM) BLOOD BANK FFP product Product available 07/01 RESULTS /2018 [facility] (07/01/18 3:40 PM) BLOOD BANK Cryo product Product available 07/01 RESULTS /2018 [facility] (07/01/18 3:40 PM) BLOOD BANK RBC product Product available 07/01 RESULTS [facility] (07/01/18 3:40 PM) ELECTROLYT AGAP 9.7 meq/L 10.0 - 07/01 ES 20.0 [facility] ELECTROLYT eGFR 64 07/01 Result Comment: The eGFR is calculated using the CKD-EPI formula. In most young, healthy individuals the eGFR will be >90 mL/ min/1.73m2. The eGFR declines with age. An eGFR of 60-89 may be normal in mL/min/1.7 some populations, particularly the elderly, for whom the CKD-EPI formula has not been extensively validated. Use of the eGFR is not recommended in the following populations: [facility] 3m2 Individuals with unstable creatinine concentrations, including patients and those with serious co-morbid conditions. Patients with extremes in muscle mass or diet. The data above are obtained from the National Kidney Disease Education Program (NKDEP) which additionally recommends that when the eGFR is used in patients with extremes of body mass index for purposes of drug dosing, the eGFR should be multiplied by the estimated BMI. ELECTROLYT CO2 28 meq/L 24 - 32 07/01 ES [facility] ELECTROLYT Calcium Lvl 8.3 mg/dL 8.5 - 10.5 07/01 ES [facility] ELECTROLYT Potassium 4.7 meq/L 3.5 - 5.1 07/01 ES Lvl /2018 [facility] ELECTROLYT Chloride Lvl 107 meq/L 95 - 109 07/01 [place] ELECTROLYT Glucose Lvl 120 mg/dL 70 - 99 07/01 [place] ELECTROLYT Sodium Lvl 140 meq/L 135 - 145 07/01 [place] ELECTROLYT Creatinine 1.10 mg/dL 0.50 - 04 ES Lvl 1.40 /2018 [place] ELECTROLYT BUN 40 mg/dL 7 - 22 07/01 [facility] HEMATOLOGY Basophils 0.4 % 0.0 - 1.0 07/01 [facility] HEMATOLOGY Eosinophils 0.2 K/CMM 0.0 - 0.5 07/01 [facility] HEMATOLOGY Neutrophils 7.6 K/CMM 1.5 - 8.1 07/01 [facility] HEMATOLOGY Monocytes # 0.8 K/CMM 0.0 - 0.8 07/01 [facility] HEMATOLOGY Lymphocytes 1.5 K/CMM 1.0 - 5.5 07/01 [facility] HEMATOLOGY Lymphocytes 14.9 % 20.0 - 07/01 40.0 [facility] HEMATOLOGY Eosinophils 1.8 % 0.0 - 4.0 07/01 [facility] HEMATOLOGY Segs 75.0 % 45.0 - 07/01 75.0 [facility] HEMATOLOGY Monocytes 7.9 % 2.0 - 12.0 07/01 [facility] HEMATOLOGY RDW 14.9 % 11.5 - 07/01 14. [facility] HEMATOLOGY MCHC 33.6 g/dL 32.0 - 07/01 36.0 [facility] HEMATOLOGY Platelet 212 K/CMM 133 - 450 07/01 [facility] HEMATOLOGY MPV 8.4 fL 7.4 - 10.4 07/01 [facility] HEMATOLOGY MCH 30.3 pg 27.0 - 07/01 31.0 [facility] HEMATOLOGY Hct 33.5 % 42.0 - 07/01 54.0 [facility] HEMATOLOGY WBC 10.1 K/CMM 3.7 - 10.4 07/01 [facility] HEMATOLOGY Hgb 11.3 g/dL 14.0 - 07/01 18.0 [facility] HEMATOLOGY RBC 3.72 M/CMM 4.70 - 07/01 6.10 [facility] HEMATOLOGY MCV 90.1 fL 80.0 - 07/01 94.0 [facility] SPECIAL Hgb A1C 6.5 % <=5.6 % 07/01 CHEMISTRY [facility] CARDIAC Troponin-I 5.25 ng/mL 0.00 - 06/30 Result ENZYMES 0.40 Comment: [facility] Critical Result(s) called to Jackdonaldquang at 06/30/2018 17:38 byjs. Read back OK. CARDIAC CK MB Index 6.9 0.0 - 2.5 06/30 ENZYMES [facility] CARDIAC Troponin-I 5.76 ng/mL 0.00 - 06/30 Result ENZYMES 0.40 Comment: [facility] Critical Result(s) called to Natalia Morales at 06/30/2018 13:20 by JL. Read back OK. CARDIAC CK MB 9.4 ng/mL 0.5 - 3.6 06/30 ENZYMES [facility] CARDIAC Total CK 136 unit/L 12 - 191 06/30 ENZYMES [facility] CARDIAC Troponin-I 6.69 ng/mL 0.00 - 06/30 Result ENZYMES 0.40 Comment: [facility] Critical Result(s) called to HAYLEY WILLIS at 06/30/2018 06:01 by AL. Read back OK. CHEM PANEL eGFR 64 06/30 Result Comment: The eGFR is calculated using the CKD-EPI formula. In most young, healthy individuals the eGFR will be >90 mL/ min/1.73m2. The eGFR declines with age. An eGFR of 60-89 may be normal in mL/min/1. some populations, particularly the elderly, for whom the CKD-EPI formula has not been extensively validated. Use of the eGFR is not recommended in the following populations: [address] Individuals with unstable creatinine concentrations, including patients and those with serious co-morbid conditions. Patients with extremes in muscle mass or diet. The data above are obtained from the National Kidney Disease Education Program (NKDEP) which additionally recommends that when the eGFR is used in patients with extremes of body mass index for purposes of drug dosing, the eGFR should be multiplied by the estimated BMI. CHEM PANEL Calcium Lvl 8.4 mg/dL 8.5 - 10.5 06/30 [facility] CHEM PANEL AGAP 10.7 meq/L 10.0 - 06/30 MH 20.0 [facility] CHEM PANEL CO2 26 meq/L 24 - 32 06/30 [facility] CHEM PANEL Chloride Lvl 106 meq/L 95 - 109 06/30 [facility] CHEM PANEL Sodium Lvl 138 meq/L 135 - 145 06/30 [facility] CHEM PANEL Potassium 4.7 meq/L 3.5 - 5.1 06/30 MH Lvl /2018 [facility] CHEM PANEL Glucose Lvl 119 mg/dL 70 - 99 06/30 [facility] CHEM PANEL BUN 36 mg/dL 7 - 22 06/30 [facility] CHEM PANEL Creatinine 1.10 mg/dL 0.50 - 04 MH Lvl 1.40 /2018 [facility] HEMATOLOGY Monocytes 7.2 % 2.0 - 12.0 06/30 [facility] HEMATOLOGY Lymphocytes 7.6 % 20.0 - 06/30 40.0 [facility] HEMATOLOGY Segs 84.6 % 45.0 - 06/30 75.0 [facility] HEMATOLOGY Basophils 0.4 % 0.0 - 1.0 06/30 [facility] HEMATOLOGY Eosinophils 0.2 % 0.0 - 4.0 06/30 [facility] HEMATOLOGY Neutrophils 12.5 K/CMM 1.5 - 8.1 06/30 MH # /2018 [facility] HEMATOLOGY Monocytes # 1.1 K/CMM 0.0 - 0.8 06/30 [facility] HEMATOLOGY Lymphocytes 1.1 K/CMM 1.0 - 5.5 06/30 /2018 [facility] HEMATOLOGY Basophils # 0.1 K/CMM 0.0 - 0.2 06/30 [facility] HEMATOLOGY MCV 89.8 fL 80.0 - 06/30 94.0 [facility] HEMATOLOGY MCHC 32.9 g/dL 32.0 - 06/30 36.0 [facility] HEMATOLOGY Platelet 245 K/CMM 133 - 450 06/30 [facility] HEMATOLOGY RDW 15.2 % 11.5 - 06/30 14.5 [facility] HEMATOLOGY MPV 8.2 fL 7.4 - 10.4 06/30 [facility] HEMATOLOGY Hct 32.8 % 42.0 - 06/30 54.0 [facility] HEMATOLOGY WBC 14.8 K/CMM 3.7 - 10.4 06/30 [facility] HEMATOLOGY Hgb 10.8 g/dL 14.0 - 06/30 18.0 [facility] HEMATOLOGY RBC 3.66 M/CMM 4.70 - 06/30 MH 6.10 [facility] HEMATOLOGY MCH 29.5 pg 27.0 - 06/30 31. [place] CHEM PANEL Creatinine 0.90 mg/dL 0.50 - 06/29 Lvl 1.40 [place] CHEM PANEL eGFR 81 06/29 Result Comment: The eGFR is calculated using the CKD-EPI formula. In most young, healthy individuals the eGFR will be >90 mL/ min/1.73m2. The eGFR declines with age. An eGFR of 60-89 may be normal in [facility] mL/min/1.7 some populations, particularly the elderly, for whom the CKD-EPI formula has not been extensively validated. Use of the eGFR is not recommended in the following populations: [address] Individuals with unstable creatinine concentrations, including patients and those with serious co-morbid conditions. Patients with extremes in muscle mass or diet. The data above are obtained from the National Kidney Disease Education Program (NKDEP) which additionally recommends that when the eGFR is used in patients with extremes of body mass index for purposes of drug dosing, the eGFR should be multiplied by the estimated BMI. CHEM PANEL Calcium Lvl 8.5 mg/dL 8.5 - 10.5 06/29 [place] CHEM PANEL Chloride Lvl 104 meq/L 95 - 109 06/29 [place] CHEM PANEL CO2 25 meq/L 24 - 32 06/29 [place] CHEM PANEL Sodium Lvl 136 meq/L 135 - 145 06/29 [place] CHEM PANEL Potassium 4.3 meq/L 3.5 - 5.1 06/29 [place] CHEM PANEL AGAP 11.3 meq/L 10.0 - 06/29 20.0 [place] CHEM PANEL Glucose Lvl 172 mg/dL 70 - 99 06/29 [place] CHEM PANEL BUN 22 mg/dL 7 - 22 06/29 [facility] HEMATOLOGY Platelet 232 K/CMM 133 - 450 06/29 [facility] HEMATOLOGY RDW 15.0 % 11.5 - 06/29 14. [facility] HEMATOLOGY MPV 8.2 fL 7.4 - 10.4 06/29 [facility] HEMATOLOGY MCHC 32.7 g/dL 32.0 - 06/29 36.0 [facility] HEMATOLOGY MCH 29.2 pg 27.0 - 06/29 31. [facility] HEMATOLOGY Hct 36.8 % 42.0 - 06/29 54.0 /2018 [facility] HEMATOLOGY Hgb 12.0 g/dL 14.0 - 06/29 MH 18.0 /2018 [facility] HEMATOLOGY MCV 89.2 fL 80.0 - 06/29 94.0 [facility] HEMATOLOGY WBC 7.5 K/CMM 3.7 - 10.4 06/29 [facility] HEMATOLOGY RBC 4.12 M/CMM 4.70 - 06/29 MH 6.10 [facility] HEMATOLOGY Monocytes 1.8 % 2.0 - 12.0 06/29 [facility] HEMATOLOGY Plt Morph Normal 06/29 [facility] (06/29/18 4:49 AM) HEMATOLOGY Segs 93.2 % 45.0 - 06/29 75.0 [facility] HEMATOLOGY Monocytes # 0.1 K/CMM 0.0 - 0.8 06/29 [facility] HEMATOLOGY Lymphocytes 4.9 % 20.0 - 06/29 40.0 [facility] HEMATOLOGY Basophils 0.1 % 0.0 - 1.0 06/29 [facility] HEMATOLOGY RBC Morph Normal 06/29 [facility] (06/29/18 4:49 AM) HEMATOLOGY Lymphocytes 0.4 K/CMM 1.0 - 5.5 06/29 # /2018 [facility] HEMATOLOGY Neutrophils 7.0 K/CMM 1.5 - 8.1 06/29 # /2018 [facility] CARDIAC BNP 54 pg/mL <=100 06/28 ENZYMES pg/mL /2018 [facility] CHEM PANEL A/G Ratio 0.9 0.7 - 1.6 06/28 [facility] CHEM PANEL B/C Ratio 19 6 - 25 06/28 [facility] CHEM PANEL Globulin 3.4 g/dL 2.7 - 4.2 06/28 [facility] CHEM PANEL Bili Total 0.5 mg/dL 0.2 - 1.3 06/28 [facility] CHEM PANEL Alk Phos 57 unit/L 39 - 136 06/28 [facility] CHEM PANEL ASPARTATE 44 unit/L 0 - 37 04 TRANSAMINASE [facility] CHEM PANEL ALANINE 24 unit/L 0 - 65 06/28 AMINOTRANS [facility] RASE CHEM PANEL Albumin Lvl 3.0 g/dL 3.5 - 5.0 06/28 [facility] CHEM PANEL Total 6.4 g/dL 6.4 - 8.4 06/28 Protein [facility] HEMATOLOGY Eosinophils 0.1 % 0.0 - 4.0 06/28 [facility] LIPIDS VLDL 47 06/28 [facility] LIPIDS LDL 122 mg/dL <=99 mg/dL 06/28 (Calculated) [facility] LIPIDS Chol 209 mg/dL <=199 06/28 mg/dL [facility] LIPIDS HDL 40 mg/dL >=61 mg/dL 06/28 [facility] LIPIDS Trig 235 mg/dL <=149 06/28 mg/dL [facility] LIPIDS CHD Risk 5.22 4.00 - 06/28 7.30 [facility] Chest Chest 1view Clinical Indication: - pt is wheezing; 06/28 - 1view DX DX - [facility] Comparison: 06/10/2018 Read by: Tobin Guillermo MD Dictated Date/time: 06/28/18 10:48 Electronically Signed by: Tobin Guillermo MD 06/28/18 10:50 FINAL REPORT FINDINGS: AP chest. Low lung volumes. Left base opacification, atelectasis versus consolidation. Stable cardiomediastinal silhouette. Generator pack overlying the left chest is unchanged. Postoperative changes of the left shoulder. No acute osseous abnormality. IMPRESSION: 1. Left base opacification, atelectasis versus developing consolidation. 2. Low lung volumes. SL: [id number] HEMATOLOGY POC 163 s 06/28 Activated [facility] Clotting Time HEMATOLOGY POC 234 s 06/28 Activated [facility] Clotting Time HEMATOLOGY POC 275 s 06/28 Activated [facility] Clotting Time Carotid Carotid Carotid artery Doppler bilat US 06/27 - artery - [facility] Doppler Doppler bilat US bilat US CLINICAL HISTORY: - TAVR w/u Read by: Servando Gray MD Dictated Date/time: 06/29/18 07:42 Electronically Signed by: Servando Gray MD 06/29/18 07:43 FINAL REPORT COMPARISON: none TECHNIQUE: Lund scale, color Doppler and spectral Doppler of the cervical carotid arteries was performed. Static images are submitted. Any reported ICA stenoses indirectly reference the distal internal carotid diameter as the denominator for stenosis measurement utilizing Consensus Panel Criteria. Marked atherosclerotic calcifications of the distal left common carotid artery and carotid bifurcations. RIGHT: ICA PSV 135 cm/sec. CCA PSV 149 cm/sec. ICA/CCA Ratio 0.91. LEFT: ICA PSV 102 cm/sec. CCA PSV 155 cm/sec. ICA/CCA Ratio 0.85. Antegrade flow is visualized in both vertebral arteries. IMPRESSION: 1. About 50-69% stenosis of the proximal bilateral internal carotid arteries. Dedicated CT or MR angiography could be performed for further evaluation. Consensus panel Doppler US criteria for diagnosis of ICA stenosis: Stenosis (%) ICA PSV (cm/sec) ICA EDV(cm/sec) ICA/CCA ratio <50 % <125 <40 <2.0 50-69 % 125-230 40-100 2.0-4.0 >70% but less than >230 >100 >4.0 near occlusion SL: JNGUYEN-PC Chest/Abd/ Chest/Abd/Pe (Typographical error correction) 06/27 [facility] Pelvis lvis TAVR /2018 - [facility] TAVR CTA CTA Aortic annulus area: 411 sq mm Read by: Yanci Borrego MD Dictated Date/time: 07/01/18 14:42 IMPRESSION: (Continued...) Electronically Signed by: Yanci Borrego MD 07/01/18 14:52 FINAL REPORT - - 1. 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 Recommend right lower extremity/groin arterial/venous duplex for furthe r interrogation. This finding was discussed with June on 07/01/2018 at 1150. Read by: Yanci Borrego MD Dictated Date/time: 07/01/18 11:26 Electronically Signed by: Yanci Borrego MD 07/01/18 12:00 2. Measurements: FINAL REPORT - - Tricuspid aortic valve. Read by: Servando Gray MD Aortic annulus: 26.4 x 22.0 mm Dictated Date/time: 06/29/18 17:21 Electronically Signed by: Servando Gray MD 06/29/18 17:30 Aortic annulus area: 41.1 sq mm FINAL REPORT Annulus to origin of the left coronary artery: 14.3 mm Annulus to origin of the right coronary artery: 17.7 mm Luminal diameters of the following access arteries: RIGHT: Common iliac artery: 11.2 mm External iliac artery: 9.2 mm Common femoral artery: 9.1 mm LEFT: Common iliac artery: 12.1 mm External iliac artery: 9.2 mm Common femoral artery: 8.3 mm SL: [id number] Patient Name: APRIL PARNELL : 1940; Age: 77 years y/o Male MR: [id number] Study: Chest/Abd/Pelvis TAVR CTA 06/27/2018 11:07 PM CDT Ordering Physician: Rojelio Jackson MD Clinical Indication: - Severe ; shortness of breath. Comparison: None TECHNIQUE: Helical imaging through the chest, abdomen, and pelvis were performed after the IV administration of iodinated contrast. 2-D and 3-D reformations were generated. IV CONTRAST: 100cc Omnipaque 300 GI CONTRAST: No FINDINGS: Addendum of aortic valve measurements and access arteries measurements will be dictated later. PERTINENT FINDINGS ON THE SOURCE IMAGES: Left anterior chest wall generator pack with its leads extending toward the neck. Mild cardiomegaly. No pericardial effusion. Extensive coronary atherosclerotic disease. No gross focal consolidation, si gnificant pleural effusion or pneumothorax. Mild bibasilar atelectasis. Distended gallbladder with vicarious excretion of contrast. Diffuse fatty liver infiltration. Diffusely fatty atrophic pancreas. Bilateral renal cortical scarring and nonspecific perinephric stranding. Abundance of stool within the colon. Grossly normal appendix. Small fat- containing umbilical hernia is present. Mild sigmoid descending diverticulosis is present. The bladder is nondistended. Prominent heterogeneous prostate. Small fat-containing bilateral inguinal hernias are present. Nonspecific right inguinal fat stranding and edema with swelling likely reflecting mild hemorrhage from pre sumed recent catheterization. No definite retroperitoneal hematoma detected. Nonspecific prominent right pelvic sidewall node is present. Postoperative left humeral head hemiarthroplasty is present. IMPRESSION: 1. Nonspecific right inguinal fat stranding and edema with swelling likely reflecting mild hemorrhage from presumed recent catheterization. No definite retroperitoneal hematoma detected. 2. Diffuse fatty liver infiltration. 3. Mild sigmoid descending diverticulosis is present. 4. Small fat containing umbilical hernia. Small fat-containing bilateral inguinal hernias are present. 5. Addendum of aortic valve measurements and access arteries measurements will be dictated later. Critical findings were called to patient's nurse to notify Rojelio Jackson MD on 06/29/2018 2:35 PM CDT. SL: JNGUYEN-PC Chest 2 Chest 2 PROCEDURE: Chest Radiograph. 06/10 - [facility] [place] Clinical Indication: Chest pain. Read by: Harry [...] at the left lung base as described. SL:[id number] Elbow 2 Elbow 2 Patient Name: APRIL PARNELL. 02/12 - [facility] - [place] : 1940; Age: 76 years y/o; Male. MR: [id number]. Read by: Bayron Rocha MD Dictated Date/time: [...] suspicious for intra-articular ossific loose body. SL: [id number] Shoulder Shoulder EXAM: Shoulder series DX 06/20 - [facility] series DX series - [place] HISTORY: PAIN COMPARISON: 02/22/2015 Read by: Igor [...] Elbow 2 Elbow 2 EXAM: 06/20 - [facility] views DX views - [place] 2 view(s) of the right [...] left shoulder in 2 views: 02/22 - [facility] series DX series - [place] History: Left shoulder pain . Read by: [...] arthroplasty.. Unremarkable study. . Chemistry FOLATE >24.0 03/21 Medical ng/mL /2012 Group ng/mL Chemistry FOLATE 20.1 ng/mL 12/21 Medical /2011 Group Chemistry PSA 0.90 ng/mL 09/13 Medical /2003 Group Vital Signs Vital Sign Value Date Comments Source Weight 107.273 07/19/2018 [facility] Heart Rate 64 07/19/2018 [facility] Temperature Oral (F) 97.7 F 07/19/2018 [facility] Respitory Rate 20 07/19/2018 [facility] Systolic (mm Hg) 120 07/19/2018 [facility] Diastolic (mm Hg) 70 07/19/2018 [facility] Systolic (mm Hg) 126 07/10/2018 [facility] Diastolic (mm Hg) 64 07/10/2018 [facility] Respitory Rate 18 07/10/2018 [facility] Heart Rate 78 07/10/2018 [facility] Respitory Rate 18 07/10/2018 [facility] Heart Rate 62 07/10/2018 [facility] Systolic (mm Hg) 118 07/10/2018 [facility] Diastolic (mm Hg) 65 07/10/2018 [facility] Respitory Rate 18 07/10/2018 [facility] Systolic (mm Hg) 114 07/10/2018 [facility] Diastolic (mm Hg) 58 07/10/2018 [facility] Heart Rate 60 07/10/2018 [facility] Weight 101.909 07/10/2018 [facility] Weight 110.909 07/08/2018 [facility] Temperature Oral (F) 98.0 F 07/08/2018 [facility] Height 170.18 cm 07/07/2018 [facility] Weight 109.091 07/07/2018 [facility] BMI Calculated 37.67 07/07/2018 [facility] Heart Rate 66 07/07/2018 [facility] Respitory Rate 17 07/07/2018 [facility] Systolic (mm Hg) 149 07/07/2018 [facility] Diastolic (mm Hg) 63 07/07/2018 [facility] Temperature Oral (F) 98.5 F 07/07/2018 [facility] Systolic (mm Hg) 154 07/07/2018 [facility] Diastolic (mm Hg) 71 07/07/2018 [facility] Temperature Oral (F) 98.5 F 07/07/2018 [facility] Heart Rate 69 07/07/2018 [facility] Respitory Rate 18 07/07/2018 [facility] Respitory Rate 18 07/07/2018 [facility] Systolic (mm Hg) 138 07/07/2018 [facility] Diastolic (mm Hg) 64 07/07/2018 [facility] Heart Rate 77 07/07/2018 [facility] Temperature Oral (F) 98.5 F 07/07/2018 [facility] Weight 108.835 07/06/2018 [facility] Weight 108.722 07/05/2018 [facility] BMI Calculated 36.57 07/05/2018 [facility] Weight 109.091 07/05/2018 [facility] Height 172.72 cm 07/05/2018 [facility] Systolic (mm Hg) 110 07/04/2018 [facility] Diastolic (mm Hg) 60 07/04/2018 [facility] Heart Rate 72 07/04/2018 [facility] Respitory Rate 22 07/04/2018 [facility] Temperature Oral (F) 97.8 F 07/04/2018 [facility] Weight 109.091 07/04/2018 [facility] Height 172.72 cm 07/01/2018 [facility] BMI Calculated 37.15 07/01/2018 [facility] Heart Rate 64 07/01/2018 [facility] Systolic (mm Hg) 120 07/01/2018 [facility] Diastolic (mm Hg) 54 07/01/2018 [facility] Respitory Rate 20 07/01/2018 [facility] Systolic (mm Hg) 126 07/01/2018 [facility] Diastolic (mm Hg) 62 07/01/2018 [facility] Heart Rate 62 07/01/2018 [facility] Respitory Rate 20 07/01/2018 [facility] Systolic (mm Hg) 126 07/01/2018 [facility] Diastolic (mm Hg) 55 07/01/2018 [facility] Respitory Rate 20 07/01/2018 [facility] Heart Rate 59 07/01/2018 [facility] Weight 112.545 06/28/2018 [facility] Weight 109.591 06/26/2018 [facility] BMI Calculated 36.74 06/26/2018 [facility] Height 172.72 cm 06/26/2018 [facility] Height 172.72 cm 06/25/2018 [facility] Weight 68.182 06/25/2018 [facility] BMI Calculated 22.86 06/25/2018 [facility] BMI Calculated 37.73 06/10/2018 [facility] Weight 110.909 06/10/2018 [facility] Height 171.45 cm 06/10/2018 [facility] Systolic (mm Hg) 136 06/10/2018 [facility] Diastolic (mm Hg) 64 06/10/2018 [facility] Heart Rate 74 06/10/2018 [facility] Temperature Oral (F) 97.9 F 06/10/2018 [facility] Weight 114.545 12/11/2017 [facility] Systolic (mm Hg) 122 12/11/2017 [facility] Diastolic (mm Hg) 62 12/11/2017 [facility] Heart Rate 80 12/11/2017 [facility] Height 170.18 cm 11/27/2017 [facility] BMI Calculated 39.26 11/27/2017 [facility] Weight 113.693 11/27/2017 [facility] Systolic (mm Hg) 152 11/27/2017 [facility] Diastolic (mm Hg) 69 11/27/2017 [facility] Temperature Oral (F) 98.1 F 11/27/2017 [facility] Heart Rate 71 11/27/2017 [facility] Weight 112.727 08/23/2017 [facility] BMI Calculated 37.8 08/23/2017 [facility] Height 172.7 cm 08/23/2017 [facility] Systolic (mm Hg) 153 08/23/2017 [...] cm 07/30/2017 [facility] Weight 113.864 07/30/2017 [facility] Systolic (mm Hg) 167 07/30/2017 [facility] Diastolic (mm Hg) 67 07/30/2017 [facility] Weight 112.545 02/12/2017 [facility] Heart Rate 62 02/12/2017 MH [...] [facility] Systolic (mm Hg) 137 10/31/2013 [facility] Diastolic (mm Hg) 76 10/31/2013 [facility] Weight 230 09/22/2013 [facility] Weight 224 08/22/2013 [facility] Weight 224 07/21/2013 [facility] Weight 224 07/07/2013 [facility] Weight 224 05/26/2013 [facility] Systolic (mm Hg) 150 05/26/2013 [facility] Diastolic (mm Hg) 80 05/26/2013 [facility] Heart Rate 80 05/26/2013 [facility] Weight 212 05/05/2013 [facility] Weight 2126 04/30/2013 [facility] Heart Rate 80 04/30/2013 [facility] Systolic (mm Hg) 144 04/30/2013 [facility] Diastolic (mm Hg) 72 04/30/2013 [facility] Weight 220 04/28/2013 [facility] Weight 219.6 04/17/2013 [facility] Temperature Oral (F) 98.3 F 04/17/2013 [facility] Heart Rate 70 04/17/2013 [facility] Systolic (mm Hg) 100 04/17/2013 [facility] Diastolic (mm Hg) 70 04/17/2013 [facility] Weight 216 04/02/2013 [facility] Heart Rate 76 04/02/2013 [facility] Systolic (mm Hg) 132 04/02/2013 [facility] Diastolic (mm Hg) 58 04/02/2013 [facility] Weight 213 03/17/2013 [facility] Heart Rate 77 03/17/2013 [facility] Temperature Oral (F) 99.1 F 03/17/2013 [facility] Systolic (mm Hg) 136 03/17/2013 [facility] Diastolic (mm Hg) 61 03/17/2013 [facility] Weight 213 12/09/2012 [facility] Respitory Rate 20 12/09/2012 [facility] Temperature Oral (F) 97.5 F 12/09/2012 [facility] Systolic (mm Hg) 110 12/09/2012 [facility] Diastolic (mm Hg) 70 12/09/2012 [facility] Heart Rate 68 12/09/2012 [facility] Weight 214 12/04/2012 [facility] Heart Rate 65 12/04/2012 [facility] Systolic (mm Hg) 138 12/04/2012 [facility] Diastolic (mm Hg) 65 12/04/2012 [facility] Weight 218.8 11/11/2012 [facility] Systolic (mm Hg) 134 11/11/2012 [facility] Diastolic (mm Hg) 74 11/11/2012 [facility] Heart Rate 76 11/11/2012 Medical [...] [facility] Diastolic (mm Hg) 59 09/04/2012 [facility] Heart Rate 56 09/04/2012 [facility] Weight 238 04/29/2012 [facility] Heart Rate 60 04/29/2012 [facility] Systolic (mm Hg) 130 04/29/2012 [facility] Diastolic (mm Hg) 60 04/29/2012 [facility] Weight 239.8 04/17/2012 [facility] Temperature Oral (F) 98.0 F 04/17/2012 [facility] Heart Rate 78 04/17/2012 [facility] Systolic (mm Hg) 130 04/17/2012 [facility] Diastolic (mm Hg) 64 04/17/2012 [facility] Weight 240 03/11/2012 [facility] Heart Rate 96 03/11/2012 [facility] Systolic (mm Hg) 120 03/11/2012 [facility] Diastolic (mm Hg) 78 03/11/2012 [facility] Weight 245 03/01/2012 [facility] Weight 245 02/19/2012 [facility] Temperature Oral (F) 98.1 F 02/19/2012 [facility] Heart Rate 80 02/19/2012 [facility] Systolic (mm Hg) 140 02/19/2012 [facility] Diastolic (mm Hg) 60 02/19/2012 [facility] Weight 237 02/06/2012 [facility] Heart Rate 59 02/06/2012 [facility] Systolic (mm Hg) 149 02/06/2012 [facility] Diastolic (mm Hg) 60 02/06/2012 [facility] Weight 239.8 01/17/2012 [facility] Temperature Oral (F) 98.1 F 01/17/2012 [facility] Heart Rate 60 01/17/2012 [facility] Systolic (mm Hg) 100 01/17/2012 [facility] Diastolic (mm Hg) 60 01/17/2012 [facility] Weight 233 01/03/2012 [facility] Heart Rate 64 01/03/2012 [facility] Respitory Rate 20 01/03/2012 [facility] Systolic (mm Hg) 130 01/03/2012 [facility] Diastolic (mm Hg) 60 01/03/2012 [...] Type Number For Provider Date Date Visit [facility] Office [id number] Nunu 04/28 04/28 [place] Medical Visit 5670 MD Antony /2013 Medical [facility] Orthopedics [facility] Office [id number] Nunu 04/30 04/30 [place] Medical Visit 5060 MD Antony /2013 Medical [facility] Internal Medicine [facility] Office [id number] Nunu 05/05 05/05 [place] Visit 7820 MD Antony /2013 Medical [facility] Orthopedics [facility] Office [id number] Nunu 05/26 05/26 [place] Medical Visit 7040 MD Antony /2013 Medical [facility] Cardiology [facility] Lab Report [id number] Nunu 06/19 06/19 [place] 6980 MD Antony /2013 Medical [facility] Office [id number] Nunu 07/07 07/07 [place] Medical Visit 7600 MD Antony /2013 Medical [facility] Orthopedics [facility] Office [id number] Nunu 07/21 07/21 [place] Medical Visit 6860 MD Antony /2013 Medical [facility] Orthopedics [facility] Office [id number] Nunu 08/22 08/22 [place] Medical Visit 7280 MD Antony /2013 Medical [facility] Orthopedics [facility] Office [id number] Nunu 09/22 09/22 [place] Visit 3020 MD Antony /2013 Medical [facility] Orthopedics [facility] Office [id number] Nunu 10/31 10/31 [place] Medical Visit 5470 MD Antony /2013 Medical [facility] Orthopedics [facility] Office [id number] Melanie 05/05 05/05 [place] Medical Visit 8640 Cirilo, /2014 Medical [facility] Cardiology Outpatient [id number] ULYSSES 02/22 [facility] [place] Outpatient [id number] XRAY VISIT 02/22 [facility] [place] Outpatient [id number] JACKIE 03/09 [facility] [place] Outpatient [id number] JACKIE 05/18 [facility] [place] Outpatient [id number] XRAY VISIT 06/20 [facility] [place] Outpatient [id number] XRAY VISIT 06/20 [facility] [place] Outpatient [id number] ULYSSES 06/20 [facility] [place] Outpatient [id number] L MELANIE 03/31 [facility] [place] Outpatient [id number] DOPPLER 04/10 Active [facility] VISIT [place] Outpatient [id number] NUCLEAR 04/10 Active [facility] VISIT [place] Outpatient [id number] L MELANIE 10/11 [facility] [place] Outpatient [id number] EREN 11/16 Active [facility] JUANCARLOS [place] Outpatient [id number] DIRK 11/21 Active [facility] OLIVEIRA [place] Outpatient [id number] ULYSSES 02/12 Active [facility] ESTELA [place] Outpatient [id number] XRAY VISIT 02/12 [facility] [place] Outpatient [id number] XRAY VISIT 02/12 [facility] [place] [facility] Outpatient [id number] Nunu Hardy 02/12 02/13 Orthopedics /2016 [facility] Ambulatory [id number] Nunu Hardy 02/12 02/12 Radiology Pre-Reg /2016 [facility] Family Outpatient [id number] Nunu Hardy 02/12 02/13 Medicine /2016 [facility] Outpatient [id number] EREN 05/28 [facility] JUANCARLOS [place] [facility] Ambulatory [id number] Nunu Hardy 05/28 05/28 Cardiology Pre-Reg /2017 [facility] Outpatient [id number] EREN07/09 Active [facility] JUANCARLOS [place] [facility] Ambulatory [id number] Eren 07/09 07/09 Cardiology Pre-Reg Juancarlos /2017 [facility] Outpatient [id number] EREN 07/30 Active [facility] JUANCARLOS [place] [facility] Outpatient [id number] Eren 07/30 07/31 Cardiology Juancarlos /2017 [facility] Outpatient [id number] DOPPLER 08/23 Active [facility] VISIT [place] Outpatient [id number] EREN 08/23 Active [facility] JUANCARLOS [place] [facility] Outpatient [id number] Nunu Hardy 08/23 08/24 Radiology /2017 [facility] MG Outpatient [id number] Eren 08/23 08/24 Cardiology Juancarlos /2017 [facility] Outpatient [id number] EREN 11/27 Active [facility] JUANCARLOS [place] [facility] Outpatient [id number] Eren 11/27 11/28 Cardiology Juancarlos /2017 [facility] Outpatient [id number] DOPPLER 12/03 Active [facility] VISIT /2017 [place] [facility] Ambulatory [id number] Nunu Hardy 12/03 12/03 Radiology Pre-Reg /2017 [facility] Ambulatory [id number] NURSE 12/03 12/03 Radiology Pre-Reg VISIT /2017 [facility] Outpatient [id number] DOPPLER 12/11 Active [facility] VISIT /2017 [place] Outpatient [id number] DOPPLER 12/11 [facility] VISIT /2017 [place] Outpatient [id number] NUCLEAR 12/11 Active [facility] VISIT /2017 [place] Outpatient [id number] EREN 12/11 Active [facility] JUANCARLOS [place] [facility] Ambulatory [id number] Nunu Hardy 12/11 12/11 Radiology Pre-Reg /2017 [facility] [employer] [facility] Family Outpatient [id number] Nunu Hardy 12/11 12/12 Medicine /2017 [facility] Family Outpatient [id number] Nunu Hardy 12/11 12/12 Medicine /2017 [facility] Outpatient [id number] Nunu Hardy 12/11 12/12 Cardiology /2017 [facility] Outpatient [id number] DOPPLER 06/10 Active [facility] [place] Outpatient [id number] DOPPLER 06/10 Active [facility] [place] Outpatient [id number] DOPPLER 06/10 Active [facility] [place] Outpatient [id number] DOPPLER 06/10 Active [facility] V[facility] [place] Outpatient [id number] EREN 06/10 Active [facility] JUANCARLOS [place] Outpatient [id number] XRAY VISIT 06/10 [facility] [place] Outpatient [id number] XRAY VISIT 06/10 [facility] [place] Outpatient [id number] XRAY VISIT 06/10 Active [facility] [place] [facility] Ambulatory [id number] Nunu Hardy 06/10 06/10 Radiology Pre-Reg /2018 [facility] Ambulatory [id number] NURSE 06/10 06/10 Radiology Pre-Reg VISIT /2018 [facility] Ambulatory [id number] NURSE 06/10 06/10 Medicine Pre-Reg VISIT /2018 [facility] Outpatient [id number] NURSE 06/10 06/11 Radiology VISIT /2018 [facility] Outpatient [id number] Eren 06/10 06/11 Cardiology Juancarlos /2018 [facility] Ambulatory [id number] NURSE 06/10 06/10 Radiology Pre-Reg VISIT /2018 [facility] Ambulatory [id number] NURSE 06/10 06/10 Radiology Pre-Reg VISIT /2018 [facility] Outpatient [id number] NURSE 06/10 06/11 Medicine VISIT /2018 [facility] Outside [id number] 06/12 06/14 Cardiology Medical /2018 [facility] [employer] [facility] Inpatient [id number] Eren 06/30 07/01 [place] Juancarlos /2018 [facility] Outpatient [id number] L Melanie 07/04 [facility] [place] [facility] Outpatient [id number] Nunu Hardy 07/04 07/05 Cardiology /2018 [facility] Inpatient [id number] Sandy 07/04 07/07 [facility] [place] Jose A /2018 [facility] [employer] [facility] Inpatient [id number] Michael 07/07 07/11 [place] Rebeca /2018 [facility] Outpatient [id number] L Melanie 07/19 [facility] [place] [facility] Outpatient [id number] L Melanie 07/19 07/20 Cardiology Mazel /2018 [facility] Outpatient [id number] Eren 10/17 [facility] [place] Procedures Procedure Code Date Perfomer Comments Source Cardiac [id number] 06/27/2018 Medical catheterisation, Group left heart Cardiac [id number] 06/27/2018 [employer] catheterisation, left heart Cardiac [id number] 06/27/2018 [facility] catheterisation, left heart Implantation of [id number] 03/26/[address] [facility] electronic [facility] [employer] [facility] stimulator in in [place] brain<sup>1</sup> [place]. Implantation of [id number] 03/26/[address] ROJO [employer] electronic [facility] Jimmy stimulator in in [place] brain<sup>1</sup> [place]. Implantation of [id number] 03/26/[address] ROJO [facility] electronic Jimmy stimulator in in [place] brain<sup>1</sup> [place]. colonoscopy 91473 08/09/2011 [facility] colonoscopy [id number] 08/09/2011 [facility] Arthroplasty [id number] 09/08/2009 [facility] Arthroplasty [id number] 09/08/2009 [employer] Arthroplasty [id number] 09/08/2009 [facility] colonoscopy 86120 05/02/2006 [facility] Arthroplasty [id number] 03/26/2006 [facility] Arthroplasty [id number] 03/26/2006 [employer] Arthroplasty [id number] 03/26/2006 [facility] Reduction of [id number] 03/26/2003 five times Medical fracture of upper Group arm with internal fixation<sup>1</dupree p> Reduction of [id number] 03/26/2003 five times Medical fracture of upper Group arm with internal fixation<sup>2</dupree p> Reduction of [id number] 03/26/2003 five times [employer] fracture of upper arm with internal fixation<sup>2</dupree p> Reduction of [id number] 03/26/2003 five times [facility] fracture of upper arm with internal fixation<sup>2</dupree p> Arthroplasty [id number] [facility] Group Excision of benign [id number] Medical lesion of face and Group ears Cardiac [id number] Medical catheterisation, Group left heart AVR - Aortic valve [id number] 06/2018 Medical replacement<sup>3< Group /sup> PTCA - [id number] 3 - right Medical Percutaneous coronary artery Group transluminal on 06/27/18 coronary angioplasty<sup>4< /sup> PTCA - [id number] left anterior Medical Percutaneous descending Group transluminal artery - 06/2018 coronary angioplasty<sup>5< /sup> Stent [id number] x3 Medical placement<sup>6</s Group up> PTCA - [id number] 3 - right Medical Percutaneous coronary artery Group transluminal on 06/27/18 coronary angioplasty<sup>3< /sup> Stent [id number] x3 Medical placement<sup>4</s Group up> Arthroplasty [id number] [employer] Excision of benign [id number] [employer] lesion of face and ears PTCA - [id number] 3 - right [employer] Percutaneous coronary artery transluminal on 06/27/18 coronary angioplasty<sup>3< /sup> Stent [id number] x3 [employer] placement<sup>4</s up> Arthroplasty [id number] [facility] Excision of benign [id number] [facility] lesion of face and ears PTCA - [id number] 3 - right [facility] Percutaneous coronary artery transluminal on 06/27/18 coronary angioplasty<sup>3< /sup> Stent [id number] x3 [facility] placement<sup>4</s up>
--- OUTSIDE RECORDS SUMMARY | 2018-08-02 13:15 | XMS REPORT | Continuity of Care Document ---
:[address] [facility] Care Team Providers Name Role [...] Location Date Office Visit Nunu Hardy MD [facility] Internal Apr 30, 2013 Medicine Allergies, Adverse [...] Mar 17, 2013 Active TOVIAZ 8 MG [id number] one p.o. q.h.s. Apr 02, 2013 Active [...]
--- OUTSIDE RECORDS SUMMARY | 2018-08-02 13:15 | XMS REPORT | Continuity of Care Document ---
[...] Location Date Office Visit Nunu Hardy MD [facility] [place] [facility] Apr Allergies, Adverse Reactions, Alerts Type [...] Mar 17, 2013 Active TOVIAZ 8 MG [id number] one p.o. q.h.s. Apr 02, 2013 Active [...]
--- OUTSIDE RECORDS SUMMARY | 2018-08-02 13:16 | XMS REPORT | Continuity of Care Document ---
:1940 Author Organization [facility] Care Team Providers Name Role Phone MD [...] Location Date Office Visit Nunu Hardy MD [facility] [place] [facility] May Allergies, Adverse Reactions, Alerts Type [...] Mar 17, 2013 Active TOVIAZ 8 MG [id number]-[id number] one p.o. q.h.s. Apr 02, 2013 Active [...]
--- OUTSIDE RECORDS SUMMARY | 2018-08-02 13:16 | XMS REPORT | Continuity of Care Document ---
:1940 Author Organization [facility] Care Team Providers Name Role Phone [...] Location Date Office Visit Nunu Hardy MD [facility] [place] [facility] Apr Allergies, Adverse Reactions, Alerts Type [...] Mar 17, 2013 Active TOVIAZ 8 MG [id number] one p.o. q.h.s. Apr 02, 2013 Active [...]
--- OUTSIDE RECORDS SUMMARY | 2018-08-02 13:17 | XMS REPORT | Continuity of Care Document ---
:1940 Author Organization [facility] Care Team Providers Name Role Phone MD Atnony, Nunu Unavailable Unavailable Insurance Providers Payer name [...] Location Date Lab Report Nunu Hardy MD [facility] Jun 19, 2013 Allergies, Adverse Reactions, Alerts [...] Mar 17, 2013 Active TOVIAZ 8 MG [id number] one p.o. q.h.s. Apr 02, 2013 Active [...]
--- OUTSIDE RECORDS SUMMARY | 2018-08-02 13:17 | XMS REPORT | Continuity of Care Document ---
:1940 Author Organization [facility] Care Team Providers Name Role Phone MD [...] Hardy MD [facility] [place] [facility] Jun Allergies, Adverse Reactions, Alerts Type [...] Mar 17, 2013 Active TOVIAZ 8 MG [id number] one p.o. q.h.s. Apr 02, 2013 Active [...]
--- OUTSIDE RECORDS SUMMARY | 2018-08-02 13:17 | XMS REPORT | Continuity of Care Document ---
:1940 Author Organization [facility] Care Team Providers Name Role Phone [...] Hardy MD [facility] [place] [facility] Jun Allergies, Adverse Reactions, Alerts Type [...] Mar 17, 2013 Active TOVIAZ [id number] one p.o. q.h.s. Apr 02, 2013 Active [...]
--- OUTSIDE RECORDS SUMMARY | 2018-08-02 13:18 | XMS REPORT | Continuity of Care Document ---
:1940 Author Organization [facility] Care Team Providers Name Role Phone MD Antnoy, Nunu Unavailable Unavailable Insurance Providers Payer name [...] Location Date Office Visit Nunu Hardy MD [facility] [place] [facility] July Allergies, Adverse Reactions, Alerts Type [...] Mar 17, 2013 Active TOVIAZ 8 MG [id number] one p.o. q.h.s. Apr 02, 2013 Active [...]
--- OUTSIDE RECORDS SUMMARY | 2018-08-02 13:18 | XMS REPORT | Continuity of Care Document ---
:1940 Author Organization [facility] Care Team Providers Name Role Phone [...] MD [facility] [place] [facility] Aug Allergies, Adverse Reactions, Alerts Type [...] Mar 17, 2013 Active TOVIAZ 8 MG [id number] one p.o. q.h.s. Apr 02, 2013 Active [...]
--- OUTSIDE RECORDS SUMMARY | 2018-08-02 13:19 | XMS REPORT | Summary of Care ---
:1940 Author Organization [facility] Cardiology [facility] [address] [place] [address]- Encounter HQ Jennifer(ELENO) [id number] Date(s): 07/19/18 - 07/19/18 [facility] Cardiology [place] [address] [place] [address]- Discharge Disposition: Home or Self Care Attending Physician: Marine Kerr, MSN,RN, ACNP-BC Referring Physician: Nunu Hardy MD Vital Signs Most recent to oldest [Reference Range]: 1 Temperature Oral [96.4-99.1 DegF] 97.7 DegF (07/19/18 11:57 AM) Blood Pressure [90-140/60-90 mmHg] 120/70 mmHg (07/19/18 11:57 AM) Respiratory Rate [14-20 BRMIN] 20 BRMIN (07/19/18 11:57 AM) Peripheral Pulse Rate [60-100 bpm] 64 bpm (07/19/18 11:57 AM) Weight 107.273 kg (07/19/18 11:57 AM) Problem List Condition Effective Dates Status Health Status Informant Acid reflux(Confirmed) Active Allergic rhinitis1 03/17/13 Active Anxiety(Confirmed) Resolved Aortic stenosis(Confirmed) Active Back problem(Confirmed) Active Backache2, 3 Active Biceps tendinitis4 03/01/12 Active Bronchitis5, 6 03/17/13 Active Cancer of skin(Confirmed) Resolved Carpal tunnel syndrome7, 8, 9 01/17/12 Active CHF - Congestive heart Active failure(Confirmed) Chronic obstructive lung nknpoyg25, Active 11, 12 Conduction disorder of the heart13, 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 14, 15 Congestive heart whuuonp97, 17, 18 Active CAD (coronary artery Active disease)(Confirmed) Dizziness(Confirmed) Active Epigastric pain19, 20, 21 Active Ex-cigarette smoker(Confirmed) Resolved Frequency(Confirmed) Active Gastroesophageal reflux , Active 23, 24 S/p shoulder replacement(Confirmed) Active Hard of hearing(Confirmed) Active Hypercholesterolemia(Confirmed)25, Active 26, 27 Hyperlipidemia(Confirmed) Active Hypertension(Confirmed) Active Hypertensive eyabbksz40, 29, 30 Active Impacted nvmkkys36, 32 12/04/12 Active Incontinence of urine(Confirmed) Active Irregular heart beat(Confirmed) Active Joint pain33, 34, 35 03/17/13 Active Near syncope(Confirmed) Active Numbness of limbs(Confirmed) Active Obesity(Confirmed) Active Orthostatic hypotension(Confirmed) Active Osteoarthritis(Confirmed) Active Osteoarthritis of right Active elbow(Confirmed) Otitis neczguo45 12/04/12 Resolved Pain in elbow37, 38, 39 04/28/13 Active Pain in upper limb40 09/04/12 Active Weakness of both lower Active limbs(Confirmed) Emgdldasdem24, 42, 43 03/17/13 Active Parkinson disease(Confirmed) Active Fvxfhqwcnopi25, 45, 46 10/17/12 Active Peripheral nerve , 48, 49 12/19/11 Active Jxbsrzoo89 03/11/12 Active Preoperative cardiovascular 05/26/13 Active ubgazzqrtyx51, 52 Encounter for preoperative vascular Active examination(Confirmed) Neck problem(Confirmed) Active Rotator cuff apquvyan68, 54, 55, 56, 06/27/13 Active 57 Screening - health check58, 59 01/03/12 Active Shoulder joint pain60 04/28/13 Active Sleep apnea(Confirmed) Active Sleep apnea(Confirmed) Active SOBOE - Shortness of breath on Active exertion(Confirmed) Xcocml92, 62, 63 11/06/11 Active Urge incontinence of [...] tetanus toxoid1 Active atorvastatin2 Active rosuvastatin3 Active NKFA Active 1Data migrated from [employer] on 07/23/14. Originally documented as TETANUS.2Data migrated from [employer] on 07/23/14. Originally documented as LIPITOR.3Data migrated from [employer] on 07/23/14. Originally documented as CRESTOR. Medications No Known Medications Results No data available for this section Immunizations Given and Recorded Vaccine Date Status Refusal Reason pneumococcal 13-valent vaccine 07/01/18 Given influenza virus vaccine, inactivated1 04/02/13 Given Hx influenza vaccine-unspecified2 01/03/12 Given 1Result Comment: fluzone preservative free (6-35 mo.) [[id number]]. Migrated from OBS ; Data migrated from [employer] on 04/27/2015.2Result Comment: fluvax. Migrated from OBS ; Data migrated from [employer] on 04/27/2015. Procedures Procedure Date Related Diagnosis Body Site Status Cardiac catheterisation, left heart 06/27/18 Completed Implantation of electronic stimulator 2014 Completed in brain1 Arthroplasty 09/08/09 Completed Arthroplasty 03/26/06 Completed Reduction of fracture of upper arm with 03/26/03 Completed internal fixation2 Arthroplasty Completed AVR - Aortic valve replacement3 Completed Excision of benign lesion of face and Completed ears PTCA - Percutaneous transluminal Completed coronary angioplasty4 PTCA - Percutaneous transluminal Completed coronary angioplasty5 Stent placement6 Completed 1Followed by Dr Lyndon Marquez in [place].2five times - right coronary artery on left anterior descending artery - x3 Social History Social History Type Response Substance Abuse Use: None. Exercise Self assessment: Good condition. Exercise type: NONE.1 Employment/School Status: Retired. Alcohol Current, Type Beer, Wine. Frequency: 1-2 times per month. Previous treatment: None. Smoking Status Former smoker; Type: Cigarettes; Previous treatment: None; Ready to change: No; Concerns about tobacco use in household: No; Exposure to Tobacco Smoke None; Cigarette Smoking Last 365 Days No; Reg Smoking Cessation Counseling No; Other Tobacco Frequency QUIT 40 YEARS AGO; entered on: 07/19/18 1NONE Assessment and Plan No data available for this section
--- OUTSIDE RECORDS SUMMARY | 2018-08-02 13:19 | XMS REPORT | Continuity of Care Document ---
[...] Location Date Office Visit Heather Kerr APRN [facility] [place] [facility] May 05, 2014 Allergies, Adverse Reactions, [...] Mar 26, 2012 Inactive TOVIAZ 8 MG [id number] one p.o. q.h.s. Apr 02, 2013 Inactive [...]
--- OUTSIDE RECORDS SUMMARY | 2018-08-02 13:19 | XMS REPORT | Continuity of Care Document ---
:[address] [facility] Care Team Providers Name Role Phone [...] Location Date Office Visit Nunu Hardy MD [facility] [place] [facility] Oct Allergies, Adverse Reactions, Alerts Type [...] Mar 17, 2013 Active TOVIAZ 8 MG [id number]-YPI one p.o. q.h.s. Apr 02, 2013 Active [...]
--- OUTSIDE RECORDS SUMMARY | 2018-08-02 13:20 | XMS REPORT | Summary of Care ---
:1940 Author Organization [facility] Radiology [address] [place] [address]- Encounter HQ Roxane_lorelei(FIN) [id number] Date(s): 12/03/17 - 12/03/17 [facility] Radiology [address] [place] [phone] Attending Physician: VISIT, NURSE [email or web address] DOPPLER Referring Physician: Nunu Hardy MD Vital Signs No data available for this section Problem List Condition Effective Dates Status Health Status Informant Allergic rhinitis1 03/17/13 Active Anxiety(Confirmed) Active Backache2, 3 Active Biceps tendinitis4 03/01/12 Active Bronchitis5, 6 03/17/13 Active Cancer of skin(Confirmed) Resolved Carpal tunnel syndrome7, 8, 9 01/17/12 Active CHF - Congestive heart Active failure(Confirmed) Chronic obstructive lung xxyyabj14, Active 11, 12 Conduction disorder of the heart13, 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 14, 15 Congestive heart ewxgqsw39, 17, 18 Active Epigastric pain19, 20, 21 Active Frequency(Confirmed) Active Gastroesophageal reflux vuvvabk75, Active 23, 24 S/p shoulder replacement(Confirmed) Active Hard of hearing(Confirmed) Active Hypercholesterolemia(Confirmed)25, Active 26, 27 Hyperlipidemia(Confirmed) Active Hypertension(Confirmed) Active Hypertensive spwgypgk44, 29, 30 Active Impacted odmjyrg00, 32 12/04/12 Active Joint pain33, 34, 35 03/17/13 Active Obesity(Confirmed) Active Osteoarthritis(Confirmed) Active Osteoarthritis of right Active elbow(Confirmed) Otitis 12/04/12 Resolved Pain in elbow37, 38, 39 04/28/13 Active Pain in upper limb40 09/04/12 Active Gmklnwocobv74, 42, 43 12/23/13 Active Jheijcehguwm31, 45, 46 10/17/12 Active Peripheral nerve , 48, 49 12/19/11 Active Ykfoysxh99 03/11/12 Active Preoperative cardiovascular 05/26/13 Active abnysdajomy79, 52 Encounter for preoperative vascular Active examination(Confirmed) Rotator cuff axbqmlif66, 54, 55, 56, 06/27/13 Active 57 Screening - health check58, 59 01/03/12 Active Shoulder joint pain60 04/28/13 Active Sleep apnea(Confirmed) Active Szzapr66, 62, 63 11/06/11 Active Urge incontinence of [...] 1Result Comment: fluzone preservative free (6-35 mo.) [[id number]]. Migrated from OBS ; Data migrated from [...] ears 1Followed by Dr Lyndon Marquez in [place].2five times Social History Social History Type Response [...]
--- OUTSIDE RECORDS SUMMARY | 2018-08-02 13:20 | XMS REPORT | Summary of Care ---
:1940 Author Organization [facility] Radiology [facility] [address] [place] [address]- Encounter HQ Roxane_lorelei(FIN) [id number] Date(s): 12/03/17 - 12/03/17 [facility] [address] [place] [address] [phone] Attending Physician: VISIT, NURSE [facility] NUCLEAR Referring Physician: Nunu Hardy MD Vital Signs No data available for this section Problem List Condition Effective Dates Status Health Status Informant Allergic rhinitis1 03/17/13 Active Anxiety(Confirmed) Active Backache2, 3 Active Biceps tendinitis4 03/01/12 Active Bronchitis5, 6 03/17/13 Active Cancer of skin(Confirmed) Resolved Carpal tunnel syndrome7, 8, 9 01/17/12 Active CHF - Congestive heart Active failure(Confirmed) Chronic obstructive lung anflotg93, Active 11, 12 Conduction disorder of the heart13, 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 14, 15 Congestive heart erodnmb35, 17, 18 Active Epigastric pain19, 20, 21 Active Frequency(Confirmed) Active Gastroesophageal reflux , Active 23, 24 S/p shoulder replacement(Confirmed) Active Hard of hearing(Confirmed) Active Hypercholesterolemia(Confirmed)25, Active 26, 27 Hyperlipidemia(Confirmed) Active Hypertension(Confirmed) Active Hypertensive qminvvgy82, 29, 30 Active Impacted ahnztgs26, 32 12/04/12 Active Joint pain33, 34, 35 03/17/13 Active Obesity(Confirmed) Active Osteoarthritis(Confirmed) Active Osteoarthritis of right Active elbow(Confirmed) Otitis ubufeuj94 12/04/12 Resolved Pain in elbow37, 38, 39 04/28/13 Active Pain in upper limb40 09/04/12 Active Pwcoruzpiuo85, 42, 43 03/17/13 Active Thkcccefonvc11, 45, 46 7/25/13 Active Peripheral nerve , 48, 49 12/19/11 Active Aicvgeiw63 03/11/12 Active Preoperative cardiovascular 05/26/13 Active ibutokgzwby72, 52 Encounter for preoperative vascular Active examination(Confirmed) Rotator cuff xwqmxlyb07, 54, 55, 56, 06/27/13 Active 57 Screening - health check58, 59 01/03/12 Active Shoulder joint pain60 04/28/13 Active Sleep apnea(Confirmed) Active Xhpnof95, 62, 63 11/06/11 Active Urge incontinence of [...] 1Result Comment: fluzone preservative free (6-35 mo.) [[id number]]. Migrated from OBS ; Data migrated from [...] ears 1Followed by Dr Lyndon Marquez in [place].2five times Social History Social History Type Response [...]
--- OUTSIDE RECORDS SUMMARY | 2018-08-02 13:21 | XMS REPORT | Summary of Care ---
:1940 Author Organization [facility] [address] [place] [address]- Encounter HQ Roxane_lorelei(FIN) [id number] Date(s): 12/11/17 - 12/11/17 [facility] [address] [place] [address]- [phone] Discharge Disposition: Home or Self Care Attending Physician: VISIT, NURSE [facility] Referring Physician: Nunu Hardy MD Vital Signs No data available for this section Problem List Condition Effective Dates Status Health Status Informant Allergic rhinitis1 03/17/13 Active Anxiety(Confirmed) Active Aortic stenosis(Confirmed) Resolved Backache2, 3 Active Biceps tendinitis4 03/01/12 Active Bronchitis5, 6 03/17/13 Active Cancer of skin(Confirmed) Resolved Carpal tunnel syndrome7, 8, 9 01/17/12 Active CHF - Congestive heart Active failure(Confirmed) Chronic obstructive lung eyzefdu93, Active 11, 12 Conduction disorder of the heart13, 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 14, 15 Congestive heart hykonnn43, 17, 18 Active CAD (coronary artery Resolved disease)(Confirmed) Epigastric pain19, 20, 21 Active Frequency(Confirmed) Active Gastroesophageal reflux nfamfus06, Active 23, 24 S/p shoulder replacement(Confirmed) Active Hard of hearing(Confirmed) Active Hypercholesterolemia(Confirmed)25, Active 26, 27 Hyperlipidemia(Confirmed) Active Hypertension(Confirmed) Active Hypertensive safgktas46, 29, 30 Active Impacted whyibzh79, 32 12/04/12 Active Joint pain33, 34, 35 03/17/13 Active Obesity(Confirmed) Active Osteoarthritis(Confirmed) Active Osteoarthritis of right Active elbow(Confirmed) Otitis osmvklc35 12/04/12 Resolved Pain in elbow37, 38, 39 04/28/13 Active Pain in upper limb40 09/04/12 Active Onydfjhtthu95, 42, 43 03/17/13 Active Glslacqfqcha97, 45, 46 10/17/12 Active Peripheral nerve tyimfmj99, 48, 49 12/19/11 Active Eszccvcc78 03/11/12 Active Preoperative cardiovascular 05/26/13 Active pcrscngqkud07, 52 Encounter for preoperative vascular Active examination(Confirmed) Rotator cuff cmvemucb98, 54, 55, 56, 06/27/13 Active 57 Screening - health check58, 59 01/03/12 Active Shoulder joint pain60 04/28/13 Active Sleep apnea(Confirmed) Active Daoqxf21, 62, 63 11/06/11 Active Urge incontinence of [...] 1Result Comment: fluzone preservative free (6-35 mo.) [[id number]]. Migrated from OBS ; Data migrated from [employer] on 04/27/2015.2Result Comment: fluvax. Migrated from OBS ; Data migrated from [employer] on 04/27/2015. Procedures Procedure Date Related Diagnosis Body Site Status Implantation of electronic stimulator 2014 Completed in brain1 Arthroplasty 09/08/09 Completed Arthroplasty 03/26/06 Completed Reduction of fracture of upper arm with 03/26/03 Completed internal fixation2 Arthroplasty Completed Cardiac catheterisation, left heart Completed Excision of benign lesion of face and Completed ears 1Followed by Dr Lyndon Marquez in [place].2five times Social History Social History Type Response [...] Reg Smoking Cessation Counseling No entered on: 06/25/18 1NONE Assessment and Plan No data available for this section
--- OUTSIDE RECORDS SUMMARY | 2018-08-02 13:21 | XMS REPORT | Summary of Care ---
:1940 Author Organization [facility] Radiology [facility] [address] [place] [address]- Encounter HQ Danter_lorelei(FIN) [id number] Date(s): 12/11/17 - 12/11/17 [facility] Radiology [address] [place] [phone] Attending Physician: VISIT, NURSE [facility] DOPPLER Referring Physician: Nunu Hardy MD Vital [...] heart13, 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 14, 15 Congestive heart ytsakxy49, 17, 18 Active CAD (coronary artery Resolved disease)(Confirmed) Epigastric pain19, 20, 21 Active Frequency(Confirmed) Active Gastroesophageal reflux pmgirgx72, Active 23, 24 S/p shoulder replacement(Confirmed) Active Hard of hearing(Confirmed) Active Hypercholesterolemia(Confirmed)25, Active 26, 27 Hyperlipidemia(Confirmed) Active Hypertension(Confirmed) Active Hypertensive ncdgdjek21, 29, 30 Active Impacted xixdwss49, 32 12/04/12 Active Joint pain33, 34, 35 03/17/13 Active Obesity(Confirmed) Active Osteoarthritis(Confirmed) Active Osteoarthritis of right Active elbow(Confirmed) Otitis ddafqhr30 12/04/12 Resolved Pain in elbow37, 38, 39 04/28/13 Active Pain in upper limb40 09/04/12 Active Eifxlohkbjy25, 42, 43 03/17/13 Active Fscstfljghqw73, 45, 46 10/17/12 Active Peripheral nerve dlywutf96, 48, 49 12/19/11 Active Cqwjdqgr13 03/11/12 Active Preoperative cardiovascular 05/26/13 Active ejzehjwplei05, 52 Encounter for preoperative vascular Active examination(Confirmed) Rotator cuff , 54, 55, 56, 06/27/13 Active 57 Screening - health check58, 59 01/03/12 Active Shoulder joint pain60 04/28/13 Active Sleep apnea(Confirmed) Active Pgipld85, 62, 63 11/06/11 Active Urge incontinence of [...] 1Result Comment: fluzone preservative free (6-35 mo.) [[id number]]. Migrated from OBS ; Data migrated from [...] ears 1Followed [address] Dr Lyndon Marquez in [place].2five times Social History Social History Type Response [...]
--- OUTSIDE RECORDS SUMMARY | 2018-08-02 13:21 | XMS REPORT | Summary of Care ---
:1940 Author Organization [facility] [address] [place] [address]- Encounter HQ Roxane_lorelei(FIN) [id number] Date(s): 12/11/17 - 12/11/17 [facility] [address] 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 14, 15 Congestive heart rznoghh00, 17, 18 Active CAD (coronary artery Resolved disease)(Confirmed) Epigastric pain19, 20, 21 Active Frequency(Confirmed) Active Gastroesophageal reflux glxlopa50, Active 23, 24 S/p shoulder replacement(Confirmed) Active Hard of hearing(Confirmed) Active Hypercholesterolemia(Confirmed)25, Active 26, 27 Hyperlipidemia(Confirmed) Active Hypertension(Confirmed) Active Hypertensive ufqarjjl44, 29, 30 Active Impacted znhxrva11, 32 12/04/12 Active Joint pain33, 34, 35 03/17/13 Active Obesity(Confirmed) Active Osteoarthritis(Confirmed) Active Osteoarthritis of right Active elbow(Confirmed) Otitis 12/04/12 Resolved Pain in elbow37, 38, 39 04/28/13 Active Pain in upper limb40 09/04/12 Active Bhbvfwpmhxo76, 42, 43 03/17/13 Active Nmsfztvfpest15, 45, 46 10/17/12 Active Peripheral nerve ydfonmx52, 48, 49 12/19/11 Active Ghqoiuqi06 03/11/12 Active Preoperative cardiovascular 05/26/13 Active dsagxjhspdw33, 52 Encounter for preoperative vascular Active examination(Confirmed) Rotator cuff qqinipsq54, 54, 55, 56, 06/27/13 Active 57 Screening - health check58, 59 01/03/12 Active Shoulder joint pain60 04/28/13 Active Sleep apnea(Confirmed) Active Pfjjjb30, 62, 63 11/06/11 Active Urge incontinence of [...] 1Result Comment: fluzone preservative free (6-35 mo.) [[id number]]. Migrated from OBS ; Data migrated from [...] ears 1Followed by Dr Lyndon Marquez in [place].2five times Social History Social History Type Response [...]
--- OUTSIDE RECORDS SUMMARY | 2018-08-02 13:21 | XMS REPORT | Summary of Care ---
:1940 Author Organization [facility] Cardiology [facility] [address] [place] [address]- Encounter HQ Jennifer(ELENO) [phone] Date(s): 12/11/17 - 12/11/17 [facility] Cardiology [place] [address] [place] [address]- [phone] Discharge Disposition: Home or Self Care Attending Physician: VISIT, NURSE [facility] NUCLEAR Referring Physician: Nunu Hardy MD Vital Signs Most recent to oldest [Reference Range]: 1 Blood Pressure [90-140/60-90 mmHg] 122/62 mmHg (12/11/17 12:58 PM) Peripheral Pulse Rate [60-100 bpm] 80 bpm (12/11/17 12:58 PM) Weight 114.545 kg (12/11/17 12:58 PM) Problem List Condition Effective Dates Status Health Status Informant Allergic rhinitis1 03/17/13 Active Anxiety(Confirmed) Active Aortic stenosis(Confirmed) Resolved Backache2, 3 Active Biceps tendinitis4 03/01/12 Active Bronchitis5, 6 03/17/13 Active Cancer of skin(Confirmed) Resolved Carpal tunnel syndrome7, 8, 9 01/17/12 Active CHF - Congestive heart Active failure(Confirmed) Chronic obstructive lung oskyxet81, Active 11, 12 Conduction disorder of the heart13, 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 14, 15 Congestive heart bexcoos11, 17, 18 Active CAD (coronary artery Resolved disease)(Confirmed) Epigastric pain19, 20, 21 Active Frequency(Confirmed) Active Gastroesophageal reflux zttnbib53, Active 23, 24 S/p shoulder replacement(Confirmed) Active Hard of hearing(Confirmed) Active Hypercholesterolemia(Confirmed)25, Active 26, 27 Hyperlipidemia(Confirmed) Active Hypertension(Confirmed) Active Hypertensive umljqfuw10, 29, 30 Active Impacted , 32 12/04/12 Active Joint pain33, 34, 35 03/17/13 Active Obesity(Confirmed) Active Osteoarthritis(Confirmed) Active Osteoarthritis of right Active elbow(Confirmed) Otitis wpyczpy47 12/04/12 Resolved Pain in elbow37, 38, 39 04/28/13 Active Pain in upper limb40 09/04/12 Active Fafvdbxuvzv65, 42, 43 03/17/13 Active Bnntorjssgmf32, 45, 46 10/17/12 Active Peripheral nerve lzfcbuw88, 48, 49 12/19/11 Active Nxbswmkb03 03/11/12 Active Preoperative cardiovascular 05/26/13 Active oealnadxtav41, 52 Encounter for preoperative vascular Active examination(Confirmed) Rotator cuff dreaqlrf25, 54, 55, 56, 06/27/13 Active 57 Screening - health check58, 59 01/03/12 Active Shoulder joint pain60 04/28/13 Active Sleep apnea(Confirmed) Active Zrbwrk95, 62, 63 11/06/11 Active Urge incontinence of [...] 1Result Comment: fluzone preservative free (6-35 mo.) [[id number]]. Migrated from OBS ; Data migrated from [...] ears 1Followed [address] Dr Lyndon Marquez in [place].2five times Social History Social History Type Response [...]
--- OUTSIDE RECORDS SUMMARY | 2018-08-02 13:23 | XMS REPORT | Summary of Care ---
:1940 Author Organization [facility] Address [facility] [place], [place] [address]- Encounter HQ Danter_lorelei(FIN) [phone] Date(s): 06/30/18 - 07/01/[address] [address]- Encounter Diagnosis Chronic obstructive pulmonary disease with (acute) exacerbation (Final) - Discharge Disposition: Home or Self Care Attending Physician: Luis Beckett MD Admitting Physician: Luis Beckett MD Referring Physician: Eren Bauer MD Vital Signs Most recent to oldest 1 2 3 [Reference Range]: Height 172.72 cm 172.72 cm (06/26/18 9:30 AM) (06/25/18 2:12 PM) Current Weight 113.864 kg 111.636 kg 112.273 kg (07/01/18 5:53 AM) (06/30/18 4:00 AM) (06/29/18 2:20 AM) Blood Pressure [90-140/60-90 120/54 mmHg 126/62 mmHg 126/55 mmHg mmHg] (07/01/18 11:21 AM) (07/01/18 11:20 AM) (07/01/18 11:18 AM) Respiratory Rate [14-20 BRMIN] 20 BRMIN 20 BRMIN 20 BRMIN (07/01/18 11:21 AM) (07/01/18 11:20 AM) (07/01/18 11:18 AM) Peripheral Pulse Rate [60-100 64 bpm 62 bpm 59 bpm bpm] (07/01/18 11:21 AM) (07/01/18 11:20 AM) *LOW* (07/01/18 11:18 AM) Weight 112.545 kg 109.591 kg 68.182 kg (06/28/18 5:00 AM) (06/26/18 9:30 AM) (06/25/18 2:12 PM) Body Mass Index 36.74 m2 22.86 m2 (06/26/18 9:30 AM) (06/25/18 2:12 PM) Problem List Condition Effective Dates Status [...] heart13, 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 14, 15 Congestive heart ijiypuw88, 17, 18 Active CAD (coronary artery Active disease)(Confirmed) Epigastric pain19, 20, 21 Active Ex-cigarette smoker(Confirmed) Resolved Frequency(Confirmed) Active Gastroesophageal reflux oauiswp32, Active 23, 24 S/p shoulder replacement(Confirmed) Active Hard of hearing(Confirmed) Active Hypercholesterolemia(Confirmed)25, Active 26, 27 Hyperlipidemia(Confirmed) Active Hypertension(Confirmed) Active Hypertensive cgnxtwyo01, 29, 30 Active Impacted gjcduhy76, 32 12/04/12 Active Incontinence of urine(Confirmed) Active Irregular heart beat(Confirmed) Active Joint pain33, 34, 35 03/17/13 Active Numbness of limbs(Confirmed) Active Obesity(Confirmed) Active Osteoarthritis(Confirmed) Active Osteoarthritis of right Active elbow(Confirmed) Otitis upzwkoc99 12/04/12 Resolved Pain in elbow37, 38, 39 04/28/13 Active Pain in upper limb40 09/04/12 Active Weakness of both lower Active limbs(Confirmed) Zazskgoprmk52, 42, 43 03/17/13 Active Parkinson disease(Confirmed) Active Fzvthnqkdvem17, 45, 46 10/17/12 Active Peripheral nerve , 48, 49 12/19/11 Active Wyrsmnik91 03/11/12 Active Preoperative cardiovascular 05/26/13 Active ekdphskvtvy14, 52 Encounter for preoperative vascular Active examination(Confirmed) Neck problem(Confirmed) Active Rotator cuff mawvodga67, 54, 55, 56, 06/27/13 Active 57 Screening - health check58, 59 01/03/12 Active Shoulder joint pain60 04/28/13 Active Sleep apnea(Confirmed) Active Sleep apnea(Confirmed) Active SOBOE - Shortness of breath on Active exertion(Confirmed) Izbvkx09, 62, 63 11/06/11 Active Urge incontinence of [...] on 07/23/14. Originally documented as CRESTOR. Medications acetaminophen 650 mg, 2 tab, Route: PO, Drug form: TAB, Q4H, Dosing Weight 109.591, kg, PRN Pain Score 1-3, Start date: 06/27/18 20:08:00 CDT, Duration: 30 day, Stop date: 07/27/18 20:07:00 CDT Notes: Do not exceed 4 gm/day. (Same as: Tylenol) Start Date: 06/27/18 Stop Date: 07/01/18 Status: Discontinuedacetaminophen 650 mg, 2 tab, Route: PO, Drug form: TAB, Q4H, Dosing Weight 109.591, kg, PRN Pain Score 1-3, Start date: 06/26/18 13:50:00 CDT, Duration: 30 day, Stop date: 07/26/18 13:49:00 CDT Notes: Do not exceed 4 gm/day. (Same as: Tylenol) Start Date: 06/26/18 Stop Date: 06/27/18 Status: Discontinuedacetaminophen-hydrocodone 325 mg-5 mg oral tablet 1 tab, Route: PO, Drug Form: TAB, Dosing Weight 109.591, kg, Q4H, PRN Pain Score 4-6, Start date: 06/27/18 20:08:00 CDT, Duration: 30 day, Stop date: 07/27 20:07:00 CDT Notes: (Same as: [place] 325/5) Do not exceed 4gm/day of acetaminophen. Start Date: 06/27/18 Stop Date: 07/01/18 Status: Discontinuedacetaminophen-hydrocodone 325 mg-5 mg oral tablet 2 tab, Route: PO, Drug Form: TAB, Dosing Weight 109.591, kg, Q4H, PRN Pain Score 7-10, Start date: 06/26/18 13:50:00 CDT, Duration: 30 day, Stop date: 06/11 13:49:00 CDT Notes: (Same as: [place] 325/5) Do not exceed 4gm/day of acetaminophen. Start Date: 06/26/18 Stop Date: 06/27/18 Status: Discontinuedacetaminophen-hydrocodone 325 mg-5 mg oral tablet 1 tab, Route: PO, Drug Form: TAB, Dosing Weight 109.591, kg, Q4H, PRN Pain Score 4-6, Start date: 06/26/18 13:50:00 CDT, Duration: 30 day, Stop date: 07/26 13:49:00 CDT Notes: (Same as: [place] 325/5) Do not exceed 4gm/day of acetaminophen. Start Date: 06/26/18 Stop Date: 06/27/18 Status: Discontinuedacetylcysteine 20% inhalation solution 400 mg, 2 mL, Route: NEB, Drug Form: SOLN, Dosing Weight 112.545, kg, RQ12H, Start date: 06/28/18 19:26:00 CDT, Duration: 30 day, Stop date: 07/28/18 16:00: 00 CDT Start Date: 06/28/18 Stop Date: 07/01/18 Status: Discontinuedalbuterol 2.49 mg, 3 mL, Route: NEB, Drug form: SOLN, Q4H, PRN See Nurse's Notes, Start date: 06/26/18 14:06:00 CDT, Duration: 30 day, Stop date: 07/26/18 14:05:00 CDT Notes: SEE RT DOCUMENTATION (Same as: Provenayde) Start Date: 06/26/18 Stop Date: 06/26/18 Status: Discontinuedalbuterol 2.49 mg, 3 mL, Route: NEB, Drug form: SOLN, Q4H, PRN Wheezing, Start date: 06/26 17:55:00 CDT, Duration: 30 day, Stop date: 07/26/18 17:54:00 CDT Notes: SEE RT DOCUMENTATION (Same as: Proventil) Start Date: 06/26/18 Stop Date: 06/28/18 Status: DiscontinuedamLODIPine 10 mg, 1 tab, Route: PO, Drug form: TAB, Daily, Dosing Weight 109.591, kg, Start date: 06/27/18 9:00:00 CDT, Duration: 30 day, Stop date: 07/26/18 9:00:00 CDT Notes: (Same as: Norvasc) Start Date: 06/27/18 Stop Date: 07/01/18 Status: DiscontinuedamLODIPine 10 mg, 1 tab, Route: PO, Drug form: TAB, ONCE, Dosing Weight 109.591, kg, Start date: 06/26/18 16:50:00 CDT, Stop date: 06/26/18 16:50:00 CDT Notes: (Same as: Norvasc) Start Date: 06/26/18 Stop Date: 06/26/18 Status: Completedaspirin 81 mg tablet, enteric coated 81 mg, 1 tab, Route: PO, Drug form: ECTAB, Daily, Dosing Weight 109.591, kg, Start date: 06/27/18 9:00:00 CDT, Duration: 30 day, Stop date: 07/26/18 9:00:00 CDT Notes: Do not crush or chew.(Same As: Ecotrin) Start Date: 06/27/18 Stop Date: 07/01/18 Status: DiscontinuedBD Normal Saline Flush 10 mL, Route: IVP, Drug Form: INJ, PRN, PRN Line Flush, Start date: 06/27/18 20: 59:00 CDT, Duration:30 day, Stop date: 07/27/18 20:58:00 CDT Notes: Same as: BD Posiflush Sterile Start Date: 06/27/18 Stop Date: 07/01/18 Status: Discontinuedcarbidopa-levodopa 25 mg-100 mg oral tablet 1 tab, Route: PO, Drug Form: TAB, Dosing Weight 109.591, kg, BID, Start date: 17:00:00 CDT,Duration: 30 day, Stop date: 07/26/18 9:00:00 CDT Notes: Take with milk or food. (Same As: Sinemet) Start Date: 06/26/18 Stop Date: 07/01/18 Status: DiscontinuedCentrum Vitamints 1 tab, Route: PO, Drug Form: TAB, Dosing Weight 109.591, kg, Daily, Start date: 06/27/18 9:00:00 CDT, Duration: 30 day, Stop date: 07/26/18 9:00:00 CDT Notes: (Same as:Thera-M, Theragran-M)WASTE: F/P - Black; E - Municipal Trash Bin Give with food. Start Date: 06/27/18 Stop Date: 07/01/18 Status: DiscontinuedCymbalta 60 mg, 1 cap, Route: PO, Drug form: DRC, Daily, Dosing Weight 109.591, kg, Start date: 06/27/18 9:00:00 CDT, Duration: 30 day, Stop date: 07/26/18 9:00:00 CDT Notes: (Same as: Cymbalta) (Do Not Crush) Start Date: 06/27/18 Stop Date: 07/01/18 Status: Discontinueddocusate calcium 240 mg oral capsule 240 mg, 1 cap, Route: PO, Drug form: CAP, Daily, Dosing Weight 109.591, kg, PRN Constipation, Start date: 06/26/18 14:40:00 CDT, Duration: 30 day, Stop date: 14:39:00 CDT Start Date: 06/26/18 Stop Date: 06/26/18 Status: Deleteddocusate calcium 240 mg oral capsule 240 mg, 1 cap, Route: PO, Drug form: CAP, Daily, Dosing Weight 109.591, kg, PRN Constipation, Start date: 06/26/18 13:50:00 CDT, Duration: 30 day, Stop date: 13:49:00 CDT Start Date: 06/26/18 Stop Date: 06/26/18 Status: Discontinueddocusate sodium 100 mg oral capsule 100 mg, 1 cap, Route: PO, Drug form: CAP, Daily, PRN Constipation, Start date: 06/26/18 17:56:00 CDT, Duration: 30 day, Stop date: 07/26/18 17:55:00 CDT Notes: (Same as: Colace) (Do Not Crush) Start Date: 06/26/18 Stop Date: 07/01/18 Status: Discontinueddocusate sodium 100 mg oral capsule 200 mg, 2 cap, Route: PO, Drug form: CAP, Daily, PRN See Nurse's Notes, Start date: 06/26/18 14:04:00 CDT, Duration: 30 day, Stop date: 07/26/18 14:03:00 CDT Notes: (Same as: Colace) (Do Not Crush) Start Date: 06/26/18 Stop Date: 06/26/18 Status: DiscontinuedDuoNeb inhalation solution 3 ml, Route: NEB, Drug Form: SOLN, Dosing Weight 112.545, kg, RQ4H, PRN Shortness of breath, Start date: 06/28/18 19:04:00 CDT, Duration: 30 day, Stop date: 07/28/18 19:03:00 CDT Notes: (Same as: Duoneb) Start Date: 06/28/18 Stop Date: 07/01/18 Status: DiscontinuedDuoNeb inhalation solution 3 ml, Route: NEB, Drug Form: SOLN, Dosing Weight 112.545, kg, RQ4H, Start date: 06/28/18 19:25:00 CDT, Duration: 30 day, Stop date: 07/28/18 19:00:00 CDT Notes: (Same as: Duoneb) Start Date: 06/28/18 Stop Date: 07/01/18 Status: Discontinuedenoxaparin 30 mg, 0.3 mL, Route: SUB-Q, Drug form: INJ, [id number], Dosing Weight 112.545, kg , Start date: 06/28/18 20:00:00 CDT, Duration: 30 day, Stop date: 07/28/18 8:00: 00 CDT Notes: (Same as: Lovenox) Start Date: 06/28/18 Stop Date: 07/01/18 Status: Discontinuedezetimibe 10 mg oral tablet 10 mg=1 tab, PO, Daily, # 90 tab, 0 Refill(s), Pharmacy: [facility]/pharmacy #[id number] Start Date: 07/01/18 Stop Date: 09/29/18 Status: OrderedFish Oil 1 gm, 1 cap, Route: PO, Drug form: CAP, BID, Dosing Weight 112.545, kg, Start date: 06/28/18 17:00:00 CDT, Duration: 30 day, Stop date: 07/28/18 9:00:00 CDT Notes: (Same as: MaxEPA, [place] 3 fish oil )Non-Formulary Drug Start Date: 06/28/18 Stop Date: 07/01/18 Status: Discontinuedgabapentin 600 mg oral tablet 600 mg, 2 cap, Route: PO, Drug form: CAP, BID, Dosing Weight 109.591, kg, Start date: 06/26/18 17:00:00 CDT, Duration: 30 day, Stop date: 07/26/18 9:00:00 CDT Notes: (Same as: Neurontin) Start Date: 06/26/18 Stop Date: 07/01/18 Status: DiscontinuedImdur 60 mg, 1 tab, Route: PO, Drug form: ERTAB, QAM, Dosing Weight 112.545, kg, Priority: NOW, Start date: 06/29/18 16:45:00 CDT, Duration: 30 day, Stop date: 07/29/18 9:00:00 CDT Notes: (Same as:Imdur)"Do Not Crush" Take on empty stomach/ full glass of water. Do not crush Start Date: 06/29/18 Stop Date: 07/01/18 Status: Discontinuedisosorbide mononitrate 60 mg oral tablet, extended release 60 mg=1 tab, PO, QAM, # 90 tab, 0 Refill(s), Pharmacy: [facility]/pharmacy #[id number] Start Date: 07/01/18 Stop Date: 09/29/18 Status: OrderedLasix 40 mg, 4 mL, Route: IVP, Drug form: INJ, ONCE, Dosing Weight 112.545, kg, Start date: 06/28/18 6:26:00 CDT, Stop date: 06/28/18 6:26:00 CDT Notes: (Same as: Lasix) MEDICATION WASTE Product Size: 40 mgProduct Wasted: ___ mg Start Date: 06/28/18 Stop Date: 06/28/18 Status: Completedlisinopril 20 mg, 1 tab, Route: PO, Drug form: TAB, BID, Dosing Weight 109.591, kg, Start date: 07/01/18 17:00:00 CDT, Duration: 30 day, Stop date: 07/31/18 9:00:00 CDT Notes: (Same as: Boni Odomstril) Start Date: 07/01/18 Stop Date: 07/01/18 Status: Canceledlisinopril 40 mg, 2 tab, Route: PO, Drug form: TAB, Daily, Dosing Weight 109.591, kg, Start date: 06/27/18 9:00:00 CDT, Duration: 30 day, Stop date: 07/26/18 9:00:00 CDT Notes: (Same as: Ilene Zestril) Start Date: 06/27/18 Stop Date: 07/01/18 Status: Discontinuedlisinopril 40 mg, 2 tab, Route: PO, Drug form: TAB, ONCE, Dosing Weight 109.591, kg, Start date: 06/26/18 16:50:00 CDT, Stop date: 06/26/18 16:50:00 CDT Notes: (Same as: Prinivil, Zestril) Start Date: 06/26/18 Stop Date: 06/26/18 Status: Completedlisinopril 20 mg oral tablet 20 mg=1 tab, PO, Daily, # 90 tab, 0 Refill(s), Pharmacy: [facility]/pharmacy #[id number] Start Date: 07/01/18 Stop Date: 09/29/18 Status: Orderedmetoprolol 5 mg/5 ml INJ 5 mg, 5 mL, Route: IVP, Drug form: INJ, ONCE, Dosing Weight 109.591, kg, Priority: NOW, Start date: 06/27/18 21:21:00 CDT, Stop date: 06/27/18 21:21:00 CDT Notes: (Same as: Lopressor)Push over 2 minutes Start Date: 06/27/18 Stop Date: 06/27/18 Status: Completedmetoprolol tartrate 50 mg, 1 tab, Route: PO, Drug form: TAB, Q12H, Dosing Weight 112.545, kg, Priority: NOW, Start date:06/29/18 16:45:00 CDT, Duration: 30 day, Stop date: 9:00:00 CDT Notes: (Same as: Lopressor) Start Date: 06/29/18 Stop Date: 06/30/18 Status: Discontinuedmetoprolol tartrate 25 mg, 1 tab, Route: PO, Drug form: TAB, Q12H, Dosing Weight 112.545, kg, Start date: 06/30/18 21:00:00 CDT, Duration: 30 day, Stop date: 07/30/18 9:00:00 CDT Notes: (Same as: Lopressor) Start Date: 06/30/18 Stop Date: 07/01/18 Status: Discontinuedmetoprolol tartrate 25 mg oral tablet 25 mg=1 tab, PO, Q12H, # 180 tab, 0 Refill(s), Pharmacy: [facility]/pharmacy #[id number] Start Date: 07/01/18 Stop Date: 09/29/18 Status: Orderedmorphine Sulfate 4 mg, 1 mL, Route: IVP, Drug form: SOLN, ONCE, Dosing Weight 109.591, kg, Priority: NOW, Start date:06/27/18 21:21:00 CDT, Stop date: 06/27/18 21:21:00 CDT Notes: (Same as:MORPhine Sulfate) Start Date: 06/27/18 Stop Date: 06/27/18 Status: CompletedMylanta Gas 80 mg, 1 tab, Route: CHEW, Drug form: CHEWTAB, QID-After Meals, Dosing Weight 112.545, kg, Start date: 06/28/18 17:00:00 CDT, Duration: 30 day, Stop date: 08/11 13:00:00 CDT Notes: (Same as: Mylicon) Start Date: 06/28/18 Stop Date: 07/01/18 Status: Discontinuednitroglycerin 2% topical ointment 1.5 inch, Route: TOP, Drug Form: OINT, Dosing Weight 109.591, kg, QID, Start date: 06/27/18 21:30:00CDT, Duration: 30 day, Stop date: 07/27/18 21:00:00 CDT Notes: 1 gram is approximately 1 inch of nitroglycerin ointment (20 mg NTG per gram) (Same as:Nitro-Bid) Start Date: 06/27/18 Stop Date: 07/01/18 Status: Discontinuednitroglycerin SL Tab 0.4 mg, 1 tab, Route: SL, Drug form: TAB, Q5Min, Dosing Weight 109.591, kg, PRN Chest Pain, Start date: 06/27/18 20:08:00 CDT, Duration: 3 doses or times, Stop date: Limited # of times Notes: (Same as:Nitroquick, Nitrostat)"Do Not Crush" Sublingual tablet Start Date: 06/27/18 Stop Date: 06/29/18 Status: CompletedNitrostat 0.4 mg sublingual tablet 0.4 mg, 1 tab, Route: SL, Drug form: TAB, Q5Min, Dosing Weight 112.545, kg, PRN Chest Pain, Start date: 06/29/18 16:53:00 CDT, Duration: 3 doses or times, Stop date: Limited # of times Notes: (Same as:Nitroquick, Nitrostat)"Do Not Crush" Sublingual tablet Start Date: 06/29/18 Stop Date: 07/01/18 Status: Discontinuednormal saline 0.9% IV 1,000 mL 1,000 mL, Rate: 100 ml/hr, Infuse over: 10 hr, Route: IV, Dosing Weight 109.591 kg, Total Volume: 1,000, Start date: 06/27/18 22:35:00 CDT, Duration: 30 day, Stop date: 07/27/18 22:34:00 CDT, 2.32, m2 Start Date: 06/27/18 Stop Date: 06/28/18 Status: DiscontinuedNS (Bolus) IV 500 mL, 500 ml/hr, Infuse Over: 1 hr, Route: IV, 500, Drug form: INJ, ONCE, Priority: STAT, Dosing Weight 109.591 kg, Start date: 06/27/18 22:35:00 CDT, Stop date: 06/27/18 22:35:00 CDT Start Date: 06/27/18 Stop Date: 06/27/18 Status: CompletedOmnipaque 350 injectable solution 150 mL, Route: IVP, Drug Form: SOLN, Dosing Weight 112.545, kg, ONCALL, For CTA exam with GFR > 45 mL/min, STAT, Start date: 06/28/18 7:54:00 CDT, Duration: 1 doses or times Notes: (Same as:Omnipaque 300).WASTE: F/P - Black; E - Municipal Trash Bin Start Date: 06/28/18 Stop Date: 06/28/18 Status: Completedondansetron 4 mg, 1 tab, Route: PO, Drug form: TAB, Q8H, Dosing Weight 109.591, kg, PRN Nausea & Vomiting, Start date: 06/27/18 20:08:00 CDT, Duration: 30 day, Stop date: 07/27/18 20:07:00 CDT Notes: (Same as: Zofran) Start Date: 06/27/18 Stop Date: 07/01/18 Status: Discontinuedondansetron 4 mg, 2 mL, Route: IVP, Drug form: INJ, Q8H, Dosing Weight 109.591, kg, PRN Nausea & Vomiting, Start date: 06/26/18 13:50:00 CDT, Duration: 30 day, Stop date: 07/26/18 13:49:00 CDT Notes: (Same as: Zofran) MEDICATION WASTE Product Size: 4 mgProduct Wasted: ___ mg Start Date: 06/26/18 Stop Date: 07/01/18 Status: Discontinuedpotassium chloride 20 mEq oral tablet, extended release 20 mEq, 1 tab, Route: PO, Drug form: ERTAB, Daily, Dosing Weight 109.591, kg, Start date: 06/27/18 9:00:00 CDT, Duration: 30 day, Stop date: 07/26/18 9:00:00 CDT Notes: (Same as: K-Dur 20)"Do Not Crush" Give with food and full glass of waterFor patients unable to swallow tablet, dissolve in one half glass of water. Allow about 2 minutes for the tablets to disintegrate. Stir before giving to prepare slurry and administer.Please exclude Patients with feedingtube less than 14 [place] (Dobhoff, J-tube etc) and pediatric and patients. Start Date: 06/27/18 Stop Date: 07/01/18 Status: DiscontinuedpredniSONE 20 mg, 1 tab, Route: PO, Drug form: TAB, Daily, Dosing Weight 112.545, kg, Start date: 06/30/18 9:00:00 CDT, Duration: 30 day, Stop date: 07/29/18 9:00:00 CDT Notes: Take with food. Start Date: 06/30/18 Stop Date: 07/01/18 Status: DiscontinuedSodium Chloride 0.9% (Bolus) IV 250 mL, 250 ml/hr, Infuse Over: 1 hr, Route: IV, 250, Drug form: INJ, ONCALL, Priority: Routine, Dosing Weight 109.591 kg, Start date: 06/26/18 19:00:00 CDT, Duration: 1 doses or times Start Date: 06/26/18 Stop Date: 07/01/18 Status: DiscontinuedSodium Chloride 0.9% IV 250 mL, Route: IVPB, Start date: 06/27/18 20:59:00 CDT, Duration: 30 day, Stop date: 07/27/18 20:58:00 CDT, PRN Line Flush Start Date: 06/27/18 Stop Date: 07/01/18 Status: DiscontinuedSodium Chloride 0.9% IV 750 mL 750 mL, Rate: 75 ml/hr, Infuse over: 10 hr, Route: IV, Dosing Weight 109.591 kg , Total Volume: 750, Start date: 06/27/18 20:08:00 CDT, Duration: 10 hr, Stop date: 06/28/18 6:07:00 CDT, 2.32, m2 Start Date: 06/27/18 Stop Date: 06/27/18 Status: DiscontinuedSodium Chloride 0.9% IV 750 mL 750 mL, Rate: 75 ml/hr, Infuse over: 10 hr, Route: IV, Dosing Weight 109.591 kg , Total Volume: 750, Start date: 06/26/18 13:50:00 CDT, Duration: 10 hr, Stop date: 06/26/18 23:49:00 CDT, 2.32, m2 Start Date: 06/26/18 Stop Date: 06/26/18 Status: DiscontinuedSodium Chloride 0.9% IV 750 mL 750 mL, Rate: 75 ml/hr, Infuse over: 10 hr, Route: IV, Dosing Weight 109.591 kg , Total Volume: 750, Start date: 06/26/18 18:21:00 CDT, Duration: 24 hr, Stop date: 06/27/18 18:20:00 CDT, 2.32, m2 Start Date: 06/26/18 Stop Date: 06/27/18 Status: CompletedSolu-MEDROL 40 mg, 1 mL, Route: IVP, Drug form: INJ, Q12H, Dosing Weight 112.545, kg, Start date: 06/28/18 21:00:00 CDT, Duration: 24 hr, Stop date: 06/29/18 9:00:00 CDT Notes: (Same as:Solu-MEDROL, A-Methapred) Start Date: 06/28/18 Stop Date: 06/29/18 Status: Completedticagrelor 90 mg, Route: PO, Q12H, Dosing Weight 109.591, kg, Start date: 06/27/18 21:00: 00 CDT, Duration: 30 day, Stop date: 07/27/18 9:00:00 CDT Start Date: 06/27/18 Stop Date: 06/27/18 Status: Deletedticagrelor 90 mg, 1 tab, Route: PO, Drug form: TAB, Q12H, Dosing Weight 109.591, kg, Start date: 06/28/18 9:00:00 CDT, Duration: 30 day, Stop date: 07/27/18 21:00:00 CDT Notes: (Same as: Nena)pharmacy re-entry for dosing time adjustment Start Date: 06/28/18 Stop Date: 07/01/18 Status: Discontinuedticagrelor 90 mg oral tablet 90 mg=1 tab, PO, Q12H, # 180 tab, 0 Refill(s), Pharmacy: [facility]/pharmacy #[id number] Start Date: 07/01/18 Stop Date: 09/29/18 Status: OrderedVentolin HFA 90 mcg/inh inhalation aerosol with adapter 180 microgram, 2 puff, Route: INHALER, Drug Form: AERO/A, Dosing Weight 109.591 , kg, Q4H, PRN as needed for wheezing, Start date: 06/26/18 14:40:00 CDT, Duration: 30 day, Stop date: 07/26/18 14:39:00 CDT Start Date: 06/26/18 Stop Date: 06/26/18 Status: DeletedVentolin HFA 90 mcg/inh inhalation aerosol with adapter 180 microgram, 2 puff, Route: INHALER, Drug Form: AERO/A, Dosing Weight 109.591 , kg, Q4H, PRN as needed for wheezing, Start date: 06/26/18 13:50:00 CDT, Duration: 30 day, Stop date: 07/26/18 13:49:00 CDT Start Date: 06/26/18 Stop Date: 06/26/18 Status: DiscontinuedVentolin HFA 90 mcg/inh inhalation aerosol with adapter 2 puff, INHALER, Q4H, PRN wheezing, coughing, or shortness of breath, 3 Refill(s ) Start Date: 06/26/18 Status: OrderedZetia 10 mg, 1 tab, Route: PO, Drug form: TAB, Daily, Dosing Weight 112.545, kg, Start date: 06/29/18 9:00:00 CDT, Duration: 30 day, Stop date: 07/28/18 9:00:00 CDT Notes: (Same as: Zetia) Start Date: 06/29/18 Stop Date: 07/01/18 Status: DiscontinuedZyrTEC 10 mg, 1 tab, Route: PO, Drug form: TAB, Daily, Dosing Weight 109.591, kg, Start date: 06/27/18 9:00:00 CDT, Duration: 30 day, Stop date: 07/26/18 9:00:00 CDT, Patient's Own Meds Notes: (Same As: Zyrtec) Start Date: 06/27/18 Stop Date: 07/01/18 Status: Discontinued Results ELECTROLYTES Most recent to oldest 1 2 3 [Reference Range]: Sodium Lvl [135-145 mEq/L] 140 mEq/L 138 mEq/L 136 mEq/L (07/01/18 3:08 AM) (06/30/18 3:57 AM) (06/29/18 4:49 AM) Potassium Lvl [3.5-5.1 mEq/L] 4.7 mEq/L 4.7 mEq/L 4.3 mEq/L (07/01/18 3:08 AM) (06/30/18 3:57 AM) (06/29/18 4:49 AM) Chloride Lvl [95-109 mEq/L] 107 mEq/L 106 mEq/L 104 mEq/L (07/01/18 3:08 AM) (06/30/18 3:57 AM) (06/29/18 4:49 AM) CO2 [24-32 mEq/L] 28 mEq/L 26 mEq/L 25 mEq/L (07/01/18 3:08 AM) (06/30/18 3:57 AM) (06/29/18 4:49 AM) AGAP [10.0-20.0 mEq/L] 9.7 mEq/L 10.7 mEq/L 11.3 mEq/L *LOW* (06/30/18 3:57 AM) (06/29/18 4:49 AM) (07/01/18 3:08 AM) CHEM PANEL Most recent to oldest 1 2 3 [Reference Range]: Creatinine Lvl [0.50-1.40 1.10 mg/dL 1.10 mg/dL 0.90 mg/dL mg/dL] (07/01/18 3:08 AM) (06/30/18 3:57 AM) (06/29/18 4:49 AM) eGFR 64 mL/min/1.73m2 1 64 mL/min/1.73m2 2 81 mL/min/1.73m2 3 *NA* *NA* *NA* (07/01/18 3:08 AM) (06/30/18 3:57 AM) (06/29/18 4:49 AM) BUN [7-22 mg/dL] 40 mg/dL 36 mg/dL 22 mg/dL *HI* *HI* (06/29/18 4:49 AM) (07/01/18 3:08 AM) (06/30/18 3:57 AM) B/C Ratio [6-25] 19 (06/28/18 5:13 AM) Glucose Lvl [70-99 mg/dL] 120 mg/dL 119 mg/dL 172 mg/dL *HI* *HI* *HI* (07/01/18 3:08 AM) (06/30/18 3:57 AM) (06/29/18 4:49 AM) Total Protein [6.4-8.4 g/dL] 6.4 g/dL (06/28/18 5:13 AM) Albumin Lvl [3.5-5.0 g/dL] 3.0 g/dL *LOW* (06/28/18 5:13 AM) Globulin [2.7-4.2 g/dL] 3.4 g/dL (06/28/18 5:13 AM) A/G Ratio [0.7-1.6] 0.9 (06/28/18 5:13 AM) Calcium Lvl [8.5-10.5 mg/dL] 8.3 mg/dL 8.4 mg/dL 8.5 mg/dL *LOW* *LOW* (06/29/18 4:49 AM) (07/01/18 3:08 AM) (06/30/18 3:57 AM) ALT [0-65 unit/L] 24 unit/L (06/28/18 5:13 AM) AST [0-37 unit/L] 44 unit/L *HI* (06/28/18 5:13 AM) Alk Phos [39-136 unit/L] 57 unit/L (06/28/18 5:13 AM) Bili Total [0.2-1.3 mg/dL] 0.5 mg/dL (06/28/18 5:13 AM) 1Result Comment: The eGFR is calculated using the CKD-EPI formula. In most young , healthy individualsthe eGFR will be >90 mL/min/1.73m2. The eGFR declines with age. An eGFR of 60-89 may be normal insome populations, particularly the elderly, for whom the CKD-EPI formula has not been extensively validated. Use of the eGFR is not recommended in the following populations: Individuals with unstable creatinine concentrations, including patients and those with serious co-morbid conditions. Patients with extremes in muscle mass or diet. The data above are obtained from the [employer] ( [employer]) which additionally recommends that when the eGFR is used in patients with extremes of body mass index for purposesof drug dosing, the eGFR should be multiplied by the estimated BMI.2Result Comment: The eGFR is calculated using the CKD-EPI formula. In most young, healthy individualsthe eGFR will be >90 mL/min/1.73m2. The eGFR declines with age. An eGFR of 60-89 may be normal insome populations, particularly the elderly, for whom the CKD-EPI formula has not been extensively validated. Use of the eGFR is not recommended in the following populations: Individuals with unstable creatinine concentrations, including patients and those with serious co-morbid conditions. Patients with extremes in muscle mass or diet. The data above are obtained from the [employer] ( [employer]) which additionally recommends that when the eGFR is used in patients with extremes of body mass index for purposesof drug dosing, the eGFR should be multiplied by the estimated BMI.3Result Comment: The eGFR is calculated using the CKD-EPI formula. In most young, healthy individualsthe eGFR will be >90 mL/min/1.73m2. The eGFR declines with age. An eGFR of 60-89 may be normal insome populations, particularly the elderly, for whom the CKD-EPI formula has not been extensively validated. Use of the eGFR is not recommended in the following populations: Individuals with unstable creatinine concentrations, including patients and those with serious co-morbid conditions. Patients with extremes in muscle mass or diet. The data above are obtained from the National Kidney Disease Education Program ( NKDEP) which additionally recommends that when the eGFR is used in patients with extremes of body mass index for purposesof drug dosing, the eGFR should be multiplied by the estimated BMI.CARDIAC ENZYMES Most recent to oldest 1 2 3 [Reference Range]: Total CK [12-191 unit/L] 136 unit/L (06/30/18 11:25 AM) CK MB [0.5-3.6 ng/mL] 9.4 ng/mL *HI* (06/30/18 11:25 AM) CK MB Index [0.0-2.5] 6.9 *HI* (06/30/18 11:25 AM) Troponin-I [0.00-0.40 ng/mL] 5.25 ng/mL 1 5.76 ng/mL 2 6.69 ng/mL 3 *CRIT* *CRIT* *CRIT* (06/30/18 4:39 PM) (06/30/18 11:25 AM) (06/30/18 3:57 AM) BNP [<=100 pg/mL] 54 pg/mL (06/28/18 5:13 AM) 1Result Comment: Critical Result(s) called to Catalina at 06/30/2018 17:38 byjs. Read back OK.2Result Comment: Critical Result(s) called to Natalia Carmen at 06/30/2018 13:20 by JL. Read back OK.3Result Comment: Critical Result (s) called to HAYLEY WILLIS at 06/30/2018 06:01 by AL. Read back OK.LIPIDS Most recent to oldest [Reference Range]: 1 2 3 CHD Risk [4.00-7.30] 5.22 (06/28/18 5:13 AM) Chol [<=199 mg/dL] 209 mg/dL *HI* (06/28/18 5:13 AM) Trig [<=149 mg/dL] 235 mg/dL *HI* (06/28/18 5:13 AM) HDL [>=61 mg/dL] 40 mg/dL *LOW* (06/28/18 5:13 AM) LDL (Calculated) [<=99 mg/dL] 122 mg/dL *HI* (06/28/18 5:13 AM) VLDL 47 *NA* (06/28/18 5:13 AM) SPECIAL CHEMISTRY Most recent to oldest [Reference Range]: 1 2 3 Hgb A1C [<=5.6 %] 6.5 % *HI* (07/01/18 3:08 AM) HEMATOLOGY Most recent to oldest 1 2 3 [Reference Range]: WBC [3.7-10.4 K/CMM] 10.1 K/CMM 14.8 K/CMM 7.5 K/CMM (07/01/18 3:08 AM) *HI* (06/29/18 4:49 AM) (06/30/18 3:57 AM) RBC [4.70-6.10 M/CMM] 3.72 M/CMM 3.66 M/CMM 4.12 M/CMM *LOW* *LOW* *LOW* (07/01/18 3:08 AM) (06/30/18 3:57 AM) (06/29/18 4:49 AM) Hgb [14.0-18.0 g/dL] 11.3 g/dL 10.8 g/dL 12.0 g/dL *LOW* *LOW* *LOW* (07/01/18 3:08 AM) (06/30/18 3:57 AM) (06/29/18 4:49 AM) Hct [42.0-54.0 %] 33.5 % 32.8 % 36.8 % *LOW* *LOW* *LOW* (07/01/18 3:08 AM) (06/30/18 3:57 AM) (06/29/18 4:49 AM) MCV [80.0-94.0 fL] 90.1 fL 89.8 fL 89.2 fL (07/01/18 3:08 AM) (06/30/18 3:57 AM) (06/29/18 4:49 AM) MCH [27.0-31.0 pg] 30.3 pg 29.5 pg 29.2 pg (07/01/18 3:08 AM) (06/30/18 3:57 AM) (06/29/18 4:49 AM) MCHC [32.0-36.0 g/dL] 33.6 g/dL 32.9 g/dL 32.7 g/dL (07/01/18 3:08 AM) (06/30/18 3:57 AM) (06/29/18 4:49 AM) RDW [11.5-14.5 %] 14.9 % 15.2 % 15.0 % *HI* *HI* *HI* (07/01/18 3:08 AM) (06/30/18 3:57 AM) (06/29/18 4:49 AM) MPV [7.4-10.4 fL] 8.4 fL 8.2 fL 8.2 fL (07/01/18 3:08 AM) (06/30/18 3:57 AM) (06/29/18 4:49 AM) Platelet [133-450 K/CMM] 212 K/CMM 245 K/CMM 232 K/CMM (07/01/18 3:08 AM) (06/30/18 3:57 AM) (06/29/18 4:49 AM) Segs [45.0-75.0 %] 75.0 % 84.6 % 93.2 % (07/01/18 3:08 AM) *HI* *HI* (06/30/18 3:57 AM) (06/29/18 4:49 AM) Lymphocytes [20.0-40.0 %] 14.9 % 7.6 % 4.9 % *LOW* *LOW* *LOW* (07/01/18 3:08 AM) (06/30/18 3:57 AM) (06/29/18 4:49 AM) Monocytes [2.0-12.0 %] 7.9 % 7.2 % 1.8 % (07/01/18 3:08 AM) (06/30/18 3:57 AM) *LOW* (06/29/18 4:49 AM) Eosinophils [0.0-4.0 %] 1.8 % 0.2 % 0.1 % (07/01/18 3:08 AM) (06/30/18 3:57 AM) (06/28/18 5:13 AM) Basophils [0.0-1.0 %] 0.4 % 0.4 % 0.1 % (07/01/18 3:08 AM) (06/30/18 3:57 AM) (06/29/18 4:49 AM) Neutrophils # [1.5-8.1 K/CMM] 7.6 K/CMM 12.5 K/CMM 7.0 K/CMM (07/01/18 3:08 AM) *HI* (06/29/18 4:49 AM) (06/30/18 3:57 AM) Lymphocytes # [1.0-5.5 K/CMM] 1.5 K/CMM 1.1 K/CMM 0.4 K/CMM (07/01/18 3:08 AM) (06/30/18 3:57 AM) *LOW* (06/29/18 4:49 AM) Monocytes # [0.0-0.8 K/CMM] 0.8 K/CMM 1.1 K/CMM 0.1 K/CMM (07/01/18 3:08 AM) *HI* (06/29/18 4:49 AM) (06/30/18 3:57 AM) Eosinophils # [0.0-0.5 K/CMM] 0.2 K/CMM (07/01/18 3:08 AM) Basophils # [0.0-0.2 K/CMM] 0.1 K/CMM (06/30/18 3:57 AM) RBC Morph Normal (06/29/18 4:49 AM) Plt Morph Normal (06/29/18 4:49 AM) POC Activated Clotting Time 163 seconds 234 seconds 275 seconds *NA* *NA* *NA* (06/27/18 11:10 PM) (06/27/18 9:48 PM) (06/27/18 8:56 PM) Immunizations Given and Recorded Vaccine Date Status Refusal Reason pneumococcal 13-valent vaccine 07/01/18 Given influenza virus vaccine, inactivated1 04/02/13 Given Hx influenza vaccine-unspecified2 01/03/12 Given 1Result Comment: fluzone preservative free (6-35 mo.) [[id number]]. Migrated from OBS ; Data migrated from [employer] on 04/27/2015.2Result Comment: fluvax. Migrated from OBS ; Data migrated from [employer] on 04/27/2015. Procedures Procedure Date Related Diagnosis Body Site Status Cardiac catheterisation, left heart 06/27/18 Completed Implantation of electronic stimulator 2014 Completed in brain1 Arthroplasty 09/08/09 Completed Arthroplasty 03/26/06 Completed Reduction of fracture of upper arm with 03/26/03 Completed internal fixation2 Arthroplasty Completed Excision of benign lesion of face and Completed ears 1Followed by Dr Lyndon Marquez in [place].2five times Social History Social History Type Response Substance Abuse Use: None. Exercise Self assessment: Good condition. Exercise type: NONE.1 Employment/School Status: Retired. Alcohol Current, Type Beer, Wine, Liquor. Frequency: 1-2 times per month. Previous treatment: None. Alcohol use interferes with work or home: No. Drinks more than intended: No. Others hurt by drinking: No. Ready to change: No. Household alcohol concerns: No. Smoking Status Former smoker; Type: Cigarettes; Previous treatment: None; Exposure to Tobacco Smoke None; Cigarette Smoking Last 365 Days No; Reg Smoking Cessation Counseling No; Other Tobacco Frequency QUIT 40 YEARS AGO; entered on: 07/01/18 1NONE Assessment and Plan Extracted from: Title: Cardiology TAVR Author: Rojelio Rust MD Date: 07/01/18 Impression and Plan 1. Severe - The patient has hemodynamic criteria for aortic valve replacement; however, I agree that with his advanced age and comorbidities, he is a high risk for conventional open AVR and CABG. TAVR workup mostly complete with CTA and carotid done. Carotid stenosis by doppler report said to be 50-69% bilaterally; however, the velocities barely support it being 50% - I do not think CTA or MRA is necessary 2. Chest pain - successful PCI of RCA done - 3 stents; EKG's without acute changes and HR and BP now controlled - pt also has a residual LAD lesion which we will address at the time of TAVR - enzymes drawn and trop mildly elevated which may be related to the procedure - they trended down and EKG unchanged and pt has had no further pain. The tentative plan is to discharge today and readmit next Sunday for cath, PCI LAD and TAVR. We will check an orthostatic BP today first. If stable, he can go.
--- OUTSIDE RECORDS SUMMARY | 2018-08-02 13:23 | XMS REPORT | Summary of Care ---
:1940 Author Organization [facility] [address] [place] [address]- Encounter HQ Jennifer(ELENO) [id number] Date(s): 07/04/18 - 07/04/18 [facility] [place] [address] [place] [id number]- Discharge Disposition: Home or Self Care Attending Physician: Marine Kerr, MSN,RN, ACNP-BC Referring Physician: Nunu Hardy MD Vital Signs Most recent to oldest [Reference Range]: 1 Temperature Oral [96.4-99.1 DegF] 97.8 DegF (07/04/18 3:25 PM) Blood Pressure [90-140/60-90 mmHg] 110/60 mmHg (07/04/18 3:25 PM) Respiratory Rate [14-20 BRMIN] 22 BRMIN *HI* (07/04/18 3:25 PM) Peripheral Pulse Rate [60-100 bpm] 72 bpm (07/04/18 3:25 PM) Weight 109.091 kg (07/04/18 3:25 PM) Problem List Condition Effective Dates Status Health Status Informant Acid reflux(Confirmed) Active Allergic rhinitis1 03/17/13 Active Anxiety(Confirmed) Resolved Aortic stenosis(Confirmed) Active Back problem(Confirmed) Active Backache2, 3 Active Biceps tendinitis4 03/01/12 Active Bronchitis5, 6 03/17/13 Active Cancer of skin(Confirmed) Resolved Carpal tunnel syndrome7, 8, 9 01/17/12 Active CHF - Congestive heart Active failure(Confirmed) Chronic obstructive lung geqjvtz63, Active 11, 12 Conduction disorder of the heart13, 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 14, 15 Congestive heart axvlesx27, 17, 18 Active CAD (coronary artery Active disease)(Confirmed) Dizziness(Confirmed) Active Epigastric pain19, 20, 21 Active Ex-cigarette smoker(Confirmed) Resolved Frequency(Confirmed) Active Gastroesophageal reflux tsluiby88, Active 23, 24 S/p shoulder replacement(Confirmed) Active Hard of hearing(Confirmed) Active Hypercholesterolemia(Confirmed)25, Active 26, 27 Hyperlipidemia(Confirmed) Active Hypertension(Confirmed) Active Hypertensive zoehvvfa74, 29, 30 Active Impacted ixdewmf67, 32 12/04/12 Active Incontinence of urine(Confirmed) Active Irregular heart beat(Confirmed) Active Joint pain33, 34, 35 03/17/13 Active Near syncope(Confirmed) Active Numbness of limbs(Confirmed) Active Obesity(Confirmed) Active Orthostatic hypotension(Confirmed) Active Osteoarthritis(Confirmed) Active Osteoarthritis of right Active elbow(Confirmed) Otitis wlgfxek37 12/04/12 Resolved Pain in elbow37, 38, 39 04/28/13 Active Pain in upper limb40 09/04/12 Active Weakness of both lower Active limbs(Confirmed) Pxwboxajifw06, 42, 43 03/17/13 Active Parkinson disease(Confirmed) Active Upbadmpeytum18, 45, 46 10/17/12 Active Peripheral nerve ibqkzci80, 48, 49 12/19/11 Active Pfrhzpew08 03/11/12 Active Preoperative cardiovascular 05/26/13 Active lmvrykpirtf93, 52 Encounter for preoperative vascular Active examination(Confirmed) Neck problem(Confirmed) Active Rotator cuff folengxl54, 54, 55, 56, 06/27/13 Active 57 Screening - health check58, 59 01/03/12 Active Shoulder joint pain60 04/28/13 Active Sleep apnea(Confirmed) Active Sleep apnea(Confirmed) Active SOBOE - Shortness of breath on Active exertion(Confirmed) Qflztq63, 62, 63 11/06/11 Active Urge incontinence of [...] 07/23/14. Originally documented as LIPITOR.3Data migrated from [employer] on 07/23/14. Originally documented as CRESTOR. Medications No Known Medications Results No data available for this section Immunizations Given and Recorded Vaccine Date Status Refusal Reason pneumococcal 13-valent vaccine 07/01/18 Given influenza virus vaccine, inactivated1 04/02/13 Given Hx influenza vaccine-unspecified2 01/03/12 Given 1Result Comment: fluzone preservative free (6-35 mo.) [[id number]]. Migrated from OBS ; Data migrated from [employer] on 04/27/2015.2Result Comment: fluvax. Migrated from OBS ; Data migrated from [employer] on 04/27/2015. Procedures Procedure Date Related Diagnosis Body Site Status Cardiac catheterisation, left heart 06/27/18 Completed Implantation of electronic stimulator 2014 Completed in brain1 Arthroplasty 09/08/09 Completed Arthroplasty 03/26/06 Completed Reduction of fracture of upper arm with 03/26/03 Completed internal fixation2 Arthroplasty Completed Excision of benign lesion of face and Completed ears PTCA - Percutaneous transluminal Completed coronary angioplasty3 Stent placement4 Completed 1Followed by Dr Lyndon Marquez in [place].2five times33 - right coronary artery on x3 Social History Social History Type Response Substance Abuse Use: None. Exercise Self assessment: Good condition. Exercise type: NONE.1 Employment/School Status: Retired. Alcohol Current, Type Beer, Wine. Frequency: 1-2 times per month. Previous treatment: None. Smoking Status Former smoker; Ready to change: No; Concerns about tobacco use in household: No; Exposure to Tobacco Smoke None; Cigarette Smoking Last 365 Days No; Reg Smoking Cessation Counseling No entered on: 07/04/18 1NONE Assessment and Plan No data available for this section
--- OUTSIDE RECORDS SUMMARY | 2018-08-02 13:24 | XMS REPORT | Summary of Care ---
:1940 Author Organization [facility] Address [address], [place] [address]- Encounter HQ Roxane_lorelei([facility]) [id number] Date(s): 07/04/18 - 07/07/18 [facility] [address] [place] [address]- Discharge Disposition: Acute Care Attending Physician: Sandy Naranjo MD Admitting Physician: Sandy Naranjo MD Vital Signs Most recent to oldest 1 2 3 [Reference Range]: Height 172.72 cm (07/04/18 9:39 PM) Current Weight 107.136 kg (07/07/18 5:08 AM) Temperature Oral [96.4-99.1 98.5 DegF 98.5 DegF 98.5 DegF DegF] (07/07/18 11:14 AM) (07/07/18 7:26 AM) (07/07/18 3:55 AM) Blood Pressure [90-140/60-90 149/63 mmHg 154/71 mmHg 138/64 mmHg mmHg] *HI* *HI* (07/07/18 3:55 AM) (07/07/18 11:14 AM) (07/07/18 7:26 AM) Respiratory Rate [14-20 BRMIN] 17 BRMIN 18 BRMIN 18 BRMIN (07/07/18 11:14 AM) (07/07/18 7:26 AM) (07/07/18 3:55 AM) Peripheral Pulse Rate [60-100 66 bpm 69 bpm 77 bpm bpm] (07/07/18 11:14 AM) (07/07/18 7:26 AM) (07/07/18 3:55 AM) Weight 108.835 kg 108.722 kg 109.091 kg (07/06/18 5:10 AM) (07/05/18 5:20 AM) (07/04/18 9:39 PM) Body Mass Index 36.57 m2 (07/04/18 9:39 PM) Problem List Condition Effective Dates Status Health Status Informant Acid reflux(Confirmed) Active Allergic rhinitis1 03/17/13 Active Anxiety(Confirmed) Resolved Aortic stenosis(Confirmed) Active Back problem(Confirmed) Active Backache2, 3 Active Biceps tendinitis4 03/01/12 Active Bronchitis5, 6 03/17/13 Active Cancer of skin(Confirmed) Resolved Carpal tunnel syndrome7, 8, 9 01/17/12 Active CHF - Congestive heart Active failure(Confirmed) Chronic obstructive lung gdiprto87, Active 11, 12 Conduction disorder of the heart13, 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 14, 15 Congestive heart orwbzrl77, 17, 18 Active CAD (coronary artery Active disease)(Confirmed) Dizziness(Confirmed) Active Epigastric pain19, 20, 21 Active Ex-cigarette smoker(Confirmed) Resolved Frequency(Confirmed) Active Gastroesophageal reflux hgaaqma28, Active 23, 24 S/p shoulder replacement(Confirmed) Active Hard of hearing(Confirmed) Active Hypercholesterolemia(Confirmed)25, Active 26, 27 Hyperlipidemia(Confirmed) Active Hypertension(Confirmed) Active Hypertensive ofovvtzf86, 29, 30 Active Impacted jqwoymz19, 32 12/04/12 Active Incontinence of urine(Confirmed) Active Irregular heart beat(Confirmed) Active Joint pain33, 34, 35 03/17/13 Active Near syncope(Confirmed) Active Numbness of limbs(Confirmed) Active Obesity(Confirmed) Active Orthostatic hypotension(Confirmed) Active Osteoarthritis(Confirmed) Active Osteoarthritis of right Active elbow(Confirmed) Otitis dpugdus55 12/04/12 Resolved Pain in elbow37, 38, 39 04/28/13 Active Pain in upper limb40 09/04/12 Active Weakness of both lower Active limbs(Confirmed) Umslqdsetye60, 42, 43 03/17/13 Active Parkinson disease(Confirmed) Active Acutteqzwqmb67, 45, 46 10/17/12 Active Peripheral nerve , 48, 49 12/19/11 Active Mjcjfwvs87 03/11/12 Active Preoperative cardiovascular 05/26/13 Active otizbbewiob19, 52 Encounter for preoperative vascular Active examination(Confirmed) Neck problem(Confirmed) Active Rotator cuff lcjvmjhi80, 54, 55, 56, 06/27/13 Active 57 Screening - health check58, 59 01/03/12 Active Shoulder joint pain60 04/28/13 Active Sleep apnea(Confirmed) Active Sleep apnea(Confirmed) Active SOBOE - Shortness of breath on Active exertion(Confirmed) Msbhan39, 62, 63 11/06/11 Active Urge incontinence of [...] PO, Drug form: TAB, Q4H, Dosing Weight 109.091, kg, PRN Pain 1-3/Temp > 100.4 F, Start date: 07/04/18 19:59:00 CDT, Duration: 30 day , Stop date: 08/03/18 19:58:00 CDT Notes: Do not exceed 4 gm/day. (Same as: Tylenol) Start Date: 07/04/18 Stop Date: 07/07/18 Status: DiscontinuedAl hydroxide/Mg hydroxide/simethicone 30 mL, Route: PO, Drug Form: SUSP, QID, PRN GI Upset, Start date: 07/06/18 0:11: 00 CDT, Duration: 30day, Stop date: 08/05/18 0:10:00 CDT Notes: (aluminum hydroxide-magnesium hyd-simethicone [id number] 30 ml ud MARSHAL) Start Date: 07/06/18 Stop Date: 07/06/18 Status: Discontinuedalbuterol-ipratropium 2.5-0.5 mg inhalation solution 3 mL, Route: NEB, Drug Form: SOLN, Dosing Weight 109.091, kg, Q4H, PRN as needed for shortness of breath or wheezing, Start date: 07/04/18 20:14:00 CDT, Duration: 30 day, Stop date: 08/03/18 20:13:00 CDT Notes: (Same as: Duoneb) Start Date: 07/04/18 Stop Date: 07/07/18 Status: Discontinuedaspirin 81 mg tablet, enteric coated 81 mg, 1 tab, Route: PO, Drug form: ECTAB, QAM, Dosing Weight 108.722, kg, Start date: 07/06/18 9:00:00 CDT, Duration: 30 day, Stop date: 08/04/18 9:00:00 CDT Notes: Do not crush or chew.(Same As: Ecotrin) Start Date: 07/06/18 Stop Date: 07/07/18 Status: DiscontinuedBrilinta (ticagrelor) 90 mg, 1 tab, Route: PO, Drug form: TAB, BID, Dosing Weight 109.091, kg, Priority: NOW, Start date: 07/04/18 20:00:00 CDT, Duration: 30 day, Stop date: 08/03/18 17:00:00 CDT Notes: (Same as: Brilinta) Start Date: 07/04/18 Stop Date: 07/07/18 Status: Discontinuedcarbidopa-levodopa 25 mg-100 mg oral tablet 1 tab, Route: PO, Drug Form: TAB, Dosing Weight 109.091, kg, BID, Start date: 9:00:00 CDT, Duration: 30 day, Stop date: 08/03/18 17:00:00 CDT Notes: Take with milk or food. (Same As: Sinemet) Start Date: 07/05/18 Stop Date: 07/07/18 Status: DiscontinuedCo-Q10 Route: PO, Drug form: CAP, BID, Dosing Weight 108.722, kg, Start date: 07/05/18 17:00:00 CDT, Duration: 30 day, Stop date: 08/04/18 9:00:00 CDT Start Date: 07/05/18 Stop Date: 07/05/18 Status: DeletedDextrose 50% Syringe 25 gm, 50 mL, Route: IVP, Drug Form: INJ, Dosing Weight 109.091, kg, PRN, PRN Blood Glucose Results,Start date: 07/04/18 19:59:00 CDT, Duration: 30 day, Stop date: 08/03/18 19:58:00 CDT Start Date: 07/04/18 Stop Date: 07/07/18 Status: DiscontinuedDextrose 50% Syringe 12.5 gm, 25 mL, Route: IVP, Drug Form: INJ, Dosing Weight 109.091, kg, PRN, PRN Blood Glucose Results, Start date: 07/04/18 19:59:00 CDT, Duration: 30 day, Stop date: 08/03/18 19:58:00 CDT Start Date: 07/04/18 Stop Date: 07/07/18 Status: DiscontinuedDULoxetine 60 mg, 2 cap, Route: PO, Drug form: DRC, Daily, Dosing Weight 109.091, kg, Start date: 07/05/18 9:00:00 CDT, Duration: 30 day, Stop date: 08/03/18 9:00:00 CDT Notes: (Same as: Cymbalta) (Do Not Crush) Start Date: 07/05/18 Stop Date: 07/07/18 Status: Discontinuedezetimibe 10 mg, 1 tab, Route: PO, Drug form: TAB, Daily, Dosing Weight 108.722, kg, Start date: 07/06/18 9:00:00 CDT, Duration: 30 day, Stop date: 08/04/18 9:00:00 CDT Notes: (Same as: Zetia) Start Date: 07/06/18 Stop Date: 07/07/18 Status: Discontinuedgabapentin 600 mg oral tablet 600 mg, 2 cap, Route: PO, Drug form: CAP, ONCE, Dosing Weight 109.091, kg, Start date: 07/05/18 2:51:00 CDT, Stop date: 07/05/18 2:51:00 CDT Notes: (Same as: Neurontin) Start Date: 07/05/18 Stop Date: 07/05/18 Status: Completedgabapentin 600 mg oral tablet 600 mg, 2 cap, Route: PO, Drug form: CAP, BID, Dosing Weight 109.091, kg, Start date: 07/05/18 9:00:00 CDT, Duration: 30 day, Stop date: 08/03/18 17:00:00 CDT Notes: (Same as: Neurontin) Start Date: 07/05/18 Stop Date: 07/07/18 Status: DiscontinuedGI cocktail (aluminum hydroxide/magnesium hydroxide/ lidocaine/simethicone) 30 ml, Route: PO, Drug Form: SUSP, Dosing Weight 108.722, kg, QID, PRN, Routine , Start date: 07/06/18 0:04:00 CDT, Duration: 30 day, Stop date: 08/05/18 0:03: 00 CDT, Indigestion/heartburn Start Date: 07/06/18 Stop Date: 07/06/18 Status: Deletedglucagon 1 mg, Route: IM, Drug form: PDR/INJ, PRN, Dosing Weight 109.091, kg, PRN Blood Glucose Results, Start date: 07/04/18 19:59:00 CDT, Duration: 30 day, Stop date : 08/03/18 19:58:00 CDT Start Date: 07/04/18 Stop Date: 07/07/18 Status: Discontinuedheparin 5,000 unit, 1 mL, Route: SUB-Q, Drug form: INJ, Q12H, Dosing Weight 109.091, kg , Start date: 07/04/18 21:00:00 CDT, Stop date: 08/03/18 9:00:00 CDT Notes: porcine heparin Start Date: 07/04/18 Stop Date: 07/05/18 Status: Discontinuedisosorbide mononitrate 30 mg oral tablet, extended release 30 mg=1 tab, PO, QAM, 0 Refill(s) Start Date: 07/05/18 Status: Suspendedisosorbide mononitrate extended release 30 mg, 1 tab, Route: PO, Drug form: ERTAB, QAM, Dosing Weight 109.091, kg, Start date: 07/06/18 9:00:00 CDT, Duration: 30 day, Stop date: 08/04/18 9:00:00 CDT Notes: (Same as:Imdur)"Do Not Crush" Take on empty stomach/ full glass of water. Do not crush Start Date: 07/06/18 Stop Date: 07/07/18 Status: Discontinuedisosorbide mononitrate extended release 30 mg, 1 tab, Route: PO, Drug form: ERTAB, QAM, Dosing Weight 109.091, kg, Start date: 07/05/18 9:00:00 CDT, Duration: 30 day, Stop date: 08/03/18 9:00:00 CDT Notes: (Same as:Imdur)"Do Not Crush" Take on empty stomach/ full glass of water. Do not crush Start Date: 07/05/18 Stop Date: 07/05/18 Status: Discontinuedlisinopril 20 mg, 1 tab, Route: PO, Drug form: TAB, Daily, Dosing Weight 109.091, kg, Start date: 07/05/18 9:00:00 CDT, Duration: 30 day, Stop date: 08/03/18 9:00:00 CDT Notes: (Same as: Prinivil, Zestril) Start Date: 07/05/18 Stop Date: 07/05/18 Status: Discontinuedmetoprolol tartrate 12.5 mg, 0.5 tab, Route: PO, Drug form: TAB, BID, Dosing Weight 109.091, kg, Start date: 07/05/18 9:00:00 CDT, Duration: 30 day, Stop date: 08/03/18 17:00: 00 CDT Notes: (Same as: Lopressor) Start Date: 07/05/18 Stop Date: 07/07/18 Status: Discontinuedmetoprolol tartrate 25 mg oral tablet 12.5 mg=0.5 tab, PO, BID, 0 Refill(s) Start Date: 07/05/18 Status: SuspendedMiraLax 17 gm, 1 pkt, Route: PO, Drug form: PWDR, BID, Dosing Weight 108.722, kg, PRN Constipation, Start date: 07/05/18 23:25:00 CDT, Duration: 7 day, Stop date: 23:24:00 CDT Notes: Dissolve in 8 oz of water or juice.(Same as: Miralax) Start Date: 07/05/18 Stop Date: 07/07/18 Status: DiscontinuedMylanta Gas 80 mg, 1 tab, Route: CHEW, Drug form: CHEWTAB, QID-After Meals, Dosing Weight 108.722, kg, PRN Indigestion, Start date: 07/06/18 0:14:00 CDT, Duration: 30 day , Stop date: 08/05/18 0:13:00 CDT Notes: (Same as: Mylicon) Start Date: 07/06/18 Stop Date: 07/07/18 Status: DiscontinuedMylanta Gas 80 mg, 1 tab, Route: CHEW, Drug form: CHEWTAB, ONCE, Dosing Weight 109.091, kg, Priority: NOW, Startdate: 07/05/18 2:47:00 CDT, Stop date: 07/05/18 2:47:00 CDT Notes: (Same as: Mylicon) Start Date: 07/05/18 Stop Date: 07/05/18 Status: Completedondansetron 4 mg, 2 mL, Route: IVP, Drug form: INJ, Q6H, Dosing Weight 109.091, kg, PRN Nausea & Vomiting, Start date: 07/04/18 19:59:00 CDT, Duration: 30 day, Stop date: 08/03/18 19:58:00 CDT Notes: (Same as: Ina) MEDICATION WASTE Product Size: 4 mgProduct Wasted: ___ mg Start Date: 07/04/18 Stop Date: 07/07/18 Status: DiscontinuedRobitussin Cough & Congestion 10 mL, Route: PO, Drug Form: LIQ, Dosing Weight 109.091, kg, Q6H, PRN Cough/ Congestion, Start date: 07/05/18 2:48:00 CDT, Duration: 30 day, Stop date: 08/04 2:47:00 CDT Notes: (dextromethorphan-guaifenesin 10-100/5 ml LIQ) (Same as: Robitussin-DM) Start Date: 07/05/18 Stop Date: 07/07/18 Status: DiscontinuedSaline Flush 0.9% 10 mL, Route: IVP, Drug Form: INJ, Dosing Weight 109.091, kg, PRN, PRN Line Flush, Start date: 07/04/18 16:35:00 CDT, Duration: 30 day, Stop date: 08/03/18 16:34:00 CDT Notes: (Same as: BD Posiflush) Start Date: 07/04/18 Stop Date: 07/07/18 Status: DiscontinuedXylocaine Viscous 2% mucous membrane solution 15 mL, Route: PO, QID, Drug form: SOLN, PRN GI Upset, Start date: 07/06/18 0:11: 00 CDT, Duration: 30day, Stop date: 08/05/18 0:10:00 CDT Notes: (Same as: Xylocaine) Start Date: 07/06/18 Stop Date: 07/07/18 Status: Discontinued Results ELECTROLYTES Most recent to oldest [Reference Range]: 1 2 3 Sodium Lvl [135-145 mEq/L] 134 mEq/L 137 mEq/L *LOW* (07/04/18 4:42 PM) (07/07/18 11:48 AM) Potassium Lvl [3.5-5.1 mEq/L] 4.3 mEq/L 4.3 mEq/L (07/07/18 11:48 AM) (07/04/18 4:42 PM) Chloride Lvl [95-109 mEq/L] 103 mEq/L 105 mEq/L (07/07/18 11:48 AM) (07/04/18 4:42 PM) CO2 [24-32 mEq/L] 27 mEq/L 28 mEq/L (07/07/18 11:48 AM) (07/04/18 4:42 PM) AGAP [10.0-20.0 mEq/L] 8.3 mEq/L 8.3 mEq/L *LOW* *LOW* (07/07/18 11:48 AM) (07/04/18 4:42 PM) CHEM PANEL Most recent to oldest [Reference Range]: 1 2 3 Creatinine Lvl [0.50-1.40 mg/dL] 0.89 mg/dL 1.13 mg/dL (07/07/18 11:48 AM) (07/04/18 4:42 PM) eGFR 81 mL/min/1.73m2 1 61 mL/min/1.73m2 2 *NA* *NA* (07/07/18 11:48 AM) (07/04/18 4:42 PM) BUN [7-22 mg/dL] 14 mg/dL 29 mg/dL (07/07/18 11:48 AM) *HI* (07/04/18 4:42 PM) B/C Ratio [6-25] 26 *HI* (07/04/18 4:42 PM) Glucose Lvl [70-99 mg/dL] 143 mg/dL 135 mg/dL *HI* *HI* (07/07/18 11:48 AM) (07/04/18 4:42 PM) Total Protein [6.4-8.4 g/dL] 6.6 g/dL (07/04/18 4:42 PM) Albumin Lvl [3.5-5.0 g/dL] 3.0 g/dL *LOW* (07/04/18 4:42 PM) Globulin [2.7-4.2 g/dL] 3.6 g/dL (07/04/18 4:42 PM) A/G Ratio [0.7-1.6] 0.8 (07/04/18 4:42 PM) Calcium Lvl [8.5-10.5 mg/dL] 8.1 mg/dL 8.4 mg/dL *LOW* *LOW* (07/07/18 11:48 AM) (07/04/18 4:42 PM) Magnesium Lvl [1.8-2.4 mg/dL] 2.1 mg/dL (07/07/18 11:48 AM) ALT [0-65 unit/L] 30 unit/L (07/04/18 4:42 PM) AST [0-37 unit/L] 14 unit/L (07/04/18 4:42 PM) Alk Phos [39-136 unit/L] 61 unit/L (07/04/18 4:42 PM) Bili Total [0.2-1.3 mg/dL] 0.4 mg/dL (07/04/18 4:42 PM) 1Result Comment: The eGFR is calculated using [...] to oldest 1 2 3 [Reference Range]: Troponin-I [0.00-0.40 ng/mL] 0.51 ng/mL 1 0.57 ng/mL 2 0.54 ng/mL 3 *CRIT* *CRIT* *CRIT* (07/05/18 3:25 AM) (07/04/18 10:49 PM) (07/04/18 4:42 PM) BNP [<=100 pg/mL] 63 pg/mL (07/04/18 4:42 PM) 1Result Comment: Critical Result(s) called to Mary Garza RN at 07/05/2018 04:23 by AK. Read back OK.2Result Comment: Critical Result(s) called to Mary Garza RN at 07/04/2018 23:54 by AK. Read back OK.3Result Comment: Critical Result(s) called to MARAH YEE RN at 07/04/2018 17:17 by NT. Read back OK.URINE AND STOOL Most recent to oldest [Reference Range]: 1 2 3 UA Turbidity [Clear] Slight *ABN* (07/05/18 1:07 PM) UA Color [Yellow] Yellow *NA* (07/05/18 1:07 PM) UA pH [5.0-8.0] 7.0 (07/05/18 1:07 PM) UA Spec Grav [<=1.030] 1.017 (07/05/18 1:07 PM) UA Glucose [Negative] Negative *NA* (07/05/18 1:07 PM) UA Blood [Negative] Negative (07/05/18 1:07 PM) UA Ketones [Negative] Negative *NA* (07/05/18 1:07 PM) UA Protein [Negative] Negative (07/05/18 1:07 PM) UA Urobilinogen [0.1-1.0 mg/dL] <=1.0 mg/dL *NA* (07/05/18 1:07 PM) UA Bili [Negative] Negative *NA* (07/05/18 1:07 PM) UA Leuk Est [Negative] Trace *ABN* (07/05/18 1:07 PM) UA Nitrite [Negative] Negative (07/05/18 1:07 PM) UA WBC [0-5 /HPF] 5 /HPF (07/05/18 1:07 PM) UA RBC [0-2 /HPF] 1 /HPF (07/05/18 1:07 PM) UA Bacteria [None Seen /HPF] Few /HPF *NA* (07/05/18 1:07 PM) UA Sq Epi [Few /LPF] Occasional /LPF *NA* (07/05/18 1:07 PM) UA Mucus [None Seen /LPF] Few /LPF *NA* (07/05/18 1:07 PM) HEMATOLOGY Most recent to oldest [Reference Range]: 1 2 3 WBC [3.7-10.4 K/CMM] 11.5 K/CMM 10.2 K/CMM *HI* (07/04/18 4:42 PM) (07/07/18 11:48 AM) RBC [4.70-6.10 M/CMM] 4.07 M/CMM 4.23 M/CMM *LOW* *LOW* (07/07/18 11:48 AM) (07/04/18 4:42 PM) Hgb [14.0-18.0 g/dL] 12.4 g/dL 12.4 g/dL *LOW* *LOW* (07/07/18 11:48 AM) (07/04/18 4:42 PM) Hct [42.0-54.0 %] 36.0 % 37.3 % *LOW* *LOW* (07/07/18 11:48 AM) (07/04/18 4:42 PM) MCV [80.0-94.0 fL] 88.5 fL 88.2 fL (07/07/18 11:48 AM) (07/04/18 4:42 PM) MCH [27.0-31.0 pg] 30.5 pg 29.4 pg (07/07/18 11:48 AM) (07/04/18 4:42 PM) MCHC [32.0-36.0 g/dL] 34.5 g/dL 33.3 g/dL (07/07/18 11:48 AM) (07/04/18 4:42 PM) RDW [11.5-14.5 %] 15.5 % 15.2 % *HI* *HI* (07/07/18 11:48 AM) (07/04/18 4:42 PM) MPV [7.4-10.4 fL] 7.6 fL 8.1 fL (07/07/18 11:48 AM) (07/04/18 4:42 PM) Platelet [133-450 K/CMM] 262 K/CMM 253 K/CMM (07/07/18 11:48 AM) (07/04/18 4:42 PM) Segs [45.0-75.0 %] 77.5 % 70.3 % *HI* (07/04/18 4:42 PM) (07/07/18 11:48 AM) Lymphocytes [20.0-40.0 %] 9.2 % 16.4 % *LOW* *LOW* (07/07/18 11:48 AM) (07/04/18 4:42 PM) Monocytes [2.0-12.0 %] 9.4 % 9.1 % (07/07/18 11:48 AM) (07/04/18 4:42 PM) Eosinophils [0.0-4.0 %] 3.3 % 3.5 % (07/07/18 11:48 AM) (07/04/18 4:42 PM) Basophils [0.0-1.0 %] 0.6 % 0.7 % (07/07/18 11:48 AM) (07/04/18 4:42 PM) Neutrophils # [1.5-8.1 K/CMM] 8.9 K/CMM 7.2 K/CMM *HI* (07/04/18 4:42 PM) (07/07/18 11:48 AM) Lymphocytes # [1.0-5.5 K/CMM] 1.1 K/CMM 1.7 K/CMM (07/07/18 11:48 AM) (07/04/18 4:42 PM) Monocytes # [0.0-0.8 K/CMM] 1.1 K/CMM 0.9 K/CMM *HI* *HI* (07/07/18 11:48 AM) (07/04/18 4:42 PM) Eosinophils # [0.0-0.5 K/CMM] 0.4 K/CMM 0.4 K/CMM (07/07/18 11:48 AM) (07/04/18 4:42 PM) Basophils # [0.0-0.2 K/CMM] 0.1 K/CMM 0.1 K/CMM (07/07/18 11:48 AM) (07/04/18 4:42 PM) PT [12.0-14.7 seconds] 13.2 seconds (07/04/18 4:42 PM) INR [0.85-1.17] 1.02 (07/04/18 4:42 PM) PTT [22.9-35.8 seconds] 32.2 seconds (07/04/18 4:42 PM) Immunizations Given and Recorded Vaccine Date Status Refusal Reason pneumococcal 13-valent vaccine 07/01/18 Given influenza virus vaccine, inactivated1 04/02/13 Given Hx influenza vaccine-unspecified2 01/03/12 Given 1Result Comment: fluzone preservative free (6-35 mo.) [[id number]]. Migrated from OBS ; Data migrated from [employer] on 04/27/2015.2Result Comment: fluvax. Migrated from OBS ; Data migrated from [employer] on 04/27/2015. Procedures Procedure Date Related Diagnosis [...] Completed 1Followed by Dr Lyndon Marquez in [place].2five times33 - right coronary artery on x3 [...] Frequency QUIT 40 YEARS AGO; entered on: 07/07/18 1NONE Assessment and Plan Extracted from: Title: Clinical Document Author: Tello Limon MD Date: 07/07/18 [facility] Discharge Summary: Date of Admit: 07/05/18 Date of Discharge: 07/07/18 Disposition: to [facility] Admitting Diagnosis: Near Syncope Discharge Diagnosis: Near Syncope due to symptomatic severe aortic stenosis Secondary Diagnosis: NSTEMI, CAD, severe , chronic diastolic CHF, COPD, GREG, hyperlipidemia Follow Up With Rojelio Rust MD, Call for appointment, within: As Needed, reason: Cardiology Home Diet: Diet Heart Healthy Fluid Restrictions: 1.5 Liters (50 ounces) D/C medications: see medication reconcilation Activity: Ambulation with assistance Driving: None Consulting Physicians: Rojelio Rsut MD Office: Service: Cardiology, Medicine Oxygen: 2L (Liters per Minute) Please notify your physician if any of the following occur: Pain, Shortness of breath Other Information Special Home Care Instructions: 1. Consult cardiology on arrival (Dr Jackson) 2. Fall precautions Hospitalization Summary: The patient was discharged from [facility] on 07/01/18 following NSTEMI and diagnosis of severe . The patient was initially for outpatient PCI and TAVR. However, the patient developed near syncope likely d ue to symtomatic severe . Cardiology consulted and recommended transfer back to [facility] for urgent TAVR. Transfer to [facility] delayed due to bed availability. Time spent on discharge: greater than 30 minutes spent Please see hospitalist progress note from the date of discharge for additional details on physical exam and medical care. Extracted from: Title: Hospitalist PN Author: Tello Limon MD Date: 07/07/18 [facility] Hospitalist Progress Note Subjective: No adverse events, no new complaints - but patient states "I just feel terrible in general" Assessment/Plan: 1. Near syncope - worrisome for worsening symptomatic aortic stenosis - cardiology (Dr Jackson) recommends transfer back to [facility] for TAVR Sunday - home dose of metoprolol was decreased 2. recent NSTEMI, CAD - s/p LHC/PCI (06/30), right groin hematoma - ultrasound: 1. There are 2 fluid collections in the right groin underlying bruising, possibly due to hematomas. - asa, brilinta, zetia, BP meds 3. Aortic stenosis, severe - plan for TAVR on Sunday, at [facility] 4. Chronic Diastolic CHF - CXR: 1. Life-support: Stable left-sided transvenous cardiac device 2. Cardiomegaly without overt pulmonary edema 3. Hyperinflated lungs without focal consolidation - compensated 5. COPD, GREG - nebs, steroids - possible BiPAP 6. Hyperlipidemia - zetia 7. DVT/GI prophylaxis - brilinta 9. Full code - transfer to [facility] for higher level of care - pending bed availability Objective: General: Alert, NAD Cardiac: regular rate and rhythm, +murmur Lung: dminished BS bilaterally Abdomen: soft, nontender, nondistended Ext: + edema Skin: no rash Vitals and Temp: Vitals Tmp(F) Pulse BP RR SpO2 FIO2 07/07 07:26 98.5 69 154/71 18 99 --- 07/07 03:55 98.5 77 138/64 18 94 --- 07/06 22:48 98.5 67 152/81 18 98 --- 07/06 19:37 98.2 72 157/84 18 98 --- 07/06 16:12 98.2 77 123/56 20 96 --- 24 Hr Tmax: 98.5F (36.94c) at 07/07 07:26 Vital Signs are the last 5 in the past 48 hours. Medications (20) Active Scheduled Meds (8): 07/05/18 DULoxetine 60 mg PO Daily 07/06/18 aspirin (aspirin 81 mg tablet, enteric coated) 81 mg PO QAM 07/05/18 carbidopa-levodopa (carbidopa-levodopa 25 mg-100 mg oral tablet) 1 tab PO BID 07/06/18 ezetimibe 10 mg PO Daily 07/05/18 gabapentin (gabapentin 600 mg oral tablet) 600 mg PO BID 07/06/18 isosorbide mononitrate (isosorbide mononitrate extended release) 30 mg PO QAM 07/05/18 metoprolol (metoprolol tartrate) 12.5 mg PO BID 07/04/18 ticagrelor (Brilinta (ticagrelor)) 90 mg PO BID Unscheduled Meds: None PRN Meds (11): 07/04/18 Dextrose 50% in Water IV (Dextrose 50% Syringe) 12.5 gm IVP PRN 07/04/18 Dextrose 50% in Water IV (Dextrose 50% Syringe) 25 gm IVP PRN 07/04/18 acetaminophen 650 mg PO Q4H 07/04/18 albuterol-ipratropium (albuterol-ipratropium 2.5-0.5 mg inhalation solution) 3 mL NEB Q4H 07/05/18 dextromethorphan-guaiFENesin (Robitussin Cough & Congestion) 10 mL PO Q6H 07/04/18 glucagon 1 mg IM PRN 07/06/18 lidocaine topical (Xylocaine Viscous 2% mucous membrane solution) 15 mL PO QID 07/04/18 ondansetron 4 mg IVP Q6H 07/05/18 polyethylene glycol 3350 (MiraLax) 17 gm PO BID 07/06/18 simethicone (Mylanta Gas) 80 mg CHEW QID-After Meals 07/04/18 sodium chloride (Saline Flush 0.9%) 10 mL IVP PRN One Time Meds: None Continuous Infusions (1): 07/01/18 Sodium Chloride 0.9% IV 250 mL (Sodium Chloride 0.9% (titrate) 250 mL ) 250 mL To prime line and flush remaining blood products. Labs (Last four charted values) WBC 10.2 (JUL 04) Hgb L 12.4 (JUL 04) Hct L 37.3 (JUL 04) Plt 253 (JUL 04) Na 137 (JUL 04) K 4.3 (JUL 04) CO2 28 (JUL 04) Cl 105 (JUL 04) Cr 1.13 (JUL 04) BUN H 29 (JUL 04) Glucose Random H 135 (JUL 04) Ca L 8.4 (JUL 04) PT 13.2 (JUL 04) INR 1.02 (JUL 04) PTT 32.2 (JUL 04) Troponin C 0.51 (JUL 05) C 0.57 (JUL 04) C 0.54 (JUL 04) Extracted from: Title: Clinical Document Author: Sandy Naranjo MD Date: 07/04/18 History and Physical CC: presyncope HPI: 77 yo male with history of CAD s/p 3 stents to RCA 1 week ago on 06/30 presenting today for evaluation of presyncope episode. 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 His SBP he states was in 80s and repeat was up to 110s. He states that he was not feeling well when he woke up this morning with j oint and muscle aches and felt tired. He denies fevers or chills. Since his procedure he states he has been having episodes of dizziness. He has not had any N/V, diarrhea. Has been eating and hydrating well. He denies any chest pains. He tells me he was started on Metoprolol 25m BID and Isosorbide Mononitrate 60mg ER after his procedure and he has been compliant with it. Since he has been in our ED, saurabh martinez has remained normotensive. He is admitted now for further eval. PMH: CAD HTN HLD CHF PSH: arthroplasty cardiac cath coronary stenting benign lesion excision electronic brain stimulator implantation SH: former smoker; no ETOH or drug use FH: HTN, HLD runs in the family MEDS: reviewed with patient ALL: per EMR ROS: 14 point ROS negative other than mentioned in HPI PHYSICAL EXAM Vitals Tmp(F) Pulse BP RR SpO2 FIO2 07/04 19:57 ---- 71 147/59 18 95 --- 07/04 18:43 ---- 72 149/58 21 98 --- 07/04 17:38 ---- 67 147/56 19 96 --- 07/04 16:46 ---- 65 133/57 15 96 --- 07/04 16:06 98 65 138/56 22 96 --- 24 Hr Tmax: 98F (36.67c) at 07/04 16:06 Vital Signs are the last 5 in the past 48 hours. GEN - awake, alert, NAD, seems dyspneic though he denies feeling short of breath HEENT - EOMI, MMM, OP clear, PERRL NECK - supple, no LAD CV - RRR, no M/R/G CHEST - LCTAB ABD - soft, NTND, BS+ EXT - no edema SKIN - no rashes/lesions NEURO - CN grossly intact, no focal deficits DATA: Cr 1.13 BUN 29 Trop 0.54 Hgb 12.4 (baseline) CXR no acute findings CTA C/A/P on 06/28 1. 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 Recommend right lower extremity/groin arterial/venous duplex for furthe r interrogation. This finding was discussed with June on 07/01/2018 at 1150. A/P Pre syncope - noted some episodes of hypotension at cardiology clinic today though he is normotensive here - possibly from new meds introduced after cath - metoprolol? -- will lower dose of metoprolol and isosorbide - consult cardiology for eval - trend enzymes - monitor on telemetry Elevated troponin - likely trending down from last week; no acute episodes of chest pain reported - will continue to trend R groin bruising - noted to have a hematoma on CTA C/A/P done on 06/28 -- reviewed by cardiology at that admission - will order ultrasound here - H/H is stable H/O CAD - continue all home meds Aortic stenosis - plan for TAVR next week H/O diastolic CHF - euvolemic; will monitor H/O COPD - PRN nebs DVT ppx - heparin
--- OUTSIDE RECORDS SUMMARY | 2018-08-02 13:25 | XMS REPORT | Summary of Care ---
:1940 Author Organization [facility] Address [facility] [place], [place] [address]- Encounter HQ Roxane_lorelei(FIN) [id number] Date(s): 07/07/18 - 07/10/[address] [address]- Discharge Disposition: Home or Self Care Attending Physician: Luis Beckett MD Admitting Physician: Luis Beckett MD Referring Physician: Michael Jose MD Vital Signs Most recent to oldest 1 2 3 [Reference Range]: Height 170.18 cm 172.72 cm (07/07/18 3:30 PM) (07/01/18 3:15 PM) Current Weight 109 kg 110.909 kg 110.909 kg (07/09/18 5:54 AM) (07/08/18 11:48 AM) (07/08/18 5:32 AM) Temperature Oral [96.4-99.1 98.0 DegF DegF] (07/08/18 6:45 AM) Blood Pressure [90-140/60-90 126/64 mmHg 118/65 mmHg 114/58 mmHg mmHg] (07/10/18 3:00 PM) (07/10/18 11:00 AM) (07/10/18 7:15 AM) Respiratory Rate [14-20 BRMIN] 18 BRMIN 18 BRMIN 18 BRMIN (07/10/18 3:00 PM) (07/10/18 11:00 AM) (07/10/18 7:15 AM) Peripheral Pulse Rate [60-100 78 bpm 62 bpm 60 bpm bpm] (07/10/18 3:00 PM) (07/10/18 11:00 AM) (07/10/18 7:15 AM) Weight 101.909 kg 110.909 kg 109.091 kg (07/10/18 4:00 AM) (07/08/18 11:49 AM) (07/07/18 3:30 PM) Body Mass Index 37.67 m2 37.15 m2 (07/07/18 3:30 PM) (07/01/18 3:15 PM) Problem List Condition Effective Dates Status Health Status Informant Acid reflux(Confirmed) Active Allergic rhinitis1 03/17/13 Active Anxiety(Confirmed) Resolved Aortic stenosis(Confirmed) Active Back problem(Confirmed) Active Backache2, 3 Active Biceps tendinitis4 03/01/12 Active Bronchitis5, 6 03/17/13 Active Cancer of skin(Confirmed) Resolved Carpal tunnel syndrome7, 8, 9 01/17/12 Active CHF - Congestive heart Active failure(Confirmed) Chronic obstructive lung dfedizj08, Active 11, 12 Conduction disorder of the heart13, 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 14, 15 Congestive heart txyruow10, 17, 18 Active CAD (coronary artery Active disease)(Confirmed) Dizziness(Confirmed) Active Epigastric pain19, 20, 21 Active Ex-cigarette smoker(Confirmed) Resolved Frequency(Confirmed) Active Gastroesophageal reflux fwcuiwi71, Active 23, 24 S/p shoulder replacement(Confirmed) Active Hard of hearing(Confirmed) Active Hypercholesterolemia(Confirmed)25, Active 26, 27 Hyperlipidemia(Confirmed) Active Hypertension(Confirmed) Active Hypertensive bvuaawdr84, 29, 30 Active Impacted mnwlewz06, 32 12/04/12 Active Incontinence of urine(Confirmed) Active Irregular heart beat(Confirmed) Active Joint pain33, 34, 35 03/17/13 Active Near syncope(Confirmed) Active Numbness of limbs(Confirmed) Active Obesity(Confirmed) Active Orthostatic hypotension(Confirmed) Active Osteoarthritis(Confirmed) Active Osteoarthritis of right Active elbow(Confirmed) Otitis fdiwqbp58 12/04/12 Resolved Pain in elbow37, 38, 39 04/28/13 Active Pain in upper limb40 09/04/12 Active Weakness of both lower Active limbs(Confirmed) Dzuenjotthq93, 42, 43 03/17/13 Active Parkinson disease(Confirmed) Active Vgamxasthhdj83, 45, 46 10/17/12 Active Peripheral nerve nrufjrd77, 48, 49 12/19/11 Active Lsdxexoh50 03/11/12 Active Preoperative cardiovascular 05/26/13 Active vaeqbpjdgrg13, 52 Encounter for preoperative vascular Active examination(Confirmed) Neck problem(Confirmed) Active Rotator cuff mjnifmpf19, 54, 55, 56, 06/27/13 Active 57 Screening - health check58, 59 01/03/12 Active Shoulder joint pain60 04/28/13 Active Sleep apnea(Confirmed) Active Sleep apnea(Confirmed) Active SOBOE - Shortness of breath on Active exertion(Confirmed) Cqqpgz07, 62, 63 11/06/11 Active Urge incontinence of [...] Start date: 07/07/18 17:13:00 CDT, Duration: 30 day , Stop date: 08/06/18 17:12:00 CDT Notes: Do not exceed 4 gm/day. (Same as: Tylenol) Start Date: 07/07/18 Stop Date: 07/10/18 Status: Discontinuedacetaminophen-hydrocodone 325 mg-10 mg oral tablet 1 tab, Route: PO, Drug Form: TAB, Dosing Weight 109.091, kg, Q6H, PRN Pain Score 7-10, Start date: 07/08/18 8:29:00 CDT, Duration: 30 day, Stop date: 08/07 8:28:00 CDT Notes: Do not exceed 4gm/day of acetaminophen. (Same as: [place] 325/10) Start Date: 07/08/18 Stop Date: 07/09/18 Status: Discontinuedacetaminophen-hydrocodone 325 mg-5 mg oral tablet 1 tab, Route: PO, Drug Form: TAB, Dosing Weight 109.091, kg, Q4H, PRN Pain Score 4-6, Start date: 07/08/18 8:29:00 CDT, Duration: 30 day, Stop date: 8:28:00 CDT Notes: (Same as: [place] 325/5) Do not exceed 4gm/day of acetaminophen. Start Date: 07/08/18 Stop Date: 07/10/18 Status: Discontinuedalbumin human 5% intravenous solution 12.5 gm, 250 mL, 500 ml/hr, Route: IV, Drug Form: INJ, Dosing Weight 110.909, kg , ONCE, Start date: 07/08/18 14:11:00 CDT, Stop date: 07/08/18 14:11:00 CDT, Indication: Non-hemorrhagic shock Notes: LOT#: Mfg: WASTE: F/P - Red; E -Red (Same as: Mikhailar)"blood product derivative" Start Date: 07/08/18 Stop Date: 07/08/18 Status: Completedalbuterol-ipratropium 2.5-0.5 mg inhalation solution 3 ml, Route: NEB, Drug Form: SOLN, Dosing Weight 110.909, kg, RQ4H, PRN Wheezing , Start date: 07/08/18 14:59:00 CDT, Duration: 30 day, Stop date: 08/07/18 14:58 :00 CDT Notes: (Same as: Kavya) Start Date: 07/08/18 Stop Date: 07/10/18 Status: Discontinuedalbuterol-ipratropium 2.5-0.5 mg inhalation solution 3 ml, Route: NEB, Drug Form: SOLN, Dosing Weight 110.909, kg, PRN, PRN Respiratory Protocol, Start date: 07/08/18 14:59:00 CDT, Duration: 30 day, Stop date: 08/07/18 14:58:00 CDT Notes: (Same as: Kavya) Start Date: 07/08/18 Stop Date: 07/08/18 Status: Deletedaspirin 81 mg, 1 tab, Route: PO, Drug form: ECTAB, Daily, Dosing Weight 101.909, kg, Priority: NOW, Start date: 07/10/18 11:45:00 CDT, Duration: 30 day, Stop date: 08/09/18 9:00:00 CDT Notes: Do not crush or chew.(Same As: Ecotrin) Start Date: 07/10/18 Stop Date: 07/10/18 Status: DiscontinuedBD Normal Saline Flush 10 mL, Route: IVP, Drug Form: INJ, PRN, PRN Line Flush, Start date: 07/09/18 17: 58:00 CDT, Duration:30 day, Stop date: 08/08/18 17:57:00 CDT Notes: Same as: BD Posiflush Sterile Start Date: 07/09/18 Stop Date: 07/10/18 Status: DiscontinuedBD Normal Saline Flush 10 mL, Route: IVP, Drug Form: INJ, PRN, PRN Line Flush, Start date: 07/07/18 17: 34:00 CDT, Duration:30 day, Stop date: 08/06/18 17:33:00 CDT Notes: Same as: BD Posiflush Sterile Start Date: 07/07/18 Stop Date: 07/08/18 Status: Discontinuedcalcium carbonate 500 mg (200 mg elemental calcium) oral tablet 500 mg, 1 tab, Route: PO, Drug form: CHEWTAB, PRN, Dosing Weight 110.909, kg, PRN Abnormal Lab Result, FOR ICU USE ONLY, Start date: 07/08/18 14:59:00 CDT, Duration: 30 day, Stop date: 08/07/18 14:58:00 CDT Notes: (Same As: Tums)Calcium Carbonate 500 sb=000 mg elemental calcium Dose=_ mg calcium carbonate ( mg elemental calcium) Start Date: 07/08/18 Stop Date: 07/09/18 Status: Discontinuedcalcium carbonate 500 mg (200 mg elemental calcium) oral tablet 1,000 mg, 2 tab, Route: PO, Drug form: CHEWTAB, PRN, Dosing Weight 110.909, kg, PRN Abnormal Lab Result, FOR ICU USE ONLY, Start date: 07/08/18 14:59:00 CDT, Duration: 30 day, Stop date: 08/07/18 14:58:00 CDT Notes: (Same As: Tums)Calcium Carbonate 500 by=472 mg elemental calcium Dose=_ mg calcium carbonate ( mg elemental calcium) Start Date: 07/08/18 Stop Date: 07/09/18 Status: Discontinuedcalcium chloride + Sodium Chloride 0.9% IV 100 mL 2,000 mg, 20 mL, Route: IVPB, ONCE, Dosing Weight 110.909, kg, Priority: STAT, Start date: 07/08/18 14:11:00 CDT, Stop date: 07/08/18 14:11:00 CDT Notes: WASTE: F/P - Sink; E - Municipal Trash Bin Start Date: 07/08/18 Stop Date: 07/08/18 Status: Completedcalcium gluconate 1 gm, 50 mL, Route: IVPB, Drug form: INJ, PRN, Dosing Weight 110.909, kg, PRN Abnormal Lab Result, Start date: 07/08/18 14:59:00 CDT, Duration: 30 day, Stop date: 08/07/18 14:58:00 CDT, FOR ICU USE ONLY Notes: WASTE: F/P - Sink; E - Municipal Trash Bin Start Date: 07/08/18 Stop Date: 07/09/18 Status: Discontinuedcalcium gluconate 1,000 mg, 50 mL, Route: IVPB, Drug form: INJ, ONCE, Dosing Weight 110.909, kg, Start date: 07/08/18 12:52:00 CDT, Stop date: 07/08/18 12:52:00 CDT Notes: WASTE: F/P - Sink; E - Municipal Trash Bin Start Date: 07/08/18 Stop Date: 07/08/18 Status: Completedcarbidopa-levodopa 25 mg-100 mg oral tablet 1 tab, Route: PO, Drug Form: TAB, Dosing Weight 109.091, kg, BID, Start date: 18:00:00 CDT,Duration: 30 day, Stop date: 08/06/18 17:00:00 CDT Notes: Take with milk or food. (Same As: Sinemet) Start Date: 07/07/18 Stop Date: 07/10/18 Status: DiscontinuedceFAZolin 2 gm, 100 mL, Route: IVPB, Drug form: INJ, ABXQ8H, Start date: 07/08/18 20:00: 00 CDT, Duration: 1 doses or times, Stop date: 07/08/18 20:00:00 CDT, ABX Indication: Surgical Prophylaxis Notes: Same as: Ancef Start Date: 07/08/18 Stop Date: 07/08/18 Status: CompletedceFAZolin 2 gm, 100 mL, Route: IVPB, Drug form: INJ, PRE OP, Start date: 07/08/18 0:00:00 CDT, Duration: 30 day, Stop date: 08/06/18 23:59:00 CDT, ABX Indication: Surgical Prophylaxis Notes: Same as: Ancef Start Date: 07/08/18 Stop Date: 07/08/18 Status: DiscontinuedceFAZolin (ANES) Route: IV, Drug form: INJ, ONCE, Stop date: 07/08/18 10:28:00 CDT Start Date: 07/08/18 Stop Date: 07/08/18 Status: CompletedCentrum Silver Men's 1 tab, Route: PO, Dosing Weight 109.091, kg, QAM, Start date: 07/08/18 9:00:00 CDT, Duration: 30 day, Stop date: 08/06/18 9:00:00 CDT Start Date: 07/08/18 Stop Date: 07/07/18 Status: DeletedCentrum Silver Men's 1 tab, PO, QAM Start Date: 07/01/18 Status: Orderedchlorhexidine topical 0.12% liquid 15 ml, Route: S&SPIT, Q12H, Drug form: LIQ, Start date: 07/08/18 9:00:00 CDT , Duration: 2 week, Stop date: 07/21/18 21:00:00 CDT Notes: (Same As: Peridex) Start Date: 07/08/18 Stop Date: 07/08/18 Status: Discontinuedchlorhexidine topical 4% soap 1 appl, Route: BATHE, Q-M-W-F, Drug form: SOLN, Start date: 07/08/18 9:00:00 CDT , Duration: 30 day, Stop date: 08/05/18 9:00:00 CDT Notes: (Same As: Oksanaiclestarr) Start Date: 07/08/18 Stop Date: 07/10/18 Status: DiscontinuedCo-Q10 Route: PO, Drug form: CAP, BID, Dosing Weight 109.091, kg, Start date: 07/08/18 9:00:00 CDT, Duration: 30 day, Stop date: 08/06/18 17:00:00 CDT Start Date: 07/08/18 Stop Date: 07/07/18 Status: DiscontinuedCo-Q10 200 mg oral capsule 4 tabs, PO, BID Start Date: 07/01/18 Status: OrderedCymbalta 60 mg, 1 cap, Route: PO, Drug form: YADIEL, QAM, Dosing Weight 109.091, kg, Start date: 07/08/18 9:00:00 CDT, Duration: 30 day, Stop date: 08/06/18 9:00:00 CDT Notes: (Same as: Cymbalta) (Do Not Crush) Start Date: 07/08/18 Stop Date: 07/10/18 Status: DiscontinuedDextrose 50% in Water IV 50 mL, Route: IVP, Start date: 07/08/18 12:37:00 CDT, Duration: 30 day, Stop date: 08/07/18 12:36:00CDT, PRN Blood Glucose Results Start Date: 07/08/18 Stop Date: 07/10/18 Status: Discontinueddocusate 100 mg, 1 cap, Route: PO, Drug form: CAP, BID, Dosing Weight 109.091, kg, PRN Constipation, Start date: 07/08/18 8:29:00 CDT, Duration: 30 day, Stop date: 8:28:00 CDT Notes: (Same as: Colace) (Do Not Crush) Start Date: 07/08/18 Stop Date: 07/10/18 Status: Discontinueddocusate sodium 240 mg, 24 mL, Route: PO, Drug form: LIQ, Daily, Dosing Weight 109.091, kg, PRN Constipation, Start date: 07/07/18 17:17:00 CDT, Duration: 30 day, Stop date: 17:16:00 CDT Notes: (Same as: Colace) Start Date: 07/07/18 Stop Date: 07/08/18 Status: DiscontinuedDuoNeb inhalation solution 3 ml, Route: NEB, Drug Form: SOLN, Dosing Weight 109.091, kg, RQ6H, PRN Respiratory Pathway, Start date: 07/07/18 17:13:00 CDT, Duration: 30 day, Stop date: 08/06/18 17:12:00 CDT Notes: (Same as: Duoneb) Start Date: 07/07/18 Stop Date: 07/08/18 Status: DiscontinuedDuoNeb inhalation solution 3 ml, Route: NEB, Drug Form: SOLN, Dosing Weight 110.909, kg, RQ6H, Start date: 07/09/18 14:00:00 CDT, Duration: 30 day, Stop date: 08/08/18 8:00:00 CDT Notes: (Same as: Duoneb) Start Date: 07/09/18 Stop Date: 07/10/18 Status: Discontinuedezetimibe 10 mg, 1 tab, Route: PO, Drug form: TAB, Daily, Dosing Weight 109.091, kg, Start date: 07/08/18 9:00:00 CDT, Duration: 30 day, Stop date: 08/06/18 9:00:00 CDT Notes: (Same as: Zetia) Start Date: 07/08/18 Stop Date: 07/10/18 Status: Discontinuedfamotidine 20 mg, 2 mL, Route: IVP, Drug form: INJ, Q12H, Dosing Weight 110.909, kg, Start date: 07/08/18 21:00:00 CDT, Duration: 30 day, Stop date: 08/07/18 9:00:00 CDT Notes: (Same as: Pepcid)Can be dilute in 5-10cc NS IVP: Slow IV push over at least 2 minutes. Start Date: 07/08/18 Stop Date: 07/09/18 Status: Discontinuedgabapentin 600 mg oral tablet 600 mg, 2 cap, Route: PO, Drug form: CAP, Q12H, Dosing Weight 109.091, kg, Start date: 07/07/18 21:00:00 CDT, Duration: 30 day, Stop date: 08/06/18 9:00: 00 CDT Notes: (Same as: Neurontin) Start Date: 07/07/18 Stop Date: 07/10/18 Status: Discontinuedglucagon 1 mg, Route: INJ, Drug form: PDR/INJ, PRN, PRN Blood Glucose Results, Start date : 07/08/18 12:38:00 CDT, Duration: 30 day, Stop date: 08/07/18 12:37:00 CDT Start Date: 07/08/18 Stop Date: 07/10/18 Status: Discontinuedglycopyrrolate (ANES) Route: IV, Drug form: INJ, ONCE, Stop date: 07/08/18 11:09:00 CDT Start Date: 07/08/18 Stop Date: 07/08/18 Status: CompletedHaldol 2.5 mg, 0.5 mL, Route: IVP, Drug form: INJ, Q1H, Dosing Weight 110.909, kg, PRN Agitation, Priority:STAT, Start date: 07/08/18 14:11:00 CDT, Duration: 2 doses or times, Stop date: Limited # of times Notes: (Same as: Haldol) Start Date: 07/08/18 Stop Date: 07/10/18 Status: Discontinuedheparin 5,000 unit, 1 mL, Route: SUB-Q, Drug form: INJ, Q12H, Dosing Weight 110.909, kg , Start date: 07/08/18 21:00:00 CDT, Duration: 30 day, Stop date: 08/07/18 9:00: 00 CDT Notes: porcine heparin Start Date: 07/08/18 Stop Date: 07/10/18 Status: Discontinuedheparin (ANES) Route: IV, Drug form: INJ, ONCE, Stop date: 07/08/18 10:22:00 CDT Start Date: 07/08/18 Stop Date: 07/08/18 Status: CompletedHumalog 6 unit, 0.06 mL, Route: SUB-Q, Drug form: SOLN, Sliding Scale, PRN Blood Glucose Results, Start date: 07/08/18 12:37:00 CDT, Duration: 30 day, Stop date : 08/07/18 12:36:00 CDT Notes: (Same as: Humalog ) Roll in palms of hands gently; Do not shake ` vigorously. "Single PatientUse Only " WASTE: F/P - Black; E - Municipal Trash Bin Stable for 28 days at room temperature.Expires in days from Date Start Date: 07/08/18 Stop Date: 07/10/18 Status: DiscontinuedHumalog 5 unit, 0.05 mL, Route: SUB-Q, Drug form: SOLN, Sliding Scale, PRN Blood Glucose Results, Start date: 07/08/18 12:36:00 CDT, Duration: 30 day, Stop date : 08/07/18 12:35:00 CDT Notes: (Same as: Humalog ) Roll in palms of hands gently; Do not shake ` vigorously. "Single PatientUse Only " WASTE: F/P - Black; E - Municipal Trash Bin Stable for 28 days at room temperature.Expires in days from Date Start Date: 07/08/18 Stop Date: 07/10/18 Status: DiscontinuedHumalog 10 unit, 0.1 mL, Route: SUB-Q, Drug form: SOLN, Sliding Scale, PRN Blood Glucose Results, Start date: 07/08/18 12:37:00 CDT, Duration: 30 day, Stop date : 08/07/18 12:36:00 CDT Notes: (Same as: Humalog ) Roll in palms of hands gently; Do not shake ` vigorously. "Single PatientUse Only " WASTE: F/P - Black; E - Municipal Trash Bin Stable for 28 days at room temperature.Expires in days from Date Start Date: 07/08/18 Stop Date: 07/10/18 Status: DiscontinuedHumalog 7 unit, 0.07 mL, Route: SUB-Q, Drug form: SOLN, Sliding Scale, PRN Blood Glucose Results, Start date: 07/08/18 12:37:00 CDT, Duration: 30 day, Stop date : 08/07/18 12:36:00 CDT Notes: (Same as: Humalog ) Roll in palms of hands gently; Do not shake ` vigorously. "Single PatientUse Only " WASTE: F/P - Black; E - Municipal Trash Bin Stable for 28 days at room temperature.Expires in days from Date Start Date: 07/08/18 Stop Date: 07/10/18 Status: DiscontinuedIsolyte S PH 7.4 (ANES) 1000 mL Route: IV, Total Volume: 1,000, Start date: 07/08/18 8:36:00 CDT, Stop date: 9:36:00 CDT Start Date: 07/08/18 Stop Date: 07/08/18 Status: Completedisosorbide mononitrate 30 mg, 1 tab, Route: PO, Drug form: ERTAB, QAM, Dosing Weight 109.091, kg, Start date: 07/08/18 9:00:00 CDT, Duration: 30 day, Stop date: 08/06/18 9:00:00 CDT Notes: (Same as:Imdur)"Do Not Crush" Take on empty stomach/ full glass of water. Do not crush Start Date: 07/08/18 Stop Date: 07/10/18 Status: DiscontinuedLasix 20 mg, 2 mL, Route: IVP, Drug form: INJ, ONCE, Dosing Weight 110.909, kg, Priority: NOW, Start date:07/09/18 7:51:00 CDT, Stop date: 07/09/18 7:51:00 CDT Notes: (Same as: Lasix) Start Date: 07/09/18 Stop Date: 07/09/18 Status: Completedlisinopril 20 mg, 1 tab, Route: PO, Drug form: TAB, Daily, Dosing Weight 109.091, kg, Start date: 07/08/18 9:00:00 CDT, Duration: 30 day, Stop date: 08/06/18 9:00:00 CDT Notes: (Same as: Prinivil, Zestril) Start Date: 07/08/18 Stop Date: 07/10/18 Status: Discontinuedmagnesium oxide 800 mg, 2 tab, Route: PO, Drug form: TAB, PRN, Dosing Weight 110.909, kg, PRN Abnormal Lab Result, FOR ICU USE ONLY, Start date: 07/08/18 14:59:00 CDT, Duration: 30 day, Stop date: 08/07/18 14:58:00 CDT Notes: (Same as: Mag-Ox 400)Magnesium oxide 100lz=093ep elemental magnesiumDose= ____mg magnesium oxide (___mg elemental magnesium) Start Date: 07/08/18 Stop Date: 07/09/18 Status: Discontinuedmagnesium sulfate 2 gm, 50 mL, Route: IVPB, Drug form: INJ, PRN, Dosing Weight 110.909, kg, PRN Abnormal Lab Result, Start date: 07/08/18 14:59:00 CDT, Duration: 30 day, Stop date: 08/07/18 14:58:00 CDT, FOR ICU USE ONLY Notes: WASTE: F/P - Sink; E - Municipal Trash Bin Start Date: 07/08/18 Stop Date: 07/09/18 Status: Discontinuedmetoprolol tartrate 12.5 mg, 0.5 tab, Route: PO, Drug form: TAB, Q12H, Dosing Weight 109.091, kg, Start date: 07/07/18 21:00:00 CDT, Duration: 30 day, Stop date: 08/06/18 9:00: 00 CDT Notes: (Same as: Lopressor) Start Date: 07/07/18 Stop Date: 07/10/18 Status: Discontinuedmorphine Sulfate 2 mg, 0.5 mL, Route: IVP, Drug form: SOLN, ONCE, Dosing Weight 109.091, kg, Priority: STAT, Start date: 07/08/18 11:33:00 CDT, Stop date: 07/08/18 11:33:00 CDT Notes: (Same as:MORPhine Sulfate) Start Date: 07/08/18 Stop Date: 07/08/18 Status: Completedmorphine Sulfate 2 mg, 0.5 mL, Route: IVP, Drug form: SOLN, ONCE, Dosing Weight 110.909, kg, Start date: 07/08/18 14:11:00 CDT, Stop date: 07/08/18 14:11:00 CDT Notes: (Same as:MORPhine Sulfate) Start Date: 07/08/18 Stop Date: 07/08/18 Status: Completedmultivitamin with minerals 1 tab, Route: PO, Drug Form: TAB, QAM, Start date: 07/08/18 9:00:00 CDT, Duration: 30 day, Stop date: 08/06/18 9:00:00 CDT Notes: (Same as:Thera-M, Theragran-M)WASTE: F/P - Black; E - Municipal Trash Bin Give with food. Start Date: 07/08/18 Stop Date: 07/10/18 Status: Discontinuedmupirocin topical 2% ointment 1 appl, Route: NASAL, Q12H, Drug form: OINT, Start date: 07/01/18 21:00:00 CDT, Duration: 3 doses ortimes, Stop date: 07/02/18 21:00:00 CDT Start Date: 07/01/18 Stop Date: 07/02/18 Status: Completedneostigmine (ANES) Route: IV, Drug form: INJ, ONCE, Stop date: 07/08/18 11:09:00 CDT Start Date: 07/08/18 Stop Date: 07/08/18 Status: Completednorepinephrine (ANES) Route: IV, Drug form: INJ, ONCE, Stop date: 07/08/18 9:57:00 CDT Start Date: 07/08/18 Stop Date: 07/08/18 Status: CompletedNS (Bolus) IV 500 mL, 500 ml/hr, Infuse Over: 1 hr, Route: IV, 500, Drug form: INJ, ONCE, Priority: STAT, Dosing Weight 110.909 kg, Start date: 07/08/18 14:11:00 CDT, Stop date: 07/08/18 14:11:00 CDT Start Date: 07/08/18 Stop Date: 07/08/18 Status: Completedondansetron 4 mg, 2 mL, Route: IVP, Drug form: INJ, Q8H, Dosing Weight 109.091, kg, PRN Nausea & Vomiting, Start date: 07/07/18 17:13:00 CDT, Duration: 30 day, Stop date: 08/06/18 17:12:00 CDT Notes: (Same as: Ina) MEDICATION WASTE Product Size: 4 mgProduct Wasted: ___ mg Start Date: 07/07/18 Stop Date: 07/10/18 Status: Discontinuedpolyethylene glycol 3350 17 gm, 1 pkt, Route: PO, Drug form: PWDR, Daily, Dosing Weight 110.909, kg, Start date: 07/09/18 9:00:00 CDT, Duration: 30 day, Stop date: 08/07/18 9:00:00 CDT Notes: Dissolve in 8 oz of water or juice.(Same as: Miralax) Start Date: 07/09/18 Stop Date: 07/10/18 Status: Discontinuedpotassium chloride 10 mEq, 100 mL, Route: IVPB, Drug form: INJ, PRN, Dosing Weight 110.909, kg, PRN Abnormal Lab Result, Via peripheral line, Start date: 07/08/18 14:59:00 CDT , Duration: 30 day, Stop date: 08/07/18 14:58:00 CDT, FOR ICU USE ONLY Notes: Infuse at a rate of 10 mEq/hr.(Same as: KCL) Start Date: 07/08/18 Stop Date: 07/09/18 Status: Discontinuedpotassium chloride 20 mEq, 1 tab, Route: PO, Drug form: ERTAB, PRN, Dosing Weight 110.909, kg, PRN Abnormal Lab Result,Start date: 07/08/18 14:59:00 CDT, Duration: 30 day, Stop date: 08/07/18 14:58:00 CDT, FOR ICU USE ONLY Notes: (Same as: K-Dur 20)"Do Not Crush" Give with food and full glass of waterFor patients unable to swallow tablet, dissolve in one half glass of water. Allow about 2 minutes for the tablets to disintegrate. Stir before giving to prepare slurry and administer.Please exclude Patients with feedingtube less than 14 Prydeinig (Dobhoff, J-tube etc) and pediatric and patients. Start Date: 07/08/18 Stop Date: 07/09/18 Status: Discontinuedpotassium chloride 20 mEq, 100 mL, Route: IVPB, Drug form: INJ, PRN, Dosing Weight 110.909, kg, PRN Abnormal Lab Result, Via central line, Start date: 07/08/18 14:59:00 CDT, Duration: 30 day, Stop date: 08/07/18 14:58:00CDT, FOR ICU USE ONLY Notes: (Same as: KCL) Infuse no faster than 10 mEq/hr if given peripherally. Start Date: 07/08/18 Stop Date: 07/09/18 Status: Discontinuedpotassium chloride 20 mEq, 15 mL, Route: NJ, Drug form: LIQ, PRN, Dosing Weight 110.909, kg, PRN Abnormal Lab Result, Start date: 07/08/18 14:59:00 CDT, Duration: 30 day, Stop date: 08/07/18 14:58:00 CDT, FOR ICU USE ONLY Notes: (Same as: Potassium Chloride) Start Date: 07/08/18 Stop Date: 07/09/18 Status: Discontinuedpotassium chloride 20 mEq oral tablet, extended release 20 mEq, 1 tab, Route: PO, Drug form: ERTAB, QAM, Dosing Weight 109.091, kg, Start date: 07/08/18 9:00:00 CDT, Duration: 30 day, Stop date: 08/06/18 9:00:00 CDT Notes: (Same as: K-Dur 20)"Do Not Crush" Give with food and full glass of waterFor patients unable to swallow tablet, dissolve in one half glass of water. Allow about 2 minutes for the tablets to disintegrate. Stir before giving to prepare slurry and administer.Please exclude Patients with feedingtube less than 14 Prydeinig (Dobhoff, J-tube etc) and pediatric and patients. Start Date: 07/08/18 Stop Date: 07/10/18 Status: Discontinuedpotassium phosphate + Sodium Chloride 0.9% IV 250 mL 15 mmol, 5 mL, Route: IVPB, PRN, Dosing Weight 110.909, kg, PRN Abnormal Lab Result, Start date: 07/08/18 14:59:00 CDT, Duration: 30 day, Stop date: 14:58:00 CDT, FOR ICU USE ONLY Notes: (Same as: K Phosphate.)Do not infuse phosphorous concurrently in the same line as TPN or IVF that contains calcium. For double lumen central lines, phosphorous may be infused in a separate lumenfrom TPN. 1 mMol phoshate has 1.47 mEq potassium Infuse over 4 hours Start Date: 07/08/18 Stop Date: 07/09/18 Status: Discontinuedpotassium phosphate + Sodium Chloride 0.9% IV 250 mL 45 mmol, 15 mL, Route: IVPB, PRN, Dosing Weight 110.909, kg, PRN Abnormal Lab Result, Start date: 07/08/18 14:59:00 CDT, Duration: 30 day, Stop date: 14:58:00 CDT, FOR ICU USE ONLY Notes: (Same as: K Phosphate.)Do not infuse phosphorous concurrently in the same line as TPN or IVF that contains calcium. For double lumen central lines, phosphorous may be infused in a separate lumenfrom TPN. 1 mMol phoshate has 1.47 mEq potassium Infuse over 4 hours Start Date: 07/08/18 Stop Date: 07/09/18 Status: Discontinuedpotassium phosphate + Sodium Chloride 0.9% IV 250 mL 30 mmol, 10 mL, Route: IVPB, PRN, Dosing Weight 110.909, kg, PRN Abnormal Lab Result, Start date: 07/08/18 14:59:00 CDT, Duration: 30 day, Stop date: 14:58:00 CDT, FOR ICU USE ONLY Notes: (Same as: K Phosphate.)Do not infuse phosphorous concurrently in the same line as TPN or IVF that contains calcium. For double lumen central lines, phosphorous may be infused in a separate lumenfrom TPN. 1 mMol phoshate has 1.47 mEq potassium Infuse over 4 hours Start Date: 07/08/18 Stop Date: 07/09/18 Status: Discontinuedpotassium phosphate-sodium phosphate 250 mg-280 mg-160 mg oral powder for reconstitution 2 pkt, Route: PO, Drug Form: PDR/REC, Dosing Weight 110.909, kg, PRN, PRN Abnormal Lab Result, FOR ICU USE ONLY, Start date: 07/08/18 14:59:00 CDT, Duration: 30 day, Stop date: 08/07/18 14:58:00 CDT Notes: (Same as: Phos-NaK) Each 1.5 gm pkt has 250mg phosphorous. Mix w/2.5oz water and stir. Start Date: 07/08/18 Stop Date: 07/09/18 Status: Discontinuedpropofol (ANES) Route: IV, Drug form: INJ, ONCE, Stop date: 07/08/18 10:02:00 CDT Start Date: 07/08/18 Stop Date: 07/08/18 Status: Completedprotamine (ANES) Route: IV, Drug form: INJ, ONCE, Stop date: 07/08/18 11:02:00 CDT Start Date: 07/08/18 Stop Date: 07/08/18 Status: Completedrocuronium (ANES) Route: IV, Drug form: INJ, ONCE, Stop date: 07/08/18 9:57:00 CDT Start Date: 07/08/18 Stop Date: 07/08/18 Status: CompletedSaline Flush 0.9% 10 ml, Route: IVP, Drug Form: INJ, Dosing Weight 110.909, kg, Q12H, Start date: 07/08/18 21:00:00 CDT, Duration: 30 day, Stop date: 08/07/18 9:00:00 CDT Notes: Same as: BD Posiflush Sterile Start Date: 07/08/18 Stop Date: 07/09/18 Status: DiscontinuedSaline Flush 0.9% 10 ml, Route: IVP, Drug Form: INJ, Dosing Weight 110.909, kg, PRN, PRN Line Flush, Start date: 07/08/18 14:59:00 CDT, Duration: 30 day, Stop date: 08/07/18 14:58:00 CDT Notes: Same as: BD Posiflush Sterile Start Date: 07/08/18 Stop Date: 07/09/18 Status: DiscontinuedSaline Flush 0.9% 10 ml, Route: IVP, Drug Form: INJ, Dosing Weight 109.091, kg, PRN, PRN Line Flush, Start date: 07/08/18 8:29:00 CDT, Duration: 30 day, Stop date: 08/07/18 8 :28:00 CDT Notes: Same as: BD Posiflush Sterile Start Date: 07/08/18 Stop Date: 07/08/18 Status: Discontinuedsimethicone 80 mg, 1 tab, Route: PO, Drug form: CHEWTAB, Q6H, Dosing Weight 109.091, kg, PRN Gas, Start date: 07/07/18 17:13:00 CDT, Duration: 30 day, Stop date: 17:12:00 CDT Notes: (Same as: Luanne) Start Date: 07/07/18 Stop Date: 07/10/18 Status: DiscontinuedSodium Chloride 0.9% (titrate) 250 mL 250 mL, Rate: To prime line and flush remaining blood products., Dosing Weight 110.818, kg, Route: IV, Total Volume: 250, Priority: Routine, Start Date: 15:40:00 CDT, Duration: 30 day, Stop date: 07/31/18 15:39:00 CDT, Replace Every: 24 hr Start Date: 07/01/18 Stop Date: 07/07/18 Status: DeletedSodium Chloride 0.9% (titrate) 250 mL 250 mL, Rate: To prime line and flush remaining blood products., Dosing Weight 109.091, kg, Route: IV, Total Volume: 250, Start Date: 07/07/18 21:05:00 CDT, Duration: 30 day, Stop date: 08/06/18 21:04:00 CDT, Replace Every: 24 hr Start Date: 07/07/18 Stop Date: 07/10/18 Status: DiscontinuedSodium Chloride 0.9% IV 250 mL, Route: IVPB, Start date: 07/07/18 17:34:00 CDT, Duration: 30 day, Stop date: 08/06/18 17:33:00 CDT, PRN Line Flush Start Date: 07/07/18 Stop Date: 07/07/18 Status: DiscontinuedSodium Chloride 0.9% IV 750 mL 750 mL, Rate: 50 ml/hr, Infuse over: 15 hr, Route: IV, Dosing Weight 109.091 kg , Total Volume: 750, Start date: 07/08/18 8:29:00 CDT, Duration: 30 day, Stop date: 08/07/18 8:28:00 CDT, 2.3, m2 Start Date: 07/08/18 Stop Date: 07/09/18 Status: Discontinuedsodium phosphate + Sodium Chloride 0.9% IV 250 mL 45 mmol, 15 mL, Route: IVPB, PRN, Dosing Weight 110.909, kg, PRN Abnormal Lab Result, Start date: 07/08/18 14:59:00 CDT, Duration: 30 day, Stop date: 14:58:00 CDT, FOR ICU USE ONLY Notes: Infuse over 4 hour. Do not infuse phosphorous concurrently in the same line as TPN or IVF that contains calcium. For double lumen central lines, phosphorous may be infused in a separate lumen from TPN. Start Date: 07/08/18 Stop Date: 07/09/18 Status: Discontinuedsodium phosphate + Sodium Chloride 0.9% IV 250 mL 30 mmol, 10 mL, Route: IVPB, PRN, Dosing Weight 110.909, kg, PRN Abnormal Lab Result, Start date: 07/08/18 14:59:00 CDT, Duration: 30 day, Stop date: 14:58:00 CDT, FOR ICU USE ONLY Notes: Infuse over 4 hour. Do not infuse phosphorous concurrently in the same line as TPN or IVF that contains calcium. For double lumen central lines, phosphorous may be infused in a separate lumen from TPN. Start Date: 07/08/18 Stop Date: 07/09/18 Status: Discontinuedsodium phosphate + Sodium Chloride 0.9% IV 250 mL 15 mmol, 5 mL, Route: IVPB, PRN, Dosing Weight 110.909, kg, PRN Abnormal Lab Result, Start date: 07/08/18 14:59:00 CDT, Duration: 30 day, Stop date: 14:58:00 CDT, FOR ICU USE ONLY Notes: Infuse over 4 hour. Do not infuse phosphorous concurrently in the same line as TPN or IVF that contains calcium. For double lumen central lines, phosphorous may be infused in a separate lumen from TPN. Start Date: 07/08/18 Stop Date: 07/09/18 Status: Discontinuedsuccinylcholine (ANES) Route: IV, Drug form: INJ, ONCE, Stop date: 07/08/18 9:57:00 CDT Start Date: 07/08/18 Stop Date: 07/08/18 Status: Completedticagrelor 90 mg, 1 tab, Route: PO, Drug form: TAB, Q12H, Dosing Weight 101.909, kg, Priority: NOW, Start date:07/10/18 11:45:00 CDT, Duration: 30 day, Stop date: 9:00:00 CDT Notes: (Same as: Brilinta) Start Date: 07/10/18 Stop Date: 07/10/18 Status: Discontinuedtramadol 50 mg, 1 tab, Route: PO, Drug form: TAB, Q8H, Dosing Weight 110.909, kg, PRN Pain Score 6-10, Start date: 07/09/18 17:55:00 CDT, Duration: 3 day, Stop date: 07/12/18 17:54:00 CDT Notes: Not to exceed 400mg/day. (Same As: Ultram) Start Date: 07/09/18 Stop Date: 07/10/18 Status: Discontinuedvancomycin (ANES) 1000 mg Route: IV, Drug form: INJ, Start date: 07/08/18 9:13:00 CDT, Stop date: 10:13:00 CDT Start Date: 07/08/18 Stop Date: 07/08/18 Status: Completedvancomycin + Sodium Chloride 0.9% IV 500 mL 1,750 mg, Route: IVPB, PRE OP, Dosing Weight 109.091, kg, Start date: 07/07/18 22:00:00 CDT, Duration: 1 doses or times, ABX Indication: Surgical Prophylaxis Notes: TIME CRITICAL MEDICATION(Same As: Vancocin)Infusion rate< 1000 mg: infuse over 1 [id number] - 1500 mg: infuse over 1.5 [id number] - 2000 mg: infuse over 2 hours> 2001 mg: infuse over 2.5 hoursFor adult patients only: Round to nearest 250 mg per Medical Staff approval MEDICATION WASTE Product Size: 1000 mgProduct Wasted: ___ mg Start Date: 07/07/18 Stop Date: 07/08/18 Status: Discontinued Results BLOOD BANK RESULTS Most recent to oldest [Reference Range]: 1 2 3 ABO/Rh A POS A POS *Unknown* *Unknown* (07/08/18 12:34 AM) (07/01/18 3:51 PM) Antibody Scrn Negative Negative (07/08/18 12:34 AM) (07/01/18 3:51 PM) Cryo product Product available Product available (07/07/18 9:05 PM) (07/01/18 3:40 PM) FFP product Product available Product available (07/07/18 9:05 PM) (07/01/18 3:40 PM) Platelet product Product available Product available (07/07/18 9:05 PM) (07/01/18 3:40 PM) RBC product Product available 1 Product available (07/07/18 9:05 PM) (07/01/18 3:40 PM) 1Result Comment: 07/08/2018 02:12 SAMATHEW Blood available, notified FOR SURGERY at _07/08/2018 02:11 by _.ELECTROLYTES Most recent to oldest 1 2 3 [Reference Range]: Sodium Lvl [135-145 mEq/L] 136 mEq/L 136 mEq/L 137 mEq/L (07/09/18 2:27 AM) (07/08/18 11:19 AM) (07/08/18 12:34 AM) Potassium Lvl [3.5-5.1 4.4 mEq/L 4.3 mEq/L 4.4 mEq/L mEq/L] (07/09/18 2:27 AM) (07/08/18 11:19 AM) (07/08/18 12:34 AM) Chloride Lvl [95-109 mEq/L] 105 mEq/L 106 mEq/L 101 mEq/L (07/09/18 2:27 AM) (07/08/18 11:19 AM) (07/08/18 12:34 AM) CO2 [24-32 mEq/L] 22 mEq/L 20 mEq/L 27 mEq/L *LOW* *LOW* (07/08/18 12:34 AM) (07/09/18 2:27 AM) (07/08/18 11:19 AM) AGAP [10.0-20.0 mEq/L] 13.4 mEq/L 14.3 mEq/L 13.4 mEq/L (07/09/18 2:27 AM) (07/08/18 11:19 AM) (07/08/18 12:34 AM) CHEM PANEL Most recent to oldest 1 2 3 [Reference Range]: Creatinine Lvl [0.50-1.40 0.90 mg/dL 1.00 mg/dL 1.10 mg/dL mg/dL] (07/09/18 2:27 AM) (07/08/18 11:19 AM) (07/08/18 12:34 AM) eGFR 81 mL/min/1.73m2 1 71 mL/min/1.73m2 2 64 mL/min/1.73m2 3 *NA* *NA* *NA* (07/09/18 2:27 AM) (07/08/18 11:19 AM) (07/08/18 12:34 AM) BUN [7-22 mg/dL] 19 mg/dL 20 mg/dL 20 mg/dL (07/09/18 2:27 AM) (07/08/18 11:19 AM) (07/08/18 12:34 AM) B/C Ratio [6-25] 18 (07/08/18 12:34 AM) Glucose Lvl [70-99 mg/dL] 123 mg/dL 140 mg/dL 87 mg/dL *HI* *HI* (07/08/18 12:34 AM) (07/09/18 2:27 AM) (07/08/18 11:19 AM) Total Protein [6.4-8.4 6.9 g/dL g/dL] (07/08/18 12:34 AM) Albumin Lvl [3.5-5.0 g/dL] 3.0 g/dL *LOW* (07/08/18 12:34 AM) Globulin [2.7-4.2 g/dL] 3.9 g/dL (07/08/18 12:34 AM) A/G Ratio [0.7-1.6] 0.8 (07/08/18 12:34 AM) Calcium Lvl [8.5-10.5 8.7 mg/dL 7.5 mg/dL 9.1 mg/dL mg/dL] (07/09/18 2:27 AM) *LOW* (07/08/18 12:34 AM) (07/08/18 11:19 AM) Phosphorus [2.5-4.5 mg/dL] 3.9 mg/dL 3.9 mg/dL 4.0 mg/dL (07/09/18 2:27 AM) (07/08/18 11:19 AM) (07/08/18 12:34 AM) Magnesium Lvl [1.8-2.4 2.1 mg/dL 2.0 mg/dL 2.2 mg/dL mg/dL] (07/09/18 2:27 AM) (07/08/18 11:19 AM) (07/08/18 12:34 AM) ALT [0-65 unit/L] 13 unit/L (07/08/18 12:34 AM) AST [0-37 unit/L] 14 unit/L (07/08/18 12:34 AM) Alk Phos [39-136 unit/L] 68 unit/L (07/08/18 12:34 AM) Bili Total [0.2-1.3 mg/dL] 0.4 mg/dL (07/08/18 12:34 AM) 1Result Comment: The eGFR is calculated [...] eGFR should be multiplied by the estimated BMI.PARATHYROID PROFILE Most recent to oldest [Reference Range]: 1 2 3 Ca Ion WB [1.05-1.25 mMol/L] 1.20 mMol/L 0.98 mMol/L (07/09/18 2:27 AM) *LOW* (07/08/18 11:19 AM) Ca Norm WB [1.05-1.25 mMol/L] 1.19 mMol/L 0.98 mMol/L (07/09/18 2:27 AM) *LOW* (07/08/18 11:19 AM) URINE AND STOOL Most recent to oldest [Reference Range]: 1 2 3 UA Turbidity [Clear] Clear (07/01/18 4:38 PM) UA Color Ltyellow *NA* (07/01/18 4:38 PM) UA pH [5.0-8.0] 7.0 (07/01/18 4:38 PM) UA Spec Grav [<=1.030] 1.016 (07/01/18 4:38 PM) UA Glucose [Negative] Negative *NA* (07/01/18 4:38 PM) UA Blood [Negative] Negative (07/01/18 4:38 PM) UA Ketones [Negative] Negative *NA* (07/01/18 4:38 PM) UA Protein [Negative] Negative (07/01/18 4:38 PM) UA Urobilinogen [0.1-1.0 mg/dL] <=1.0 mg/dL *NA* (07/01/18 4:38 PM) UA Bili [Negative] Negative *NA* (07/01/18 4:38 PM) UA Leuk Est [Negative] Negative (07/01/18 4:38 PM) UA Nitrite [Negative] Negative (07/01/18 4:38 PM) UA WBC [0-5 /HPF] <1 /HPF (07/01/18 4:38 PM) UA RBC [0-2 /HPF] <1 /HPF (07/01/18 4:38 PM) UA Sq Epi [Few /LPF] Occasional /LPF *NA* (07/01/18 4:38 PM) UA Mucus [None Seen /LPF] Few /LPF *NA* (07/01/18 4:38 PM) HEMATOLOGY Most recent to oldest 1 2 3 [Reference Range]: WBC [3.7-10.4 K/CMM] 11.6 K/CMM 17.8 K/CMM 11.8 K/CMM *HI* *HI* *HI* (07/09/18 2:27 AM) (07/08/18 11:19 AM) (07/08/18 12:34 AM) RBC [4.70-6.10 M/CMM] 3.63 M/CMM 3.95 M/CMM 4.27 M/CMM *LOW* *LOW* *LOW* (07/09/18 2:27 AM) (07/08/18 11:19 AM) (07/08/18 12:34 AM) Hgb [14.0-18.0 g/dL] 10.9 g/dL 11.9 g/dL 12.7 g/dL *LOW* *LOW* *LOW* (07/09/18 2:27 AM) (07/08/18 11:19 AM) (07/08/18 12:34 AM) Hct [42.0-54.0 %] 32.7 % 34.7 % 38.2 % *LOW* *LOW* *LOW* (07/09/18 2:27 AM) (07/08/18 11:19 AM) (07/08/18 12:34 AM) MCV [80.0-94.0 fL] 90.1 fL 87.8 fL 89.3 fL (07/09/18 2:27 AM) (07/08/18:19 AM) (07/08/18 12:34 AM) MCH [27.0-31.0 pg] 29.9 pg 30.0 pg 29.7 pg (07/09/18 2:27 AM) (07/08/18 11:19 AM) (07/08/18 12:34 AM) MCHC [32.0-36.0 g/dL] 33.2 g/dL 34.2 g/dL 33.3 g/dL (07/09/18 2:27 AM) (07/08/18 11:19 AM) (07/08/18 12:34 AM) RDW [11.5-14.5 %] 15.6 % 15.3 % 15.5 % *HI* *HI* *HI* (07/09/18 2:27 AM) (07/08/18 11:19 AM) (07/08/18 12:34 AM) MPV [7.4-10.4 fL] 7.8 fL 7.6 fL 7.9 fL (07/09/18 2:27 AM) (07/08/18 11:19 AM) (07/08/18 12:34 AM) Platelet [133-450 K/CMM] 218 K/CMM 257 K/CMM 281 K/CMM (07/09/18 2:27 AM) (07/08/18 11:19 AM) (07/08/18 12:34 AM) Segs [45.0-75.0 %] 78.7 % 75.4 % *HI* *HI* (07/09/18 2:27 AM) (07/08/18 12:34 AM) Lymphocytes [20.0-40.0 %] 8.4 % 10.5 % *LOW* *LOW* (07/09/18 2:27 AM) (07/08/18 12:34 AM) Monocytes [2.0-12.0 %] 11.6 % 11.1 % (07/09/18 2:27 AM) (07/08/18 12:34 AM) Eosinophils [0.0-4.0 %] 1.1 % 2.7 % (07/09/18 2:27 AM) (07/08/18 12:34 AM) Basophils [0.0-1.0 %] 0.2 % 0.3 % (07/09/18 2:27 AM) (07/08/18 12:34 AM) Neutrophils # [1.5-8.1 9.2 K/CMM 8.9 K/CMM K/CMM] *HI* *HI* (07/09/18 2:27 AM) (07/08/18 12:34 AM) Lymphocytes # [1.0-5.5 1.0 K/CMM 1.2 K/CMM K/CMM] (07/09/18 2:27 AM) (07/08/18 12:34 AM) Monocytes # [0.0-0.8 1.3 K/CMM 1.3 K/CMM K/CMM] *HI* *HI* (07/09/18 2:27 AM) (07/08/18 12:34 AM) Eosinophils # [0.0-0.5 0.1 K/CMM 0.3 K/CMM K/CMM] (07/09/18 2:27 AM) (07/08/18 12:34 AM) Basophils # [0.0-0.2 0.0 K/CMM K/CMM] (07/08/18 12:34 AM) PT [12.0-14.7 seconds] 14.9 seconds 13.6 seconds 13.6 seconds *HI* (07/08/18 12:34 AM) (07/01/18 3:51 PM) (07/08/18 11:19 AM) INR [0.85-1.17] 1.19 1.06 1.06 *HI* (07/08/18 12:34 AM) (07/01/18 3:51 PM) (07/08/18 11:19 AM) Fibrinogen Lvl [230-510 712 mg/dL mg/dL] *HI* (07/08/18 11:19 AM) PTT [22.9-35.8 seconds] 33.3 seconds 36.9 seconds 34.0 seconds (07/08/18 11:19 AM) *HI* (07/01/18 3:51 PM) (07/08/18 12:34 AM) BACTERIAL - SEROLOGY Most recent to oldest [Reference Range]: 1 2 3 MRSA by PCR Negative Negative (07/08/18 12:34 AM) (07/01/18 3:51 PM) Immunizations Given and Recorded Vaccine Date Status Refusal Reason pneumococcal 13-valent vaccine 07/01/18 Given influenza virus vaccine, inactivated1 04/02/13 Given Hx influenza vaccine-unspecified2 01/03/12 Given 1Result Comment: fluzone preservative free (6-35 mo.) [[id number]]. Migrated from OBS ; Data migrated from [email or web address] on 04/27/2015.2Result Comment: fluvax. Migrated from OBS ; Data migrated from [employer] on 04/27/2015. Procedures Procedure Date Related Diagnosis [...] Completed 1Followed by Dr Lyndon Marquez in [place].2five times33 - right coronary artery on x3 [...] 1NONE Assessment and Plan Extracted from: Title: ICU Progress Note Author: Lg Valentin MD Date: 07/08/18 Impression and Plan The patient was seen and examined by me with the resident/RELEASE AND TECHNICAL RECORDS CLERK/PA and I agree with the History/Exam documented. Attending Physician note: I, Lg Valentin MD, have personally seen and examined this patient on __. My note addresses my assessment of the patient's clinical condition, my treatment plan and medical decision kelley friend and my presence, activity and involvement with this patient throughout the day. Critical Care Attending Note: - __ - Will continue IV fluids, diet and monitor labs as ordered - Patient arrived from the OR extubated and hemodynamically stable. Good urine output. Surgical sites C/D/I. Pain well controlled. Will start diet and advance as tolerated. Mobility per unit protoc ol. Patient remains critically ill and requires ICU care. A total of 30 accumulated minutes of non-continuous critical care time was spent by me today in work directly related to this individual patient's care. This includes only time spent at the immediate b edside or elsewhere on the patient's floor or unit and is exclusive of procedures.
--- NOTE | 2018-08-02 14:41 | EKG ---
Test Date: 2018-08-02 Test Time: 14:27:16 [employer] Cleaner: JAROD MEASUREMENT RESULTS: Intervals: Rate: 56 OR: 178 QRSD: 92 QT: 390 QTc: 376 Hiram: P: 16 OR: 178 QRS: 13 T: -29 INTERPRETIVE STATEMENTS: Sinus bradycardia T wave abnormality, consider inferior ischemia Abnormal ECG Compared to ECG 06/16/2018 17:40:58 T-wave abnormality now present Possible ischemia now present Sinus rhythm no longer present Electronically Signed On 08-02-18 14:40:36 CDT by Brandon Estrella
[2018-08-02 14:56] LABS: Absolute Lymphocytes (CBC) 1.3 K/uL (0.7-4.9); Absolute Monocytes 0.9 K/uL (0.1-1.3); Absolute Neutrophil 4.8 K/uL (1.8-8.0); Basophils % 0.2 % (0-1.3); Eosinophils % 2.2 % (0-4.4); Hematocrit 38.4 % (39.6-49.0); Lymphocytes % 18.2 % (15.3-44.8); RBC Red Blood Cell Count 4.24 M/uL (4.33-5.43)
[2018-08-02 14:57] LABS: Protime INR 1.11
[2018-08-02 15:13] LABS: ALT/SGPT 10 U/L (12-78); AST/SGOT 15 U/L (15-37); Albumin 3.4 g/dL (3.4-5.0); Alkaline Phosphatase 67 U/L (45-117); BUN Blood Urea Nitrogen 19 mg/dL (7-18); Bicarbonate 29 mmol/L (21-32); Bilirubin Direct < 0.1 mg/dL (0-0.2); Bilirubin Total 0.5 mg/dL (0.2-1.0); Glucose Level 108 mg/dL (74-106); Magnesium 2.4 mg/dL (1.8-2.4); NT PRO-BNP 969 pg/mL (<450); Potassium 4.2 mmol/L (3.5-5.1); Protein, Total 7.3 g/dL (6.4-8.2); Sodium Level 143 mmol/L (136-145); Troponin (Emerg Dept Use Only) < 0.02 ng/mL (0.0-0.045)
--- NOTE | 2018-08-02 15:13 | RAD REPORT ---
EXAM DESCRIPTION: RAD - Chest Single View - 08/02/2018 3:00 pm CLINICAL HISTORY: Fall, shortness of breath, chest pain COMPARISON: June 16, 2018 TECHNIQUE: AP portable chest image was obtained 1452 hours . FINDINGS: No pulmonary contusion, infiltrate or acute lung parenchymal finding. Interstitial pattern is prominent but not clearly different from the comparison. Heart and vasculature are normal. No pne umothorax is identified. There is costophrenic angle blunting on the left that may be fractionally mo re pronounced than seen on the prior study. Neurostimulator with battery pack noted on the left side of the chest. Left shoulder prosthesis in place. No acute bony abnormality seen. No acute aortic find ings suspected. IMPRESSION: No pulmonary contusion or acute lung parenchymal process. Left costophrenic angle blunting is present appearing slightly worse than the May comparison study. Small left pleural fluid collection is suspected.
--- NOTE | 2018-08-02 15:14 | RAD REPORT ---
EXAM DESCRIPTION: RAD - Knee Right 3 View - 08/02/2018 3:01 pm CLINICAL HISTORY: Fall, right knee pain COMPARISON: None. FINDINGS: No fracture, dislocation or periosteal reaction.Minimal amount of fluid is present in the joint space. There degenerative changes along the articular surface of the patella with minimal spurr ing at the quadriceps attachment. No radiographic evidence for loosening of the right total knee pros thesis. No foreign body or other soft tissue abnormality. IMPRESSION: Right total knee prosthesis is in place. No radiographic evidence for loosening. No fracture or acute findings of the mary's igloo bony structures. Minimal joint effusion.
--- NOTE | 2018-08-02 17:45 | ER ---
Nurse's Notes [facility] Name: Joey Blanco Age: 77 yrs Sex: Male : 1940 Arrival Date: 08/02/2018 Time: 13:02 Bed 26 Private MD: Nunu Hardy Diagnosis: Chronic obstructive pulmonary disease, unspecified;Contusion of right knee Presentation: 08/02 13:22 Presenting complaint: Patient states: i fell yesterday and my dog moved and tripped and tw2 fell on the right knee and its artifical and if i bend it too far it hurts, but i am in here because i cant breathe, i have been short of breath off and on for a week now. Transition of care: patient was not received from another setting of care. Onset of symptoms was August 02, 2018. Risk Assessment: Do you want to hurt yourself or someone else? Patient reports no desire to harm self or others. Initial Sepsis Screen: Does the patient meet any 2 criteria? No. Patient's initial sepsis screen is negative. Does the patient have a suspected source of infection? No. Patient's initial sepsis screen is negative. Care prior to arrival: None. 13:22 Method Of Arrival: Wheelchair tw2 13:22 Acuity: ANDRES 2 tw2 Triage Assessment: 13:25 General: Appears in no apparent distress. well groomed, Behavior is calm, cooperative, tw2 appropriate for age. Pain: Complains of pain in right knee. Respiratory: Reports shortness of breath at rest on exertion Onset: The symptoms/episode began/occurred "about a week now, but it has been off and on for a while that i get short of breath", the patient has mild shortness of breath. Historical: - Allergies: 13:29 No Known Allergies; tw2 - Home Meds: 13:29 Centrum Silver 400-250 mcg oral chew [Active]; CoQ-10 30 mg oral cap [Active]; Ventolin tw2 HFA 90 mcg/actuation Nebulizer HFAA 2 puffs every 4-6 hours [Active]; Zyrtec 10 mg Oral chew 1 tab once daily [Active]; aspirin 81 mg Oral chew 1 tab once daily [Active]; carbidopa-levodopa 25-100 mg Oral TbER 1 tab 2 times per day [Active]; docusate calcium 240 mg Oral cap 1 cap once daily [Active]; ezetimibe oral 10 mg oral 1 tab once daily [Active]; gabapentin 600 mg oral tab 1 tab 3 times per day [Active]; isosorbide mononitrate 60 mg Oral Tb24 1 tab once daily [Active]; lisinopril 20 mg Oral tab 1 tab once daily [Active]; metoprolol tartrate 25 mg Oral tab 1 tab once daily [Active]; potassium chloride 20 mEq Oral pack 1 packet 2 times per day [Active]; ticagrelor oral 90 mg oral 1 tab 2 times per day [Active]; potassium chloride 20 mEq Oral TbTQ 1 tab once daily [Active]; - PMHx: 13:29 Parkinsons; Hypertension; COPD; Diabetes - NIDDM; tw2 - PSHx: 13:29 Parkinson's Adaptive Brain Implant; face, left shoulder, right elbow surgery; right tw2 forearm; - Immunization history:: Adult Immunizations. - Social history:: Smoking status: Patient/guardian denies using tobacco. - Ebola Screening: : Patient denies travel to an Ebola-affected area in the 21 days before illness onset. Screenin:01 Abuse screen: Denies threats or abuse. Denies injuries from another. Nutritional ss screening: No deficits noted. Tuberculosis screening: Never had TB. Fall Risk Fall in past 12 months (25 points). No secondary diagnosis (0 pts). IV access (20 points). Ambulatory Aid- None/Bed Rest/Nurse Assist (0 pts). Gait- Normal/Bed Rest/Wheelchair (0 pts) Mental Status- Oriented to own ability (0 pts). Assessment: 13:45 General: Appears in no apparent distress. comfortable, Behavior is calm, cooperative, ss appropriate for age. Pain: Complains of pain in right leg and right knee Pain does not radiate. Pain currently is 4 out of 10 on a pain scale. Quality of pain is described as sharp, Pain began 2-3 days ago. Is intermittent, Aggravated by repositioning, weight bearing. Neuro: Level of Consciousness is awake, alert, obeys commands, Oriented to person, place, time, situation. Cardiovascular: Heart tones S1 S2 present Capillary refill < 3 seconds Patient's skin is warm and dry. Rhythm is sinus rhythm. Respiratory: Reports shortness of breath on exertion Airway is patent Respiratory effort is even, unlabored, Respiratory pattern is regular, symmetrical, Breath sounds are clear bilaterally. GI: Abdomen is round non-distended, Bowel sounds present X 4 quads. Abd is soft and non tender X 4 quads. : No deficits noted. No signs and/or symptoms were reported regarding the genitourinary system. EENT: No deficits noted. No signs and/or symptoms were reported regarding the EENT system. Derm: Skin is intact, is healthy with good turgor, Skin is pink, warm \\T\\ dry. Musculoskeletal: Circulation, motion, and sensation intact. Capillary refill < 3 seconds, Range of motion: limited in right knee. 15:17 Reassessment: Patient appears in no apparent distress at this time. Patient and/or ca1 family updated on plan of care and expected duration. Pain level reassessed. Patient is alert, oriented x 3, equal unlabored respirations, skin warm/dry/pink. 16:00 Reassessment: Patient appears in no apparent distress at this time. Patient and/or ca1 family updated on plan of care and expected duration. Pain level reassessed. Patient is alert, oriented x 3, equal unlabored respirations, skin warm/dry/pink. 17:02 Reassessment: Patient appears in no apparent distress at this time. Patient is alert, ca1 oriented x 3, equal unlabored respirations, skin warm/dry/pink. 18:33 Reassessment: Patient appears in no apparent distress at this time. Patient is alert, ca1 oriented x 3, equal unlabored respirations, skin warm/dry/pink. Pt eating sandwich and juice. Pt tolerated well. Vital Signs: 13:24 BP 140 / 63; Pulse 57; Resp 19; Temp 97.8(O); Pulse Ox 98% on R/A; Weight 108.86 kg tw2 (R); Height 5 ft. 7 in. (170.18 cm); Pain 0/10; 14:47 BP 161 / 57; Pulse 59; Resp 17 S; Temp 98(O); Pulse Ox 97% on R/A; ss 15:17 BP 167 / 66; Pulse 73; Resp 16 S; Temp 97.9(O); Pulse Ox 99% on R/A; ca1 15:59 BP 182 / 75; Pulse 61; Resp 17 S; Temp 98(O); Pulse Ox 98% on R/A; ca1 17:02 BP 172 / 93; Pulse 66; Resp 18; Temp 98(O); Pulse Ox 98% on R/A; Pain 0/10; mg2 17:45 BP 188 / 63; Pulse 63; Resp 18 S; Temp 98(O); Pulse Ox 98% on R/A; ca1 18:15 BP 174 / 76; Pulse 68; Resp 16 S; Temp 98.2(O); Pulse Ox 100% on R/A; ca1 13:24 Body Mass Index 37.59 (108.86 kg, 170.18 cm) tw2 13:24 "if i move it its a 10" tw2 ED Course: 13:02 Patient arrived in ED. mr 13:03 Nunu Hardy MD is Private Physician. mr 13:24 Triage completed. tw2 13:25 Arm band placed on. tw2 13:37 Tarah Simms, YAMILKA is Primary Nurse. ca1 13:45 Placed in gown. Side rails up X2. groundwater monitoring technician on. Pulse ox on. NIBP on. Warm ss blanket given. 14:02 Patient has correct armband on for positive identification. Bed in low position. Call ss light in reach. 14:08 Moises Rosa, POLLY is PHCP. pm1 14:08 Gio Adkins MD is Attending Physician. pm1 14:27 EKG done, by experimental technician. dt2 15:01 XRAY Chest (1 view) In Process Unspecified. EDMS 15:01 Knee Right 3 View XRAY In Process Unspecified. EDMS 18:43 No provider procedures requiring assistance completed. IV discontinued, intact, mg2 bleeding controlled, No redness/swelling at site. Pressure dressing applied. Administered Medications: 17:53 Drug: predniSONE 60 mg Route: PO; ca1 18:24 Follow up: Response: No adverse reaction; Marked relief of symptoms mg2 18:01 Drug: Albuterol 2.5 mg Route: Inhalation; mg2 18:24 Follow up: Response: No adverse reaction; Marked relief of symptoms mg2 18:01 Drug: AtroVENT Aerosol 0.5 mg Route: Inhalation; mg2 18:24 Follow up: Response: No adverse reaction; Marked relief of symptoms mg2 Outcome: 17:44 Discharge ordered by . pm1 18:43 Discharged to home via wheelchair. mg2 18:43 Condition: stable 18:43 Discharge instructions given to patient, Instructed on discharge instructions, follow up and referral plans. medication usage, Demonstrated understanding of instructions, follow-up care, medications, Prescriptions given X 2. 18:44 Patient left the ED. mg2 Signatures: Dispatcher [employer] Puja ValenzuelaKathrine RN RN ss Moises Rosa, CHILD CARE COOK CHILD CARE COOK pm1 Haleigh Dodd RN RN tw2 Tr Álvarez RN RN mg2 Tsering Mauro dt2 Tarah Simms RN RN ca1 Corrections: (The following items were deleted from the chart) 14:03 14:03 No provider procedures requiring assistance completed. [facility] 14:03 14:03 Patient did not have IV access during this emergency room visit. [facility]
--- NOTE | 2018-08-02 17:45 | EDPHYS ---
Physician Documentation [facility] Name: Joey Blanco Age: 77 yrs Sex: Male : 1940 Arrival Date: 08/02/2018 Time: 13:02 Bed 26 Private MD: Nunu Hardy ED Physician Gio Adkins HPI: 08/02 18:06 This 77 yrs old Male presents to ER via Wheelchair with complaints of pm1 Shortness Of Breath, Fall Injury. 18:06 The patient has shortness of breath at rest. Onset: The symptoms/episode began/occurred pm1 3 month(s) ago, and became worse 3 month(s) ago, Patient with history of COPD. Does not use inhalers because he feels that they are ineffective. Duration: The symptoms are chronic, and have existed for years, are continuous. The patient's shortness of breath is aggravated by nothing, is alleviated by nothing. Associated signs and symptoms: Pertinent negatives: chest pain, non-productive cough, productive cough, diaphoresis, fever, nausea, vomiting. Severity of symptoms: in the emergency department the symptoms are unchanged. The patient has experienced similar episodes in the past, chronically. The patient has been recently seen by a physician: Cardiac stent placement 1 month ago. Patient with fall injury yesterday to right knee. No head injury, headache, LOC, nausea or vomiting. Historical: - Allergies: 13:29 No Known Allergies; tw2 - Home Meds: 13:29 Centrum Silver 400-250 mcg oral chew [Active]; CoQ-10 30 mg oral cap [Active]; Ventolin tw2 HFA 90 mcg/actuation Nebulizer HFAA 2 puffs every 4-6 hours [Active]; Zyrtec 10 mg Oral chew 1 tab once daily [Active]; aspirin 81 mg Oral chew 1 tab once daily [Active]; carbidopa-levodopa 25-100 mg Oral TbER 1 tab 2 times per day [Active]; docusate calcium 240 mg Oral cap 1 cap once daily [Active]; ezetimibe oral 10 mg oral 1 tab once daily [Active]; gabapentin 600 mg oral tab 1 tab 3 times per day [Active]; isosorbide mononitrate 60 mg Oral Tb24 1 tab once daily [Active]; lisinopril 20 mg Oral tab 1 tab once daily [Active]; metoprolol tartrate 25 mg Oral tab 1 tab once daily [Active]; potassium chloride 20 mEq Oral pack 1 packet 2 times per day [Active]; ticagrelor oral 90 mg oral 1 tab 2 times per day [Active]; potassium chloride 20 mEq Oral TbTQ 1 tab once daily [Active]; - PMHx: 13:29 Parkinsons; Hypertension; COPD; Diabetes - NIDDM; tw2 - PSHx: 13:29 Parkinson's Adaptive Brain Implant; face, left shoulder, right elbow surgery; right tw2 forearm; - Immunization history:: Adult Immunizations. - Social history:: Smoking status: Patient/guardian denies using tobacco. - Ebola Screening: : Patient denies travel to an Ebola-affected area in the 21 days before illness onset. ROS: 18:06 Constitutional: Negative for fever, chills, and weight loss, Eyes: Negative for injury, pm1 pain, redness, and discharge, ENT: Negative for injury, pain, and discharge, Neck: Negative for injury, pain, and swelling, Cardiovascular: Negative for chest pain, palpitations, and edema. 18:06 Abdomen/GI: Negative for abdominal pain, nausea, vomiting, diarrhea, and constipation, Back: Negative for injury and pain, : Negative for injury, bleeding, discharge, and swelling. 18:06 Skin: Negative for injury, rash, and discoloration, Neuro: Negative for headache, weakness, numbness, tingling, and seizure. 18:06 Respiratory: Positive for shortness of breath, Negative for cough, sputum production, wheezing. 18:06 MS/extremity: Positive for pain, of the right knee, Negative for decreased range of motion, deformity. Exam: 14:30 ECG: Sinus bradycardia 56 BPM pm1 18:06 Constitutional: This is a well developed, well nourished patient who is awake, alert, pm1 and in no acute distress. Head/Face: Normocephalic, atraumatic. Eyes: Pupils equal round and reactive to light, extra-ocular motions intact. Lids and lashes normal. Conjunctiva and sclera are non-icteric and not injected. Cornea within normal limits. Periorbital areas with no swelling, redness, or edema. ENT: Nares patent. No nasal discharge, no septal abnormalities noted. Tympanic membranes are normal and external auditory canals are clear. Oropharynx with no redness, swelling, or masses, exudates, or evidence of obstruction, uvula midline. Mucous membranes moist. Neck: Trachea midline, no thyromegaly or masses palpated, and no cervical lymphadenopathy. Supple, full range of motion without nuchal rigidity, or vertebral point tenderness. No Meningismus. Chest/axilla: Normal chest wall appearance and motion. Nontender with no deformity. No lesions are appreciated. Cardiovascular: Regular rate and rhythm with a normal S1 and S2. No gallops, murmurs, or rubs. Normal PMI, no JVD. No pulse deficits. Respiratory: Lungs have equal breath sounds bilaterally, clear to auscultation and percussion. No rales, rhonchi or wheezes noted. No increased work of breathing, no retractions or nasal flaring. Abdomen/GI: Soft, non-tender, with normal bowel sounds. No distension or tympany. No guarding or rebound. No evidence of tenderness throughout. Back: No spinal tenderness. No costovertebral tenderness. Full range of motion. Skin: Warm, dry with normal turgor. Normal color with no rashes, no lesions, and no evidence of cellulitis. 18:06 Musculoskeletal/extremity: Extremities: grossly normal except: noted in the right knee: tenderness, There is no evidence of decreased ROM, deformity. 18:06 Neuro: Orientation: is normal, Motor: is normal, moves all fours. Vital Signs: 13:24 BP 140 / 63; Pulse 57; Resp 19; Temp 97.8(O); Pulse Ox 98% on R/A; Weight 108.86 kg tw2 (R); Height 5 ft. 7 in. (170.18 cm); Pain 0/10; 14:47 BP 161 / 57; Pulse 59; Resp 17 S; Temp 98(O); Pulse Ox 97% on R/A; ss 15:17 BP 167 / 66; Pulse 73; Resp 16 S; Temp 97.9(O); Pulse Ox 99% on R/A; ca1 15:59 BP 182 / 75; Pulse 61; Resp 17 S; Temp 98(O); Pulse Ox 98% on R/A; ca1 17:02 BP 172 / 93; Pulse 66; Resp 18; Temp 98(O); Pulse Ox 98% on R/A; Pain 0/10; mg2 17:45 BP 188 / 63; Pulse 63; Resp 18 S; Temp 98(O); Pulse Ox 98% on R/A; ca1 18:15 BP 174 / 76; Pulse 68; Resp 16 S; Temp 98.2(O); Pulse Ox 100% on R/A; ca1 13:24 Body Mass Index 37.59 (108.86 kg, 170.18 cm) tw2 13:24 "if i move it its a 10" tw2 MDM: 14:09 Patient medically screened. pm1 17:39 Data reviewed: vital signs. Data interpreted: Pulse oximetry: on room air is 98 %. pm1 Interpretation: normal. Counseling: I had a detailed discussion with the patient and/or guardian regarding: the historical points, exam findings, and any diagnostic results supporting the discharge/admit diagnosis, lab results, radiology results, the need for outpatient follow up, to return to the emergency department if symptoms worsen or persist or if there are any questions or concerns that arise at home. 08/02 14:16 Order name: Basic Metabolic Panel; Complete Time: 15:31 pm08/02 14:16 Order name: CBC with Diff; Complete Time: 15:03 pm08/02 14:16 Order name: LFT's; Complete Time: 15: pm08/02 14:16 Order name: Magnesium; Complete Time: 15: pm08/02 14:16 Order name: NT PRO-BNP; Complete Time: 15:31 pm08/02 14:16 Order name: PT-INR; Complete Time: 15:06 pm08/02 14:16 Order name: Troponin (emerg Dept Use Only); Complete Time: 15:31 pm08/02 14:16 Order name: XRAY Chest (1 view); Complete Time: 15:31 pm08/02 14:16 Order name: EKG; Complete Time: 14:18 pm08/02 14:16 Order name: Cardiac monitoring; Complete Time: 14:37 pm08/02 14:17 Order name: Knee Right 3 View XRAY; Complete Time: 15:31 pm08/02 14:16 Order name: EKG - Nurse/Tech; Complete Time: 14:37 pm08/02 14:16 Order name: IV Saline Lock; Complete Time: 14:37 pm1 08/02 14:16 Order name: Labs collected and sent; Complete Time: 14:38 pm1 08/02 14:16 Order name: O2 Per Protocol; Complete Time: 14:38 pm1 08/02 14:16 Order name: O2 Sat Monitoring; Complete Time: 14:38 pm1 Administered Medications: 17:53 Drug: predniSONE 60 mg Route: PO; ca1 18:24 Follow up: Response: No adverse reaction; Marked relief of symptoms mg2 18:01 Drug: Albuterol 2.5 mg Route: Inhalation; mg2 18:24 Follow up: Response: No adverse reaction; Marked relief of symptoms mg2 18:01 Drug: AtroVENT Aerosol 0.5 mg Route: Inhalation; mg2 18:24 Follow up: Response: No adverse reaction; Marked relief of symptoms mg2 Disposition: 08/02/18 17:44 Discharged to Home. Impression: Chronic obstructive pulmonary disease, unspecified, Contusion of right knee. - Condition is Stable. - Discharge Instructions: Chronic Obstructive Pulmonary Disease, How to Use an Inhaler. - Prescriptions for Medrol (Seferino) 4 mg Oral Tablets, Dose Pack - take 1 tablet by ORAL route as directed - follow package instructions; 1 packet. Albuterol Sulfate 90 mcg/actuation - inhale 1-2 puff by INHALATION route every 4-6 hours; 1 Inhaler. - Medication Reconciliation Form, Thank You Letter, Antibiotic Education, Prescription Opioid Use form. - Follow up: Emergency Department; When: As needed; Reason: Worsening of condition. Follow up: Private Physician; When: 2 - 3 days; Reason: Recheck today's complaints, Continuance of care, Re-evaluation by your physician. - Problem is new. - Symptoms have improved. Addendum: 08/03/2018 19:33 Co-signature as Attending Physician, Gio Adkins MD I agree with the assessment and k dr plan of care. Signatures: Dispatcher [employer] EDTN Gio Akdins MD MD [facility] Moises Rosa, POLLY SPRAYER MACHINE pm1 Haleigh Dodd RN RN tw2 Tr Álvarez, YAMILKA RN mg2 Tarah Simms RN RN ca1 Corrections: (The following items were deleted from the chart) 08/02 18:06 17:44 08/02/2018 17:44 Discharged to Home. Impression: Chronic obstructive pulmonary pm1 disease, unspecified. Condition is Stable. Forms are Medication Reconciliation Form, Thank You Letter, Antibiotic Education, Prescription Opioid Use. Follow up: Emergency Department; When: As needed; Reason: Worsening of condition. Follow up: Private Physician; When: 2 - 3 days; Reason: Recheck today's complaints, Continuance of care, Re-evaluation by your physician. Problem is new. Symptoms have improved. pm1 18:44 18:06 08/02/2018 17:44 Discharged to Home. Impression: Chronic obstructive pulmonary mg2 disease, unspecified; Contusion of right knee. Condition is Stable. Discharge Instructions: Chronic Obstructive Pulmonary Disease, How to Use an Inhaler. Prescriptions for Medrol (Seferino) 4 mg Oral Tablets, Dose Pack - take 1 tablet by ORAL route as directed - follow package instructions; 1 packet, Albuterol Sulfate 90 mcg/actuation - inhale 1-2 puff by INHALATION route every 4-6 hours; 1 Inhaler. and Forms are Medication Reconciliation Form, Thank You Letter, Antibiotic Education, Prescription Opioid Use. Follow up: Emergency Department; When: As needed; Reason: Worsening of condition. Follow up: Private Physician; When: 2 - 3 days; Reason: Recheck today's complaints, Continuance of care, Re-evaluation by your physician. Problem is new. Symptoms have improved. pm1
[2018-08-02] MEDS ORDERED: ALBUTEROL 2.5 MG/3 ML NEB SOL ONE (18:07)
[2018-08-02] MEDS ORDERED: predniSONE 20 MG TAB ONE (18:07)
[2018-08-02] MEDS ORDERED: IPRATROPIUM BROM 0.5MG/2.5ML ONE (18:07)
== END 2018-08-02 18:44 | disposition home or self-care (01) ==
LOC: ER 12:58
DX: J44.9 Chronic obstructive pulmonary disease, unspecified (principal); S80.01XA Contusion of right knee, initial encounter; G20 Parkinson's disease; I10 Essential (primary) hypertension; E11.9 Type 2 diabetes mellitus without complications
CPT/HCPCS: 36415; 71045; 80048; 80076; 83735; 83880; 84484; 85025; 85610; 93005; 99285; J7512

== ENCOUNTER 2019-03-24 19:44 | Emergency (ER) | payer OTHER ==
[2019-03-24] MEDS ORDERED: TETANUS & DIPHTHERIA TOX,ADULT 0.5 ML VIAL ONE (20:02)
--- NOTE | 2019-03-24 20:17 | RAD REPORT ---
EXAM DESCRIPTION: CT - Head C Spine Mpr Wo Con - 03/24/2019 7:58 pm CLINICAL HISTORY: Head and neck injury status post fall. Head and neck pain COMPARISON: None. TECHNIQUE: Computed axial tomography of the head and cervical spine was obtained. Sagittal and coronal reconstruction was performed. All CT scans are performed using dose optimization technique as appropriate and may include automated exposure control or mA/KV adjustment according to patient size. FINDINGS: Brain stimulators in place. Artifact from the hardware does obscure detail somewhat within left cerebrum. An intracranial bleed is not seen. The ventricles are normal in caliber. An extra-axial fluid collect ion is not noted.Fluid within the visualized sinuses and mastoids is not seen A cervical fracture is not visualized. No dislocation is noted. Anterior fusion involves C5 and C6. 5.3 centimeter lipoma is present within the left posterior subcutaneous tissues of the neck IMPRESSION: No gross acute intracranial abnormality seen A cervical fracture is not visualized.
--- NOTE | 2019-03-24 20:41 | ER ---
Nurse's Notes [facility] Name: Joey Blanco Age: 78 yrs Sex: Male : 1940 Arrival Date: 03/24/2019 Time: 19:46 Bed 6 Private MD: Diagnosis: Head injury. Laceration left parietal scalp. S/P Fall Presentation: 03/24 19:53 Presenting complaint: EMS states: they were toned out for report of pt having fallen bb hitting his head on a brick fireplace with LOC and receiving a laceration. Care prior to arrival: None. Mechanism of Injury: Fall from standing position. Trauma event details: Injury occurred in the [facility], Injury occurred: at home. Injury occurred: March 24, 2019. 19:53 Acuity: ANDRES 2 bb 19:53 Method Of Arrival: EMS: [facility] bb 19:59 Transition of care: patient was not received from another setting of care. Onset of bb symptoms was March 24, 2019. Risk Assessment: Do you want to hurt yourself or someone else? Patient reports no desire to harm self or others. Initial Sepsis Screen: Does the patient meet any 2 criteria? No. Patient's initial sepsis screen is negative. Does the patient have a suspected source of infection? No. Patient's initial sepsis screen is negative. Care prior to arrival: Glucose check: 165. Trauma Activation: Physician: ED Physician; Name: Chace; Notified At: ; Arrived At: Physician: General Surgeon; Name: ; Notified At: ; Arrived At: Physician: Radiology; Name: ; Notified At: ; Arrived At: Physician: Respiratory; Name: ; Notified At: ; Arrived At: Physician: Lab; Name: ; Notified At: ; Arrived At: Historical: - Home Meds: 20:02 aspirin 81 mg Oral chew 1 tab once daily [Active]; carbidopa-levodopa 25-100 mg Oral bb TbER 1 tab 2 times per day [Active]; Centrum Silver 400-250 mcg Oral chew [Active]; CoQ-10 30 mg Oral cap [Active]; docusate calcium 240 mg Oral cap 1 cap once daily [Active]; ezetimibe 10 mg Oral 1 tab once daily [Active]; gabapentin 600 mg Oral tab 1 tab 3 times per day [Active]; isosorbide mononitrate 60 mg Oral Tb24 1 tab once daily [Active]; lisinopril 20 mg Oral tab 1 tab once daily [Active]; metoprolol tartrate 25 mg Oral tab 1 tab once daily [Active]; potassium chloride 20 mEq Oral pack 1 packet 2 times per day [Active]; potassium chloride 20 mEq Oral TbTQ 1 tab once daily [Active]; ticagrelor 90 mg Oral 1 tab 2 times per day [Active]; Ventolin HFA 90 mcg/actuation Nebulizer HFAA 2 puffs every 4-6 hours [Active]; Zyrtec 10 mg Oral chew 1 tab once daily [Active]; - PMHx: 20:02 COPD; Diabetes - NIDDM; Hypertension; Parkinsons; bb - PSHx: 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 - Social history:: Smoking status: unknown. - Ebola Screening: : No symptoms or risks identified at this time. Screenin:53 Abuse screen: Denies threats or abuse. Tuberculosis screening: No symptoms or risk bb factors identified. 20:35 Nutritional screening: No deficits noted. Fall Risk Fall in past 12 months (25 points). bb Secondary diagnosis (15 points) impaired mobility, No IV (0 pts). Ambulatory Aid- None/Bed Rest/Nurse Assist (0 pts). Mental Status- Overestimates/Forgets Limitations (15 pts.). Total Pham Fall Scale indicates High Risk Score (45 or more points). Fall prevention measures have been instituted. Side Rails Up X 2 As available patient and family educated on Fall Prevention Program and Strategies. Primary Survey: 19:53 NO uncontrolled hemorrhage observed. A: The patient is alert. Airway: patent. bb Breathing/Chest: Respiratory pattern: regular, Respiratory effort: spontaneous, unlabored, Chest inspection: symmetrical rise and fall of the chest. Circulation: Heart tones present. Disability Alert. Exposure/Environment: All clothing and personal items were removed. Forensic evidence collection is not deemed to be indicated at this time. Items placed in patient belonging bag. 20:35 Reassessment Airway Airway Patent Breathing/Chest Respiratory pattern Regular bb Respiratory effort Spontaneous Unlabored Circulation Heart tones Present Disability Alert. Secondary Survey: 19:53 HEENT: Head Other laceration to left occipital area. Gastrointestinal: No deficits bb noted. : No deficits noted. Musculoskeletal: Circulation, motion, and sensation intact. Assessment: 19:53 General: Appears in no apparent distress. Behavior is calm, cooperative. Pain: bb Complains of pain in head. Neuro: Level of Consciousness is awake, alert, obeys commands, Oriented to person, place, situation. Cardiovascular: Heart tones S1 S2 present. Respiratory: Respiratory effort is even, unlabored, Respiratory pattern is regular. GI: No deficits noted. No signs and/or symptoms were reported involving the gastrointestinal system. Derm: Wound noted left occipital area. Musculoskeletal: Circulation, motion, and sensation intact. 20:34 Reassessment: Dr Mas at bedside placed 3 ry to laceration pt tolerated well. Pt is bb A\T\O x 4, resp unlabored, awaiting CT results. 21:30 Reassessment: Patient is alert, oriented x 3, equal unlabored respirations, skin bb warm/dry/pink. ry intact, pt's son at bedside for transportation home pt and son verbalized understanding of and agrees to plan of care pt assisted to exit via wheelchair. Vital Signs: 19:53 BP 131 / 114; Pulse 63; Resp 16 S; Temp 98.3(O); Pulse Ox 95% on R/A; Weight 132 kg bb (R); Height 5 ft. 7 in. (170.18 cm) (R); 20:35 BP 134 / 113; Pulse 73; Resp 18 S; Pulse Ox 94% on R/A; bb 21:30 BP 140 / 39; Pulse 77; Resp 16 S; Temp 98.5(O); Pulse Ox 97% on R/A; bb 19:53 Body Mass Index 45.58 (132.00 kg, 170.18 cm) bb [place] Coma Score: 19:53 Eye Response: spontaneous(4). Verbal Response: oriented(5). Motor Response: obeys bb commands(6). Total: 15. Trauma Score (Adult): 19:53 Eye Response: spontaneous(1); Verbal Response: oriented(1); Motor Response: obeys bb commands(2); Systolic BP: > 89 mm Hg(4); Respiratory Rate: 10 to 29 per min(4); [place] Score: 15; Trauma Score: 12 ED Course: 19:46 Patient arrived in ED. cl3 19:48 Cj Mas MD is Attending Physician. pkl 19:53 Patient has correct armband on for positive identification. Placed in gown. Bed in low bb position. Call light in reach. Side rails up X2. 19:53 Patient maintains SpO2 saturation greater than 95% on room air. bb 19:55 Triage completed. bb 19:55 Patient placed in an exam room, on a stretcher, on pulse oximetry. bb 20:02 Thermoregulation: warm blanket given to patient. bb 20:13 CT Head C Spine In Process Unspecified. EDMS 20:31 Verónica Stevenson, RN is Primary Nurse. bb 20:36 Assist provider with laceration repair on left occipital area that was between 2.6 to bb 7.5 cm using ry. Performed by Cj Mas MD Dressed with Neosporin, Patient tolerated well. 21:30 Patient did not have IV access during this emergency room visit. bb Administered Medications: 20:15 Drug: Tetanus-Diphtheria Toxoid Adult 0.5 ml {[employer] Supervisor: [place]. Exp: bb 02/13/2021. Lot #: [id number]. } Route: IM; Site: right deltoid; 21:37 Follow up: Response: No adverse reaction bb Intake: 19:53 PO: 0ml; Total: 0ml. bb Outcome: 20:40 Discharge ordered by . pkl 21:38 Discharged to home via wheelchair, with family. bb 21:38 Condition: stable 21:38 Discharge instructions given to patient, family, Instructed on discharge instructions, follow up and referral plans. medication usage, Demonstrated understanding of instructions, follow-up care, medications. 21:39 Patient's length of stay was not longer than 2 hours. bb 21:39 Patient left the ED. bb Signatures: Dispatcher [employer] EDMS Cj Mas MD MD pkVerónica Mark, RN RN Yelena Hines cl3
--- NOTE | 2019-03-24 20:41 | EDPHYS ---
Physician Documentation [facility] Name: Joey Blanco Age: 78 yrs Sex: Male : 1940 Arrival Date: 03/24/2019 Time: 19:46 Bed 6 Private MD: ED Physician Cj Mas HPI: 03/24 20:31 This 78 yrs old Male presents to ER via EMS with complaints of Fall Injury. pkl 20:31 Details of fall: The patient fell from an upright position, while standing. Onset: The pkl symptoms/episode began/occurred just prior to arrival. Associated injuries: The patient sustained injury to the head, contusion, laceration, neck injury, pain with movement. Patient fell and hit head against brick fireplace. Historical: - Home Meds: 20:02 aspirin 81 mg Oral chew 1 tab once daily [Active]; carbidopa-levodopa 25-100 mg Oral bb TbER 1 tab 2 times per day [Active]; Centrum Silver 400-250 mcg Oral chew [Active]; CoQ-10 30 mg Oral cap [Active]; docusate calcium 240 mg Oral cap 1 cap once daily [Active]; ezetimibe 10 mg Oral 1 tab once daily [Active]; gabapentin 600 mg Oral tab 1 tab 3 times per day [Active]; isosorbide mononitrate 60 mg Oral Tb24 1 tab once daily [Active]; lisinopril 20 mg Oral tab 1 tab once daily [Active]; metoprolol tartrate 25 mg Oral tab 1 tab once daily [Active]; potassium chloride 20 mEq Oral pack 1 packet 2 times per day [Active]; potassium chloride 20 mEq Oral TbTQ 1 tab once daily [Active]; ticagrelor 90 mg Oral 1 tab 2 times per day [Active]; Ventolin HFA 90 mcg/actuation Nebulizer HFAA 2 puffs every 4-6 hours [Active]; Zyrtec 10 mg Oral chew 1 tab once daily [Active]; - PMHx: 20:02 COPD; Diabetes - NIDDM; Hypertension; Parkinsons; bb - PSHx: 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 - Social history:: Smoking status: unknown. - Ebola Screening: : No symptoms or risks identified at this time. ROS: 20:31 Eyes: Negative for injury, pain, redness, and discharge, ENT: Negative for injury, pkl pain, and discharge. 20:31 Neck: Positive for pain with movement. 20:31 Cardiovascular: Negative for chest pain. 20:31 Respiratory: Negative for shortness of breath. 20:31 Abdomen/GI: Negative for abdominal pain, nausea, vomiting, and diarrhea. 20:31 Back: Negative for acute changes. 20:31 : Negative for urinary symptoms. 20:31 MS/extremity: Negative for injury or acute deformity. 20:31 Skin: Positive for laceration(s), of the left parietal scalp. 20:31 Neuro: Positive for loss of consciousness. Exam: 20:31 Eyes: Pupils equal round and reactive to light, extra-ocular motions intact. Lids and pkl lashes normal. Conjunctiva and sclera are non-icteric and not injected. Cornea within normal limits. Periorbital areas with no swelling, redness, or edema. 20:31 Head/face: Noted is a laceration(s), that is linear, 4 cm(s), of the left parietal scalp. 20:31 Eyes: Exam is negative for acute changes. 20:31 ENT: Exam is negative for acute changes. 20:31 Neck: ROM/movement: pain, that is mild, with any movement. 20:31 Chest/axilla: Exam negative for acute changes. 20:31 Cardiovascular: Rate: normal, Rhythm: regular. 20:31 Respiratory: the patient does not display signs of respiratory distress, Respirations: normal, Breath sounds: are clear throughout. 20:31 Abdomen/GI: Bowel sounds: normal, Palpation: abdomen is soft and non-tender, in all quadrants. 20:31 Back: Exam negative for acute changes. 20:31 : Exam negative for acute changes. 20:31 Musculoskeletal/extremity: Exam is negative for acute changes. 20:31 Skin: Exam negative for rash. 20:31 Neuro: Orientation: appropriate for stated age, Mentation: is normal, Cranial nerves: grossly normal, Motor: is normal. Vital Signs: 19:53 BP 131 / 114; Pulse 63; Resp 16 S; Temp 98.3(O); Pulse Ox 95% on R/A; Weight 132 kg bb (R); Height 5 ft. 7 in. (170.18 cm) (R); 20:35 BP 134 / 113; Pulse 73; Resp 18 S; Pulse Ox 94% on R/A; bb 21:30 BP 140 / 39; Pulse 77; Resp 16 S; Temp 98.5(O); Pulse Ox 97% on R/A; bb 19:53 Body Mass Index 45.58 (132.00 kg, 170.18 cm) bb [place] Coma Score: 19:53 Eye Response: spontaneous(4). Verbal Response: oriented(5). Motor Response: obeys bb commands(6). Total: 15. Trauma Score (Adult): 19:53 Eye Response: spontaneous(1); Verbal Response: oriented(1); Motor Response: obeys bb commands(2); Systolic BP: > 89 mm Hg(4); Respiratory Rate: 10 to 29 per min(4); [place] Score: 15; Trauma Score: 12 Laceration: 20:31 Wound Repair of 4cm ( 1.6in ) subcutaneous laceration to left parietal scalp. Linear pkl shaped.. Minimal bleeding noted.. Distal neuro/vascular/tendon intact. Wound prep: Moderate cleansing by nurse by me. Skin closed with 3 1-0 Prolene using staple gun. Dressed with Neosporin. Patient tolerated well. MDM: 19:48 Patient medically screened. pkl 20:31 Data reviewed: vital signs, nurses notes, radiologic studies, CT scan. pkl 03/24 19:49 Order name: CT Head C Spine; Complete Time: 20:29 pkl Administered Medications: 20:15 Drug: Tetanus-Diphtheria Toxoid Adult 0.5 ml {Supervisor [employer]: [employer]. Exp: bb 02/13/2021. Lot #: [id number]. } Route: IM; Site: right deltoid; 21:37 Follow up: Response: No adverse reaction bb Disposition: 03/24/19 20:40 Discharged to Home. Impression: Head injury. Laceration left parietal scalp. S/P Fall. - Condition is Stable. - Medication Reconciliation Form, Thank You Letter, Antibiotic Education, Prescription Opioid Use form. - Follow up: Private Physician; When: 7 - 10 days; Reason: Wound Recheck, Staple/Suture removal. - Problem is new. - Symptoms have improved. Signatures: Dispatcher [employer] EDMS Cj Mas MD MD pkl Verónica Stevenson, RN RN bb Corrections: (The following items were deleted from the chart) 21:39 20:40 03/24/2019 20:40 Discharged to Home. Impression: Head injury. Laceration left bb parietal scalp. S/P Fall. Condition is Stable. Forms are Medication Reconciliation Form, Thank You Letter, Antibiotic Education, Prescription Opioid Use. Follow up: Private Physician; When: 7 - 10 days; Reason: Wound Recheck, Staple/Suture removal. Problem is new. Symptoms have improved. pkl
[2019-03-24 23:03] VITALS: BP 140/39; TEMP 98.5; O2SAT 97
== END 2019-03-24 21:39 | disposition home or self-care (01) ==
LOC: ER 19:44
PROC: 0JQ00ZZ Repair Scalp Subcutaneous Tissue and Fascia, Open Approach (ICD-10-PCS; principal; 2019-03-24)
DX: S01.01XA Laceration without foreign body of scalp, initial encounter (principal); W01.190A Fall on same level from slipping, tripping and stumbling with subsequent striking against furniture, initial encounter; Y93.9 Activity, unspecified; Y92.9 Unspecified place or not applicable; Z23 Encounter for immunization; I10 Essential (primary) hypertension; E11.9 Type 2 diabetes mellitus without complications; J44.9 Chronic obstructive pulmonary disease, unspecified; G20 Parkinson's disease; Z79.82 Long term (current) use of aspirin
CPT/HCPCS: 70450; 72125; 90471; 90714; 99284